=== PATIENT | female | born 1935 | race African-American/Black ===

== ENCOUNTER 2017-04-04 10:10 | Emergency (ER) | payer MEDICARE, BC, OTHER ==
--- NOTE | 2017-04-04 11:26 | RAD ---
Indication fall. Pain. AP view the pelvis was obtained. Additional AP and frog leg views of both hips were obtained. No acute bony abnormality is seen. Vascular calcification is noted. IMPRESSION: No acute bony finding
--- NOTE | 2017-04-04 11:28 | RAD ---
Indication fall. Pain. Single view of the chest was obtained and is compared to an examination August 15, 2014. The heart and pulmonary vessels appear normal. No acute infiltrate is seen. Slightly tortuous thoracic aorta is noted similar to the previous exam. There has not been a significant change in the appearance of the chest compared to the prior study. IMPRESSION: No acute or focal process in the chest. No significant change
--- NOTE | 2017-04-04 11:37 | RAD ---
Indication fall. Pain. The head and cervical spine were evaluated. The head is compared to a study 12/03/2010. Images of the cervical spine were reformatted in the coronal and sagittal planes. CT head: Findings. The calvarium appears unremarkable. Visualized paranasal sinuses appear essentially unremarkable. There is no subdural or epidural hematoma. There is underlying atrophy. There is increased lucency in the deep white matter compatible with microvascular disease. There is no mass or midline shift. No hemorrhage is seen. CT cervical spine: Findings. An acute finding at the lung apices is not seen. There are some emphysematous changes noted. There are nodules in the left lobe of the thyroid which are probably incidental but could be further evaluated with ultrasound if clinically warranted. A definite or significant finding in the soft tissues of the neck is not seen. Review of axial images shows no acute finding. There is degenerative changes. Facet degenerative changes and uncovertebral degenerative changes are seen at several weeks. Review of the reformatted images in the coronal and sagittal planes demonstrates similar findings. IMPRESSION: Chronic changes in the head. No acute finding seen. Spondylitic changes in the cervical spine. No acute finding is seen PQRS Compliance Statement: One or more of the following individualized dose reduction techniques were utilized for this examination: 1. Automated exposure control 2. Adjustment of the mA and/or kV according to patient size 3. Use of iterative reconstruction technique
--- NOTE | 2017-04-04 11:51 | PHYS DOC ---
Past Medical History Past Medical History: Anemia, Anxiety, Dementia, Hypertension Additional Past Medical Histor: NON VERBAL,DYSPHAGIA,CONTRACTURES UE'S AND LE' S PRESSURE ULCERS Past Surgical History: Other Additional Past Surgical Histo: unknown Alcohol Use: None Drug Use: None Adult General Chief Complaint Chief Complaint: MECHANICAL FALL HPI HPI 82-year-old female presenting to the emergency department today after being found on the floor. She was next to her bed. It is unknown when she fell. Nursing staff reports seeing her last night at her baseline. She does have a significant nonverbal baseline with contractures of all extremities. She has mild swelling and bruising of the left cheek. Otherwise no obvious injuries reported by EMS. Onset today. Location head. Duration intermittent. No alleviating or exacerbating factors present. Review of systems is negative for chest pain shortness of breath abdominal pain nausea vomiting. All other review of systems is negative unless otherwise noted in history of present illness. ED course: 82-year-old female presenting to the emergency department today with apparent head injury after being in the group home. Secondary survey shows mild bruising in the left cheek otherwise the patient does not have any other lacerations abrasions ecchymosis or bruising of the head or neck. No step-offs lacerations or abrasions of the back. Heart and lungs are normal. Abdomen soft and nontender in the extremities are atraumatic with a palpable pulse and 2 second cap refill. No other identifiable traumatic injuries on secondary survey. The patient was then discharged home to follow up with PCP. The patient was then discharged home in stable condition to follow up with their primary care physician over the next 2-3 days. They were to return if their symptoms worsened or if they were concerned for any reason. [id number] discharge instructions and return precautions were given. Patient's questions were answered to their satisfaction. Patient is comfortable plan. Review of Systems Review of Systems SEE ABOVE. Allergies Allergies Allergies Coded Allergies Type Severity Reaction Last Updated Verified No Known Drug Allergies 08/15/14 No Physical Exam Physical Exam SEE ABOVE General Appearance alert, cooperative, no distress, responsive Head Normocephalic, without obvious abnormality, atraumatic Eyes conjunctivae/corneas clear. PERRL, EOM's intact. Ears normal TM's and external ear canals AU Nose Nares normal. Septum midline. Mucosa normal. No drainage or sinus tenderness. Throat no blood or lacerations, normal alignment Neck supple, symmetrical, trachea midline, cervical collar in place Back/Spine symmetric, normal curvature. ROM normal, no abrasions, no tenderness to palpation, no step-offs Lungs clear to auscultation bilaterally Chest Wall normal ribcage without tenderness to palpation, crepitus or emphysema Heart [] rate and regular rhythm, S1, S2 normal, no murmur, click, rub or gallop Abdomen soft, non-tender. Bowel sounds normal. No masses, no organomegaly Pelvic stable Rectal Able to squeeze gluteus bianca Extremities extremities normal, atraumatic with normal range of motion Pulses 2+ and symmetric Skin Skin color, texture, turgor normal. No rashes or lesions Neurologic Grossly normal Eye opening: (4) spontaneous Best motor response: (6) obeys verbal command Best verbal response: (5) oriented and converses Total Star (E + M + V) = 15 Current Patient Data Vital Signs Vital Signs Date Time Temp Pulse Resp B/P (MAP) Pulse Ox O2 Delivery O2 Flow Rate FiO2 04/04/17 10:14 98.0 60 16 176/74 (108) 98 Room Air 98.0 EKG EKG [] Radiology/Procedures Radiology/Procedures [] Course & Med Decision Making Course & Med Decision Making Pertinent Labs and Imaging studies reviewed. (See chart for details) [] Dragon Disclaimer Dragon Disclaimer This electronic medical record was generated, in whole or in part, using a voice recognition dictation system. Departure Departure Impression: Primary Impression: Fall Additional Impression: Head injury Disposition: HOME, SELF-CARE Condition: STABLE Referrals: DEVIKA MAGUIRE (PCP) Patient Instructions: Fall Prevention and Home Safety, [id number] Additional Instructions: Thank you for allowing us to participate in your care today. If you have any new aches or pains that may develop over the next 2-3 days that we did not address in the emergency department, please come back to be evaluated. Followup with your primary care physician in 3 days if your symptoms do not improve. Call your Primary Doctor tomorrow and inform them of your visit today. If you do not have a primary care provider you can ask for a list of our primary care providers. Return to the emergency department you have any new or concerning findings. This should be evaluated by the primary care physician and any necessary consulting services for continued management within a few days after discharge. Return to emergency room if you have any new or concerning symptoms including but not limited to fever, chills, nausea, vomiting, intractable pain, any new rashes, chest pain, shortness of air, uncontrolled bleeding, difficulty breathing, and/or vision loss. Problem Qualifiers GENESIS CHAMPION MD Apr 04, 2017 11:51
[2017-04-04 12:54] VITALS: BP 100/53
== END 2017-04-04 12:55 | disposition home or self-care (01) ==
LOC: ER 10:10
DX: S00.83XA Contusion of other part of head, initial encounter (principal); F03.90 Unspecified dementia, unspecified severity, without behavioral disturbance, psychotic disturbance, mood disturbance, and anxiety; I10 Essential (primary) hypertension; F41.9 Anxiety disorder, unspecified; Z86.2 Personal history of diseases of the blood and blood-forming organs and certain disorders involving the immune mechanism; W19.XXXA Unspecified fall, initial encounter; Y93.89 Activity, other specified; Y99.8 Other external cause status; Y92.89 Other specified places as the place of occurrence of the external cause
CPT/HCPCS: 70450; 71010; 72125; 73521; 99284-25

== ENCOUNTER 2017-06-11 13:50 | Inpatient (IN) | payer MEDICARE, BC, OTHER ==
[~2017-06-11] VITALS: Ht 152.4 cm; Wt 37.2 kg
[~2017-06-11 13:50] MED LIST: ACET325T9 PO; ALBU2.5V5 NEB; ASCO500T2 PO; CHOL2000 PO; CHOL4POW2 PO; CYAN10005 PO; IPRA3AMP NEB; LOPE2CAP88 PO; MEMA10TA PO; MULT-671 PO; OLOP2.5D EACHEYE; RIVA3CAP4 PO
--- NOTE | 2017-06-11 14:47 | RAD ---
Chest AP view 06/11/2017 Clinical indication: Cough, pneumonia, unable to communicate. Comparison: Chest 05/24/2017 Findings: Cardiac and mediastinal silhouettes are within normal limits. There are reticular and nodular opacities scattered throughout the right mid and lower lung. No pleural effusion or pneumothorax. Impression: Reticular and nodular opacities throughout the right mid and lower lung. Findings may represent aspiration or pneumonia with atypical etiologies not excluded.
[2017-06-11 15:24] LABS: BASO % 1 % (0-3); EOS % 0 % (0-3); HEMATOCRIT 39.2 % (36.0-47.0); HEMOGLOBIN 12.6 g/dL (12.0-15.5); LYMPH # 1.4 x10^3/uL (1.0-4.8); LYMPH % 17 % (24-48); MEAN CORPUSCULAR HEMOGLOBIN 30 pg (25-35); MEAN CORPUSCULAR HGB CONC 32 g/dL (31-37); MEAN CORPUSCULAR VOLUME 94 fL (79-100); MONO % 6 % (0-9); NEUT % 77 % (31-73); PLATELET COUNT 373 x10^3/uL (140-400); RED BLOOD COUNT 4.17 x10^6/uL (3.50-5.40); RED CELL DISTRIBUTION WIDTH 15.6 % (11.5-14.5); WHITE BLOOD COUNT 8.6 x10^3/uL (4.0-11.0)
--- NOTE | 2017-06-11 15:34 | PHYS DOC ---
Past Medical History Past Medical History: Anemia, Anxiety, Dementia, Hypertension Additional Past Medical Histor: NON VERBAL,DYSPHAGIA,CONTRACTURES UE'S AND LE' S PRESSURE ULCERS Past Surgical History: Other Additional Past Surgical Histo: unknown Alcohol Use: None Drug Use: None Adult General Chief Complaint Chief Complaint: COUGH HPI HPI Patient is a 82 year old female who presents with in day history of fever uncertain of cough; history physical review of systems limited by patient being nonverbal with advanced dementia and bedridden history per granddaughter; is admission with a significant decubitus ulcer, infected, wound VAC and antibiotics for extended period time. Recently been placed on Bactrim. Today outpatient chest x-ray showed pneumonia and was started on by mouth Levaquin 1 dose. Her granddaughter had demanded the patient be sent to the emergency department. Patient is a full code. Review of Systems Review of Systems Constitutional: Denies fever or chills [] Eyes: Denies change in visual acuity, redness, or eye pain [] HENT: Denies nasal congestion or sore throat [] Respiratory: Denies cough or shortness of breath [] Cardiovascular: No additional information not addressed in HPI [] GI: Denies abdominal pain, nausea, vomiting, bloody stools or diarrhea [] : Denies dysuria or hematuria [] Musculoskeletal: Denies back pain or joint pain [] Integument: Denies rash or skin lesions [] Neurologic: Denies headache, focal weakness or sensory changes [] Endocrine: Denies polyuria or polydipsia [] All other systems were reviewed and found to be within normal limits, except as documented in this note. Current Medications Current Medications Current Medications Medications (Trade) Dose Ordered Sig/Felix Start Time Stop Time Status Last Admin Dose Admin Morphine Sulfate 2 mg PRN Q2HR PRN 06/11/17 16:30 06/12/17 16:29 Ondansetron HCl (Zofran) 4 mg PRN Q8HRS PRN 06/11/17 16:30 06/12/17 16:29 Piperacillin Sod/ Tazobactam Sod (Zosyn) 3.375 gm 1X ONCE 06/11/17 15:45 06/11/17 15:46 DC Piperacillin Sod/ Tazobactam Sod 3.375 gm/Dextrose 50 ml @ 100 mls/hr 1X ONCE 06/11/17 15:45 06/11/17 16:14 UNV Sodium Chloride 1,000 ml @ 1,000 mls/hr 1X ONCE 06/11/17 16:30 06/11/17 17:29 Vancomycin HCl 250 ml @ 250 mls/hr 1X ONCE 06/11/17 15:45 06/11/17 16:44 06/11/17 15:48 250 MLS/HR Vancomycin HCl 1.25 gm/Sodium Chloride 500 ml @ 250 mls/hr 1X ONCE 06/11/17 15:45 06/11/17 17:44 UNV Allergies Allergies Allergies Coded Allergies Type Severity Reaction Last Updated Verified No Known Drug Allergies 08/15/14 No Physical Exam Physical Exam Constitutional:, no acute distress, non-toxic appearance. [] HENT: Normocephalic, atraumatic, bilateral external ears normal, oropharynx moist, no oral exudates, nose normal. [] Eyes: PERRLA, EOMI, conjunctiva normal, no discharge. [] Neck: Normal range of motion, no tenderness, supple, no stridor. [] Cardiovascular:Heart rate regular rhythm, no murmur [] Lungs & Thorax: Bilateral breath sounds clear to auscultation [] Abdomen: Bowel sounds normal, soft, no tenderness, no masses, no pulsatile masses. [] Skin: Warm, dry, no erythema, no rash. [] Back: No tenderness, no CVA tenderness. [] Extremities: No tenderness, no cyanosis, no clubbing, ROM intact, no edema. [] Neurologic: Alert , contractures. Lower extremities. [] Psychologic: Affect normal, judgement normal, mood normal. [] Current Patient Data Vital Signs Vital Signs Date Time Temp Pulse Resp B/P (MAP) Pulse Ox O2 Delivery O2 Flow Rate FiO2 06/11/17 15:30 78 18 187/84 (118) 96 Room Air 06/11/17 13:50 98.1 98.1 Lab Values Laboratory Tests Test 06/11/17 15:00 White Blood Count 8.6 x10^3/uL (4.0-11.0) Red Blood Count 4.17 x10^6/uL (3.50-5.40) Hemoglobin 12.6 g/dL (12.0-15.5) Hematocrit 39.2 % (36.0-47.0) Mean Corpuscular Volume 94 fL (79-100) Mean Corpuscular Hemoglobin 30 pg (25-35) Mean Corpuscular Hemoglobin Concent 32 g/dL (31-37) Red Cell Distribution Width 15.6 % (11.5-14.5) H Platelet Count 373 x10^3/uL (140-400) Neutrophils (%) (Auto) 77 % (31-73) H Lymphocytes (%) (Auto) 17 % (24-48) L Monocytes (%) (Auto) 6 % (0-9) Eosinophils (%) (Auto) 0 % (0-3) Basophils (%) (Auto) 1 % (0-3) Neutrophils # (Auto) 6.7 x10^3uL (1.8-7.7) Lymphocytes # (Auto) 1.4 x10^3/uL (1.0-4.8) Monocytes # (Auto) 0.5 x10^3/uL (0.0-1.1) Eosinophils # (Auto) 0.0 x10^3/uL (0.0-0.7) Basophils # (Auto) 0.0 x10^3/uL (0.0-0.2) Sodium Level 157 mmol/L (136-145) H Potassium Level 3.4 mmol/L (3.5-5.1) L Chloride Level 115 mmol/L (98-107) H Carbon Dioxide Level 31 mmol/L (21-32) Anion Gap 11 (6-14) Blood Urea Nitrogen 27 mg/dL (7-20) H Creatinine 1.1 mg/dL (0.6-1.0) H Estimated GFR (Cockcroft-Gault) 57.8 BUN/Creatinine Ratio 25 (6-20) H Glucose Level 104 mg/dL (70-99) H Lactic Acid Level 1.9 mmol/L (0.4-2.0) Calcium Level 10.5 mg/dL (8.5-10.1) H Total Bilirubin 0.3 mg/dL (0.2-1.0) Aspartate Amino Transferase (AST) 37 U/L (15-37) Alanine Aminotransferase (ALT) 47 U/L (14-59) Alkaline Phosphatase 100 U/L (46-116) Troponin I Quantitative < 0.017 ng/mL (0.000-0.055) Total Protein 9.2 g/dL (6.4-8.2) H Albumin 2.6 g/dL (3.4-5.0) L Albumin/Globulin Ratio 0.4 (1.0-1.7) L Laboratory Tests 06/11/17 15:00 Laboratory Tests 06/11/17 15:00 EKG EKG [] Radiology/Procedures Radiology/Procedures Chest x-ray shows right middle lobe and lower lobe infiltrates my review per radiology report.[] Course & Med Decision Making Course & Med Decision Making Pertinent Labs and Imaging studies reviewed. (See chart for details) [White count normal, chest x-ray showed pneumonia, is hypernatremic we'll treat with broad-spectrum antibiotics and IV fluids. Discussed the case with Dr. Foster he agrees to readmit this patient who was recently in the hospital about 2 weeks ago.] Discussed with granddaughter patient is still a full code. Dragon Disclaimer Dragon Disclaimer This electronic medical record was generated, in whole or in part, using a voice recognition dictation system. Departure Departure Impression: Primary Impression: Healthcare-associated pneumonia Additional Impressions: Hypernatremia Dehydration Disposition: ADMITTED INPATIENT Admitting Physician: Biju Foster Condition: STABLE Referrals: DEVIKA MAGUIRE (PCP) Problem Qualifiers RAMÍREZ YIN MD Jun 11, 2017 15:34
[2017-06-11 15:35] LABS: CALCIUM 10.5 mg/dL (8.5-10.1); CREATININE 1.1 mg/dL (0.6-1.0); GFR 57.8; POTASSIUM 3.4 mmol/L (3.5-5.1)
[2017-06-11 15:41] LABS: ALBUMIN 2.6 g/dL (3.4-5.0); ALBUMIN/GLOBULIN RATIO 0.4 (1.0-1.7); TOTAL BILIRUBIN 0.3 mg/dL (0.2-1.0); TOTAL PROTEIN 9.2 g/dL (6.4-8.2)
[2017-06-11] MEDS ORDERED: PIPERACILLIN/TAZOBACTAM 3.375 GM in IV DEXTROSE 5% 50 ML IV ONE (15:45)
[2017-06-11] MEDS ORDERED: VANCOMYCIN 1.25 GM in IV NORMAL SALINE 500ML BAG 500 ML IV ONE (15:45)
[2017-06-11] MEDS ORDERED: PIPERACILLIN/TAZO IV Push 3.375 GM VIAL. IVP ONE (15:45)
[2017-06-11] MEDS ORDERED: VANCOMYCIN 1GM IVPB FOR OMNI 250 ML IV ONE (15:45)
--- NOTE | 2017-06-11 16:19 | EKG ---
[facility] [address] [place] [address] Test Date: 2017-06-11 Test Time: 14:03:44 Pat Name: LAURI COLBERT Department: Room: Gender: F Child Support Case Officer: : 1935 Requested By: RAMÍREZ YIN Order Number: [id number] Reading MD: Liam Anderson MD Measurements Intervals [place] Rate: 71 P: RI: QRS: -15 QRSD: 80 T: 39 QT: 376 QTc: 409 Interpretive Statements SR Electronically Signed On 06-12-2017 8:30:54 LOAD TALLIER by Liam Anderson MD
[2017-06-11] MEDS ORDERED: ONDANSETRON PF 4 MG/2 ML VIAL. IV PRN (16:30)
[2017-06-11] MEDS ORDERED: MORPHINE SULFATE 4 MG/ML DISP.SYRIN. IV PRN (16:30)
[2017-06-11] MEDS ORDERED: IV NORMAL SALINE 1000ML BAG 1,000 ML IV ONE (16:30)
[2017-06-11 18:37] VITALS: BP 187/81
[2017-06-11 18:39] VITALS: BP 187/81
[2017-06-11] MEDS ORDERED: LACT1CAP6 PO (19:27)
[2017-06-11] MEDS ORDERED: INFLUENZA VAX SCREEN BY RX. MC PRN (22:15)
[2017-06-11 23:05] VITALS: BP 192/90
[2017-06-12] VITALS (7 sets, daily range): BP systolic 155–184; BP diastolic 66–87
[2017-06-12 05:17] LABS: BASO % 0 % (0-3); EOS % 1 % (0-3); HEMATOCRIT 37.5 % (36.0-47.0); HEMOGLOBIN 12.3 g/dL (12.0-15.5); LYMPH # 1.6 x10^3/uL (1.0-4.8); LYMPH % 18 % (24-48); MEAN CORPUSCULAR HEMOGLOBIN 30 pg (25-35); MEAN CORPUSCULAR HGB CONC 33 g/dL (31-37); MEAN CORPUSCULAR VOLUME 93 fL (79-100); MONO % 7 % (0-9); NEUT % 75 % (31-73); PLATELET COUNT 387 x10^3/uL (140-400); RED BLOOD COUNT 4.05 x10^6/uL (3.50-5.40); RED CELL DISTRIBUTION WIDTH 15.1 % (11.5-14.5); WHITE BLOOD COUNT 9.2 x10^3/uL (4.0-11.0)
[2017-06-12 05:31] LABS: CALCIUM 10.2 mg/dL (8.5-10.1); GFR 64.6; POTASSIUM 3.3 mmol/L (3.5-5.1)
--- NOTE | 2017-06-12 08:36 | PDOC ---
GENERAL General: see dictated H&P. admitted for pneumonia and has ongoing sacral decubitus care ongoing at care home. Problems: VITAL SIGNS Vital Signs: Vital Signs Date Time Temp Pulse Resp B/P (MAP) Pulse Ox O2 Delivery O2 Flow Rate FiO2 06/12/17 07:36 97.7 69 16 163/66 (98) 95 Room Air 97.7 I & O I & O Intake and Output 06/12/17 07:00 Intake Total 340 ml Balance 340 ml Intake Oral 340 ml # Voids 4 # Bowel Movements 1 ALLERGIES Allergies: Allergies Coded Allergies Type Severity Reaction Last Updated Verified No Known Drug Allergies 08/15/14 No MEDS Medications: Current Medications Medications (Trade) Dose Ordered Sig/Felix Start Time Stop Time Status Last Admin Dose Admin Info (Do NOT chart on this placeholder) 0.5 each PRN DAILY PRN 06/11/17 22:15 Morphine Sulfate 2 mg PRN Q2HR PRN 06/11/17 16:30 06/12/17 16:29 Ondansetron HCl (Zofran) 4 mg PRN Q8HRS PRN 06/11/17 16:30 06/12/17 16:29 Piperacillin Sod/ Tazobactam Sod (Zosyn) 3.375 gm 1X ONCE 06/11/17 15:45 06/11/17 15:46 DC 06/11/17 17:10 3.375 GM Piperacillin Sod/ Tazobactam Sod 3.375 gm/Dextrose 50 ml @ 100 mls/hr 1X ONCE 06/11/17 15:45 06/11/17 16:14 UNV Sodium Chloride 1,000 ml @ 1,000 mls/hr 1X ONCE 06/11/17 16:30 06/11/17 17:29 DC 06/11/17 16:30 1,000 MLS/HR Vancomycin HCl 250 ml @ 250 mls/hr 1X ONCE 06/11/17 15:45 06/11/17 16:44 DC 06/11/17 15:48 250 MLS/HR Vancomycin HCl 1.25 gm/Sodium Chloride 500 ml @ 250 mls/hr 1X ONCE 06/11/17 15:45 06/11/17 17:44 UNV LAB Lab: Laboratory Tests Test 06/11/17 15:00 06/12/17 03:30 White Blood Count 8.6 x10^3/uL (4.0-11.0) 9.2 x10^3/uL (4.0-11.0) Red Blood Count 4.17 x10^6/uL (3.50-5.40) 4.05 x10^6/uL (3.50-5.40) Hemoglobin 12.6 g/dL (12.0-15.5) 12.3 g/dL (12.0-15.5) Hematocrit 39.2 % (36.0-47.0) 37.5 % (36.0-47.0) Mean Corpuscular Volume 94 fL (79-100) 93 fL (79-100) Mean Corpuscular Hemoglobin 30 pg (25-35) 30 pg (25-35) Mean Corpuscular Hemoglobin Concent 32 g/dL (31-37) 33 g/dL (31-37) Red Cell Distribution Width 15.6 % (11.5-14.5) 15.1 % (11.5-14.5) Platelet Count 373 x10^3/uL (140-400) 387 x10^3/uL (140-400) Neutrophils (%) (Auto) 77 % (31-73) 75 % (31-73) Lymphocytes (%) (Auto) 17 % (24-48) 18 % (24-48) Monocytes (%) (Auto) 6 % (0-9) 7 % (0-9) Eosinophils (%) (Auto) 0 % (0-3) 1 % (0-3) Basophils (%) (Auto) 1 % (0-3) 0 % (0-3) Neutrophils # (Auto) 6.7 x10^3uL (1.8-7.7) 6.9 x10^3uL (1.8-7.7) Lymphocytes # (Auto) 1.4 x10^3/uL (1.0-4.8) 1.6 x10^3/uL (1.0-4.8) Monocytes # (Auto) 0.5 x10^3/uL (0.0-1.1) 0.6 x10^3/uL (0.0-1.1) Eosinophils # (Auto) 0.0 x10^3/uL (0.0-0.7) 0.1 x10^3/uL (0.0-0.7) Basophils # (Auto) 0.0 x10^3/uL (0.0-0.2) 0.0 x10^3/uL (0.0-0.2) Sodium Level 157 mmol/L (136-145) 155 mmol/L (136-145) Potassium Level 3.4 mmol/L (3.5-5.1) 3.3 mmol/L (3.5-5.1) Chloride Level 115 mmol/L (98-107) 116 mmol/L (98-107) Carbon Dioxide Level 31 mmol/L (21-32) 32 mmol/L (21-32) Anion Gap 11 (6-14) 7 (6-14) Blood Urea Nitrogen 27 mg/dL (7-20) 25 mg/dL (7-20) Creatinine 1.1 mg/dL (0.6-1.0) 1.0 mg/dL (0.6-1.0) Estimated GFR (Cockcroft-Gault) 57.8 64.6 BUN/Creatinine Ratio 25 (6-20) Glucose Level 104 mg/dL (70-99) 118 mg/dL (70-99) Lactic Acid Level 1.9 mmol/L (0.4-2.0) Calcium Level 10.5 mg/dL (8.5-10.1) 10.2 mg/dL (8.5-10.1) Total Bilirubin 0.3 mg/dL (0.2-1.0) Aspartate Amino Transf (AST/SGOT) 37 U/L (15-37) Alanine Aminotransferase (ALT/SGPT) 47 U/L (14-59) Alkaline Phosphatase 100 U/L (46-116) Troponin I Quantitative < 0.017 ng/mL (0.000-0.055) Total Protein 9.2 g/dL (6.4-8.2) Albumin 2.6 g/dL (3.4-5.0) Albumin/Globulin Ratio 0.4 (1.0-1.7) OMAR WAKEFIELD MD Jun 12, 2017 08:36
[2017-06-12] MEDS: VANCOMYCIN PER PHARMACY MC PRN (09:07)
--- NOTE | 2017-06-12 10:08 | CONS ---
DATE OF CONSULTATION: 06/11/2017 ATTENDING PHYSICIAN: Dr. Foster. REASON FOR CONSULTATION: Pneumonia. HISTORY OF PRESENT ILLNESS: The patient is an 82-year-old female who lives at the group home. She was brought into the hospital with fever and then a cough. The patient is nonverbal and has advanced dementia and has been bedridden per granddaughter and as reviewed from the history from the ER. I am unable to obtain much history from the patient. I have reviewed all the chart information, lab values and x-rays. She also has been treated for significant decubitus ulcers, wound VAC and antibiotics for an extended period of time. On arrival, the patient's chest x-ray was reviewed by me and it shows progression of interstitial possible reticular nodular infiltrates in the right lung. There have been mild interstitial infiltrates on her previous x-rays from March and April. The patient has been initiated on broad-spectrum antibiotic with vancomycin and Zosyn. Apparently, she is on a dysphagia diet at group home. PAST MEDICAL HISTORY: Significant for anemia, anxiety, advanced dementia, hypertension, nonverbal, history of dysphagia, contractures and lower extremity pressure ulcers. PAST SURGICAL HISTORY: Unknown. ALLERGIES: NONE. CURRENT MEDICATIONS: Reviewed as listed in the [facility]AD. SOCIAL HISTORY: Lives at the group home. PHYSICAL EXAMINATION: GENERAL: She is in no obvious respiratory distress, but is nonverbal. VITAL SIGNS: Blood pressure initially was high 192 systolic, now 163, afebrile but had some subjective fever at group home. Pulse ox 95% on room air. NECK: Supple. LUNGS: With a few anterior rhonchi, especially on the right side. CARDIOVASCULAR: Regular rate and rhythm. ABDOMEN: Soft. EXTREMITIES: Contracted. No pitting edema. LABORATORY DATA: Reviewed. White cell count 9.2, hemoglobin 12.3 and platelets are 387. BUN is 25 and creatinine of 1.0, albumin 2.6. IMPRESSION: 1. Progressive reticular nodular/interstitial infiltrates, especially on the right side since past x-rays from March and April and I suspect we may be dealing with chronic aspiration. Clinically, less likely any interstitial lung disease, but we will obtain CT chest for further evaluation. 2. Advanced dementia. 3. Moderate protein calorie malnutrition. 4. Dehydration. 5. Hypernatremia secondary to dehydration. 6. Suspected gram-negative and gram-positive healthcare-associated pneumonia. RECOMMENDATIONS: 1. Continue with present broad-spectrum antibiotics. 2. Obtain noncontrast CT chest. 3. Speech evaluation to assess the safety of oral feeding. 4. We will follow chest x-rays in 3-4 days. 5. Would recommend discussion of advanced directives with the family. Currently, she is reported as full code. 6. Discussed with RN. SANGEETA HAM MD DR: MIGUEL ANGEL/brandi JOB#: [id number] / [id number] JONNIE
[2017-06-12] MEDS ORDERED: PIPERACILLIN/TAZOBACTAM 3.375 GM in IV DEXTROSE 5% 50 ML IV SCH (12:00)
--- NOTE | 2017-06-12 12:41 | RAD ---
CT chest without contrast 06/12/2017 Clinical indication: Pneumonia. Comparison: Chest 06/11/2017 Technique: Multiple noncontrast CT images of the chest were obtained without contrast according to standard protocol. PQRS Compliance Statement: One or more of the following individualized dose reduction techniques were utilized for this examination: 1. Automated exposure control 2. Adjustment of the mA and/or kV according to patient size 3. Use of iterative reconstruction technique Findings: Heart size is normal without significant pericardial effusion. There are three-vessel coronary artery calcifications. There are multiple hypodense left thyroid nodules. 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 No axillary lymphadenopathy. There is a mildly enlarged lower right paratracheal lymph node measuring 10 mm short axis series 3/image 20. No obvious hilar lymphadenopathy, though evaluation is limited absence of intravenous contrast. There are retained secretions in the right mainstem and subsegmental bronchi including mucus impaction of subsegmental bronchi in the right lower lobe. No pleural effusion or pneumothorax. There is moderate centrilobular emphysema. There are tree-in-bud opacities throughout the right upper right lower and left lower lobes dependently. There is mild patchy subpleural consolidation in the deep inner right lower lobe. There are no destructive osseous lesions. Impression: 1. Bilateral tree-in-bud opacities dependently in the lungs with mild right lower lobe patchy consolidation. Findings concerning for aspiration or multifocal pneumonia. 2. Mildly enlarged mediastinal lymph node, may be reactive. 3. Moderate emphysema. 4. Left lobe thyroid hypodense nodules. Nonemergent thyroid ultrasound is recommended, if not already performed.
[2017-06-12] MEDS: IV NORMAL SALINE 1000ML BAG 1,000 ML IV SCH ×3 (12:43→23:27)
[2017-06-12] MEDS: PIPERACILLIN/TAZO IV Push 3.375 GM VIAL. IVP SCH ×3 (12:44→23:28)
[2017-06-12] MEDS: VANCOMYCIN 1 GM in IV DEXTROSE 5% 250 ML IV SCH (15:59)
--- NOTE | 2017-06-12 18:53 | HP ---
ADMIT DATE: 06/12/2017 CHIEF COMPLAINT AND HISTORY OF PRESENT ILLNESS: This 82-year-old black female, patient of [facility], had worsening symptoms with the diagnosis of pneumonia made on a chest x-ray. She was sent to the Emergency Room where she was admitted for the pneumonia. She had been recently admitted and discharged with infected sacral decubitus wound, for which she had been debrided and had been on IV antibiotics during that stay. PAST MEDICAL HISTORY: Remarkable for CVA. She has been nonverbal. She has upper and lower extremity flexion contractures, history of dysphagia, history of pressure ulcers, anxiety, anemia, hypertension, dementia. MEDICATIONS: Brought with the patient, listed on the computer and have been addressed. ALLERGIES: She has no known drug allergies. SOCIAL HISTORY: She is a retirement resident, nonsmoker, nondrinker, does not use drugs. FAMILY HISTORY: Noncontributory. REVIEW OF SYSTEMS: Impossible other than what comes from the granddaughter, which includes worsening cough over the last 3 days. PHYSICAL EXAMINATION: GENERAL: She is a well-developed, well-nourished, thin female, in no acute distress. VITAL SIGNS: Stable. She is afebrile. HEAD, EYES, EARS, NOSE AND THROAT: Unremarkable. NECK: Supple without adenopathy or thyromegaly. CHEST: Clear to auscultation and percussion. HEART: Regular rate and rhythm without S3, S4 or murmur. ABDOMEN: Soft, nontender, without hepatosplenomegaly or mass. EXTREMITIES: Without cyanosis, clubbing. Significant edema. NEUROLOGIC: alert, nonverbal. She does have flexion contractures, otherwise no focal findings. SKIN: She does have decubitus, which was dressed with a wound VAC at the time of my examination. IMPRESSION: Hospital-acquired pneumonia. The patient with multiple other problems listed above. She is also quite hypernatremic with sodium of 157 on admission suggesting dehydration. PLAN: The patient has been admitted. Hydration and IV antibiotics will ensue. Pulmonary will be asked to see her. Wound Care will be asked to follow along with the decubitus and the patient will be monitored, managed and treated appropriately. OMAR WAKEFIELD MD DR: STEPAN/brandi JOB#: [id number] / [id number]
[2017-06-13 03:33] VITALS: BP 181/81
[2017-06-13] MEDS: PIPERACILLIN/TAZO IV Push 3.375 GM VIAL. IVP SCH ×3 (05:52→18:30)
[2017-06-13 06:54] VITALS: BP 180/87
[2017-06-13 06:55] LABS: CALCIUM 9.3 mg/dL (8.5-10.1); CREATININE 0.8 mg/dL (0.6-1.0); GFR 83.5
--- NOTE | 2017-06-13 09:01 | PDOC ---
GENERAL General: vss and afebrile. mental status same. chest better breath sounds today, heart regular, and abdomen benign. ct chest cw pneumonia. antibiotics ongoing. pulmonary help appreciated. continue present. Problems: VITAL SIGNS Vital Signs: Vital Signs Date Time Temp Pulse Resp B/P (MAP) Pulse Ox O2 Delivery O2 Flow Rate FiO2 06/13/17 06:54 97.6 63 16 180/87 (118) 94 Room Air 97.6 I & O I & O Intake and Output 06/13/17 07:00 Intake Total 1050 ml Balance 1050 ml Intake Oral 0 ml IV Total 1050 ml # Voids 5 ALLERGIES Allergies: Allergies Coded Allergies Type Severity Reaction Last Updated Verified No Known Drug Allergies 08/15/14 No MEDS Medications: Current Medications Medications (Trade) Dose Ordered Sig/Felix Start Time Stop Time Status Last Admin Dose Admin Info (Do NOT chart on this placeholder) 0.5 each PRN DAILY PRN 06/11/17 22:15 Morphine Sulfate 2 mg PRN Q2HR PRN 06/11/17 16:30 06/12/17 16:29 DC Ondansetron HCl (Zofran) 4 mg PRN Q8HRS PRN 06/11/17 16:30 06/12/17 16:29 DC Piperacillin Sod/ Tazobactam Sod (Zosyn) 3.375 gm Q6HRS 06/12/17 09:00 06/13/17 05:52 3.375 GM Piperacillin Sod/ Tazobactam Sod 3.375 gm/Dextrose 50 ml @ 100 mls/hr Q6HRS 06/12/17 12:00 UNV Sodium Chloride 1,000 ml @ 100 mls/hr Q10H 06/12/17 08:45 06/12/17 23:27 100 MLS/HR Vancomycin HCl 1 each 1X ONCE 06/13/17 14:30 06/13/17 14:31 Vancomycin HCl (Vanco Per Pharmacy) 1 each PRN DAILY PRN 06/12/17 08:45 06/12/17 09:07 1 EACH Vancomycin HCl 1.25 gm/Sodium Chloride 500 ml @ 250 mls/hr 1X ONCE 06/11/17 15:45 06/11/17 17:44 UNV Vancomycin HCl 1 gm/Dextrose 250 ml @ 250 mls/hr Q24H 06/12/17 15:00 06/12/17 15:59 250 MLS/HR LAB Lab: Laboratory Tests Test 06/13/17 05:25 Sodium Level 151 mmol/L (136-145) Potassium Level 3.0 mmol/L (3.5-5.1) Chloride Level 115 mmol/L (98-107) Carbon Dioxide Level 26 mmol/L (21-32) Anion Gap 10 (6-14) Blood Urea Nitrogen 20 mg/dL (7-20) Creatinine 0.8 mg/dL (0.6-1.0) Estimated GFR (Cockcroft-Gault) 83.5 Glucose Level 93 mg/dL (70-99) Calcium Level 9.3 mg/dL (8.5-10.1) OMAR WAKEFIELD MD Jun 13, 2017 09:01
--- NOTE | 2017-06-13 09:43 | PDOC ---
PULMONARY PROGRESS NOTES Subjective non verbal no soa Vitals Vital Signs Date Time Temp Pulse Resp B/P (MAP) Pulse Ox O2 Delivery O2 Flow Rate FiO2 06/13/17 06:54 97.6 63 16 180/87 (118) 94 Room Air 97.6 General: No acute distress Lungs: Clear Cardiovascular: S1 Abdomen: Soft Extremities: No Edema Skin: Warm Labs Laboratory Tests Test 06/11/17 15:00 06/11/17 23:47 06/12/17 03:30 06/13/17 05:25 White Blood Count 8.6 x10^3/uL (4.0-11.0) 9.2 x10^3/uL (4.0-11.0) Red Blood Count 4.17 x10^6/uL (3.50-5.40) 4.05 x10^6/uL (3.50-5.40) Hemoglobin 12.6 g/dL (12.0-15.5) 12.3 g/dL (12.0-15.5) Hematocrit 39.2 % (36.0-47.0) 37.5 % (36.0-47.0) Mean Corpuscular Volume 94 fL (79-100) 93 fL (79-100) Mean Corpuscular Hemoglobin 30 pg (25-35) 30 pg (25-35) Mean Corpuscular Hemoglobin Concent 32 g/dL (31-37) 33 g/dL (31-37) Red Cell Distribution Width 15.6 % (11.5-14.5) 15.1 % (11.5-14.5) Platelet Count 373 x10^3/uL (140-400) 387 x10^3/uL (140-400) Neutrophils (%) (Auto) 77 % (31-73) 75 % (31-73) Lymphocytes (%) (Auto) 17 % (24-48) 18 % (24-48) Monocytes (%) (Auto) 6 % (0-9) 7 % (0-9) Eosinophils (%) (Auto) 0 % (0-3) 1 % (0-3) Basophils (%) (Auto) 1 % (0-3) 0 % (0-3) Neutrophils # (Auto) 6.7 x10^3uL (1.8-7.7) 6.9 x10^3uL (1.8-7.7) Lymphocytes # (Auto) 1.4 x10^3/uL (1.0-4.8) 1.6 x10^3/uL (1.0-4.8) Monocytes # (Auto) 0.5 x10^3/uL (0.0-1.1) 0.6 x10^3/uL (0.0-1.1) Eosinophils # (Auto) 0.0 x10^3/uL (0.0-0.7) 0.1 x10^3/uL (0.0-0.7) Basophils # (Auto) 0.0 x10^3/uL (0.0-0.2) 0.0 x10^3/uL (0.0-0.2) Sodium Level 157 mmol/L (136-145) 155 mmol/L (136-145) 151 mmol/L (136-145) Potassium Level 3.4 mmol/L (3.5-5.1) 3.3 mmol/L (3.5-5.1) 3.0 mmol/L (3.5-5.1) Chloride Level 115 mmol/L (98-107) 116 mmol/L (98-107) 115 mmol/L (98-107) Carbon Dioxide Level 31 mmol/L (21-32) 32 mmol/L (21-32) 26 mmol/L (21-32) Anion Gap 11 (6-14) 7 (6-14) 10 (6-14) Blood Urea Nitrogen 27 mg/dL (7-20) 25 mg/dL (7-20) 20 mg/dL (7-20) Creatinine 1.1 mg/dL (0.6-1.0) 1.0 mg/dL (0.6-1.0) 0.8 mg/dL (0.6-1.0) Estimated GFR (Cockcroft-Gault) 57.8 64.6 83.5 BUN/Creatinine Ratio 25 (6-20) Glucose Level 104 mg/dL (70-99) 118 mg/dL (70-99) 93 mg/dL (70-99) Lactic Acid Level 1.9 mmol/L (0.4-2.0) Calcium Level 10.5 mg/dL (8.5-10.1) 10.2 mg/dL (8.5-10.1) 9.3 mg/dL (8.5-10.1) Total Bilirubin 0.3 mg/dL (0.2-1.0) Aspartate Amino Transf (AST/SGOT) 37 U/L (15-37) Alanine Aminotransferase (ALT/SGPT) 47 U/L (14-59) Alkaline Phosphatase 100 U/L (46-116) Troponin I Quantitative < 0.017 ng/mL (0.000-0.055) Total Protein 9.2 g/dL (6.4-8.2) Albumin 2.6 g/dL (3.4-5.0) Albumin/Globulin Ratio 0.4 (1.0-1.7) Nasal Screen MRSA (PCR) Negative (Negative) Laboratory Tests Test 06/13/17 05:25 Sodium Level 151 mmol/L (136-145) Potassium Level 3.0 mmol/L (3.5-5.1) Chloride Level 115 mmol/L (98-107) Carbon Dioxide Level 26 mmol/L (21-32) Anion Gap 10 (6-14) Blood Urea Nitrogen 20 mg/dL (7-20) Creatinine 0.8 mg/dL (0.6-1.0) Estimated GFR (Cockcroft-Gault) 83.5 Glucose Level 93 mg/dL (70-99) Calcium Level 9.3 mg/dL (8.5-10.1) Medications Active Scripts Medications Dose Route/Sig Max Daily Dose Days Date Category Probiotic (Lactobacillus Acidophilus) 1 Each Capsule 1 Each PO BID92 06/11/17 Reported Vitamin D (Cholecalciferol (Vitamin D3)) 2,000 Unit Capsule 1 Cap PO DAILY 05/14/17 Reported Vitamin C (Ascorbic Acid) 500 Mg Tablet 500 Mg PO DAILY 05/14/17 Reported Tylenol (Acetaminophen) 325 Mg Tablet 325 Mg PO PRN Q4HRS PRN 05/14/17 Reported Pataday (Olopatadine Hcl) 2.5 Ml Drops 1 Drop EACHEYE DAILY 05/14/17 Reported Namenda (Memantine Hcl) 10 Mg Tablet 1 Tab PO BID 05/14/17 Reported Nipnl-Jtqhooj-Kkvkfxuy Tablet (Multivit-Min/Iron Fum/Folic AC) 1 Each Tablet 1 Each PO DAILY 10/17/17 Reported Imodium A-D (Loperamide HCl) 2 Mg Capsule 2 Mg PO PRN Q4HRS PRN 05/14/17 Reported Rivastigmine (Rivastigmine Tartrate) 3 Mg Capsule 3 Mg PO BID 05/14/17 Reported Duoneb 0.5-3(2.5) Mg/3 Ml (Albuterol/Ipratropium) 3 Ml Ampul.neb 3 Ml NEB PRN Q6HRS PRN 05/14/17 Reported Vitamin B-12 (Cyanocobalamin (Vitamin B-12)) 1,000 Mcg Tablet 500 Mcg PO DAILY 05/14/17 Reported Cholestyramine Packet (Cholestyramine (With Sugar)) 4 Gm Powd.pack 4 Gm PO DAILY 05/14/17 Reported Albuterol Sulfate Neb Soln (Albuterol Sulfate) 2.5 Mg/3 Ml Vial.neb 1 Vial NEB PRN QID PRN 05/14/17 Reported Impression . 1. Progressive reticular nodular/interstitial infiltrates, especially on the right side since past x-rays from March and April and I suspect we may be dealing with chronic aspiration. Clinically, less likely any interstitial lung disease, 2. Advanced dementia. 3. Moderate protein calorie malnutrition. 4. Dehydration. 5. Hypernatremia secondary to dehydration. 6. Suspected gram-negative and gram-positive healthcare-associated pneumonia. Plan . 1. Continue with present broad-spectrum antibiotics. 2. CT chest reviewed. extensive reticulo nodular infiltrates RLL, c/w aspiration 3. Speech evaluation c/w aspiration.NPO.consider PPP 4. We will follow chest x-rays in 3-4 days. 5. Would recommend discussion of advanced directives with the family. Currently, she is reported as full code. 6. Discussed with TAD. SANGEETA HAM MD Jun 13, 2017 09:43
[2017-06-13 10:33] VITALS: BP 178/79
[2017-06-13] MEDS ORDERED: FLU VACC QS2017-18 (36MOS+)/PF 0.5 ML SYRINGE. VAX IM ONE (11:00)
[2017-06-13] MEDS: AMINO AC 3%/ELECTROLYTE/GLYCER 1,000 ML IV SCH (12:25)
[2017-06-13 14:49] VITALS: BP 170/75
[2017-06-13] MEDS: VANCOMYCIN PER PHARMACY MC PRN (15:28)
[2017-06-13] MEDS: VANCOMYCIN 1 GM in IV DEXTROSE 5% 250 ML IV SCH (16:16)
[2017-06-13 19:55] VITALS: BP 167/76
[2017-06-13 23:00] VITALS: BP 169/88
[2017-06-14] MEDS: AMINO AC 3%/ELECTROLYTE/GLYCER 1,000 ML IV SCH ×2 (00:48→12:57)
[2017-06-14] MEDS: PIPERACILLIN/TAZO IV Push 3.375 GM VIAL. IVP SCH ×4 (00:48→17:56)
[2017-06-14 03:07] VITALS: BP 181/94
[2017-06-14 06:55] VITALS: BP 107/58
--- NOTE | 2017-06-14 08:57 | PDOC ---
GENERAL General: vss and afebrile. awakens and nonverbal. chest same, heart regular, and abdomen benign. ongoing wound care and treatment of pneumonia. help pulmonary appreciated. continue same. Problems: VITAL SIGNS Vital Signs: Vital Signs Date Time Temp Pulse Resp B/P (MAP) Pulse Ox O2 Delivery O2 Flow Rate FiO2 06/14/17 06:55 98.5 66 16 107/58 (74) 96 Room Air 98.5 I & O I & O Intake and Output 06/14/17 07:00 Intake Total 0 ml Balance 0 ml Intake Oral 0 ml # Voids 6 ALLERGIES Allergies: Allergies Coded Allergies Type Severity Reaction Last Updated Verified No Known Drug Allergies 08/15/14 No MEDS Medications: Current Medications Medications (Trade) Dose Ordered Sig/Felix Start Time Stop Time Status Last Admin Dose Admin Amino Acids/ Glycerin/ Electrolytes 1,000 ml @ 80 mls/hr [id number] 06/13/17 10:15 06/14/17 00:48 80 MLS/HR Influenza Virus Vaccine Quadrival (Fluarix Quad 5380-2993 Syringe) 0.5 ml ONCE ONCE 06/13/17 11:00 06/13/17 11:01 DC 06/13/17 16:17 0.5 ML Info (Do NOT chart on this placeholder) 0.5 each PRN DAILY PRN 06/11/17 22:15 Morphine Sulfate 2 mg PRN Q2HR PRN 06/11/17 16:30 06/12/17 16:29 DC Ondansetron HCl (Zofran) 4 mg PRN Q8HRS PRN 06/11/17 16:30 06/12/17 16:29 DC Piperacillin Sod/ Tazobactam Sod (Zosyn) 3.375 gm Q6HRS 06/12/17 09:00 06/14/17 05:30 3.375 GM Piperacillin Sod/ Tazobactam Sod 3.375 gm/Dextrose 50 ml @ 100 mls/hr Q6HRS 06/12/17 12:00 UNV Sodium Chloride 1,000 ml @ 100 mls/hr Q10H 06/12/17 08:45 06/13/17 10:13 DC 06/12/17 23:27 100 MLS/HR Vancomycin HCl 1 each 1X ONCE 06/13/17 14:30 06/13/17 14:31 DC Vancomycin HCl (Vanco Per Pharmacy) 1 each PRN DAILY PRN 06/12/17 08:45 06/13/17 15:28 1 EACH Vancomycin HCl 1.25 gm/Sodium Chloride 500 ml @ 250 mls/hr 1X ONCE 06/11/17 15:45 06/11/17 17:44 UNV Vancomycin HCl 1 gm/Dextrose 250 ml @ 250 mls/hr Q24H 06/12/17 15:00 06/13/17 16:16 250 MLS/HR LAB Lab: Laboratory Tests Test 06/13/17 14:45 Vancomycin Level Trough 13.2 mcg/mL (10.0-20.0) Vancomycin Last Dose Date 06/12/17 Vancomycin Last Dose Time 1500 Nutrition Consultation Dietary Evaluation: Recommendations by RD: PPN/TPN Comments: continue ppn for short term nutrition TF for nutriton needs to be met REC mvi, vit c per protocol for wound healing Expected Outcomes/Goals: comfort care vs TF Interpretation of weight loss: >1-2% in 1 week Malnutrition Findings: Body Fat Depletion (Non Severe: Mild Depletion Weight Status: Underweight OMAR WAKEFIELD MD Jun 14, 2017 08:57
[2017-06-14 10:42] VITALS: BP 159/66
[2017-06-14] MEDS ORDERED: POTASSIUM CHLORIDE 40 MEQ in IV DEXTROSE 5% 500 ML IV ONE (12:30)
[2017-06-14 14:24] VITALS: BP 141/78
[2017-06-14] MEDS: VANCOMYCIN PER PHARMACY MC PRN (14:30)
[2017-06-14 19:05] VITALS: BP 185/95
--- NOTE | 2017-06-14 21:18 | PDOC ---
PULMONARY PROGRESS NOTES Subjective non verbal no soa Vitals Vital Signs Date Time Temp Pulse Resp B/P (MAP) Pulse Ox O2 Delivery O2 Flow Rate FiO2 06/14/17 20:00 Room Air 06/14/17 19:05 98.0 84 16 185/95 (125) 90 98.0 General: No acute distress Lungs: Clear Cardiovascular: S1 Abdomen: Soft Extremities: No Edema Skin: Warm Labs Laboratory Tests Test 06/13/17 05:25 06/13/17 14:45 Sodium Level 151 mmol/L (136-145) Potassium Level 3.0 mmol/L (3.5-5.1) Chloride Level 115 mmol/L (98-107) Carbon Dioxide Level 26 mmol/L (21-32) Anion Gap 10 (6-14) Blood Urea Nitrogen 20 mg/dL (7-20) Creatinine 0.8 mg/dL (0.6-1.0) Estimated GFR (Cockcroft-Gault) 83.5 Glucose Level 93 mg/dL (70-99) Calcium Level 9.3 mg/dL (8.5-10.1) Vancomycin Level Trough 13.2 mcg/mL (10.0-20.0) Vancomycin Last Dose Date 06/12/17 Vancomycin Last Dose Time 1500 Medications Active Scripts Medications Dose Route/Sig Max Daily Dose Days Date Category Probiotic (Lactobacillus Acidophilus) 1 Each Capsule 1 Each PO BID92 06/11/17 Reported Vitamin D (Cholecalciferol (Vitamin D3)) 2,000 Unit Capsule 1 Cap PO DAILY 05/14/17 Reported Vitamin C (Ascorbic Acid) 500 Mg Tablet 500 Mg PO DAILY 05/14/17 Reported Tylenol (Acetaminophen) 325 Mg Tablet 325 Mg PO PRN Q4HRS PRN 05/14/17 Reported Pataday (Olopatadine Hcl) 2.5 Ml Drops 1 Drop EACHEYE DAILY 05/14/17 Reported Namenda (Memantine Hcl) 10 Mg Tablet 1 Tab PO BID 05/14/17 Reported Wbhen-Unfibic-Yfzkmpvm Tablet (Multivit-Min/Iron Fum/Folic AC) 1 Each Tablet 1 Each PO DAILY 05/14/17 Reported Imodium A-D (Loperamide HCl) 2 Mg Capsule 2 Mg PO PRN Q4HRS PRN 05/14/17 Reported Rivastigmine (Rivastigmine Tartrate) 3 Mg Capsule 3 Mg PO BID 05/14/17 Reported Duoneb 0.5-3(2.5) Mg/3 Ml (Albuterol/Ipratropium) 3 Ml Ampul.neb 3 Ml NEB PRN Q6HRS PRN 05/14/17 Reported Vitamin B-12 (Cyanocobalamin (Vitamin B-12)) 1,000 Mcg Tablet 500 Mcg PO DAILY 05/14/17 Reported Cholestyramine Packet (Cholestyramine (With Sugar)) 4 Gm Powd.pack 4 Gm PO DAILY 05/14/17 Reported Albuterol Sulfate Neb Soln (Albuterol Sulfate) 2.5 Mg/3 Ml Vial.neb 1 Vial NEB PRN QID PRN 05/14/17 Reported Impression . 1. Progressive reticular nodular/interstitial infiltrates, especially on the right side since past x-rays from March and April and I suspect we may be dealing with chronic aspiration. Clinically, less likely any interstitial lung disease, 2. Advanced dementia. 3. Moderate protein calorie malnutrition. 4. Dehydration. 5. Hypernatremia secondary to dehydration. 6. Suspected gram-negative and gram-positive pneumonia. Plan . 1. Continue with present broad-spectrum antibiotics. can DC Vanc. MRSA screan negative. 2. CT chest reviewed. extensive reticulo nodular infiltrates RLL, c/w aspiration 3. Speech evaluation c/w aspiration.NPO. on PPN 4. We will follow chest x-rays in 3-4 days. 5. Would recommend discussion of advanced directives with the family. Currently, she is reported as full code. 6. Discussed with RN. SANGEETA HAM MD Jun 14, 2017 21:18
[2017-06-14 23:59] VITALS: BP 186/90
[2017-06-15] MEDS: PIPERACILLIN/TAZO IV Push 3.375 GM VIAL. IVP SCH ×4 (00:16→17:33)
[2017-06-15] MEDS: AMINO AC 3%/ELECTROLYTE/GLYCER 1,000 ML IV SCH ×2 (00:17→15:56)
[2017-06-15 03:00] VITALS: BP 127/67
[2017-06-15 06:29] LABS: CALCIUM 9.6 mg/dL (8.5-10.1); CREATININE 0.9 mg/dL (0.6-1.0); GFR 72.9; POTASSIUM 3.7 mmol/L (3.5-5.1)
[2017-06-15 07:00] VITALS: BP 115/49
--- NOTE | 2017-06-15 09:54 | PDOC ---
GENERAL General: vss and afebrile. awakens and nonverbal. speech deemed unsafe on bedside eval to swallow and ct location of pneumonia very suspicious for aspiration. chest with better breath sound, heart regular, abdomen benign, and wound vac in place on sacral decub with ongoing wound care for same. will recheck sodium in am with hypernatremia on admission that was improving with hydration. otherwise same. Problems: VITAL SIGNS Vital Signs: Vital Signs Date Time Temp Pulse Resp B/P (MAP) Pulse Ox O2 Delivery O2 Flow Rate FiO2 06/15/17 08:00 Room Air 06/15/17 07:00 98.9 80 18 115/49 (71) 100 98.9 I & O I & O Intake and Output 06/15/17 07:00 Intake Total 0 ml Balance 0 ml Intake Oral 0 ml # Voids 6 # Bowel Movements 4 ALLERGIES Allergies: Allergies Coded Allergies Type Severity Reaction Last Updated Verified No Known Drug Allergies 08/15/14 No MEDS Medications: Current Medications Medications (Trade) Dose Ordered Sig/Felix Start Time Stop Time Status Last Admin Dose Admin Amino Acids/ Glycerin/ Electrolytes 1,000 ml @ 80 mls/hr [id number] 06/13/17 10:15 06/15/17 00:17 80 MLS/HR Influenza Virus Vaccine Quadrival (Fluarix Quad 0515-2990 Syringe) 0.5 ml ONCE ONCE 06/13/17 11:00 06/13/17 11:01 DC 06/13/17 16:17 0.5 ML Info (Do NOT chart on this placeholder) 0.5 each PRN DAILY PRN 06/11/17 22:15 Cancel Morphine Sulfate 2 mg PRN Q2HR PRN 06/11/17 16:30 06/12/17 16:29 DC Ondansetron HCl (Zofran) 4 mg PRN Q8HRS PRN 06/11/17 16:30 06/12/17 16:29 DC Piperacillin Sod/ Tazobactam Sod (Zosyn) 3.375 gm Q6HRS 06/12/17 09:00 06/15/17 05:56 3.375 GM Piperacillin Sod/ Tazobactam Sod 3.375 gm/Dextrose 50 ml @ 100 mls/hr Q6HRS 06/12/17 12:00 UNV Potassium Chloride 40 meq/ Dextrose 520 ml @ 130 mls/hr 1X ONCE 06/14/17 12:30 06/14/17 16:29 DC 06/14/17 12:14 130 MLS/HR Sodium Chloride 1,000 ml @ 100 mls/hr Q10H 06/12/17 08:45 06/13/17 10:13 DC 06/12/17 23:27 100 MLS/HR Vancomycin HCl 1 each 1X ONCE 06/13/17 14:30 06/13/17 14:31 DC Vancomycin HCl (Vanco Per Pharmacy) 1 each PRN DAILY PRN 06/12/17 08:45 06/14/17 14:54 DC 06/14/17 14:30 1 EACH Vancomycin HCl 1.25 gm/Sodium Chloride 500 ml @ 250 mls/hr 1X ONCE 06/11/17 15:45 06/11/17 17:44 UNV Vancomycin HCl 1 gm/Dextrose 250 ml @ 250 mls/hr Q24H 06/12/17 15:00 06/14/17 14:53 DC 06/13/17 16:16 250 MLS/HR LAB Lab: Laboratory Tests Test 06/15/17 05:30 Sodium Level 140 mmol/L (136-145) Potassium Level 3.7 mmol/L (3.5-5.1) Chloride Level 103 mmol/L (98-107) Carbon Dioxide Level 25 mmol/L (21-32) Anion Gap 12 (6-14) Blood Urea Nitrogen 25 mg/dL (7-20) Creatinine 0.9 mg/dL (0.6-1.0) Estimated GFR (Cockcroft-Gault) 72.9 Glucose Level 115 mg/dL (70-99) Calcium Level 9.6 mg/dL (8.5-10.1) Nutrition Consultation Dietary Evaluation: Recommendations by RD: PPN/TPN Comments: continue ppn for short term nutrition TF for nutriton needs to be met REC mvi, vit c per protocol for wound healing Expected Outcomes/Goals: comfort care vs TF Interpretation of weight loss: >1-2% in 1 week Malnutrition Findings: Body Fat Depletion (Non Severe: Mild Depletion Weight Status: Underweight OMAR WAKEFIELD MD Jun 15, 2017 09:54
--- NOTE | 2017-06-15 10:21 | PDOC ---
PULMONARY PROGRESS NOTES Subjective non verbal no soa Vitals Vital Signs Date Time Temp Pulse Resp B/P (MAP) Pulse Ox O2 Delivery O2 Flow Rate FiO2 06/15/17 08:00 Room Air 06/15/17 07:00 98.9 80 18 115/49 (71) 100 98.9 General: No acute distress Lungs: Clear Cardiovascular: S1 Abdomen: Soft Extremities: No Edema Skin: Warm Labs Laboratory Tests Test 06/13/17 14:45 06/15/17 05:30 Vancomycin Level Trough 13.2 mcg/mL (10.0-20.0) Vancomycin Last Dose Date 06/12/17 Vancomycin Last Dose Time 1500 Sodium Level 140 mmol/L (136-145) Potassium Level 3.7 mmol/L (3.5-5.1) Chloride Level 103 mmol/L (98-107) Carbon Dioxide Level 25 mmol/L (21-32) Anion Gap 12 (6-14) Blood Urea Nitrogen 25 mg/dL (7-20) Creatinine 0.9 mg/dL (0.6-1.0) Estimated GFR (Cockcroft-Gault) 72.9 Glucose Level 115 mg/dL (70-99) Calcium Level 9.6 mg/dL (8.5-10.1) Laboratory Tests Test 06/15/17 05:30 Sodium Level 140 mmol/L (136-145) Potassium Level 3.7 mmol/L (3.5-5.1) Chloride Level 103 mmol/L (98-107) Carbon Dioxide Level 25 mmol/L (21-32) Anion Gap 12 (6-14) Blood Urea Nitrogen 25 mg/dL (7-20) Creatinine 0.9 mg/dL (0.6-1.0) Estimated GFR (Cockcroft-Gault) 72.9 Glucose Level 115 mg/dL (70-99) Calcium Level 9.6 mg/dL (8.5-10.1) Medications Active Scripts Medications Dose Route/Sig Max Daily Dose Days Date Category Probiotic (Lactobacillus Acidophilus) 1 Each Capsule 1 Each PO BID92 06/11/17 Reported Vitamin D (Cholecalciferol (Vitamin D3)) 2,000 Unit Capsule 1 Cap PO DAILY 05/14/17 Reported Vitamin C (Ascorbic Acid) 500 Mg Tablet 500 Mg PO DAILY 05/14/17 Reported Tylenol (Acetaminophen) 325 Mg Tablet 325 Mg PO PRN Q4HRS PRN 05/14/17 Reported Pataday (Olopatadine Hcl) 2.5 Ml Drops 1 Drop EACHEYE DAILY 05/14/17 Reported Namenda (Memantine Hcl) 10 Mg Tablet 1 Tab PO BID 05/14/17 Reported Dglkf-Tznteig-Avnvvsqh Tablet (Multivit-Min/Iron Fum/Folic AC) 1 Each Tablet 1 Each PO DAILY 05/14/17 Reported Imodium A-D (Loperamide HCl) 2 Mg Capsule 2 Mg PO PRN Q4HRS PRN 05/14/17 Reported Rivastigmine (Rivastigmine Tartrate) 3 Mg Capsule 3 Mg PO BID 05/14/17 Reported Duoneb 0.5-3(2.5) Mg/3 Ml (Albuterol/Ipratropium) 3 Ml Ampul.neb 3 Ml NEB PRN Q6HRS PRN 05/14/17 Reported Vitamin B-12 (Cyanocobalamin (Vitamin B-12)) 1,000 Mcg Tablet 500 Mcg PO DAILY 05/14/17 Reported Cholestyramine Packet (Cholestyramine (With Sugar)) 4 Gm Powd.pack 4 Gm PO DAILY 05/14/17 Reported Albuterol Sulfate Neb Soln (Albuterol Sulfate) 2.5 Mg/3 Ml Vial.neb 1 Vial NEB PRN QID PRN 05/14/17 Reported Impression . 1. Progressive reticular nodular/interstitial infiltrates, especially on the right side since past x-rays from March and April and I suspect this is due to chronic aspiration. 2. Advanced dementia. 3. Moderate protein calorie malnutrition. 4. Dehydration. 5. Hypernatremia secondary to dehydration. 6. Suspected gram-negative and gram-positive pneumonia. Plan . 1. Continue with present broad-spectrum antibiotics. off vanc 2. CT chest reviewed. extensive reticulo nodular infiltrates RLL, c/w aspiration 3. Speech evaluation c/w aspiration.NPO. on PPN 4. We will follow chest x-rays in 3-4 days. 5. Would recommend discussion of advanced directives with the family. Currently, she is reported as full code. 6. Discussed with TAD. SANGEETA HAM MD Jun 15, 2017 10:21
[2017-06-15 11:00] VITALS: BP 144/69
[2017-06-15 15:00] VITALS: BP 145/90
[2017-06-15 19:00] VITALS: BP 157/92
[2017-06-15 23:03] VITALS: BP 164/89
[2017-06-16] MEDS: PIPERACILLIN/TAZO IV Push 3.375 GM VIAL. IVP SCH ×4 (01:47→17:39)
[2017-06-16 03:20] VITALS: BP 171/100
[2017-06-16 04:53] LABS: BASO % 1 % (0-3); EOS % 4 % (0-3); HEMOGLOBIN 12.4 g/dL (12.0-15.5); LYMPH # 1.2 x10^3/uL (1.0-4.8); LYMPH % 15 % (24-48); MEAN CORPUSCULAR HEMOGLOBIN 30 pg (25-35); MEAN CORPUSCULAR HGB CONC 33 g/dL (31-37); MEAN CORPUSCULAR VOLUME 91 fL (79-100); MONO % 8 % (0-9); NEUT % 72 % (31-73); PLATELET COUNT 365 x10^3/uL (140-400); RED BLOOD COUNT 4.18 x10^6/uL (3.50-5.40); RED CELL DISTRIBUTION WIDTH 14.7 % (11.5-14.5); WHITE BLOOD COUNT 7.7 x10^3/uL (4.0-11.0)
[2017-06-16 05:11] LABS: ALBUMIN/GLOBULIN RATIO 0.4 (1.0-1.7); CALCIUM 9.1 mg/dL (8.5-10.1); CREATININE 0.8 mg/dL (0.6-1.0); GFR 83.5; POTASSIUM 3.7 mmol/L (3.5-5.1); TOTAL BILIRUBIN 0.3 mg/dL (0.2-1.0); TOTAL PROTEIN 7.6 g/dL (6.4-8.2)
[2017-06-16] MEDS: AMINO AC 3%/ELECTROLYTE/GLYCER 1,000 ML IV SCH ×2 (05:13→17:38)
[2017-06-16 06:55] VITALS: BP 149/97
[2017-06-16 10:42] VITALS: BP 184/93
--- NOTE | 2017-06-16 11:48 | PDOC ---
GENERAL General: vss and afebrile. awake and nonverbal. discussed with pulmonary who are certain aspiration is reason for this admission and will need alternative feeding method if we are to avoid in future. will ask palliative care to discuss need for feeding tube with family and their wishes. continue same. Problems: VITAL SIGNS Vital Signs: Vital Signs Date Time Temp Pulse Resp B/P (MAP) Pulse Ox O2 Delivery O2 Flow Rate FiO2 06/16/17 10:42 98.2 86 17 184/93 (123) 98 Room Air 98.2 I & O I & O Intake and Output 06/16/17 07:00 Intake Total 0 ml Balance 0 ml Intake Oral 0 ml # Voids 4 # Bowel Movements 2 ALLERGIES Allergies: Allergies Coded Allergies Type Severity Reaction Last Updated Verified No Known Drug Allergies 08/15/14 No MEDS Medications: Current Medications Medications (Trade) Dose Ordered Sig/Felix Start Time Stop Time Status Last Admin Dose Admin Amino Acids/ Glycerin/ Electrolytes 1,000 ml @ 80 mls/hr [id number] 06/13/17 10:15 06/16/17 05:13 80 MLS/HR Influenza Virus Vaccine Quadrival (Fluarix Quad [id number] Syringe) 0.5 ml ONCE ONCE 06/13/17 11:00 06/13/17 11:01 DC 06/13/17 16:17 0.5 ML Info (Do NOT chart on this placeholder) 0.5 each PRN DAILY PRN 06/11/17 22:15 Cancel Morphine Sulfate 2 mg PRN Q2HR PRN 06/11/17 16:30 06/12/17 16:29 DC Ondansetron HCl (Zofran) 4 mg PRN Q8HRS PRN 06/11/17 16:30 06/12/17 16:29 DC Piperacillin Sod/ Tazobactam Sod (Zosyn) 3.375 gm Q6HRS 06/12/17 09:00 06/16/17 06:00 3.375 GM Piperacillin Sod/ Tazobactam Sod 3.375 gm/Dextrose 50 ml @ 100 mls/hr Q6HRS 06/12/17 12:00 UNV Potassium Chloride 40 meq/ Dextrose 520 ml @ 130 mls/hr 1X ONCE 06/14/17 12:30 06/14/17 16:29 DC 06/14/17 12:14 130 MLS/HR Sodium Chloride 1,000 ml @ 100 mls/hr Q10H 06/12/17 08:45 06/13/17 10:13 DC 06/12/17 23:27 100 MLS/HR Vancomycin HCl 1 each 1X ONCE 06/13/17 14:30 06/13/17 14:31 DC Vancomycin HCl (Vanco Per Pharmacy) 1 each PRN DAILY PRN 06/12/17 08:45 06/14/17 14:54 DC 06/14/17 14:30 1 EACH Vancomycin HCl 1.25 gm/Sodium Chloride 500 ml @ 250 mls/hr 1X ONCE 06/11/17 15:45 06/11/17 17:44 UNV Vancomycin HCl 1 gm/Dextrose 250 ml @ 250 mls/hr Q24H 06/12/17 15:00 06/14/17 14:53 DC 06/13/17 16:16 250 MLS/HR LAB Lab: Laboratory Tests Test 06/16/17 04:00 White Blood Count 7.7 x10^3/uL (4.0-11.0) Red Blood Count 4.18 x10^6/uL (3.50-5.40) Hemoglobin 12.4 g/dL (12.0-15.5) Hematocrit 38.0 % (36.0-47.0) Mean Corpuscular Volume 91 fL (79-100) Mean Corpuscular Hemoglobin 30 pg (25-35) Mean Corpuscular Hemoglobin Concent 33 g/dL (31-37) Red Cell Distribution Width 14.7 % (11.5-14.5) Platelet Count 365 x10^3/uL (140-400) Neutrophils (%) (Auto) 72 % (31-73) Lymphocytes (%) (Auto) 15 % (24-48) Monocytes (%) (Auto) 8 % (0-9) Eosinophils (%) (Auto) 4 % (0-3) Basophils (%) (Auto) 1 % (0-3) Neutrophils # (Auto) 5.6 x10^3uL (1.8-7.7) Lymphocytes # (Auto) 1.2 x10^3/uL (1.0-4.8) Monocytes # (Auto) 0.7 x10^3/uL (0.0-1.1) Eosinophils # (Auto) 0.3 x10^3/uL (0.0-0.7) Basophils # (Auto) 0.0 x10^3/uL (0.0-0.2) Sodium Level 137 mmol/L (136-145) Potassium Level 3.7 mmol/L (3.5-5.1) Chloride Level 105 mmol/L (98-107) Carbon Dioxide Level 25 mmol/L (21-32) Anion Gap 7 (6-14) Blood Urea Nitrogen 24 mg/dL (7-20) Creatinine 0.8 mg/dL (0.6-1.0) Estimated GFR (Cockcroft-Gault) 83.5 BUN/Creatinine Ratio 30 (6-20) Glucose Level 102 mg/dL (70-99) Calcium Level 9.1 mg/dL (8.5-10.1) Total Bilirubin 0.3 mg/dL (0.2-1.0) Aspartate Amino Transf (AST/SGOT) 32 U/L (15-37) Alanine Aminotransferase (ALT/SGPT) 36 U/L (14-59) Alkaline Phosphatase 79 U/L (46-116) Total Protein 7.6 g/dL (6.4-8.2) Albumin 2.0 g/dL (3.4-5.0) Albumin/Globulin Ratio 0.4 (1.0-1.7) Nutrition Consultation Dietary Evaluation: Recommendations by RD: PPN/TPN Comments: continue ppn for short term nutrition TF for nutriton needs to be met REC mvi, vit c per protocol for wound healing Expected Outcomes/Goals: comfort care vs TF Interpretation of weight loss: >1-2% in 1 week Malnutrition Findings: Body Fat Depletion (Non Severe: Mild Depletion Weight Status: Underweight OMAR WAKEFIELD MD Jun 16, 2017 11:48
--- NOTE | 2017-06-16 12:25 | PDOC ---
PULMONARY PROGRESS NOTES Subjective non verbal no soa Vitals Vital Signs Date Time Temp Pulse Resp B/P (MAP) Pulse Ox O2 Delivery O2 Flow Rate FiO2 06/16/17 10:42 98.2 86 17 184/93 (123) 98 Room Air 98.2 General: No acute distress Lungs: Clear Cardiovascular: S1 Abdomen: Soft Extremities: No Edema Skin: Warm Labs Laboratory Tests Test 06/15/17 05:30 06/16/17 04:00 Sodium Level 140 mmol/L (136-145) 137 mmol/L (136-145) Potassium Level 3.7 mmol/L (3.5-5.1) 3.7 mmol/L (3.5-5.1) Chloride Level 103 mmol/L (98-107) 105 mmol/L (98-107) Carbon Dioxide Level 25 mmol/L (21-32) 25 mmol/L (21-32) Anion Gap 12 (6-14) 7 (6-14) Blood Urea Nitrogen 25 mg/dL (7-20) 24 mg/dL (7-20) Creatinine 0.9 mg/dL (0.6-1.0) 0.8 mg/dL (0.6-1.0) Estimated GFR (Cockcroft-Gault) 72.9 83.5 Glucose Level 115 mg/dL (70-99) 102 mg/dL (70-99) Calcium Level 9.6 mg/dL (8.5-10.1) 9.1 mg/dL (8.5-10.1) White Blood Count 7.7 x10^3/uL (4.0-11.0) Red Blood Count 4.18 x10^6/uL (3.50-5.40) Hemoglobin 12.4 g/dL (12.0-15.5) Hematocrit 38.0 % (36.0-47.0) Mean Corpuscular Volume 91 fL (79-100) Mean Corpuscular Hemoglobin 30 pg (25-35) Mean Corpuscular Hemoglobin Concent 33 g/dL (31-37) Red Cell Distribution Width 14.7 % (11.5-14.5) Platelet Count 365 x10^3/uL (140-400) Neutrophils (%) (Auto) 72 % (31-73) Lymphocytes (%) (Auto) 15 % (24-48) Monocytes (%) (Auto) 8 % (0-9) Eosinophils (%) (Auto) 4 % (0-3) Basophils (%) (Auto) 1 % (0-3) Neutrophils # (Auto) 5.6 x10^3uL (1.8-7.7) Lymphocytes # (Auto) 1.2 x10^3/uL (1.0-4.8) Monocytes # (Auto) 0.7 x10^3/uL (0.0-1.1) Eosinophils # (Auto) 0.3 x10^3/uL (0.0-0.7) Basophils # (Auto) 0.0 x10^3/uL (0.0-0.2) BUN/Creatinine Ratio 30 (6-20) Total Bilirubin 0.3 mg/dL (0.2-1.0) Aspartate Amino Transf (AST/SGOT) 32 U/L (15-37) Alanine Aminotransferase (ALT/SGPT) 36 U/L (14-59) Alkaline Phosphatase 79 U/L (46-116) Total Protein 7.6 g/dL (6.4-8.2) Albumin 2.0 g/dL (3.4-5.0) Albumin/Globulin Ratio 0.4 (1.0-1.7) Laboratory Tests Test 06/16/17 04:00 White Blood Count 7.7 x10^3/uL (4.0-11.0) Red Blood Count 4.18 x10^6/uL (3.50-5.40) Hemoglobin 12.4 g/dL (12.0-15.5) Hematocrit 38.0 % (36.0-47.0) Mean Corpuscular Volume 91 fL (79-100) Mean Corpuscular Hemoglobin 30 pg (25-35) Mean Corpuscular Hemoglobin Concent 33 g/dL (31-37) Red Cell Distribution Width 14.7 % (11.5-14.5) Platelet Count 365 x10^3/uL (140-400) Neutrophils (%) (Auto) 72 % (31-73) Lymphocytes (%) (Auto) 15 % (24-48) Monocytes (%) (Auto) 8 % (0-9) Eosinophils (%) (Auto) 4 % (0-3) Basophils (%) (Auto) 1 % (0-3) Neutrophils # (Auto) 5.6 x10^3uL (1.8-7.7) Lymphocytes # (Auto) 1.2 x10^3/uL (1.0-4.8) Monocytes # (Auto) 0.7 x10^3/uL (0.0-1.1) Eosinophils # (Auto) 0.3 x10^3/uL (0.0-0.7) Basophils # (Auto) 0.0 x10^3/uL (0.0-0.2) Sodium Level 137 mmol/L (136-145) Potassium Level 3.7 mmol/L (3.5-5.1) Chloride Level 105 mmol/L (98-107) Carbon Dioxide Level 25 mmol/L (21-32) Anion Gap 7 (6-14) Blood Urea Nitrogen 24 mg/dL (7-20) Creatinine 0.8 mg/dL (0.6-1.0) Estimated GFR (Cockcroft-Gault) 83.5 BUN/Creatinine Ratio 30 (6-20) Glucose Level 102 mg/dL (70-99) Calcium Level 9.1 mg/dL (8.5-10.1) Total Bilirubin 0.3 mg/dL (0.2-1.0) Aspartate Amino Transf (AST/SGOT) 32 U/L (15-37) Alanine Aminotransferase (ALT/SGPT) 36 U/L (14-59) Alkaline Phosphatase 79 U/L (46-116) Total Protein 7.6 g/dL (6.4-8.2) Albumin 2.0 g/dL (3.4-5.0) Albumin/Globulin Ratio 0.4 (1.0-1.7) Medications Active Scripts Medications Dose Route/Sig Max Daily Dose Days Date Category Probiotic (Lactobacillus Acidophilus) 1 Each Capsule 1 Each PO [id number] 06/11/17 Reported Vitamin D (Cholecalciferol (Vitamin D3)) 2,000 Unit Capsule 1 Cap PO DAILY 05/14/17 Reported Vitamin C (Ascorbic Acid) 500 Mg Tablet 500 Mg PO DAILY 05/14/17 Reported Tylenol (Acetaminophen) 325 Mg Tablet 325 Mg PO PRN Q4HRS PRN 05/14/17 Reported Pataday (Olopatadine Hcl) 2.5 Ml Drops 1 Drop EACHEYE DAILY 05/14/17 Reported Namenda (Memantine Hcl) 10 Mg Tablet 1 Tab PO BID 05/14/17 Reported Bhslu-Ckkurgi-Zayagijf Tablet (Multivit-Min/Iron Fum/Folic AC) 1 Each Tablet 1 Each PO DAILY 05/14/17 Reported Imodium A-D (Loperamide HCl) 2 Mg Capsule 2 Mg PO PRN Q4HRS PRN 05/14/17 Reported Rivastigmine (Rivastigmine Tartrate) 3 Mg Capsule 3 Mg PO BID 05/14/17 Reported Duoneb 0.5-3(2.5) Mg/3 Ml (Albuterol/Ipratropium) 3 Ml Ampul.neb 3 Ml NEB PRN Q6HRS PRN 05/14/17 Reported Vitamin B-12 (Cyanocobalamin (Vitamin B-12)) 1,000 Mcg Tablet 500 Mcg PO DAILY 05/14/17 Reported Cholestyramine Packet (Cholestyramine (With Sugar)) 4 Gm Powd.pack 4 Gm PO DAILY 05/14/17 Reported Albuterol Sulfate Neb Soln (Albuterol Sulfate) 2.5 Mg/3 Ml Vial.neb 1 Vial NEB PRN QID PRN 05/14/17 Reported Impression . 1. Progressive reticular nodular/interstitial infiltrates, especially on the right side since past x-rays from March and April and I suspect this is due to chronic aspiration. 2. Advanced dementia. 3. Moderate protein calorie malnutrition. 4. Dehydration. 5. Hypernatremia secondary to dehydration. 6. Suspected gram-negative and gram-positive pneumonia. Plan . 1. Continue with present broad-spectrum antibiotics. off vanc 2. CT chest reviewed. extensive reticulo nodular infiltrates RLL, c/w aspiration 3. Speech evaluation c/w aspiration.NPO. on PPN 4. We will follow chest x-rays in am 5. Would recommend discussion of advanced directives with the family. Will need to address halfway nutrition needs Currently, she is full code. would rec palliative approach 6. Discussed with SANGEETA Bethea MD Jun 16, 2017 12:25
[2017-06-16 14:22] VITALS: BP 149/65
[2017-06-16 19:22] VITALS: BP 143/80
[2017-06-16 23:30] VITALS: BP 158/72
[2017-06-17] MEDS: PIPERACILLIN/TAZO IV Push 3.375 GM VIAL. IVP SCH ×4 (01:56→16:54)
[2017-06-17] MEDS: AMINO AC 3%/ELECTROLYTE/GLYCER 1,000 ML IV SCH ×2 (01:57→16:54)
[2017-06-17 03:54] VITALS: BP 142/69
[2017-06-17 07:00] VITALS: BP 130/55
--- NOTE | 2017-06-17 08:50 | PDOC ---
GENERAL General: vss and afebrile. awakens and nonverbal. wound vac in place. chest sounds gradually better and essentially clear sounding today. heart regular and abdomen benign. palliative care to address issue of feeding tube for aspiration with family with plans to follow. Problems: VITAL SIGNS Vital Signs: Vital Signs Date Time Temp Pulse Resp B/P (MAP) Pulse Ox O2 Delivery O2 Flow Rate FiO2 06/17/17 07:00 97.7 70 16 130/55 (80) 98 Room Air 97.7 I & O I & O Intake and Output 06/17/17 06:59 Intake Total 0 ml Balance 0 ml Intake Oral 0 ml # Voids 6 # Bowel Movements 2 ALLERGIES Allergies: Allergies Coded Allergies Type Severity Reaction Last Updated Verified No Known Drug Allergies 08/15/14 No MEDS Medications: Current Medications Medications (Trade) Dose Ordered Sig/Felix Start Time Stop Time Status Last Admin Dose Admin Amino Acids/ Glycerin/ Electrolytes 1,000 ml @ 80 mls/hr [id number] 06/13/17 10:15 06/17/17 01:57 80 MLS/HR Influenza Virus Vaccine Quadrival (Fluarix Quad [id number] Syringe) 0.5 ml ONCE ONCE 06/13/17 11:00 06/13/17 11:01 DC 06/13/17 16:17 0.5 ML Info (Do NOT chart on this placeholder) 0.5 each PRN DAILY PRN 06/11/17 22:15 Cancel Morphine Sulfate 2 mg PRN Q2HR PRN 06/11/17 16:30 06/12/17 16:29 DC Ondansetron HCl (Zofran) 4 mg PRN Q8HRS PRN 06/11/17 16:30 06/12/17 16:29 DC Piperacillin Sod/ Tazobactam Sod (Zosyn) 3.375 gm Q6HRS 06/12/17 09:00 06/17/17 05:44 3.375 GM Piperacillin Sod/ Tazobactam Sod 3.375 gm/Dextrose 50 ml @ 100 mls/hr Q6HRS 06/12/17 12:00 UNV Potassium Chloride 40 meq/ Dextrose 520 ml @ 130 mls/hr 1X ONCE 06/14/17 12:30 06/14/17 16:29 DC 06/14/17 12:14 130 MLS/HR Sodium Chloride 1,000 ml @ 100 mls/hr Q10H 06/12/17 08:45 06/13/17 10:13 DC 06/12/17 23:27 100 MLS/HR Vancomycin HCl 1 each 1X ONCE 06/13/17 14:30 06/13/17 14:31 DC Vancomycin HCl (Vanco Per Pharmacy) 1 each PRN DAILY PRN 06/12/17 08:45 06/14/17 14:54 DC 06/14/17 14:30 1 EACH Vancomycin HCl 1.25 gm/Sodium Chloride 500 ml @ 250 mls/hr 1X ONCE 06/11/17 15:45 06/11/17 17:44 UNV Vancomycin HCl 1 gm/Dextrose 250 ml @ 250 mls/hr Q24H 06/12/17 15:00 06/14/17 14:53 DC 06/13/17 16:16 250 MLS/HR Nutrition Consultation Dietary Evaluation: Recommendations by RD: PPN/TPN Comments: continue ppn for short term nutrition TF for nutriton needs to be met REC mvi, vit c per protocol for wound healing Expected Outcomes/Goals: comfort care vs TF Interpretation of weight loss: >1-2% in 1 week Malnutrition Findings: Body Fat Depletion (Non Severe: Mild Depletion Weight Status: Underweight OMAR WAKEFIELD MD Jun 17, 2017 08:50
[2017-06-17 10:29] VITALS: BP 179/99
[2017-06-17 14:38] VITALS: BP 185/84
--- NOTE | 2017-06-17 15:49 | PDOC2 ---
GI CONSULT Reason For Consult: Possible PEG tube placement HPI: HPI: 82 y/o non-verbal female w/ h/o CVA and dementia, admitted 06/11/17 from nursing facility w/ hypernatremia and pneumonia, CT chest c/w aspiration. Followed by pulm, on IV atbx. Abnormal swallow eval w/ LOAN OFFICER ASSISTANT, signs of aspiration , has been NPO on PPN. Per RN, palliative care discussed possible PEG placement w/ family who wish to proceed. The patient is non-verbal, full code. PMH: PMH: per chart - CVA, dementia, dysphagia, HTN, anxiety, upper and lower extremity flexion contractures, left ischial decub debridement FH: Family History: No pertinent hx Social History: Smoke: No ALCOHOL: none Drugs: None ROS: Unobtainable. Vitals: Vitals: Vital Signs Date Time Temp Pulse Resp B/P (MAP) Pulse Ox O2 Delivery O2 Flow Rate FiO2 06/17/17 14:38 97.7 89 17 185/84 (117) 98 Room Air 97.7 Labs: Labs: Please see EMR. Allergies: Coded Allergies: No Known Drug Allergies (Unverified , 08/15/14) Medications: Please see EMR. Imaging: Imaging: CXR 06/11/17 Impression: Reticular and nodular opacities throughout the right mid and lower lung. Findings may represent aspiration or pneumonia with atypical etiologies not excluded. Chest CT 06/12/17 Impression: 1. Bilateral tree-in-bud opacities dependently in the lungs with mild right lower lobe patchy consolidation. Findings concerning for aspiration or multifocal pneumonia. 2. Mildly enlarged mediastinal lymph node, may be reactive. 3. Moderate emphysema. 4. Left lobe thyroid hypodense nodules. Nonemergent thyroid ultrasound is recommended, if not already performed. LOAN OFFICER ASSISTANT Bedside Swallow Eval Bedside swallow eval completed. Pt w/audibly wet breathing and brief wet phonation when HOB elevated for eval. Pt required 7-10 sec and 2-3 swallows per each tsp honey thick liquid. Puree swallows of 1/4-1/2 tsp marked by initial swallow w/in ~3 sec but 2 additional swallows per bolus, requiring up to 45 sec total. Hyolaryngeal excursion reduced, maris.in anterior excursion per palp. Elicited phonation x1 when it appeared pt attempted to respond to question during trials. Phonation was again breathy and wet in quality c/w aspiration. IMPRESSIONS: HIGH risk of aspiration, w/ s/s of SILENT aspiration on pt's own secretions and small amts of po, as evidenced by breathy wet phonation as described above. Impaired hyolaryngeal excursion and reduced airway closure increase risk of aspiration. Additionally, time required per bolus results in inefficient intake which likely contributes to low po intake. Both safety and efficiency of swallow are compromised at this time. No safe consistency identified. Suspect dysphagia is contributing to noted respiratory issues. Prognosis for resuming safe and efficient intake is poor given severity of impairment in pt w/advanced dementia. RECOMMENDATIONS: NPO meds and nutrition; consider goals of care re:alternative non-oral nutrition as it is unlikely pt will be able to resume safe and efficient po intake for nutrition. PE: Alone in room. GEN: NAD HEENT: Atraumatic, PERRL LUNGS: clear anteriorly HEART: RRR ABD: difficult exam - NABS, S/ND/NT EXTREMITY: upper and lower extremity contractures SKIN: No rashes, no jaundice NEURO/PSYCH: eyes open, softly moans A/P: A/P: Aspiration pneumonia H/o CVA and dementia Dysphagia - NPO on PPN -- D/w Dr. Landrum - tentatively plan for PEG placement VICKY Escobar a.m. Jun 17, 2017 15:49
[2017-06-17 16:39] LABS: INR 1.2 (0.8-1.1); PROTHROMBIN TIME PATIENT 14.4 SEC (11.7-14.0)
--- NOTE | 2017-06-17 19:11 | PDOC ---
PULMONARY PROGRESS NOTES Subjective PT IN NO DISTRESS NON VERBAL Vitals Vital Signs Date Time Temp Pulse Resp B/P (MAP) Pulse Ox O2 Delivery O2 Flow Rate FiO2 06/17/17 14:38 97.7 89 17 185/84 (117) 98 Room Air 97.7 General: No acute distress Lungs: Clear Cardiovascular: S1 Abdomen: Soft Extremities: No Edema Skin: Warm Labs Laboratory Tests Test 06/16/17 04:00 06/17/17 16:20 White Blood Count 7.7 x10^3/uL (4.0-11.0) Red Blood Count 4.18 x10^6/uL (3.50-5.40) Hemoglobin 12.4 g/dL (12.0-15.5) Hematocrit 38.0 % (36.0-47.0) Mean Corpuscular Volume 91 fL (79-100) Mean Corpuscular Hemoglobin 30 pg (25-35) Mean Corpuscular Hemoglobin Concent 33 g/dL (31-37) Red Cell Distribution Width 14.7 % (11.5-14.5) Platelet Count 365 x10^3/uL (140-400) Neutrophils (%) (Auto) 72 % (31-73) Lymphocytes (%) (Auto) 15 % (24-48) Monocytes (%) (Auto) 8 % (0-9) Eosinophils (%) (Auto) 4 % (0-3) Basophils (%) (Auto) 1 % (0-3) Neutrophils # (Auto) 5.6 x10^3uL (1.8-7.7) Lymphocytes # (Auto) 1.2 x10^3/uL (1.0-4.8) Monocytes # (Auto) 0.7 x10^3/uL (0.0-1.1) Eosinophils # (Auto) 0.3 x10^3/uL (0.0-0.7) Basophils # (Auto) 0.0 x10^3/uL (0.0-0.2) Sodium Level 137 mmol/L (136-145) Potassium Level 3.7 mmol/L (3.5-5.1) Chloride Level 105 mmol/L (98-107) Carbon Dioxide Level 25 mmol/L (21-32) Anion Gap 7 (6-14) Blood Urea Nitrogen 24 mg/dL (7-20) Creatinine 0.8 mg/dL (0.6-1.0) Estimated GFR (Cockcroft-Gault) 83.5 BUN/Creatinine Ratio 30 (6-20) Glucose Level 102 mg/dL (70-99) Calcium Level 9.1 mg/dL (8.5-10.1) Total Bilirubin 0.3 mg/dL (0.2-1.0) Aspartate Amino Transf (AST/SGOT) 32 U/L (15-37) Alanine Aminotransferase (ALT/SGPT) 36 U/L (14-59) Alkaline Phosphatase 79 U/L (46-116) Total Protein 7.6 g/dL (6.4-8.2) Albumin 2.0 g/dL (3.4-5.0) Albumin/Globulin Ratio 0.4 (1.0-1.7) Prothrombin Time 14.4 SEC (11.7-14.0) Prothromb Time International Ratio 1.2 (0.8-1.1) Laboratory Tests Test 06/17/17 16:20 Prothrombin Time 14.4 SEC (11.7-14.0) Prothromb Time International Ratio 1.2 (0.8-1.1) Medications Active Scripts Medications Dose Route/Sig Max Daily Dose Days Date Category Probiotic (Lactobacillus Acidophilus) 1 Each Capsule 1 Each PO BID92 06/11/17 Reported Vitamin D (Cholecalciferol (Vitamin D3)) 2,000 Unit Capsule 1 Cap PO DAILY 05/14/17 Reported Vitamin C (Ascorbic Acid) 500 Mg Tablet 500 Mg PO DAILY 05/14/17 Reported Tylenol (Acetaminophen) 325 Mg Tablet 325 Mg PO PRN Q4HRS PRN 05/14/17 Reported Pataday (Olopatadine Hcl) 2.5 Ml Drops 1 Drop EACHEYE DAILY 05/14/17 Reported Namenda (Memantine Hcl) 10 Mg Tablet 1 Tab PO BID 05/14/17 Reported Yztnk-Hvpksqt-Hmzukulk Tablet (Multivit-Min/Iron Fum/Folic AC) 1 Each Tablet 1 Each PO DAILY 05/14/17 Reported Imodium A-D (Loperamide HCl) 2 Mg Capsule 2 Mg PO PRN Q4HRS PRN 05/14/17 Reported Rivastigmine (Rivastigmine Tartrate) 3 Mg Capsule 3 Mg PO BID 05/14/17 Reported Duoneb 0.5-3(2.5) Mg/3 Ml (Albuterol/Ipratropium) 3 Ml Ampul.neb 3 Ml NEB PRN Q6HRS PRN 05/14/17 Reported Vitamin B-12 (Cyanocobalamin (Vitamin B-12)) 1,000 Mcg Tablet 500 Mcg PO DAILY 05/14/17 Reported Cholestyramine Packet (Cholestyramine (With Sugar)) 4 Gm Powd.pack 4 Gm PO DAILY 05/14/17 Reported Albuterol Sulfate Neb Soln (Albuterol Sulfate) 2.5 Mg/3 Ml Vial.neb 1 Vial NEB PRN QID PRN 05/14/17 Reported Impression . 1. Progressive reticular nodular/interstitial infiltrates, especially on the right side since past x-rays from March and April and I suspect this is due to chronic aspiration. 2. Advanced dementia. 3. Moderate protein calorie malnutrition. 4. Dysphagia 5. Hypernatremia secondary to dehydration. 6. Suspected gram-negative and gram-positive pneumonia. Plan . case d/w with daughter at bedside they wish to proceed with PEG 1. Continue with present broad-spectrum antibiotics. off vanc 2. CT chest reviewed. extensive reticulo nodular infiltrates RLL, c/w aspiration 3. Speech evaluation c/w aspiration.NPO. on PPN 4. We will follow chest x-rays in JASKARAN Schwab MD Jun 17, 2017 19:11
[2017-06-17 19:29] VITALS: BP 184/87
[2017-06-17 23:25] VITALS: BP 187/80
[2017-06-18] MEDS: PIPERACILLIN/TAZO IV Push 3.375 GM VIAL. IVP SCH ×5 (01:18→23:01)
[2017-06-18 03:51] VITALS: BP 173/84
[2017-06-18] MEDS: AMINO AC 3%/ELECTROLYTE/GLYCER 1,000 ML IV SCH ×2 (05:54→18:25)
[2017-06-18 07:26] VITALS: BP 165/81
--- NOTE | 2017-06-18 08:44 | PDOC ---
GENERAL General: vss and afebrile. mental state same. family wishing for ongoing full code and feeding tube placement and GI planning to do same tomorrow am. exam stable. continue treatment for aspiration pneumonia. Problems: VITAL SIGNS Vital Signs: Vital Signs Date Time Temp Pulse Resp B/P (MAP) Pulse Ox O2 Delivery O2 Flow Rate FiO2 06/18/17 07:26 98.1 84 17 165/81 (109) 97 Room Air 98.1 ALLERGIES Allergies: Allergies Coded Allergies Type Severity Reaction Last Updated Verified No Known Drug Allergies 08/15/14 No MEDS Medications: Current Medications Medications (Trade) Dose Ordered Sig/Felix Start Time Stop Time Status Last Admin Dose Admin Amino Acids/ Glycerin/ Electrolytes 1,000 ml @ 80 mls/hr [id number] 06/13/17 10:15 06/18/17 05:54 80 MLS/HR Influenza Virus Vaccine Quadrival (Fluarix Quad [id number] Syringe) 0.5 ml ONCE ONCE 06/13/17 11:00 06/13/17 11:01 DC 06/13/17 16:17 0.5 ML Info (Do NOT chart on this placeholder) 0.5 each PRN DAILY PRN 06/11/17 22:15 Cancel Morphine Sulfate 2 mg PRN Q2HR PRN 06/11/17 16:30 06/12/17 16:29 DC Ondansetron HCl (Zofran) 4 mg PRN Q8HRS PRN 06/11/17 16:30 06/12/17 16:29 DC Piperacillin Sod/ Tazobactam Sod (Zosyn) 3.375 gm Q6HRS 06/12/17 09:00 06/18/17 05:54 3.375 GM Piperacillin Sod/ Tazobactam Sod 3.375 gm/Dextrose 50 ml @ 100 mls/hr Q6HRS 06/12/17 12:00 UNV Potassium Chloride 40 meq/ Dextrose 520 ml @ 130 mls/hr 1X ONCE 06/14/17 12:30 06/14/17 16:29 DC 06/14/17 12:14 130 MLS/HR Sodium Chloride 1,000 ml @ 100 mls/hr Q10H 06/12/17 08:45 06/13/17 10:13 DC 06/12/17 23:27 100 MLS/HR Vancomycin HCl 1 each 1X ONCE 06/13/17 14:30 06/13/17 14:31 DC Vancomycin HCl (Vanco Per Pharmacy) 1 each PRN DAILY PRN 06/12/17 08:45 06/14/17 14:54 DC 06/14/17 14:30 1 EACH Vancomycin HCl 1.25 gm/Sodium Chloride 500 ml @ 250 mls/hr 1X ONCE 06/11/17 15:45 06/11/17 17:44 UNV Vancomycin HCl 1 gm/Dextrose 250 ml @ 250 mls/hr Q24H 06/12/17 15:00 06/14/17 14:53 DC 06/13/17 16:16 250 MLS/HR LAB Lab: Laboratory Tests Test 06/17/17 16:20 Prothrombin Time 14.4 SEC (11.7-14.0) Prothromb Time International Ratio 1.2 (0.8-1.1) Nutrition Consultation Dietary Evaluation: Recommendations by RD: PPN/TPN Comments: continue ppn for short term nutrition TF for nutriton needs to be met REC mvi, vit c per protocol for wound healing Expected Outcomes/Goals: comfort care vs TF Interpretation of weight loss: >1-2% in 1 week Malnutrition Findings: Body Fat Depletion (Non Severe: Mild Depletion Weight Status: Underweight OMAR WAKEFIELD MD Jun 18, 2017 08:44
[2017-06-18 10:40] VITALS: BP 160/80
--- NOTE | 2017-06-18 11:41 | PDOC ---
Objective: Objective: Reviewed chart. Vital Signs: Vital Signs Date Time Temp Pulse Resp B/P (MAP) Pulse Ox O2 Delivery O2 Flow Rate FiO2 06/18/17 10:40 98.6 83 17 160/80 (106) 98 Room Air 98.6 Labs: Laboratory Tests Test 06/17/17 16:20 Prothrombin Time 14.4 SEC Prothromb Time International Ratio 1.2 PE: GEN: NAD LUNGS: clear HEART: RRR ABD: soft NEURO/PSYCH: awake, non-verbal A/P: Aspiration pneumonia - on atbx H/o CVA, dementia, dysphagia -- Plans fro PEG placement tomorrow VICKY Han Jun 18, 2017 11:41
[2017-06-18 14:50] VITALS: BP 155/70
--- NOTE | 2017-06-18 16:10 | PDOC ---
PULMONARY PROGRESS NOTES Subjective PT IN NO DISTRESS NON VERBAL Vitals Vital Signs Date Time Temp Pulse Resp B/P (MAP) Pulse Ox O2 Delivery O2 Flow Rate FiO2 06/18/17 14:50 98.4 82 16 155/70 (98) 98 Room Air 98.4 General: No acute distress Lungs: Clear Cardiovascular: S1 Abdomen: Soft Extremities: No Edema Skin: Warm Labs Laboratory Tests Test 06/17/17 16:20 Prothrombin Time 14.4 SEC (11.7-14.0) Prothromb Time International Ratio 1.2 (0.8-1.1) Laboratory Tests Test 06/17/17 16:20 Prothrombin Time 14.4 SEC (11.7-14.0) Prothromb Time International Ratio 1.2 (0.8-1.1) Medications Active Scripts Medications Dose Route/Sig Max Daily Dose Days Date Category Probiotic (Lactobacillus Acidophilus) 1 Each Capsule 1 Each PO BID92 06/11/17 Reported Vitamin D (Cholecalciferol (Vitamin D3)) 2,000 Unit Capsule 1 Cap PO DAILY 05/14/17 Reported Vitamin C (Ascorbic Acid) 500 Mg Tablet 500 Mg PO DAILY 05/14/17 Reported Tylenol (Acetaminophen) 325 Mg Tablet 325 Mg PO PRN Q4HRS PRN 05/14/17 Reported Pataday (Olopatadine Hcl) 2.5 Ml Drops 1 Drop EACHEYE DAILY 05/14/17 Reported Namenda (Memantine Hcl) 10 Mg Tablet 1 Tab PO BID 05/14/17 Reported Byrgb-Tgsvxhl-Ltnbwdvb Tablet (Multivit-Min/Iron Fum/Folic AC) 1 Each Tablet 1 Each PO DAILY 05/14/17 Reported Imodium A-D (Loperamide HCl) 2 Mg Capsule 2 Mg PO PRN Q4HRS PRN 05/14/17 Reported Rivastigmine (Rivastigmine Tartrate) 3 Mg Capsule 3 Mg PO BID 05/14/17 Reported Duoneb 0.5-3(2.5) Mg/3 Ml (Albuterol/Ipratropium) 3 Ml Ampul.neb 3 Ml NEB PRN Q6HRS PRN 05/14/17 Reported Vitamin B-12 (Cyanocobalamin (Vitamin B-12)) 1,000 Mcg Tablet 500 Mcg PO DAILY 05/14/17 Reported Cholestyramine Packet (Cholestyramine (With Sugar)) 4 Gm Powd.pack 4 Gm PO DAILY 05/14/17 Reported Albuterol Sulfate Neb Soln (Albuterol Sulfate) 2.5 Mg/3 Ml Vial.neb 1 Vial NEB PRN QID PRN 05/14/17 Reported Impression . 1. Progressive reticular nodular/interstitial infiltrates, especially on the right side since past x-rays from March and April and I suspect this is due to chronic aspiration. 2. Advanced dementia. 3. Moderate protein calorie malnutrition. 4. Dysphagia 5. Hypernatremia secondary to dehydration. 6. Suspected gram-negative and gram-positive pneumonia. Plan . D/W DR TWYLA PAZ IN AM 1. Continue with present broad-spectrum antibiotics. off vanc 2. CT chest reviewed. extensive reticulo nodular infiltrates RLL, c/w aspiration 3. Speech evaluation c/w aspiration.NPO. on PPN JASKARAN GONZALEZ MD Jun 18, 2017 16:10
[2017-06-18 19:50] VITALS: BP 139/73
[2017-06-18 23:47] VITALS: BP 134/62
[2017-06-19 03:00] VITALS: BP 166/81
[2017-06-19] MEDS: AMINO AC 3%/ELECTROLYTE/GLYCER 1,000 ML IV SCH ×2 (05:15→20:09)
[2017-06-19] MEDS: PIPERACILLIN/TAZO IV Push 3.375 GM VIAL. IVP SCH ×4 (05:16→23:52)
[2017-06-19 07:00] VITALS: BP 153/70
[2017-06-19] MEDS ORDERED: IV RINGERS,LACTATED 1000ML 1,000 ML IV SCH (07:00)
[2017-06-19] MEDS ORDERED: PROPOFOL 20 ML IV ONE (08:49)
[2017-06-19] MEDS ORDERED: LIDOCAINE 2% PF Vial for OR 5 ML VIAL. ONE (08:49)
--- NOTE | 2017-06-19 09:02 | PDOC ---
GENERAL General: vss and afebrile. mental and physical exam without change. for PEG placement today with hopefully back to custodial by end of week. Problems: VITAL SIGNS Vital Signs: Vital Signs Date Time Temp Pulse Resp B/P (MAP) Pulse Ox O2 Delivery O2 Flow Rate FiO2 06/19/17 08:42 98.8 90 18 98 98.8 06/19/17 08:39 Room Air 06/19/17 07:00 153/70 (97) I & O I & O Intake and Output 06/19/17 07:00 Intake Total 0 ml Output Total 1200 ml Balance -1200 ml Intake Oral 0 ml Output Urine Total 1200 ml # Voids 6 ALLERGIES Allergies: Allergies Coded Allergies Type Severity Reaction Last Updated Verified No Known Drug Allergies 06/19/17 No MEDS Medications: Current Medications Medications (Trade) Dose Ordered Sig/Felix Start Time Stop Time Status Last Admin Dose Admin Amino Acids/ Glycerin/ Electrolytes 1,000 ml @ 80 mls/hr [id number] 06/13/17 10:15 06/19/17 05:15 80 MLS/HR Influenza Virus Vaccine Quadrival (Fluarix Quad 5092-9008 Syringe) 0.5 ml ONCE ONCE 06/13/17 11:00 06/13/17 11:01 DC 06/13/17 16:17 0.5 ML Info (Do NOT chart on this placeholder) 0.5 each PRN DAILY PRN 06/11/17 22:15 Cancel Morphine Sulfate 2 mg PRN Q2HR PRN 06/11/17 16:30 06/12/17 16:29 DC Ondansetron HCl (Zofran) 4 mg PRN Q8HRS PRN 06/11/17 16:30 06/12/17 16:29 DC Piperacillin Sod/ Tazobactam Sod (Zosyn) 3.375 gm Q6HRS 06/12/17 09:00 06/19/17 05:16 3.375 GM Piperacillin Sod/ Tazobactam Sod 3.375 gm/Dextrose 50 ml @ 100 mls/hr Q6HRS 06/12/17 12:00 UNV Potassium Chloride 40 meq/ Dextrose 520 ml @ 130 mls/hr 1X ONCE 06/14/17 12:30 06/14/17 16:29 DC 06/14/17 12:14 130 MLS/HR Ringer's Solution 1,000 ml @ 50 mls/hr Q20H 06/19/17 07:00 06/19/17 18:59 06/19/17 08:40 50 MLS/HR Sodium Chloride 1,000 ml @ 100 mls/hr Q10H 06/12/17 08:45 06/13/17 10:13 DC 06/12/17 23:27 100 MLS/HR Vancomycin HCl 1 each 1X ONCE 06/13/17 14:30 06/13/17 14:31 DC Vancomycin HCl (Vanco Per Pharmacy) 1 each PRN DAILY PRN 06/12/17 08:45 06/14/17 14:54 DC 06/14/17 14:30 1 EACH Vancomycin HCl 1.25 gm/Sodium Chloride 500 ml @ 250 mls/hr 1X ONCE 06/11/17 15:45 06/11/17 17:44 UNV Vancomycin HCl 1 gm/Dextrose 250 ml @ 250 mls/hr Q24H 06/12/17 15:00 06/14/17 14:53 DC 06/13/17 16:16 250 MLS/HR Nutrition Consultation Dietary Evaluation: Recommendations by RD: PPN/TPN Comments: continue ppn for short term nutrition TF for nutriton needs to be met REC mvi, vit c per protocol for wound healing Expected Outcomes/Goals: comfort care vs TF Interpretation of weight loss: >1-2% in 1 week Malnutrition Findings: Body Fat Depletion (Non Severe: Mild Depletion Weight Status: Underweight OMAR WAKEFIELD MD Jun 19, 2017 09:02
--- NOTE | 2017-06-19 09:17 | PDOC4 ---
Operative Note Operative Note EGD with PEG placement Meds propofol 20 mg Pre-op dx oropharyngeal dysphagia Post- op dx hiatal hernia non-erosive gastritis S/p 20 FR PEG placement Plan start feedings via tube later today and medications immediately PITO STATON MD Jun 19, 2017 09:17
[2017-06-19 11:17] VITALS: BP 133/94
[2017-06-19 15:43] VITALS: BP 124/73
--- NOTE | 2017-06-19 17:33 | PDOC ---
PULMONARY PROGRESS NOTES Subjective PT IN NO DISTRESS NON VERBAL Vitals Vital Signs Date Time Temp Pulse Resp B/P (MAP) Pulse Ox O2 Delivery O2 Flow Rate FiO2 06/19/17 15:43 98.2 81 16 124/73 (90) 95 Room Air 98.2 General: No acute distress Lungs: Clear Cardiovascular: S1 Abdomen: Soft Extremities: No Edema Skin: Warm Medications Active Scripts Medications Dose Route/Sig Max Daily Dose Days Date Category Probiotic (Lactobacillus Acidophilus) 1 Each Capsule 1 Each PO BID92 06/11/17 Reported Vitamin D (Cholecalciferol (Vitamin D3)) 2,000 Unit Capsule 1 Cap PO DAILY 05/14/17 Reported Vitamin C (Ascorbic Acid) 500 Mg Tablet 500 Mg PO DAILY 05/14/17 Reported Tylenol (Acetaminophen) 325 Mg Tablet 325 Mg PO PRN Q4HRS PRN 05/14/17 Reported Pataday (Olopatadine Hcl) 2.5 Ml Drops 1 Drop EACHEYE DAILY 05/14/17 Reported Namenda (Memantine Hcl) 10 Mg Tablet 1 Tab PO BID 05/14/17 Reported Ehbyg-Hpyyqhy-Hecncdld Tablet (Multivit-Min/Iron Fum/Folic AC) 1 Each Tablet 1 Each PO DAILY 05/14/17 Reported Imodium A-D (Loperamide HCl) 2 Mg Capsule 2 Mg PO PRN Q4HRS PRN 05/14/17 Reported Rivastigmine (Rivastigmine Tartrate) 3 Mg Capsule 3 Mg PO BID 05/14/17 Reported Duoneb 0.5-3(2.5) Mg/3 Ml (Albuterol/Ipratropium) 3 Ml Ampul.neb 3 Ml NEB PRN Q6HRS PRN 05/14/17 Reported Vitamin B-12 (Cyanocobalamin (Vitamin B-12)) 1,000 Mcg Tablet 500 Mcg PO DAILY 05/14/17 Reported Cholestyramine Packet (Cholestyramine (With Sugar)) 4 Gm Powd.pack 4 Gm PO DAILY 05/14/17 Reported Albuterol Sulfate Neb Soln (Albuterol Sulfate) 2.5 Mg/3 Ml Vial.neb 1 Vial NEB PRN QID PRN 05/14/17 Reported Impression . 1. Progressive reticular nodular/interstitial infiltrates, especially on the right side since past x-rays from March and April and I suspect this is due to chronic aspiration. 2. Advanced dementia. 3. Moderate protein calorie malnutrition. 4. Dysphagia 5. Hypernatremia secondary to dehydration. 6. Suspected gram-negative and gram-positive pneumonia. Plan . PT SEEN EARLIER TODAY PEG SCHEDULED 1. Continue with present broad-spectrum antibiotics. off vanc 2. CT chest reviewed. extensive reticulo nodular infiltrates RLL, c/w aspiration 3. Speech evaluation c/w aspiration.NPO. on PPN JASKARAN GONZALEZ MD Jun 19, 2017 17:33
[2017-06-19 19:55] VITALS: BP 149/62
[2017-06-19 23:41] VITALS: BP 176/72
[2017-06-20] VITALS (7 sets, daily range): BP systolic 124–165; BP diastolic 59–97
[2017-06-20] MEDS: AMINO AC 3%/ELECTROLYTE/GLYCER 1,000 ML IV SCH ×2 (04:45→11:13)
[2017-06-20] MEDS: PIPERACILLIN/TAZO IV Push 3.375 GM VIAL. IVP SCH (06:38)
--- NOTE | 2017-06-20 11:04 | PDOC ---
GENERAL General: vss and afebrile. awakens but nonverbal. peg tube in place and tube feedings running. will change to augmentin from zosyn today and check cxr for clearing. recheck labs in am with probable dc back to detention in am. exam stable. Problems: VITAL SIGNS Vital Signs: Vital Signs Date Time Temp Pulse Resp B/P (MAP) Pulse Ox O2 Delivery O2 Flow Rate FiO2 06/20/17 08:00 Room Air 06/20/17 07:00 98.5 78 18 124/59 (80) 100 98.5 I & O I & O Intake and Output 06/20/17 07:00 Intake Total 140 ml Balance 140 ml Intake Oral 0 ml Tube Feeding 140 ml # Voids 5 # Bowel Movements 5 ALLERGIES Allergies: Allergies Coded Allergies Type Severity Reaction Last Updated Verified No Known Drug Allergies 06/19/17 No MEDS Medications: Current Medications Medications (Trade) Dose Ordered Sig/Felix Start Time Stop Time Status Last Admin Dose Admin Amino Acids/ Glycerin/ Electrolytes 1,000 ml @ 80 mls/hr [id number] 06/13/17 10:15 06/19/17 20:09 80 MLS/HR Influenza Virus Vaccine Quadrival (Fluarix Quad [id number] Syringe) 0.5 ml ONCE ONCE 06/13/17 11:00 06/13/17 11:01 DC 06/13/17 16:17 0.5 ML Info (Do NOT chart on this placeholder) 0.5 each PRN DAILY PRN 06/11/17 22:15 Cancel Morphine Sulfate 2 mg PRN Q2HR PRN 06/11/17 16:30 06/12/17 16:29 DC Ondansetron HCl (Zofran) 4 mg PRN Q8HRS PRN 06/11/17 16:30 06/12/17 16:29 DC Piperacillin Sod/ Tazobactam Sod (Zosyn) 3.375 gm Q6HRS 06/12/17 09:00 06/20/17 06:38 3.375 GM Piperacillin Sod/ Tazobactam Sod 3.375 gm/Dextrose 50 ml @ 100 mls/hr Q6HRS 06/12/17 12:00 UNV Potassium Chloride 40 meq/ Dextrose 520 ml @ 130 mls/hr 1X ONCE 06/14/17 12:30 06/14/17 16:29 DC 06/14/17 12:14 130 MLS/HR Ringer's Solution 1,000 ml @ 50 mls/hr Q20H 06/19/17 07:00 06/19/17 18:59 DC 06/19/17 08:40 50 MLS/HR Sodium Chloride 1,000 ml @ 100 mls/hr Q10H 06/12/17 08:45 06/13/17 10:13 DC 06/12/17 23:27 100 MLS/HR Vancomycin HCl 1 each 1X ONCE 06/13/17 14:30 06/13/17 14:31 DC Vancomycin HCl (Vanco Per Pharmacy) 1 each PRN DAILY PRN 06/12/17 08:45 06/14/17 14:54 DC 06/14/17 14:30 1 EACH Vancomycin HCl 1.25 gm/Sodium Chloride 500 ml @ 250 mls/hr 1X ONCE 06/11/17 15:45 06/11/17 17:44 UNV Vancomycin HCl 1 gm/Dextrose 250 ml @ 250 mls/hr Q24H 06/12/17 15:00 06/14/17 14:53 DC 06/13/17 16:16 250 MLS/HR Nutrition Consultation Dietary Evaluation: Recommendations by RD: PPN/TPN Comments: RD consult for TF- new PEG per nursing continue ppn until TF initiated REC mvi, vit c per protocol for wound healing Expected Outcomes/Goals: to tolerate TF at goal Interpretation of weight loss: >1-2% in 1 week Malnutrition Findings: Body Fat Depletion (Non Severe: Mild Depletion Weight Status: Underweight OMAR WAKEFIELD MD Jun 20, 2017 11:03
[2017-06-20] MEDS: AMOXICILLIN/K CLAV 500/125MG TABLET. PO SCH ×2 (11:51→21:27)
--- NOTE | 2017-06-20 18:04 | PDOC ---
PULMONARY PROGRESS NOTES Subjective PT IN NO DISTRESS NON VERBAL Vitals Vital Signs Date Time Temp Pulse Resp B/P (MAP) Pulse Ox O2 Delivery O2 Flow Rate FiO2 06/20/17 15:00 98.4 85 18 133/71 (91) 96 Room Air 98.4 General: No acute distress Lungs: Clear Cardiovascular: S1 Abdomen: Soft Extremities: No Edema Skin: Warm Medications Active Scripts Medications Dose Route/Sig Max Daily Dose Days Date Category Probiotic (Lactobacillus Acidophilus) 1 Each Capsule 1 Each PO BID92 06/11/17 Reported Vitamin D (Cholecalciferol (Vitamin D3)) 2,000 Unit Capsule 1 Cap PO DAILY 05/14/17 Reported Vitamin C (Ascorbic Acid) 500 Mg Tablet 500 Mg PO DAILY 05/14/17 Reported Tylenol (Acetaminophen) 325 Mg Tablet 325 Mg PO PRN Q4HRS PRN 05/14/17 Reported Pataday (Olopatadine Hcl) 2.5 Ml Drops 1 Drop EACHEYE DAILY 05/14/17 Reported Namenda (Memantine Hcl) 10 Mg Tablet 1 Tab PO BID 05/14/17 Reported Lofts-Dersruj-Ybajklfx Tablet (Multivit-Min/Iron Fum/Folic AC) 1 Each Tablet 1 Each PO DAILY 05/14/17 Reported Imodium A-D (Loperamide HCl) 2 Mg Capsule 2 Mg PO PRN Q4HRS PRN 05/14/17 Reported Rivastigmine (Rivastigmine Tartrate) 3 Mg Capsule 3 Mg PO BID 05/14/17 Reported Duoneb 0.5-3(2.5) Mg/3 Ml (Albuterol/Ipratropium) 3 Ml Ampul.neb 3 Ml NEB PRN Q6HRS PRN 05/14/17 Reported Vitamin B-12 (Cyanocobalamin (Vitamin B-12)) 1,000 Mcg Tablet 500 Mcg PO DAILY 05/14/17 Reported Cholestyramine Packet (Cholestyramine (With Sugar)) 4 Gm Powd.pack 4 Gm PO DAILY 05/14/17 Reported Albuterol Sulfate Neb Soln (Albuterol Sulfate) 2.5 Mg/3 Ml Vial.neb 1 Vial NEB PRN QID PRN 05/14/17 Reported Impression . 1. Progressive reticular nodular/interstitial infiltrates, especially on the right side since past x-rays from March and April and I suspect this is due to chronic aspiration. 2. Advanced dementia. 3. Moderate protein calorie malnutrition. 4. Dysphagia 5. Hypernatremia secondary to dehydration. 6. Suspected gram-negative and gram-positive pneumonia. Plan . AGREE WITH CURRENTS PLANS WILL REVIEW THE CXR JASKARAN GONZALEZ MD Jun 20, 2017 18:03
[2017-06-20] MEDS: ACETAMINOPHEN 650 MG/20.3 ML SOLUTION. PEG PRN (21:27)
[2017-06-21] VITALS (8 sets, daily range): BP systolic 113–159; BP diastolic 62–78
[2017-06-21] MEDS: AMINO AC 3%/ELECTROLYTE/GLYCER 1,000 ML IV SCH (01:57)
[2017-06-21 05:46] LABS: BASO # 0.1 x10^3/uL (0.0-0.2); BASO % 1 % (0-3); EOS % 4 % (0-3); HEMATOCRIT 36.7 % (36.0-47.0); HEMOGLOBIN 12.2 g/dL (12.0-15.5); LYMPH # 1.6 x10^3/uL (1.0-4.8); LYMPH % 23 % (24-48); MEAN CORPUSCULAR HEMOGLOBIN 31 pg (25-35); MEAN CORPUSCULAR HGB CONC 33 g/dL (31-37); MEAN CORPUSCULAR VOLUME 92 fL (79-100); MONO % 14 % (0-9); NEUT % 59 % (31-73); PLATELET COUNT 378 x10^3/uL (140-400); RED BLOOD COUNT 3.98 x10^6/uL (3.50-5.40); RED CELL DISTRIBUTION WIDTH 15.1 % (11.5-14.5); WHITE BLOOD COUNT 7.1 x10^3/uL (4.0-11.0)
[2017-06-21] MEDS: AMOXICILLIN/K CLAV 500/125MG TABLET. PO SCH ×2 (08:30→20:22)
--- NOTE | 2017-06-21 08:39 | RAD ---
EXAM: Chest one view. HISTORY: Pneumonia. COMPARISON: 06/11/2017. FINDINGS: A frontal view of the chest is obtained. The right basilar infiltrate has improved but not completely resolved. There are lesser left basilar infiltrates. There are atherosclerotic calcifications of the aorta. There is no pneumothorax or pleural effusion. The heart is not enlarged. IMPRESSION: 1. Bibasilar infiltrates have improved but not completely resolved.
--- NOTE | 2017-06-21 09:20 | PDOC ---
GI PROGRESS NOTES Date Date/Time DATE: 06/21/17 TIME: 09:19 Subjective Subjective unresponsive PEG site evaluated- tolerating TF at 40 cc hour Objective Vitals Vital Signs Date Time Temp Pulse Resp B/P (MAP) Pulse Ox O2 Delivery O2 Flow Rate FiO2 06/21/17 08:00 Room Air 06/21/17 07:00 98.0 68 17 137/65 (89) 98 Room Air 98.0 06/21/17 03:00 98.7 98 18 159/78 (105) 99 98.7 06/20/17 23:00 99.8 84 18 153/74 (100) 100 Room Air 99.8 06/20/17 20:00 Room Air 06/20/17 19:00 100.0 109 18 159/97 (117) 100 Room Air 100.0 06/20/17 15:00 98.4 85 18 133/71 (91) 96 Room Air 98.4 06/20/17 11:00 98.3 88 17 143/68 (93) 99 Room Air 98.3 Labs Labs Laboratory Tests Test 06/21/17 05:30 White Blood Count 7.1 x10^3/uL (4.0-11.0) Red Blood Count 3.98 x10^6/uL (3.50-5.40) Hemoglobin 12.2 g/dL (12.0-15.5) Hematocrit 36.7 % (36.0-47.0) Mean Corpuscular Volume 92 fL (79-100) Mean Corpuscular Hemoglobin 31 pg (25-35) Mean Corpuscular Hemoglobin Concent 33 g/dL (31-37) Red Cell Distribution Width 15.1 % (11.5-14.5) Platelet Count 378 x10^3/uL (140-400) Neutrophils (%) (Auto) 59 % (31-73) Lymphocytes (%) (Auto) 23 % (24-48) Monocytes (%) (Auto) 14 % (0-9) Eosinophils (%) (Auto) 4 % (0-3) Basophils (%) (Auto) 1 % (0-3) Neutrophils # (Auto) 4.2 x10^3uL (1.8-7.7) Lymphocytes # (Auto) 1.6 x10^3/uL (1.0-4.8) Monocytes # (Auto) 1.0 x10^3/uL (0.0-1.1) Eosinophils # (Auto) 0.3 x10^3/uL (0.0-0.7) Basophils # (Auto) 0.1 x10^3/uL (0.0-0.2) Physical Exam Physical Exam Abd- soft- PEG site dry, no leak or inflammation Assessment Assessment PEG placed- tolerating TF plan- increase TF to goal rate and taper off PPN GI signing off Problems: ANNAMARIA COMBS MD Jun 21, 2017 09:20
[2017-06-21 09:56] LABS: ALBUMIN/GLOBULIN RATIO 0.4 (1.0-1.7); CALCIUM 9.6 mg/dL (8.5-10.1); CREATININE 0.8 mg/dL (0.6-1.0); GFR 83.5; TOTAL BILIRUBIN 0.3 mg/dL (0.2-1.0); TOTAL PROTEIN 7.7 g/dL (6.4-8.2)
[2017-06-21 09:57] LABS: POTASSIUM 4.6 mmol/L (3.5-5.1)
--- NOTE | 2017-06-21 10:02 | PDOC ---
GENERAL General: vss with tmax 100.0. exam stable. cxr with improvement in infiltrates and will maintain on augmentin for another week. tolerating tube feedings at target rate of 40cc/hr. labs stable. back to senior living today. see discharge summary. Problems: VITAL SIGNS Vital Signs: Vital Signs Date Time Temp Pulse Resp B/P (MAP) Pulse Ox O2 Delivery O2 Flow Rate FiO2 06/21/17 08:00 Room Air 06/21/17 07:00 98.0 68 17 137/65 (89) 98 98.0 I & O I & O Intake and Output 06/21/17 06:59 Intake Total 220 ml Output Total 0 ml Balance 220 ml Intake Oral 0 ml Tube Feeding 220 ml Output Urine Total 0 ml # Voids 1 ALLERGIES Allergies: Allergies Coded Allergies Type Severity Reaction Last Updated Verified No Known Drug Allergies 06/19/17 No MEDS Medications: Current Medications Medications (Trade) Dose Ordered Sig/Felix Start Time Stop Time Status Last Admin Dose Admin Acetaminophen (Tylenol) 650 mg PRN Q6HRS PRN 06/20/17 21:15 06/20/17 21:27 650 MG Amino Acids/ Glycerin/ Electrolytes 1,000 ml @ 80 mls/hr [id number] 06/13/17 10:15 06/21/17 01:57 80 MLS/HR Amoxicillin/ Clavulanate Potassium (Augmentin 500/ 125mg) 1 tab BID 06/20/17 12:00 06/21/17 08:30 1 TAB Influenza Virus Vaccine Quadrival (Fluarix Quad [id number] Syringe) 0.5 ml ONCE ONCE 06/13/17 11:00 06/13/17 11:01 DC 06/13/17 16:17 0.5 ML Info (Do NOT chart on this placeholder) 0.5 each PRN DAILY PRN 06/11/17 22:15 Cancel Morphine Sulfate 2 mg PRN Q2HR PRN 06/11/17 16:30 06/12/17 16:29 DC Ondansetron HCl (Zofran) 4 mg PRN Q8HRS PRN 06/11/17 16:30 06/12/17 16:29 DC Piperacillin Sod/ Tazobactam Sod (Zosyn) 3.375 gm Q6HRS 06/12/17 09:00 06/20/17 11:02 DC 06/20/17 06:38 3.375 GM Piperacillin Sod/ Tazobactam Sod 3.375 gm/Dextrose 50 ml @ 100 mls/hr Q6HRS 06/12/17 12:00 UNV Potassium Chloride 40 meq/ Dextrose 520 ml @ 130 mls/hr 1X ONCE 06/14/17 12:30 06/14/17 16:29 DC 06/14/17 12:14 130 MLS/HR Ringer's Solution 1,000 ml @ 50 mls/hr Q20H 06/19/17 07:00 06/19/17 18:59 DC 06/19/17 08:40 50 MLS/HR Sodium Chloride 1,000 ml @ 100 mls/hr Q10H 06/12/17 08:45 06/13/17 10:13 DC 06/12/17 23:27 100 MLS/HR Vancomycin HCl 1 each 1X ONCE 06/13/17 14:30 06/13/17 14:31 DC Vancomycin HCl (Vanco Per Pharmacy) 1 each PRN DAILY PRN 06/12/17 08:45 06/14/17 14:54 DC 06/14/17 14:30 1 EACH Vancomycin HCl 1.25 gm/Sodium Chloride 500 ml @ 250 mls/hr 1X ONCE 06/11/17 15:45 06/11/17 17:44 UNV Vancomycin HCl 1 gm/Dextrose 250 ml @ 250 mls/hr Q24H 06/12/17 15:00 06/14/17 14:53 DC 06/13/17 16:16 250 MLS/HR LAB Lab: Laboratory Tests Test 06/21/17 05:30 06/21/17 09:05 White Blood Count 7.1 x10^3/uL (4.0-11.0) Red Blood Count 3.98 x10^6/uL (3.50-5.40) Hemoglobin 12.2 g/dL (12.0-15.5) Hematocrit 36.7 % (36.0-47.0) Mean Corpuscular Volume 92 fL (79-100) Mean Corpuscular Hemoglobin 31 pg (25-35) Mean Corpuscular Hemoglobin Concent 33 g/dL (31-37) Red Cell Distribution Width 15.1 % (11.5-14.5) Platelet Count 378 x10^3/uL (140-400) Neutrophils (%) (Auto) 59 % (31-73) Lymphocytes (%) (Auto) 23 % (24-48) Monocytes (%) (Auto) 14 % (0-9) Eosinophils (%) (Auto) 4 % (0-3) Basophils (%) (Auto) 1 % (0-3) Neutrophils # (Auto) 4.2 x10^3uL (1.8-7.7) Lymphocytes # (Auto) 1.6 x10^3/uL (1.0-4.8) Monocytes # (Auto) 1.0 x10^3/uL (0.0-1.1) Eosinophils # (Auto) 0.3 x10^3/uL (0.0-0.7) Basophils # (Auto) 0.1 x10^3/uL (0.0-0.2) Sodium Level 136 mmol/L (136-145) Potassium Level 4.6 mmol/L (3.5-5.1) Chloride Level 105 mmol/L (98-107) Carbon Dioxide Level 26 mmol/L (21-32) Anion Gap 5 (6-14) Blood Urea Nitrogen 24 mg/dL (7-20) Creatinine 0.8 mg/dL (0.6-1.0) Estimated GFR (Cockcroft-Gault) 83.5 BUN/Creatinine Ratio 30 (6-20) Glucose Level 103 mg/dL (70-99) Calcium Level 9.6 mg/dL (8.5-10.1) Total Bilirubin 0.3 mg/dL (0.2-1.0) Aspartate Amino Transf (AST/SGOT) 30 U/L (15-37) Alanine Aminotransferase (ALT/SGPT) 26 U/L (14-59) Alkaline Phosphatase 72 U/L (46-116) Total Protein 7.7 g/dL (6.4-8.2) Albumin 2.0 g/dL (3.4-5.0) Albumin/Globulin Ratio 0.4 (1.0-1.7) Nutrition Consultation Dietary Evaluation: Recommendations by RD: PPN/TPN Comments: RD consult for TF- new PEG per nursing continue ppn until TF initiated REC mvi, vit c per protocol for wound healing Expected Outcomes/Goals: to tolerate TF at goal Interpretation of weight loss: >1-2% in 1 week Malnutrition Findings: Body Fat Depletion (Non Severe: Mild Depletion Weight Status: Underweight OMAR WAKEFIELD MD Jun 21, 2017 10:02
--- NOTE | 2017-06-21 10:33 | DS ---
DATE OF DISCHARGE: 06/21/2017 PRIMARY DIAGNOSES: Aspiration pneumonia, dysphagia, end-stage dementia, PEG tube placement during this stay, sacral decubitus ulcer, [id number] protein-calorie malnutrition. CHIEF COMPLAINT AND HISTORY OF PRESENT ILLNESS: This 82-year-old white female was admitted through the Emergency Room on the day of admission from the longterm with findings of right lower lobe pneumonia as well as hypernatremia consistent with dehydration. SUMMARY OF STAY: The patient was admitted, hydrated, continued on antibiotics throughout the stay with some resolution of infiltrates by the time of discharge. Pulmonary followed along feeling this was probably aspiration and swallow was deemed by Speech completely unsafe. Family discussed with Palliative Care the options and chose the feeding tube route which was placed prior to discharge. She was tolerating the target rate of 40 mL per hour of tube feedings at the time of discharge, and had ongoing wound care with wound VAC on her sacral decubitus, which was debrided at the hospitalization prior to this one. She did have [id number] protein-calorie malnutrition with an albumin in the 2 range and this hopefully will improve with the tube feedings. It was felt that she could be dismissed back on another week of Augmentin for the aspiration pneumonia with a feeling that hopefully with the tube feeding, this would not be an issue in the future and this was accomplished. DISPOSITION: The patient is discharged back to the longterm. Continued wound care with wound VAC, Augmentin for the next week, tube feedings at 40, which was her current and one felt by dietitian target rate. DISCHARGE MEDICATIONS: Listed on the med rec and have been addressed. OMAR WAKEFIELD MD DR: STEPAN/brandi JOB#: [id number] / [id number]
[2017-06-21] MEDS: ACETAMINOPHEN 650 MG/20.3 ML SOLUTION. PEG PRN (20:22)
[2017-06-22] VITALS (7 sets, daily range): BP systolic 99–160; BP diastolic 45–84
[2017-06-22] MEDS: AMOXICILLIN/K CLAV 500/125MG TABLET. PO SCH (07:55)
--- NOTE | 2017-06-22 09:11 | PDOC ---
Provider Note Provider Note remains here as family declined current placement, on peg feed, augmentin, labs and vitals good, cont same pending disposition SHAWNA CALVILLO MD Jun 22, 2017 09:11
[2017-06-22] MEDS ORDERED: ACETAMINOPHEN 325 MG TABLET. PO PRN (09:30)
[2017-06-22] MEDS ORDERED: ACETAMINOPHEN 650 MG/20.3 ML SOLUTION. PEG PRN (09:45)
[2017-06-22] MEDS ORDERED: ALBUTEROL SULFATE 2.5 MG/3 ML NEBU. NEB PRN (09:45)
[2017-06-22] MEDS ORDERED: MEMANTINE 10 MG TABLET. PO SCH (10:00)
[2017-06-22] MEDS ORDERED: RIVASTIGMINE 1.5 MG CAPSULE. PO SCH (10:00)
[2017-06-22] MEDS: RIVASTIGMINE 1.5 MG CAPSULE. PEG SCH (16:29)
--- NOTE | 2017-06-22 18:06 | PDOC ---
PULMONARY PROGRESS NOTES Subjective PT IN NO DISTRESS NON VERBAL Vitals Vital Signs Date Time Temp Pulse Resp B/P (MAP) Pulse Ox O2 Delivery O2 Flow Rate FiO2 06/22/17 17:18 94 129/68 (88) 06/22/17 15:15 98.6 16 97 Room Air 98.6 General: No acute distress Lungs: Clear Cardiovascular: S1 Abdomen: Soft Extremities: No Edema Skin: Warm Labs Laboratory Tests Test 06/21/17 05:30 06/21/17 09:05 White Blood Count 7.1 x10^3/uL (4.0-11.0) Red Blood Count 3.98 x10^6/uL (3.50-5.40) Hemoglobin 12.2 g/dL (12.0-15.5) Hematocrit 36.7 % (36.0-47.0) Mean Corpuscular Volume 92 fL (79-100) Mean Corpuscular Hemoglobin 31 pg (25-35) Mean Corpuscular Hemoglobin Concent 33 g/dL (31-37) Red Cell Distribution Width 15.1 % (11.5-14.5) Platelet Count 378 x10^3/uL (140-400) Neutrophils (%) (Auto) 59 % (31-73) Lymphocytes (%) (Auto) 23 % (24-48) Monocytes (%) (Auto) 14 % (0-9) Eosinophils (%) (Auto) 4 % (0-3) Basophils (%) (Auto) 1 % (0-3) Neutrophils # (Auto) 4.2 x10^3uL (1.8-7.7) Lymphocytes # (Auto) 1.6 x10^3/uL (1.0-4.8) Monocytes # (Auto) 1.0 x10^3/uL (0.0-1.1) Eosinophils # (Auto) 0.3 x10^3/uL (0.0-0.7) Basophils # (Auto) 0.1 x10^3/uL (0.0-0.2) Sodium Level 136 mmol/L (136-145) Potassium Level 4.6 mmol/L (3.5-5.1) Chloride Level 105 mmol/L (98-107) Carbon Dioxide Level 26 mmol/L (21-32) Anion Gap 5 (6-14) Blood Urea Nitrogen 24 mg/dL (7-20) Creatinine 0.8 mg/dL (0.6-1.0) Estimated GFR (Cockcroft-Gault) 83.5 BUN/Creatinine Ratio 30 (6-20) Glucose Level 103 mg/dL (70-99) Calcium Level 9.6 mg/dL (8.5-10.1) Total Bilirubin 0.3 mg/dL (0.2-1.0) Aspartate Amino Transf (AST/SGOT) 30 U/L (15-37) Alanine Aminotransferase (ALT/SGPT) 26 U/L (14-59) Alkaline Phosphatase 72 U/L (46-116) Total Protein 7.7 g/dL (6.4-8.2) Albumin 2.0 g/dL (3.4-5.0) Albumin/Globulin Ratio 0.4 (1.0-1.7) Medications Active Scripts Medications Dose Route/Sig Max Daily Dose Days Date Category Probiotic (Lactobacillus Acidophilus) 1 Each Capsule 1 Each PO [id number] 06/11/17 Reported Vitamin D (Cholecalciferol (Vitamin D3)) 2,000 Unit Capsule 1 Cap PO DAILY 05/14/17 Reported Vitamin C (Ascorbic Acid) 500 Mg Tablet 500 Mg PO DAILY 05/14/17 Reported Tylenol (Acetaminophen) 325 Mg Tablet 325 Mg PO PRN Q4HRS PRN 05/14/17 Reported Pataday (Olopatadine Hcl) 2.5 Ml Drops 1 Drop EACHEYE DAILY 05/14/17 Reported Namenda (Memantine Hcl) 10 Mg Tablet 1 Tab PO BID 05/14/17 Reported Fnvyv-Jmynkpx-Kmcwjmgw Tablet (Multivit-Min/Iron Fum/Folic AC) 1 Each Tablet 1 Each PO DAILY 05/14/17 Reported Imodium A-D (Loperamide HCl) 2 Mg Capsule 2 Mg PO PRN Q4HRS PRN 05/14/17 Reported Rivastigmine (Rivastigmine Tartrate) 3 Mg Capsule 3 Mg PO BID 05/14/17 Reported Duoneb 0.5-3(2.5) Mg/3 Ml (Albuterol/Ipratropium) 3 Ml Ampul.neb 3 Ml NEB PRN Q6HRS PRN 05/14/17 Reported Vitamin B-12 (Cyanocobalamin (Vitamin B-12)) 1,000 Mcg Tablet 500 Mcg PO DAILY 05/14/17 Reported Cholestyramine Packet (Cholestyramine (With Sugar)) 4 Gm Powd.pack 4 Gm PO DAILY 05/14/17 Reported Albuterol Sulfate Neb Soln (Albuterol Sulfate) 2.5 Mg/3 Ml Vial.neb 1 Vial NEB PRN QID PRN 05/14/17 Reported Impression . 1. Progressive reticular nodular/interstitial infiltrates, especially on the right side since past x-rays from March and April and I suspect this is due to chronic aspiration. 2. Advanced dementia. 3. Moderate protein calorie malnutrition. 4. Dysphagia 5. Hypernatremia secondary to dehydration. 6. Suspected gram-negative and gram-positive pneumonia. Plan . AGREE WITH CURRENTS PLANS PLACEMENT IS AN ISSUE WILL S/O CALL IF NEEDED THANKS JASKARAN GONZALEZ MD Jun 22, 2017 18:06
[2017-06-22] MEDS: AMOXICILLIN/K CLAV 500/125MG TABLET. PEG SCH (22:31)
[2017-06-22] MEDS: MEMANTINE 10 MG TABLET. PEG SCH (22:31)
[2017-06-23 03:59] VITALS: BP 134/63
[2017-06-23 07:00] VITALS: BP 110/68
--- NOTE | 2017-06-23 07:36 | PDOC ---
Provider Note Provider Note status same, no temp, vss- rupinder tube feed ok, no new labs- placement pending at family request SHAWNA CALVILLO MD Jun 23, 2017 07:36
[2017-06-23] MEDS: AMOXICILLIN/K CLAV 500/125MG TABLET. PEG SCH ×2 (08:00→20:53)
[2017-06-23] MEDS: RIVASTIGMINE 1.5 MG CAPSULE. PEG SCH ×2 (08:01→15:16)
[2017-06-23] MEDS: MEMANTINE 10 MG TABLET. PEG SCH ×2 (08:01→20:53)
[2017-06-23 11:00] VITALS: BP 112/61
[2017-06-23 15:03] VITALS: BP 163/83
[2017-06-23 19:15] VITALS: BP 113/71
[2017-06-23 23:56] VITALS: BP 145/79
[2017-06-24 03:11] VITALS: BP 137/77
[2017-06-24 07:00] VITALS: BP 119/72
--- NOTE | 2017-06-24 08:50 | PDOC ---
GENERAL General: vss and afebrile. exam stable. social worker delinquency prevention to assist family in dc destination. will increase tube feedings back to 40cc/hr which is target. Problems: VITAL SIGNS Vital Signs: Vital Signs Date Time Temp Pulse Resp B/P (MAP) Pulse Ox O2 Delivery O2 Flow Rate FiO2 06/24/17 07:00 97.9 79 16 119/72 (88) 97 Room Air 97.9 I & O I & O Intake and Output 06/24/17 07:00 Intake Total 270 ml Output Total 2 ml Balance 268 ml Intake Oral 0 ml Tube Feeding 270 ml Output Urine Total 2 ml # Voids 3 # Bowel Movements 1 ALLERGIES Allergies: Allergies Coded Allergies Type Severity Reaction Last Updated Verified No Known Drug Allergies 06/19/17 No MEDS Medications: Current Medications Medications (Trade) Dose Ordered Sig/Felix Start Time Stop Time Status Last Admin Dose Admin Acetaminophen (Tylenol) 325 mg PRN Q4HRS PRN 06/22/17 09:45 Albuterol Sulfate (Ventolin Neb Soln) 2.5 mg PRN Q6HRS PRN 06/22/17 09:45 Amino Acids/ Glycerin/ Electrolytes 1,000 ml @ 80 mls/hr [id number] 06/13/17 10:15 06/21/17 12:22 DC 06/21/17 01:57 80 MLS/HR Amoxicillin/ Clavulanate Potassium (Augmentin 500/ 125mg) 1 tab BID 06/22/17 09:39 06/23/17 20:53 1 TAB Influenza Virus Vaccine Quadrival (Fluarix Quad 8878-1101 Syringe) 0.5 ml ONCE ONCE 06/13/17 11:00 06/13/17 11:01 DC 06/13/17 16:17 0.5 ML Info (Do NOT chart on this placeholder) 0.5 each PRN DAILY PRN 06/11/17 22:15 Cancel Memantine (Namenda) 10 mg BID 06/22/17 10:00 06/23/17 20:53 10 MG Morphine Sulfate 2 mg PRN Q2HR PRN 06/11/17 16:30 06/12/17 16:29 DC Ondansetron HCl (Zofran) 4 mg PRN Q8HRS PRN 06/11/17 16:30 06/12/17 16:29 DC Piperacillin Sod/ Tazobactam Sod (Zosyn) 3.375 gm Q6HRS 06/12/17 09:00 06/20/17 11:02 DC 06/20/17 06:38 3.375 GM Piperacillin Sod/ Tazobactam Sod 3.375 gm/Dextrose 50 ml @ 100 mls/hr Q6HRS 06/12/17 12:00 UNV Potassium Chloride 40 meq/ Dextrose 520 ml @ 130 mls/hr 1X ONCE 06/14/17 12:30 06/14/17 16:29 DC 06/14/17 12:14 130 MLS/HR Ringer's Solution 1,000 ml @ 50 mls/hr Q20H 06/19/17 07:00 06/19/17 18:59 DC 06/19/17 08:40 50 MLS/HR Rivastigmine Tartrate (Exelon) 3 mg BIDWMEALS 06/22/17 10:00 06/23/17 15:16 3 MG Sodium Chloride 1,000 ml @ 100 mls/hr Q10H 06/12/17 08:45 06/13/17 10:13 DC 06/12/17 23:27 100 MLS/HR Vancomycin HCl 1 each 1X ONCE 06/13/17 14:30 06/13/17 14:31 DC Vancomycin HCl (Vanco Per Pharmacy) 1 each PRN DAILY PRN 06/12/17 08:45 06/14/17 14:54 DC 06/14/17 14:30 1 EACH Vancomycin HCl 1.25 gm/Sodium Chloride 500 ml @ 250 mls/hr 1X ONCE 06/11/17 15:45 06/11/17 17:44 UNV Vancomycin HCl 1 gm/Dextrose 250 ml @ 250 mls/hr Q24H 06/12/17 15:00 06/14/17 14:53 DC 06/13/17 16:16 250 MLS/HR Nutrition Consultation Dietary Evaluation: Recommendations by RD: PPN/TPN Comments: Rec d/c ppn - pt tolerating TF at goal REC mvi, vit c per protocol for wound healing continue total nutrition needs via TF Expected Outcomes/Goals: to tolerate TF at goal- met, goal ongoing Interpretation of weight loss: >1-2% in 1 week Malnutrition Findings: Body Fat Depletion (Non Severe: Mild Depletion Weight Status: Underweight OMAR WAKEFIELD MD Jun 24, 2017 08:49
[2017-06-24] MEDS: AMOXICILLIN/K CLAV 500/125MG TABLET. PEG SCH ×2 (10:17→23:01)
[2017-06-24] MEDS: RIVASTIGMINE 1.5 MG CAPSULE. PEG SCH ×2 (10:17→17:00)
[2017-06-24] MEDS: MEMANTINE 10 MG TABLET. PEG SCH ×2 (10:17→23:01)
[2017-06-24 10:26] VITALS: BP 94/43
[2017-06-24 14:00] VITALS: BP 132/72
[2017-06-24 19:50] VITALS: BP 133/73
[2017-06-24 23:43] VITALS: BP 148/68
[2017-06-25 03:36] VITALS: BP 151/69
[2017-06-25 07:00] VITALS: BP 141/66
[2017-06-25] MEDS: AMOXICILLIN/K CLAV 500/125MG TABLET. PEG SCH (08:04)
[2017-06-25] MEDS: MEMANTINE 10 MG TABLET. PEG SCH (08:04)
[2017-06-25] MEDS: RIVASTIGMINE 1.5 MG CAPSULE. PEG SCH ×2 (08:04→17:00)
--- NOTE | 2017-06-25 08:39 | PDOC ---
GENERAL General: vss and afebrile. exam stable. tube feeding at 30cc/hr this am. awaiting dc destination. social work woes appreciated. Problems: VITAL SIGNS Vital Signs: Vital Signs Date Time Temp Pulse Resp B/P (MAP) Pulse Ox O2 Delivery O2 Flow Rate FiO2 06/25/17 07:31 Room Air 06/25/17 07:00 97.5 75 14 141/66 (91) 94 97.5 I & O I & O Intake and Output 06/26/17 06:59 Intake Total 100 ml Balance 100 ml Tube Feeding 100 ml ALLERGIES Allergies: Allergies Coded Allergies Type Severity Reaction Last Updated Verified No Known Drug Allergies 06/19/17 No MEDS Medications: Current Medications Medications (Trade) Dose Ordered Sig/Felix Start Time Stop Time Status Last Admin Dose Admin Acetaminophen (Tylenol) 325 mg PRN Q4HRS PRN 06/22/17 09:45 Albuterol Sulfate (Ventolin Neb Soln) 2.5 mg PRN Q6HRS PRN 06/22/17 09:45 Amino Acids/ Glycerin/ Electrolytes 1,000 ml @ 80 mls/hr [id number] 06/13/17 10:15 06/21/17 12:22 DC 06/21/17 01:57 80 MLS/HR Amoxicillin/ Clavulanate Potassium (Augmentin 500/ 125mg) 1 tab BID 06/22/17 09:39 06/25/17 08:04 1 TAB Influenza Virus Vaccine Quadrival (Fluarix Quad [id number] Syringe) 0.5 ml ONCE ONCE 06/13/17 11:00 06/13/17 11:01 DC 06/13/17 16:17 0.5 ML Info (Do NOT chart on this placeholder) 0.5 each PRN DAILY PRN 06/11/17 22:15 Cancel Lidocaine HCl (Lidocaine Pf 2% Vial) 5 ml STK-MED ONCE 06/19/17 08:49 06/24/17 11:06 DC Memantine (Namenda) 10 mg BID 06/22/17 10:00 06/25/17 08:04 10 MG Morphine Sulfate 2 mg PRN Q2HR PRN 06/11/17 16:30 06/12/17 16:29 DC Ondansetron HCl (Zofran) 4 mg PRN Q8HRS PRN 06/11/17 16:30 06/12/17 16:29 DC Piperacillin Sod/ Tazobactam Sod (Zosyn) 3.375 gm Q6HRS 06/12/17 09:00 06/20/17 11:02 DC 06/20/17 06:38 3.375 GM Piperacillin Sod/ Tazobactam Sod 3.375 gm/Dextrose 50 ml @ 100 mls/hr Q6HRS 06/12/17 12:00 UNV Potassium Chloride 40 meq/ Dextrose 520 ml @ 130 mls/hr 1X ONCE 06/14/17 12:30 06/14/17 16:29 DC 06/14/17 12:14 130 MLS/HR Propofol 20 ml @ As Directed STK-MED ONCE 06/19/17 08:49 06/24/17 11:06 DC Ringer's Solution 1,000 ml @ 50 mls/hr Q20H 06/19/17 07:00 06/19/17 18:59 DC 06/19/17 08:40 50 MLS/HR Rivastigmine Tartrate (Exelon) 3 mg BIDWMEALS 06/22/17 10:00 06/25/17 08:04 3 MG Sodium Chloride 1,000 ml @ 100 mls/hr Q10H 06/12/17 08:45 06/13/17 10:13 DC 06/12/17 23:27 100 MLS/HR Vancomycin HCl 1 each 1X ONCE 06/13/17 14:30 06/13/17 14:31 DC Vancomycin HCl (Vanco Per Pharmacy) 1 each PRN DAILY PRN 06/12/17 08:45 06/14/17 14:54 DC 06/14/17 14:30 1 EACH Vancomycin HCl 1.25 gm/Sodium Chloride 500 ml @ 250 mls/hr 1X ONCE 06/11/17 15:45 06/11/17 17:44 UNV Vancomycin HCl 1 gm/Dextrose 250 ml @ 250 mls/hr Q24H 06/12/17 15:00 06/14/17 14:53 DC 06/13/17 16:16 250 MLS/HR Nutrition Consultation Dietary Evaluation: Recommendations by RD: PPN/TPN Comments: REC mvi, vit c per protocol for wound healing continue total nutrition needs via TF Expected Outcomes/Goals: to tolerate TF at goal- met, goal ongoing Interpretation of weight loss: >1-2% in 1 week Malnutrition Findings: Body Fat Depletion (Non Severe: Mild Depletion Weight Status: Underweight APPL,OMAR Hassan MD Jun 25, 2017 08:39
[2017-06-25 10:24] VITALS: BP 116/46
--- NOTE | 2017-06-25 12:15 | PDOC2 ---
PALLIATIVE CARE Palliative Care Note Palliative Care Patient remains unresponsive to verbal stimuli. Spoke with daughter--Juana [phone]. Reviewed medical condition and goals of care. Acknowledges plan for comfort care. She does not want to return to [facility]. Requested that communication go through her sister Jasmin since she is at work Spoke with Jasmin x 2. Reviewed medical conditions. She has spoke with Fnia LYNN. Jasmin is looking at other nursing facilities. Jasmin states that she would not be able to take care of her mother at home "even with hospice support " Informed that patient will likely be discharged today. She could go back to [place] with [facility] while family is attempting to find another facility to transfer to. Spoke with Brittney-at [facility]. Confirmed that patient would be cared for with PEG tube--feedings and Full Code. States that family have signed consents and [facility] will continue to have further discussion about feeding and resuscitation. Updated Fina LYNN on above. Will continue to follow and assist with plan of care. NETO FITZPATRICK Jun 25, 2017 12:15
[2017-06-25 15:06] VITALS: BP 142/72
== END 2017-06-25 18:43 | disposition hospice, inpatient (51) | DRG 177 ==
LOC: ER 13:50 → 6 SOUTH 15:51
PROVIDERS: ADMIT Family Medicine; ATTEND Family Medicine
PROC: 3E0G76Z Introduction of Nutritional Substance into Upper GI, Via Natural or Artificial Opening (ICD-10-PCS; 2017-06-19)
PROC: 0DH63UZ Insertion of Feeding Device into Stomach, Percutaneous Approach (ICD-10-PCS; principal; 2017-06-19 09:00)
DX: J69.0 Pneumonitis due to inhalation of food and vomit (principal); E43 Unspecified severe protein-calorie malnutrition; L89.159 Pressure ulcer of sacral region, unspecified stage; E87.0 Hyperosmolality and hypernatremia; R13.12 Dysphagia, oropharyngeal phase; E86.0 Dehydration; F03.90 Unspecified dementia, unspecified severity, without behavioral disturbance, psychotic disturbance, mood disturbance, and anxiety; Z68.1 Body mass index [BMI] 19.9 or less, adult; I10 Essential (primary) hypertension; K29.70 Gastritis, unspecified, without bleeding; K44.9 Diaphragmatic hernia without obstruction or gangrene; Y95 Nosocomial condition; Z86.73 Personal history of transient ischemic attack (TIA), and cerebral infarction without residual deficits; F41.9 Anxiety disorder, unspecified; Z86.2 Personal history of diseases of the blood and blood-forming organs and certain disorders involving the immune mechanism; Z51.5 Encounter for palliative care
CPT/HCPCS: 36415; 71010; 71250; 80048; 80053; 80202; 83605; 84484; 85025; 85610; 87040; 87641; 90686; 93005; 96374; J2543; J2704; J3370; J7030; J7120; 92526; 92610; 99285-25; J2001

== ENCOUNTER 2018-04-18 17:52 | Emergency (ER) | payer MEDICARE, BC, OTHER ==
[~2018-04-18] VITALS: Ht 160 cm; Wt 35.1 kg
[~2018-04-18 17:52] MED LIST changes: +ACET325S PO; +BISA10SU2 RC; -IPRA3AMP NEB; +IPRA3AMP29 NEB; +LACT1CAP6 PO; +MAGN2400 PO
[2018-04-18] MEDS ORDERED: IV NORMAL SALINE 500ML BAG 500 ML IV ONE (18:15)
[2018-04-18 19:26] LABS: BASO # 0.1 x10^3/uL (0.0-0.2); BASO % 1 % (0-3); EOS # 0.3 x10^3/uL (0.0-0.7); EOS % 4 % (0-3); HEMATOCRIT 26.3 % (36.0-47.0); HEMOGLOBIN 8.5 g/dL (12.0-15.5); LYMPH # 1.8 x10^3/uL (1.0-4.8); LYMPH % 22 % (24-48); MEAN CORPUSCULAR HEMOGLOBIN 26 pg (25-35); MEAN CORPUSCULAR HGB CONC 32 g/dL (31-37); MEAN CORPUSCULAR VOLUME 82 fL (79-100); MONO # 0.7 x10^3/uL (0.0-1.1); MONO % 9 % (0-9); NEUT # 5.4 x10^3uL (1.8-7.7); NEUT % 65 % (31-73); PLATELET COUNT 419 x10^3/uL (140-400); RED BLOOD COUNT 3.23 x10^6/uL (3.50-5.40); RED CELL DISTRIBUTION WIDTH 22.7 % (11.5-14.5); WHITE BLOOD COUNT 8.3 x10^3/uL (4.0-11.0)
[2018-04-18 19:32] LABS: CALCIUM 8.9 mg/dL (8.5-10.1); CREATININE 0.5 mg/dL (0.6-1.0); GFR 143.3; POTASSIUM 4.1 mmol/L (3.5-5.1)
[2018-04-18 20:29] LABS: ANISOCYTOSIS MOD; PLT ESTIMATE INCREASED (ADEQUATE)
[2018-04-18 20:30] LABS: OVALOCYTES OCC
[2018-04-18 20:31] LABS: SPHEROCYTES OCC
--- NOTE | 2018-04-18 20:48 | PHYS DOC ---
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 Patient is from a retirement. She is referred to the emergency department for evaluation of hypotension. The available history on arrival is from paramedics who state that the retirement perceive the patient had some blood pressures in the 60s and 70s. EMS reports a systolic blood pressure 120 when they arrived. No additional history is immediately available from the patient as she is nonverbal at baseline. Review of Systems Review of Systems No ROS available from the patient as she is nonverbal All other systems were reviewed and found to be within normal limits, except as documented in this note. Current Medications Current Medications Current Medications Medications (Trade) Dose Ordered Sig/Felix Start Time Stop Time Status Last Admin Dose Admin Ceftriaxone Sodium 50 ml @ 100 mls/hr 1X ONCE 04/18/18 18:45 04/18/18 19:14 DC 04/18/18 19:15 100 MLS/HR Sodium Chloride 500 ml @ 500 mls/hr 1X ONCE 04/18/18 18:15 04/18/18 19:14 DC 04/18/18 19:08 500 MLS/HR Allergies Allergies Allergies Coded Allergies Type Severity Reaction Last Updated Verified No Known Drug Allergies 06/19/17 No Physical Exam Physical Exam Constitutional: frail, contracted elderly female in no distress, HENT: thin, cachectic face, dry mucous membranes Eyes: PERRLA, Neck: contracted, no JVD Cardiovascular: Heart rate regular rhythm Lungs & Thorax: Bilateral breath sounds clear to auscultation Abdomen: Bowel sounds normal Skin: Warm, dry, some clean, dry dressings intact over decub Back: No tenderness Extremities: contracted, no edema Neurologic: protecting airway, eyes open spontaneously, no facial asymmetry Current Patient Data Vital Signs Vital Signs Date Time Temp Pulse Resp B/P (MAP) Pulse Ox O2 Delivery O2 Flow Rate FiO2 04/18/18 17:55 97.9 66 12 96/48 (64) 100 Room Air 97.9 Lab Values Laboratory Tests Test 04/18/18 19:15 White Blood Count 8.3 x10^3/uL (4.0-11.0) Red Blood Count 3.23 x10^6/uL (3.50-5.40) L Hemoglobin 8.5 g/dL (12.0-15.5) L Hematocrit 26.3 % (36.0-47.0) L Mean Corpuscular Volume 82 fL (79-100) Mean Corpuscular Hemoglobin 26 pg (25-35) Mean Corpuscular Hemoglobin Concent 32 g/dL (31-37) Red Cell Distribution Width 22.7 % (11.5-14.5) H Platelet Count 419 x10^3/uL (140-400) H Neutrophils (%) (Auto) 65 % (31-73) Lymphocytes (%) (Auto) 22 % (24-48) L Monocytes (%) (Auto) 9 % (0-9) Eosinophils (%) (Auto) 4 % (0-3) H Basophils (%) (Auto) 1 % (0-3) Neutrophils # (Auto) 5.4 x10^3uL (1.8-7.7) Lymphocytes # (Auto) 1.8 x10^3/uL (1.0-4.8) Monocytes # (Auto) 0.7 x10^3/uL (0.0-1.1) Eosinophils # (Auto) 0.3 x10^3/uL (0.0-0.7) Basophils # (Auto) 0.1 x10^3/uL (0.0-0.2) Platelet Estimate Increased (ADEQUATE) Large Platelets Present Anisocytosis Mod Macrocytosis Slight Spherocytes Occ Ovalocytes Occ Sodium Level 138 mmol/L (136-145) Potassium Level 4.1 mmol/L (3.5-5.1) Chloride Level 102 mmol/L (98-107) Carbon Dioxide Level 30 mmol/L (21-32) Anion Gap 6 (6-14) Blood Urea Nitrogen 29 mg/dL (7-20) H Creatinine 0.5 mg/dL (0.6-1.0) L Estimated GFR (Cockcroft-Gault) 143.3 Glucose Level 84 mg/dL (70-99) Lactic Acid Level 0.8 mmol/L (0.4-2.0) Calcium Level 8.9 mg/dL (8.5-10.1) Troponin I Quantitative < 0.017 ng/mL (0.000-0.055) Laboratory Tests 04/18/18 19:15 Laboratory Tests 04/18/18 19:15 EKG EKG [] Radiology/Procedures Radiology/Procedures [] Course & Med Decision Making Course & Med Decision Making Pertinent Labs and Imaging studies reviewed. (See chart for details) Patient was evaluated in the emergency department for hypotension. She was referred from a nursing acute rehabilitation facility. Per EMS, staff there perceive the patient to be hypotensive. On arrival to the ER, her blood pressure was 95 systolic. I did contact the retirement staff to obtain more information. The nurse reported that the patient is currently being treated for a urinary tract infection. The patient does have a known indwelling Byrd catheter chronically. The nurse reports that they found the patient to have systolic blood pressure in the 60s. They did start an IV and tried to get some fluids but this was not successful so EMS was called. The nurse also reports that the patient has been at her baseline health otherwise with no recent fevers. She has been tolerating her feeds via the G-tube. Eventually, the patient's daughters did present to the ER and additional history is gathered from them as well. They state the patient appears to be at baseline status. They report she does have a prior history of multiple urinary tract infections and also is frequently hypotensive during her infections. They state she has only received 1 dose of antibiotics so far and they are concerned that the dose of antibiotics was spilled rather then delivered to the patient. Nonetheless, the patient is apparently at her baseline mental status and physical status which is overall very frail and poor. In the emergency department, the patient was given 250 mL bolus of normal saline. She had persistent blood pressures in the 120s and higher for over 2 hours following that. Screen was done for sepsis. The white blood cell count was not elevated. The lactate was also normal range. Given the reported history of UTI, no UA is collected today as the patient has Joe begun treatment for this. Regarding the concern that no antibiotics had been delivered, the patient was given 1 g of Rocephin intravenously in the emergency department. After a period of observation and ensuring the patient was stable, she is discharged back to the retirement. Her daughters are agreeable to this plan of care. All of their questions were answered prior to the transfer. Dragon Disclaimer Dragon Disclaimer This electronic medical record was generated, in whole or in part, using a voice recognition dictation system. Departure Departure Impression: Primary Impression: Hypotension Disposition: 01 HOME, SELF-CARE Condition: GOOD Patient Instructions: Hypotension, [id number], Urinary Tract Infection CARLOS BROOKS DO Apr 18, 2018 20:48
[2018-04-18 22:00] VITALS: BP 140/61
--- NOTE | 2018-04-19 00:03 | EKG ---
[facility] [address] [place] [address] Test Date: 2018-04-18 Test Time: 19:29:55 Pat Name: LAURI COLBERT Department: Room: Gender: F [employer]: : 1935 Requested By: CARLOS BROOKS Order Number: [id number] Reading MD: Erick White Measurements Intervals [place] Rate: 68 P: 42 TX: 182 QRS: -25 QRSD: 70 T: 31 QT: 368 QTc: 395 Interpretive Statements SINUS RHYTHM LEFTWARD AXIS QRS(T) CONTOUR ABNORMALITY CONSISTENT WITH SEPTAL INFARCT PROBABLY OLD ABNORMAL ECG Electronically Signed On 04-22-2018 10:52:09 CDT by Erick White
== END 2018-04-18 22:16 | disposition home or self-care (01) ==
LOC: ER 17:52
DX: I95.9 Hypotension, unspecified (principal); F03.90 Unspecified dementia, unspecified severity, without behavioral disturbance, psychotic disturbance, mood disturbance, and anxiety; I10 Essential (primary) hypertension; F41.9 Anxiety disorder, unspecified
CPT/HCPCS: 36415; 80048; 83605; 84484; 85025; 93005; 96365; 99285; J0690; J7040

== ENCOUNTER → 2018-06-26 | Day surgery (SDC) | payer MEDICARE, BC, OTHER ==
[~2018-06-26] MED LIST changes: +IV RINGERS,LACTATED 1000ML 1,000 ML IV SCH; +PROPOFOL 20 ML IV ONE
[2018-06-26 14:15] VITALS: BP 149/72
--- NOTE | 2018-06-26 20:17 | CONS ---
DATE OF CONSULTATION: 06/26/2018 REASON FOR CONSULTATION: Dysfunctional G-tube. HISTORY OF PRESENT ILLNESS: This is an 83-year-old female with past medical history significant for oropharyngeal dysphagia, advanced dementia, previous CVAs, who is seen for G-tube replacement. The patient's G-tube has been leaking, cracking and with this office was consulted for replacement. The patient otherwise has minimal additional history. PAST MEDICAL HISTORY: Status post history of CVA. MEDICATIONS: Include magnesium, bisoprolol and acetaminophen. FAMILY AND SOCIAL HISTORY: Lives with family. Does not drink or smoke. REVIEW OF SYSTEMS: Unavailable. PHYSICAL EXAMINATION: GENERAL: Disabled ____ appearing female who has contracture. VITAL SIGNS: Temp is 98.4, pulse 75, respirations 20. HEENT: Normocephalic, atraumatic head. Pupils and extraocular muscles are not tested. Sclerae anicteric. NECK: Supple. LUNGS: Clear. CARDIOVASCULAR: Reveals an S1, S2 without S3, S4 or appreciable murmur. ABDOMEN: Soft, scaphoid abdomen with a G-tube in the left upper quadrant. EXTREMITIES: Reveal contractures. IMPRESSION AND PLAN: Oropharyngeal dysphagia, dysfunctional G-tube. Will recommend EGD with PEG replacement. Risks and benefits have been discussed with the patient's primary care and they are willing to proceed. PITO STATON MD DR: NAS/brandi JOB#: [id number] / [id number]
== END | disposition home or self-care (01) ==
LOC: SURG 13:08
PROVIDERS: ATTEND Internal Medicine Gastroenterology
DX: K94.23 Gastrostomy malfunction (principal); K21.0 Gastro-esophageal reflux disease with esophagitis; F03.90 Unspecified dementia, unspecified severity, without behavioral disturbance, psychotic disturbance, mood disturbance, and anxiety; Z86.73 Personal history of transient ischemic attack (TIA), and cerebral infarction without residual deficits; Z79.899 Other long term (current) drug therapy; Y83.8 Other surgical procedures as the cause of abnormal reaction of the patient, or of later complication, without mention of misadventure at the time of the procedure
CPT/HCPCS: 43246; J2704

== ENCOUNTER 2018-08-23 18:08 | Inpatient (IN) | payer MEDICARE, BC, OTHER ==
[~2018-08-23] VITALS: Ht 165.1 cm; Wt 35.0 kg
[~2018-08-23 18:08] MED LIST changes: -BISA10SU2 RC; +BISA10SU4 RC; +CYAN-25 PO; -CYAN10005 PO; -IV RINGERS,LACTATED 1000ML 1,000 ML IV SCH; -PROPOFOL 20 ML IV ONE
[2018-08-23] MEDS ORDERED: VANCOMYCIN 1.25 GM in IV NORMAL SALINE 500ML BAG 500 ML IV ONE (19:00)
[2018-08-23] MEDS ORDERED: PIPERACILLIN/TAZOBACTAM 4.5 GM in IV NORMAL SALINE 100ML 100 ML IV ONE (19:00)
[2018-08-23] MEDS ORDERED: IV NORMAL SALINE 1000ML BAG 1,000 ML IV ONE (19:00)
[2018-08-23] MEDS ORDERED: VANCOMYCIN 1GM IVPB FOR OMNI 250 ML IV ONE (19:15)
--- NOTE | 2018-08-23 19:25 | PHYS DOC ---
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 Patient is nonverbal at baseline. Denies known trauma. Patient also has indwelling Byrd catheter and PEG tube. History of present illness limited as patient is nonverbal at baseline. Review of Systems Review of Systems Constitutional: Generalized weakness Respiratory: Cough ROS limited due to patient's baseline mentation and being nonverbal. Current Medications Current Medications Current Medications Medications (Trade) Dose Ordered Sig/Felix Start Time Stop Time Status Last Admin Dose Admin Acetaminophen (Tylenol) 650 mg PRN Q6HRS PRN 08/23/18 20:00 08/26/18 16:08 DC 08/26/18 08:47 650 MG Acetaminophen/ Codeine Phosphate (Tylenol/Codeine Soln) 5 ml PRN Q6HRS PRN 08/23/18 20:00 08/26/18 16:09 DC Albuterol/ Ipratropium (Duoneb) 3 ml RTQID 08/23/18 20:00 08/26/18 16:08 DC 08/26/18 11:38 3 ML Bisacodyl (Dulcolax Supp) 10 mg PRN DAILY PRN 08/23/18 20:00 08/26/18 16:09 DC Dextrose/Sodium Chloride 1,000 ml @ 80 mls/hr [id number] 08/23/18 20:00 08/26/18 16:09 DC 08/26/18 02:51 80 MLS/HR Guaifenesin (Robitussin Dm) 10 ml PRN Q6HRS PRN 08/23/18 20:00 08/26/18 16:08 DC Levofloxacin/ Dextrose 150 ml @ 100 mls/hr 1X ONCE 08/23/18 19:00 08/23/18 20:29 DC Magnesium Hydroxide (Milk Of Magnesia) 2,400 mg PRN DAILY PRN 08/23/18 20:15 08/26/18 16:09 DC Morphine Sulfate (Morphine Sulfate) 1 mg PRN Q2HR PRN 08/23/18 20:00 08/26/18 16:09 DC 08/24/18 09:57 1 MG Piperacillin Sod/ Tazobactam Sod (Zosyn Per Pharmacy) 1 each PRN DAILY PRN 08/23/18 20:00 08/26/18 16:08 DC Piperacillin Sod/ Tazobactam Sod 4.5 gm/Sodium Chloride 100 ml @ 200 mls/hr 1X ONCE 08/23/18 19:00 08/23/18 19:29 DC 08/24/18 02:10 200 MLS/HR Sodium Chloride 1,000 ml @ 1,000 mls/hr 1X ONCE 08/23/18 19:00 08/23/18 19:59 DC Vancomycin HCl (Vanco Per Pharmacy) 1 each PRN DAILY PRN 08/23/18 20:00 08/24/18 13:06 DC Vancomycin HCl 1.25 gm/Sodium Chloride 500 ml @ 250 mls/hr 1X ONCE 08/23/18 19:00 08/23/18 20:59 UNV Allergies Allergies Physical Exam Physical Exam Constitutional: Elderly, cachectic, frail HENT: Normocephalic, atraumatic, Eyes: EOMI, conjunctiva normal, no discharge. [] Neck: Normal range of motion, no tenderness, supple Cardiovascular: Heart rate regular rhythm, no murmur [] Lungs & Thorax: Bilateral breath sounds clear to auscultation [] Abdomen: Soft, no tenderness Skin: Warm, dry, multiple dressed skin wounds noted to left shoulder, left hip, buttocks Back: No tenderness, no CVA tenderness. [] Extremities: No tenderness, ROM intact, contracted extremities Neurologic: Alert, nonverbal Current Patient Data Vital Signs Vital Signs Date Time Temp Pulse Resp B/P (MAP) Pulse Ox O2 Delivery O2 Flow Rate FiO2 08/23/18 20:47 88 148/83 (104) Room Air 08/23/18 18:48 26 95 08/23/18 18:08 98.5 98.5 Lab Values Laboratory Tests Test 08/23/18 20:32 08/23/18 20:44 08/23/18 20:45 White Blood Count 13.3 x10^3/uL (4.0-11.0) H Red Blood Count 3.46 x10^6/uL (3.50-5.40) L Hemoglobin 9.2 g/dL (12.0-15.5) L Hematocrit 29.2 % (36.0-47.0) L Mean Corpuscular Volume 84 fL (79-100) Mean Corpuscular Hemoglobin 27 pg (25-35) Mean Corpuscular Hemoglobin Concent 32 g/dL (31-37) Red Cell Distribution Width 17.1 % (11.5-14.5) H Platelet Count 552 x10^3/uL (140-400) H Neutrophils (%) (Auto) 71 % (31-73) Lymphocytes (%) (Auto) 18 % (24-48) L Monocytes (%) (Auto) 9 % (0-9) Eosinophils (%) (Auto) 3 % (0-3) Basophils (%) (Auto) 0 % (0-3) Neutrophils # (Auto) 9.4 x10^3uL (1.8-7.7) H Lymphocytes # (Auto) 2.4 x10^3/uL (1.0-4.8) Monocytes # (Auto) 1.2 x10^3/uL (0.0-1.1) H Eosinophils # (Auto) 0.3 x10^3/uL (0.0-0.7) Basophils # (Auto) 0.0 x10^3/uL (0.0-0.2) Prothrombin Time 16.0 SEC (11.7-14.0) H Prothrombin Time INR 1.3 (0.8-1.1) H PTT 42 SEC (24-38) H Sodium Level 138 mmol/L (136-145) Potassium Level 4.3 mmol/L (3.5-5.1) Chloride Level 104 mmol/L (98-107) Carbon Dioxide Level 27 mmol/L (21-32) Anion Gap 7 (6-14) Blood Urea Nitrogen 24 mg/dL (7-20) H Creatinine 0.6 mg/dL (0.6-1.0) Estimated GFR (Cockcroft-Gault) 116.1 BUN/Creatinine Ratio 40 (6-20) H Glucose Level 90 mg/dL (70-99) Lactic Acid Level 1.0 mmol/L (0.4-2.0) Calcium Level 9.4 mg/dL (8.5-10.1) Total Bilirubin 0.2 mg/dL (0.2-1.0) Aspartate Amino Transferase (AST) 25 U/L (15-37) Alanine Aminotransferase (ALT) 25 U/L (14-59) Alkaline Phosphatase 97 U/L (46-116) Creatine Kinase 89 U/L (26-192) Creatine Kinase MB (Mass) 0.6 ng/mL (0.0-3.6) Creatine Kinase MB Relative Index 0.7 % (0-4) Troponin I Quantitative < 0.017 ng/mL (0.000-0.055) MZ-Drm-R-Type Natriuretic Peptide 599 pg/mL (0-449) H Total Protein 7.3 g/dL (6.4-8.2) Albumin 2.0 g/dL (3.4-5.0) L Albumin/Globulin Ratio 0.4 (1.0-1.7) L Influenza Type A Antigen Negative (NEGATIVE) Influenza Type B Antigen Negative (NEGATIVE) Urine Collection Type U cath Urine Color Yellow Urine Clarity Cloudy Urine pH 5.5 Urine Specific [place] >=1.030 Urine Protein 30 mg/dL (NEG-TRACE) Urine Glucose (UA) Negative mg/dL (NEG) Urine Ketones (Stick) Negative mg/dL (NEG) Urine Blood Large (NEG) Urine Nitrite Negative (NEG) Urine Bilirubin Negative (NEG) Urine Urobilinogen Dipstick 0.2 mg/dL (0.2 mg/dL) Urine Leukocyte Esterase Moderate (NEG) Urine RBC 6-10 /HPF (0-2) Urine WBC 5-10 /HPF (0-4) Urine Transitional Epithelial Cells Occ /LPF Urine Amorphous Sediment Present /HPF Urine Bacteria Many /HPF (0-FEW) Urine Hyaline Casts Few /HPF Urine Mucus Mod /LPF Laboratory Tests 08/23/18 20:32 Laboratory Tests 08/23/18 20:32 EKG EKG @1920 NSR at 81bpm, NO ST elevation, slight slurring of ST segment in I-II, V4- V5 Radiology/Procedures Radiology/Procedures PROCEDURE: PORTABLE CHEST 1V PORTABLE CHEST 1V Clinical indications: dyspnea, report of pneumonia COMPARISON: October 10, 2017. Findings: Dense consolidative infiltrate is seen within the right midlung zone which could represent right upper lobe or superior segment right lower lobe. Ill-defined alveolar and interstitial infiltrate is seen within the left midlung zone and left lung base. Minimal pleural effusion is seen on the left side and right side. No pneumothorax is seen. Heart size and mediastinum are stable. IMPRESSION: Bilateral lung infiltrates. Electronically signed by: Kelvin Reid MD (08/24/2018 8:32 AM) [facility] Course & Med Decision Making Course & Med Decision Making Pertinent Labs and Imaging studies reviewed. (See chart for details) Elderly patient presents with known pneumonia as seen on x-ray from half-way. Labs obtained and posted to chart. Lactic acid WNL. Rapid influenza negative. Chest x-ray confirmed multilobar pneumonia. Empiric antibiotics initiated for HCAP. Patient requiring admission for further evaluation and treatment. Discussed with Dr. Hernandez (hospitalist) who is in agreement with admission. Dragon Disclaimer Dragon Disclaimer This electronic medical record was generated, in whole or in part, using a voice recognition dictation system. Departure Departure Impression: Primary Impression: HCAP (healthcare-associated pneumonia) Disposition: 09 ADMITTED INPATIENT ([facility]) Admitting Physician: Yahaira Hernandez Condition: GUARDED Referrals: LETI SANZ MD (PCP) Scripts Guaifenesin/Dextromethorphan (GUAIFENESIN DM SYRUP) 5 Ml Syrup 10 ML PO PRN Q6HRS PRN for COUGH for 14 Days, #120 MISC Prov: FITZ DAVIES MD 08/26/18 Acetaminophen With Codeine (ACETAMINOPHEN-CODEINE SOLUTION) 5 Ml Solution 5 ML PO PRN Q6HRS PRN for PAIN MILD for 14 Days, #100 MISC Prov: FITZ DAVIES MD 08/26/18 Ipratropium/Albuterol Sulfate (DUONEB 0.5-3(2.5) MG/3 ML) 3 Ml Ampul.neb 3 ML NEB RTQID for COUGH/ WHEEZE for 14 Days, #56 EACH Prov: FITZ DAVIES MD 08/26/18 Linezolid (ZYVOX) 600 Mg Tablet 600 MG FT BID for PNEUMONIA for 10 Days, #20 TAB Prov: FITZ DAVIES MD 08/26/18 BOSSMAN TAMAYO DO Aug 23, 2018 19:25
--- NOTE | 2018-08-23 19:59 | PDOC1 ---
History and Physical Date of Admission Date of Admission DATE: 08/23/18 TIME: 19:45 Identification/Chief Complaint Chief Complaint fevers in senior living Source Source: Caregiver, Chart review History of Present Illness History of Present Illness 83-year-old -[place] female who was in an SNU resident [place] for 6 years but lately this 1 year is nonverbal, nonambulatory with multiple sacral sores or bedsores, indwelling PEG, indwelling Byrd catheter. Fevers in the senior living hence brought here. Full code per daughter at bedside because they want them to actively treat in the senior living and send out to hospitals if needed. But she is reasonable that if it comes to the point admit that pt heart stops beating she will reverse to DO NOT RESUSCITATE. In any case, pt has multiple pressure sores, in all areas that she lays contact with her mattress, ie, elbows, heels, buttock, shoulder etc, she is non verbal, does not recognize family, All meds and pO is via peg. Labs are still pending but on chest x-ray and lab work at the senior living apparently shows pneumonia and UTI. Temperature 101 Past Medical History Cardiovascular: HTN CENTRAL NERVOUS SYSTEM: CVA, Dementia Psych: Anxiety Rheumatologic: No pertinent hx Renal/: No pertinent hx Past Surgical History Past Surgical History: Other Family History Family History: Family History Unknown Social History Smoke: No ALCOHOL: none Drugs: None Current Problem List Problem List Problems Medical Problems: (1) HCAP (healthcare-associated pneumonia) Status: Acute Current Medications Current Medications Current Medications Sodium Chloride 1,000 ml @ 1,000 mls/hr 1X ONCE IV ; Start 08/23/18 at 19:00; Stop 08/23/18 at 19:59 Piperacillin Sod/ Tazobactam Sod 4.5 gm/Sodium Chloride 100 ml @ 200 mls/hr 1X ONCE IV ; Start 08/23/18 at 19:00; Stop 08/23/18 at 19:29; Status DC Levofloxacin/ Dextrose 150 ml @ 100 mls/hr 1X ONCE IV ; Start 08/23/18 at 19: 00; Stop 08/23/18 at 20:29 Vancomycin HCl 1.25 gm/Sodium Chloride 500 ml @ 250 mls/hr 1X ONCE IV ; Start 08/23/18 at 19:00; Stop 08/23/18 at 20:59; Status UNV Vancomycin HCl 250 ml @ 250 mls/hr 1X ONCE IV ; Start 08/23/18 at 19:15; Stop 08/23/18 at 20:14 Active Scripts Active Reported Milk Of Magnesia (Magnesium Hydroxide) 2,400 Mg/10 Ml Oral.susp 2,400 Mg PO DAILY PRN Acetaminophen 325 Mg/10.15 Ml Solution 800 Mg PO TID PRN Bisacodyl 10 Mg Supp.rect 10 Mg RC PRN DAILY PRN Allergies Allergies: Coded Allergies: No Known Drug Allergies (Unverified , 06/26/18) ROS Review of System nonverbal hence limited ROS Physical Exam General: No acute distress, Other (nonverbal) HEENT: Atraumatic, PERRLA Lungs: Normal air movement, Other (decreased breath sounds secondary to poor effort-symmetrical chest expansion, no wheezing appreciated) Heart: S1S2, RRR, no thrills, no rubs, no gallops, no murmurs Cardiovascular: S1, S2 Abdomen: Normal bowel sounds, Soft, No tenderness, No hepatosplenomegaly, No masses, Other (indwelling Byrd catheter) PELVIC: Nml ext genitalia Extremities: No clubbing, No cyanosis, No edema, Other (minimal Sub Q tissue, senile skin turgor,bilateral upper ext contractures secondary to CVA) Skin: Other (lots of pressure sores ranging from stage I to stage II on the shoulder but tocks, heel, elbow, shoulder etc.) Vitals Vitals Vital Signs Date Time Temp Pulse Resp B/P (MAP) Pulse Ox O2 Delivery O2 Flow Rate FiO2 08/23/18 18:08 98.5 81 20 125/59 (81) 99 Room Air 98.5 VTE Prophylaxis Ordered VTE Prophylaxis Devices: Yes VTE Pharmacological Prophylaxi: Yes Assessment/Plan Assessment/Plan HCAP UTI complicated Indwelling Byrd catheter SNU resident �6 years ([place]) History of CVA dementia with contractures Bedbound with multiple pressure sores different areas, shoulders, elbow, heel, buttock FULL CODE - but dtr will/can change to DNR when actual CPR needs to be done PLAN: Basic labs are still pending Admit 2MN to reg floors, okay to be off telemetry Full code for now I started vanc and zosyn Started DVT prophylaxis Turn every 2 Wound care Nutrition for tube feeds D5 half-normal in the meantime since no stenocaptioner on the weekend Tylenol for fevers Draw blood cultures and urine cultures Byrd catheter will be changed at the ER Discussed with the daughter at bedside, seen at ER #17 Further recs pending course NO consults needed for now AMY NELSON MD Aug 23, 2018 19:59
[2018-08-23] MEDS ORDERED: MORPHINE SULFATE 4 MG/ML VIAL. IV PRN (20:00)
[2018-08-23] MEDS ORDERED: PIP/TAZO PER PHARMACY MC PRN (20:00)
[2018-08-23] MEDS: IPRATRPIUM/ALBUTEROL 0.5/2.5MG 3 ML NEBU. NEB SCH (20:00)
[2018-08-23] MEDS ORDERED: BISACODYL 10 MG SUPP.RECT. RC PRN (20:00)
[2018-08-23] MEDS ORDERED: ACETAMINOPHEN/CODEINE 120/12MG 5 ML SOLUTION. PO PRN (20:00)
[2018-08-23] MEDS ORDERED: VANCOMYCIN PER PHARMACY MC PRN (20:00)
[2018-08-23] MEDS ORDERED: guaiFENesin DM 200MG/20MG 10 ML SYRUP PO PRN (20:00)
[2018-08-23] MEDS ORDERED: MAGNESIUM HYDROXIDE 2,400 MG/30 ML ORAL.SUSP. PO PRN (20:15)
[2018-08-23 20:47] LABS: BASO % 0 % (0-3); EOS # 0.3 x10^3/uL (0.0-0.7); EOS % 3 % (0-3); HEMATOCRIT 29.2 % (36.0-47.0); HEMOGLOBIN 9.2 g/dL (12.0-15.5); LYMPH # 2.4 x10^3/uL (1.0-4.8); LYMPH % 18 % (24-48); MEAN CORPUSCULAR HEMOGLOBIN 27 pg (25-35); MEAN CORPUSCULAR HGB CONC 32 g/dL (31-37); MEAN CORPUSCULAR VOLUME 84 fL (79-100); MONO # 1.2 x10^3/uL (0.0-1.1); MONO % 9 % (0-9); NEUT # 9.4 x10^3uL (1.8-7.7); NEUT % 71 % (31-73); PLATELET COUNT 552 x10^3/uL (140-400); RED BLOOD COUNT 3.46 x10^6/uL (3.50-5.40); RED CELL DISTRIBUTION WIDTH 17.1 % (11.5-14.5); WHITE BLOOD COUNT 13.3 x10^3/uL (4.0-11.0)
[2018-08-23 20:56] LABS: CALCIUM 9.4 mg/dL (8.5-10.1); CREATININE 0.6 mg/dL (0.6-1.0); GFR 116.1; POTASSIUM 4.3 mmol/L (3.5-5.1)
[2018-08-23 20:57] LABS: BILIRUBIN,URINE NEGATIVE (NEG); CLARITY,URINE CLOUDY; COLOR,URINE YELLOW; NITRITE,URINE NEGATIVE (NEG); PH,URINE 5.5; PROTEIN,URINE 30 mg/dL (NEG-TRACE); UROBILINOGEN,URINE 0.2 mg/dL (0.2 mg/dL)
[2018-08-23 21:02] LABS: ALBUMIN/GLOBULIN RATIO 0.4 (1.0-1.7); TOTAL BILIRUBIN 0.2 mg/dL (0.2-1.0); TOTAL PROTEIN 7.3 g/dL (6.4-8.2)
[2018-08-23 21:05] LABS: BACTERIA,URINE MANY /HPF (0-FEW)
[2018-08-23 21:06] LABS: AMORPHOUS SEDIMENT,UR PRESENT /HPF; HYALINE CASTS, URINE FEW /HPF
[2018-08-23 21:09] LABS: INFLUENZA A PATIENT NEGATIVE (NEGATIVE); INFLUENZA B PATIENT NEGATIVE (NEGATIVE)
--- NOTE | 2018-08-23 23:20 | NUR ---
ACTUAL DATE/ TIME OF ADMISSION 08-23-2018 AT 2320. MISTAKEN TIME/DATE IN INITIAL NOTE.
--- NOTE | 2018-08-23 23:20 | NUR ---
PATIENT ADMITTED TO ROOM 263 FROM EMERGENCY ROOM. PATIENT'S DAUGHTERS ANT BEDSIDE TO ANSWER ADMISSION QUESTIONS PATIENT NON VERBAL. PATIENT/DAUGHTERS ORIENTED TO CALL LIGHT, BED, ROOM AND PLAN OF CARE. DAUGHTERS VERBALIZED UNDERSTANDING. PATIENT UNABLE TO DEMONSTRATE COMPREHENSION. CALL LIGHT IN REACH.
[2018-08-23 23:45] VITALS: BP 137/63
--- NOTE | 2018-08-24 00:03 | NUR ---
CONSENT FOR PICC LINE OBTAINED FROM PATIENT'S DAUGHTER.
--- NOTE | 2018-08-24 00:10 | NUR ---
CALL TO DIAL PRINTER JEWELL KUO RN REGARDING FOLLOW UP ON [place] TO PLACE PICC.
--- NOTE | 2018-08-24 01:00 | NUR ---
JEWELL STATED [facility] MAY NOT BE ABLE TO GET HERE BEFORE 0800. JEWELL TO PAGE ANESTHESIA FOR SALINE LOCK TO INFUSE ORDERED ANTIBIOTICS/IVF.
--- NOTE | 2018-08-24 01:10 | NUR ---
ANESTHESIA HERE TO PLACE SALINE LOCK.
--- NOTE | 2018-08-24 03:00 | NUR ---
PATIENT WITH GURGLING NOTED. ORAL SUCTION PROVIDED WITH MONYKER. CLEAR SPUTUM OBTAINED. GURGLING SUBSIDED.
[2018-08-24 03:05] VITALS: BP 145/74
--- NOTE | 2018-08-24 03:15 | NUR ---
PATIENT'S DAUGHTERS LEFT FOR EVENING HIPPA CODE GIVEN TO THEM.
[2018-08-24] MEDS: IV DEXTROSE 5 %-0.45 % NACL 1,000 ML IV SCH ×3 (05:49→21:00)
[2018-08-24 07:00] VITALS: BP 126/55
[2018-08-24] MEDS: IPRATRPIUM/ALBUTEROL 0.5/2.5MG 3 ML NEBU. NEB SCH ×4 (07:48→17:37)
--- NOTE | 2018-08-24 08:37 | RAD ---
PORTABLE CHEST 1V Clinical indications: dyspnea, report of pneumonia COMPARISON: October 10, 2017. Findings: Dense consolidative infiltrate is seen within the right midlung zone which could represent right upper lobe or superior segment right lower lobe. Ill-defined alveolar and interstitial infiltrate is seen within the left midlung zone and left lung base. Minimal pleural effusion is seen on the left side and right side. No pneumothorax is seen. Heart size and mediastinum are stable. IMPRESSION: Bilateral lung infiltrates. Electronically signed by: Kelvin Reid MD (08/24/2018 8:32 AM) [facility]
[2018-08-24] MEDS ORDERED: ASCORBIC ACID 500 MG TABLET PO SCH (09:00)
[2018-08-24] MEDS: ENOXAPARIN 30 MG/0.3 ML SYRINGE. SQ SCH (09:54)
--- NOTE | 2018-08-24 10:14 | EKG ---
[facility] [address] [place] [address] Test Date: 2018-08-23 Test Time: 19:20:18 Pat Name: LAURI COLBERT Department: Room: 263 1 Gender: F Casino Worker: : [id number] Requested By: BOSSMAN TAMAYO Order Number: [id number] Reading MD: Erick White Measurements Intervals [place] Rate: 81 P: 38 IA: 144 QRS: 6 QRSD: 74 T: 38 QT: 352 QTc: 409 Interpretive Statements SINUS RHYTHM QRS(T) CONTOUR ABNORMALITY CONSISTENT WITH SEPTAL INFARCT AGE UNDETERMINED ABNORMAL ECG Electronically Signed On 08-28-2018 10:00:04 [employer]NUT IC[employer] MACHINE by Erick White
[2018-08-24 11:45] VITALS: BP 134/57
[2018-08-24] MEDS ORDERED: METO5TAB55 PEG (12:12)
[2018-08-24] MEDS ORDERED: WITC1MED18 TP (12:12)
[2018-08-24] MEDS ORDERED: HYOS0.1264 SL (12:12)
[2018-08-24] MEDS ORDERED: ASCO500C9 PEG (12:12)
[2018-08-24] MEDS ORDERED: ZINC220C5 PEG (12:12)
[2018-08-24] MEDS ORDERED: ACET650S PEG (12:12)
[2018-08-24] MEDS: PIPERACILLIN/TAZOBACTAM 2.25 GM in IV NORMAL SALINE 50ML 50 ML IV SCH ×3 (12:48→23:25)
[2018-08-24] MEDS ORDERED: ACETAMINOPHEN 650 MG/20.3 ML SOLUTION. PEG PRN (13:15)
[2018-08-24] MEDS ORDERED: HYOSCYAMINE 0.125 MG TAB.RAPDIS PO PRN (13:15)
[2018-08-24] MEDS ORDERED: ACETAMINOPHEN PO PRN (13:15)
--- NOTE | 2018-08-24 13:22 | PDOC ---
PROGRESS NOTES Chief Complaint Chief Complaint HCAP, pneumonia, aspiration risk UTI complicated Indwelling Byrd catheter [facility] resident �6 years (Barbie) History of CVA dementia with contractures, 2017, PEG placed, marked Bedbound with multiple pressure sores different areas, shoulders, elbow, heel, buttock FULL CODE History of Present Illness History of Present Illness labs tomorrow discussed with family Full code for now, we talked at length, again, palliative care to discuss again in AM was on vanc and zosyn, has 24 gauge IV, will change to zosyn and zyvox per PEG, aspiration precautions. 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 Tylenol for fevers Draw blood cultures and urine cultures Byrd catheter will be changed at the ER Discussed with the daughter at bedside, seen at ER #[id number] Further recs pending course NO consults needed for now Vitals Vitals Vital Signs Date Time Temp Pulse Resp B/P (MAP) Pulse Ox O2 Delivery O2 Flow Rate FiO2 08/24/18 11:54 Room Air 08/24/18 11:45 98.5 84 20 134/57 (82) 94 98.5 Physical Exam General: No acute distress, Other (nonverbal) Heart: No murmurs, Other (distant) Lungs: Crackles, Other (limited vol) Abdomen: Normal bowel sounds, Soft, No tenderness, No hepatosplenomegaly, No masses, Other (indwelling Byrd catheter) Extremities: No clubbing, No cyanosis, No edema, Other (minimal Sub Q tissue, senile skin turgor,bilateral upper ext contractures secondary to CVA) Skin: No rashes, Other (lots of pressure sores ranging from stage I to stage II on the shoulder but tocks, heel, elbow, shoulder etc.) Labs LABS Laboratory Tests Test 08/23/18 20:32 08/23/18 20:44 08/23/18 20:45 08/24/18 00:01 White Blood Count 13.3 x10^3/uL (4.0-11.0) Red Blood Count 3.46 x10^6/uL (3.50-5.40) Hemoglobin 9.2 g/dL (12.0-15.5) Hematocrit 29.2 % (36.0-47.0) Mean Corpuscular Volume 84 fL (79-100) Mean Corpuscular Hemoglobin 27 pg (25-35) Mean Corpuscular Hemoglobin Concent 32 g/dL (31-37) Red Cell Distribution Width 17.1 % (11.5-14.5) Platelet Count 552 x10^3/uL (140-400) Neutrophils (%) (Auto) 71 % (31-73) Lymphocytes (%) (Auto) 18 % (24-48) Monocytes (%) (Auto) 9 % (0-9) Eosinophils (%) (Auto) 3 % (0-3) Basophils (%) (Auto) 0 % (0-3) Neutrophils # (Auto) 9.4 x10^3uL (1.8-7.7) Lymphocytes # (Auto) 2.4 x10^3/uL (1.0-4.8) Monocytes # (Auto) 1.2 x10^3/uL (0.0-1.1) Eosinophils # (Auto) 0.3 x10^3/uL (0.0-0.7) Basophils # (Auto) 0.0 x10^3/uL (0.0-0.2) Prothrombin Time 16.0 SEC (11.7-14.0) Prothromb Time International Ratio 1.3 (0.8-1.1) Activated Partial Thromboplast Time 42 SEC (24-38) Sodium Level 138 mmol/L (136-145) Potassium Level 4.3 mmol/L (3.5-5.1) Chloride Level 104 mmol/L (98-107) Carbon Dioxide Level 27 mmol/L (21-32) Anion Gap 7 (6-14) Blood Urea Nitrogen 24 mg/dL (7-20) Creatinine 0.6 mg/dL (0.6-1.0) Estimated GFR (Cockcroft-Gault) 116.1 BUN/Creatinine Ratio 40 (6-20) Glucose Level 90 mg/dL (70-99) Lactic Acid Level 1.0 mmol/L (0.4-2.0) Calcium Level 9.4 mg/dL (8.5-10.1) Total Bilirubin 0.2 mg/dL (0.2-1.0) Aspartate Amino Transf (AST/SGOT) 25 U/L (15-37) Alanine Aminotransferase (ALT/SGPT) 25 U/L (14-59) Alkaline Phosphatase 97 U/L (46-116) Creatine Kinase 89 U/L (26-192) Creatine Kinase MB (Mass) 0.6 ng/mL (0.0-3.6) Creatine Kinase MB Relative Index 0.7 % (0-4) Troponin I Quantitative < 0.017 ng/mL (0.000-0.055) < 0.017 ng/mL (0.000-0.055) UQ-Lng-P-Type Natriuretic Peptide 599 pg/mL (0-449) Total Protein 7.3 g/dL (6.4-8.2) Albumin 2.0 g/dL (3.4-5.0) Albumin/Globulin Ratio 0.4 (1.0-1.7) Influenza Type A Antigen Negative (NEGATIVE) Influenza Type B Antigen Negative (NEGATIVE) Urine Collection Type U cath Urine Color Yellow Urine Clarity Cloudy Urine pH 5.5 Urine Specific Castile >=1.030 Urine Protein 30 mg/dL (NEG-TRACE) Urine Glucose (UA) Negative mg/dL (NEG) Urine Ketones (Stick) Negative mg/dL (NEG) Urine Blood Large (NEG) Urine Nitrite Negative (NEG) Urine Bilirubin Negative (NEG) Urine Urobilinogen Dipstick 0.2 mg/dL (0.2 mg/dL) Urine Leukocyte Esterase Moderate (NEG) Urine RBC 6-10 /HPF (0-2) Urine WBC 5-10 /HPF (0-4) Urine Transitional Epithelial Cells Occ /LPF Urine Amorphous Sediment Present /HPF Urine Bacteria Many /HPF (0-FEW) Urine Hyaline Casts Few /HPF Urine Mucus Mod /LPF Test 08/24/18 04:00 Troponin I Quantitative < 0.017 ng/mL (0.000-0.055) Review of Systems Review of Systems unable, not verbal Assessment and Plan Assessmemt and Plan Problems Medical Problems: (1) HCAP (healthcare-associated pneumonia) Status: Acute Comment Review of Relevant I have reviewed the following items nato (where applicable) has been applied. Labs Laboratory Tests Test 08/23/18 20:32 08/23/18 20:44 08/23/18 20:45 08/24/18 00:01 White Blood Count 13.3 x10^3/uL (4.0-11.0) Red Blood Count 3.46 x10^6/uL (3.50-5.40) Hemoglobin 9.2 g/dL (12.0-15.5) Hematocrit 29.2 % (36.0-47.0) Mean Corpuscular Volume 84 fL (79-100) Mean Corpuscular Hemoglobin 27 pg (25-35) Mean Corpuscular Hemoglobin Concent 32 g/dL (31-37) Red Cell Distribution Width 17.1 % (11.5-14.5) Platelet Count 552 x10^3/uL (140-400) Neutrophils (%) (Auto) 71 % (31-73) Lymphocytes (%) (Auto) 18 % (24-48) Monocytes (%) (Auto) 9 % (0-9) Eosinophils (%) (Auto) 3 % (0-3) Basophils (%) (Auto) 0 % (0-3) Neutrophils # (Auto) 9.4 x10^3uL (1.8-7.7) Lymphocytes # (Auto) 2.4 x10^3/uL (1.0-4.8) Monocytes # (Auto) 1.2 x10^3/uL (0.0-1.1) Eosinophils # (Auto) 0.3 x10^3/uL (0.0-0.7) Basophils # (Auto) 0.0 x10^3/uL (0.0-0.2) Prothrombin Time 16.0 SEC (11.7-14.0) Prothromb Time International Ratio 1.3 (0.8-1.1) Activated Partial Thromboplast Time 42 SEC (24-38) Sodium Level 138 mmol/L (136-145) Potassium Level 4.3 mmol/L (3.5-5.1) Chloride Level 104 mmol/L (98-107) Carbon Dioxide Level 27 mmol/L (21-32) Anion Gap 7 (6-14) Blood Urea Nitrogen 24 mg/dL (7-20) Creatinine 0.6 mg/dL (0.6-1.0) Estimated GFR (Cockcroft-Gault) 116.1 BUN/Creatinine Ratio 40 (6-20) Glucose Level 90 mg/dL (70-99) Lactic Acid Level 1.0 mmol/L (0.4-2.0) Calcium Level 9.4 mg/dL (8.5-10.1) Total Bilirubin 0.2 mg/dL (0.2-1.0) Aspartate Amino Transf (AST/SGOT) 25 U/L (15-37) Alanine Aminotransferase (ALT/SGPT) 25 U/L (14-59) Alkaline Phosphatase 97 U/L (46-116) Creatine Kinase 89 U/L (26-192) Creatine Kinase MB (Mass) 0.6 ng/mL (0.0-3.6) Creatine Kinase MB Relative Index 0.7 % (0-4) Troponin I Quantitative < 0.017 ng/mL (0.000-0.055) < 0.017 ng/mL (0.000-0.055) DL-Fac-V-Type Natriuretic Peptide 599 pg/mL (0-449) Total Protein 7.3 g/dL (6.4-8.2) Albumin 2.0 g/dL (3.4-5.0) Albumin/Globulin Ratio 0.4 (1.0-1.7) Influenza Type A Antigen Negative (NEGATIVE) Influenza Type B Antigen Negative (NEGATIVE) Urine Collection Type U cath Urine Color Yellow Urine Clarity Cloudy Urine pH 5.5 Urine Specific Castile >=1.030 Urine Protein 30 mg/dL (NEG-TRACE) Urine Glucose (UA) Negative mg/dL (NEG) Urine Ketones (Stick) Negative mg/dL (NEG) Urine Blood Large (NEG) Urine Nitrite Negative (NEG) Urine Bilirubin Negative (NEG) Urine Urobilinogen Dipstick 0.2 mg/dL (0.2 mg/dL) Urine Leukocyte Esterase Moderate (NEG) Urine RBC 6-10 /HPF (0-2) Urine WBC 5-10 /HPF (0-4) Urine Transitional Epithelial Cells Occ /LPF Urine Amorphous Sediment Present /HPF Urine Bacteria Many /HPF (0-FEW) Urine Hyaline Casts Few /HPF Urine Mucus Mod /LPF Test 08/24/18 04:00 Troponin I Quantitative < 0.017 ng/mL (0.000-0.055) Laboratory Tests Test 08/23/18 20:32 08/23/18 20:44 08/23/18 20:45 08/24/18 00:01 White Blood Count 13.3 x10^3/uL (4.0-11.0) Red Blood Count 3.46 x10^6/uL (3.50-5.40) Hemoglobin 9.2 g/dL (12.0-15.5) Hematocrit 29.2 % (36.0-47.0) Mean Corpuscular Volume 84 fL (79-100) Mean Corpuscular Hemoglobin 27 pg (25-35) Mean Corpuscular Hemoglobin Concent 32 g/dL (31-37) Red Cell Distribution Width 17.1 % (11.5-14.5) Platelet Count 552 x10^3/uL (140-400) Neutrophils (%) (Auto) 71 % (31-73) Lymphocytes (%) (Auto) 18 % (24-48) Monocytes (%) (Auto) 9 % (0-9) Eosinophils (%) (Auto) 3 % (0-3) Basophils (%) (Auto) 0 % (0-3) Neutrophils # (Auto) 9.4 x10^3uL (1.8-7.7) Lymphocytes # (Auto) 2.4 x10^3/uL (1.0-4.8) Monocytes # (Auto) 1.2 x10^3/uL (0.0-1.1) Eosinophils # (Auto) 0.3 x10^3/uL (0.0-0.7) Basophils # (Auto) 0.0 x10^3/uL (0.0-0.2) Prothrombin Time 16.0 SEC (11.7-14.0) Prothromb Time International Ratio 1.3 (0.8-1.1) Activated Partial Thromboplast Time 42 SEC (24-38) Sodium Level 138 mmol/L (136-145) Potassium Level 4.3 mmol/L (3.5-5.1) Chloride Level 104 mmol/L (98-107) Carbon Dioxide Level 27 mmol/L (21-32) Anion Gap 7 (6-14) Blood Urea Nitrogen 24 mg/dL (7-20) Creatinine 0.6 mg/dL (0.6-1.0) Estimated GFR (Cockcroft-Gault) 116.1 BUN/Creatinine Ratio 40 (6-20) Glucose Level 90 mg/dL (70-99) Lactic Acid Level 1.0 mmol/L (0.4-2.0) Calcium Level 9.4 mg/dL (8.5-10.1) Total Bilirubin 0.2 mg/dL (0.2-1.0) Aspartate Amino Transf (AST/SGOT) 25 U/L (15-37) Alanine Aminotransferase (ALT/SGPT) 25 U/L (14-59) Alkaline Phosphatase 97 U/L (46-116) Creatine Kinase 89 U/L (26-192) Creatine Kinase MB (Mass) 0.6 ng/mL (0.0-3.6) Creatine Kinase MB Relative Index 0.7 % (0-4) Troponin I Quantitative < 0.017 ng/mL (0.000-0.055) < 0.017 ng/mL (0.000-0.055) EE-Avw-B-Type Natriuretic Peptide 599 pg/mL (0-449) Total Protein 7.3 g/dL (6.4-8.2) Albumin 2.0 g/dL (3.4-5.0) Albumin/Globulin Ratio 0.4 (1.0-1.7) Influenza Type A Antigen Negative (NEGATIVE) Influenza Type B Antigen Negative (NEGATIVE) Urine Collection Type U cath Urine Color Yellow Urine Clarity Cloudy Urine pH 5.5 Urine Specific Castile >=1.030 Urine Protein 30 mg/dL (NEG-TRACE) Urine Glucose (UA) Negative mg/dL (NEG) Urine Ketones (Stick) Negative mg/dL (NEG) Urine Blood Large (NEG) Urine Nitrite Negative (NEG) Urine Bilirubin Negative (NEG) Urine Urobilinogen Dipstick 0.2 mg/dL (0.2 mg/dL) Urine Leukocyte Esterase Moderate (NEG) Urine RBC 6-10 /HPF (0-2) Urine WBC 5-10 /HPF (0-4) Urine Transitional Epithelial Cells Occ /LPF Urine Amorphous Sediment Present /HPF Urine Bacteria Many /HPF (0-FEW) Urine Hyaline Casts Few /HPF Urine Mucus Mod /LPF Test 08/24/18 04:00 Troponin I Quantitative < 0.017 ng/mL (0.000-0.055) Medications Current Medications Sodium Chloride 1,000 ml @ 1,000 mls/hr 1X ONCE IV ; Start 08/23/18 at 19:00; Stop 08/23/18 at 19:59; Status DC Piperacillin Sod/ Tazobactam Sod 4.5 gm/Sodium Chloride 100 ml @ 200 mls/hr 1X ONCE IV Last administered on 08/24/18at 02:10; Start 08/23/18 at 19:00; Stop 08/23/18 at 19:29; Status DC Levofloxacin/ Dextrose 150 ml @ 100 mls/hr 1X ONCE IV ; Start 08/23/18 at 19: 00; Stop 08/23/18 at 20:29; Status DC Vancomycin HCl 1.25 gm/Sodium Chloride 500 ml @ 250 mls/hr 1X ONCE IV ; Start 08/23/18 at 19:00; Stop 08/23/18 at 20:59; Status UNV Vancomycin HCl 250 ml @ 250 mls/hr 1X ONCE IV ; Start 08/23/18 at 19:15; Stop 08/23/18 at 20:14; Status DC Vancomycin HCl (Vanco Per Pharmacy) 1 each PRN DAILY PRN MC SEE COMMENTS; Start 08/23/18 at 20:00; Stop 08/24/18 at 13:06; Status DC Piperacillin Sod/ Tazobactam Sod (Zosyn Per Pharmacy) 1 each PRN DAILY PRN MC SEE COMMENTS; Start 08/23/18 at 20:00 Albuterol/ Ipratropium (Duoneb) 3 ml RTQID NEB Last administered on 08/24/18at 11:53; Start 08/23/18 at 20:00 Guaifenesin (Robitussin Dm) 10 ml PRN Q6HRS PRN PO COUGH; Start 08/23/18 at 20: 00 Acetaminophen (Tylenol) 650 mg PRN Q6HRS PRN PEG HEADACHE / TEMP; Start at 20:00 Acetaminophen/ Codeine Phosphate (Tylenol/Codeine Soln) 5 ml PRN Q6HRS PRN PO PAIN MILD; Start 08/23/18 at 20:00 Enoxaparin Sodium (Lovenox 30mg Syringe) 30 mg DAILY SQ Last administered on at 09:54; Start 08/24/18 at 09:00 Dextrose/Sodium Chloride 1,000 ml @ 80 mls/hr [id number] IV Last administered on 08/24/18at 05:49; Start 08/23/18 at 20:00 Bisacodyl (Dulcolax Supp) 10 mg PRN DAILY PRN RC CONSTIPATION; Start 08/23/18 at 20:00 Magnesium Hydroxide (Milk Of Magnesia) 2,400 mg PRN DAILY PRN PO CONSTIPATION; Start 08/23/18 at 20:15 Morphine Sulfate (Morphine Sulfate) 1 mg PRN Q2HR PRN IV PAIN Last administered on 08/24/18at 09:57; Start 08/23/18 at 20:00 Ascorbic Acid (Vitamin C) 500 mg DAILY PO Last administered on 08/24/18at 09:55 ; Start 08/24/18 at 09:00; Stop 08/24/18 at 13:07; Status DC Levofloxacin/ Dextrose 150 ml @ 100 mls/hr 1X ONCE IV Last administered on at 02:58; Start 08/24/18 at 03:00; Stop 08/24/18 at 04:29; Status DC Piperacillin Sod/ Tazobactam Sod 2.25 gm/Sodium Chloride 50 ml @ 100 mls/hr Q6HRS IV Last administered on 08/24/18at 12:48; Start 08/24/18 at 12:00 Acetaminophen (Tylenol) 650 mg PRN Q6HRS PRN PEG fever, pain; Start 08/24/18 at 13:15; Status UNV Metoclopramide HCl (Reglan Oral Solution) 5 mg BIDAC PEG ; Start 08/24/18 at 16: 30 Zinc Sulfate (Orazinc) 220 mg DAILY PO ; Start 08/25/18 at 09:00; Status UNV Non-Formulary Medication (Acetaminophen ) 800 mg TID PRN PO PAIN; Start at 13:15; Status UNV Non-Formulary Medication (Ascorbic Acid (Vitamin C)) 500 mg DAILY PEG ; Start at 09:00; Status UNV Non-Formulary Medication (Hyoscyamine Sulfate (Levsin)) 1 tab Q4HRS PRN SL SECRETIONS; Start 08/24/18 at 13:15; Status UNV Linezolid (Zyvox) 600 mg BID FT ; Start 08/24/18 at 21:00; Status UNV Ascorbic Acid (Vitamin C) 500 mg DAILY PEG ; Start 08/24/18 at 13:07 Active Scripts Active Reported Zinc Sulfate 220 Mg Capsule 220 Mg PEG DAILY Acetaminophen Oral Liquid (Acetaminophen) 650 Mg/20.3 Ml Solution 650 Mg PEG PRN Q6HRS PRN Tucks (Witch Mckenna) 1 Each Med..pad 1 Each TP PRN Q4HRS PRN Reglan (Metoclopramide Hcl) 5 Mg Tablet 5 Mg PEG BIDAC Levsin (Hyoscyamine Sulfate) 0.125 Mg Tablet 1 Tab SL Q4HRS PRN Vitamin C (Ascorbic Acid) 500 Mg Capsule 500 Mg PEG DAILY Milk Of Magnesia (Magnesium Hydroxide) 2,400 Mg/10 Ml Oral.susp 2,400 Mg PO DAILY PRN Acetaminophen 325 Mg/10.15 Ml Solution 800 Mg PO TID PRN Bisacodyl 10 Mg Supp.rect 10 Mg RC PRN DAILY PRN Vitals/I & O Vital Sign - Last 24 Hours 08/23/18 08/23/18 08/23/18 08/23/18 18:08 18:18 18:48 20:47 Temp 98.5 98.5 Pulse 81 80 78 88 Resp B/P (MAP) 125/59 (81) 111/55 (73) 132/67 (88) 148/83 (104) Pulse Ox 99 96 95 O2 Delivery Room Air Room Air Room Air Room Air 08/23/18 08/23/18 08/24/18 08/24/18 23:30 23:45 03:05 07:00 Temp 97.7 98.5 98.5 97.7 98.5 98.5 Pulse 86 85 90 Resp 22 26 40 B/P (MAP) 137/63 (87) 145/74 (97) 126/55 (78) Pulse Ox 92 91 92 O2 Delivery Room Air Room Air Room Air Room Air 08/24/18 08/24/18 08/24/18 08/24/18 07:48 09:57 10:27 11:45 Temp 98.5 98.5 Pulse 84 Resp 22 22 20 B/P (MAP) 134/57 (82) Pulse Ox 97 94 O2 Delivery Room Air Room Air Room Air Room Air 08/24/18 11:54 O2 Delivery Room Air Intake and Output 08/23/18 08/23/18 08/24/18 15:01 23:01 07:01 Intake Total 0 ml Output Total 125 ml Balance -125 ml YASH WALTERS MD Aug 24, 2018 13:22
[2018-08-24] MEDS: LINEZOLID 600 MG TABLET FT SCH ×2 (14:25→22:09)
[2018-08-24 15:00] VITALS: BP 129/57
[2018-08-24] MEDS: ACETAMINOPHEN 650 MG/20.3 ML SOLUTION. PEG PRN (18:02)
[2018-08-24] MEDS: METOCLOPRAMIDE ORAL SOLN 10 MG/10 ML SOLUTION. PEG SCH (18:03)
[2018-08-24 19:50] VITALS: BP 99/48
[2018-08-24 23:15] VITALS: BP 118/53
[2018-08-25 03:25] VITALS: BP 121/54
[2018-08-25] MEDS: PIPERACILLIN/TAZOBACTAM 2.25 GM in IV NORMAL SALINE 50ML 50 ML IV SCH ×3 (05:26→18:02)
[2018-08-25 07:29] VITALS: BP 128/55
[2018-08-25] MEDS: IPRATRPIUM/ALBUTEROL 0.5/2.5MG 3 ML NEBU. NEB SCH ×4 (08:03→20:10)
[2018-08-25] MEDS: ENOXAPARIN 30 MG/0.3 ML SYRINGE. SQ SCH (08:53)
[2018-08-25] MEDS: METOCLOPRAMIDE ORAL SOLN 10 MG/10 ML SOLUTION. PEG SCH ×2 (08:53→18:03)
[2018-08-25] MEDS: ACETAMINOPHEN 650 MG/20.3 ML SOLUTION. PEG PRN ×2 (08:53→21:00)
[2018-08-25] MEDS: ZINC SULFATE 220 MG CAPSULE. PO SCH (08:54)
[2018-08-25] MEDS: ASCORBIC ACID 500 MG TABLET PEG SCH (08:54)
[2018-08-25] MEDS: LINEZOLID 600 MG TABLET FT SCH ×2 (08:54→21:00)
[2018-08-25 08:56] LABS: BASO % 0 % (0-3); EOS # 0.1 x10^3/uL (0.0-0.7); EOS % 1 % (0-3); HEMATOCRIT 30.5 % (36.0-47.0); HEMOGLOBIN 9.6 g/dL (12.0-15.5); LYMPH # 1.6 x10^3/uL (1.0-4.8); LYMPH % 12 % (24-48); MEAN CORPUSCULAR HEMOGLOBIN 27 pg (25-35); MEAN CORPUSCULAR HGB CONC 31 g/dL (31-37); MEAN CORPUSCULAR VOLUME 85 fL (79-100); MONO # 0.8 x10^3/uL (0.0-1.1); MONO % 6 % (0-9); NEUT # 10.9 x10^3uL (1.8-7.7); NEUT % 81 % (31-73); PLATELET COUNT 568 x10^3/uL (140-400); RED BLOOD COUNT 3.58 x10^6/uL (3.50-5.40); RED CELL DISTRIBUTION WIDTH 17.5 % (11.5-14.5); WHITE BLOOD COUNT 13.5 x10^3/uL (4.0-11.0)
[2018-08-25] MEDS ORDERED: NON FORMULARY ITEM (Ascorbic Acid (Vitamin C) 500 MG) PEG SCH (09:00)
[2018-08-25 09:15] LABS: ALBUMIN 1.8 g/dL (3.4-5.0); ALBUMIN/GLOBULIN RATIO 0.3 (1.0-1.7); CALCIUM 9.3 mg/dL (8.5-10.1); CREATININE 0.8 mg/dL (0.6-1.0); GFR 83.3; POTASSIUM 3.6 mmol/L (3.5-5.1); TOTAL BILIRUBIN 0.3 mg/dL (0.2-1.0); TOTAL PROTEIN 7.8 g/dL (6.4-8.2)
--- NOTE | 2018-08-25 10:58 | PDOC ---
PROGRESS NOTES Chief Complaint Chief Complaint HCAP, pneumonia, aspiration risk UTI complicated Indwelling Byrd catheter [facility] resident �6 years ([facility]) severe protein-caloric malnutrition History of CVA dementia with contractures, 2017, PEG placed, marked Bedbound with multiple pressure sores different areas, shoulders, elbow, heel, buttock FULL CODE History of Present Illness History of Present Illness labs tomorrow discussed with family Full code for now, we talked at length, again, palliative care to discuss again 08/25 to zosyn and zyvox per PEG, aspiration precautions. Turn every 2 Wound care Nutrition for tube feeds D5 half-normal in the meantime since no supervisor composing room on the weekend Tylenol for fevers Draw blood cultures and urine cultures Byrd catheter changed at the ER Further recs pending course NO consults needed for now Vitals Vitals Vital Signs Date Time Temp Pulse Resp B/P (MAP) Pulse Ox O2 Delivery O2 Flow Rate FiO2 08/25/18 08:05 96 Room Air 08/25/18 07:29 98.8 89 24 128/55 (79) 98.8 Physical Exam Physical Exam HENT: Normocephalic, atraumatic, bilateral external ears normal, oropharynx moist, no oral exudates, nose normal. [] Eyes: PERRLA, EOMI, conjunctiva normal, no discharge. [] Neck: Normal range of motion, no tenderness, supple, no stridor. [] Cardiovascular:Heart rate regular rhythm, no murmur [] Lungs & Thorax: few crackles Abdomen: Bowel sounds normal, soft, no tenderness, no masses, no pulsatile masses. [] Skin: Warm, dry, no erythema, no rash. [] Back: No tenderness, no CVA tenderness. [] General: Cooperative, No acute distress, Other (nonverbal) Heart: No murmurs, Other (distant) Lungs: Crackles, Other (limited vol) Abdomen: Normal bowel sounds, Soft, No tenderness, No hepatosplenomegaly, No masses, Other (indwelling Byrd catheter) Extremities: No clubbing, No cyanosis, No edema, Other (minimal Sub Q tissue, senile skin turgor,bilateral upper ext contractures secondary to CVA) Skin: No rashes, Other (lots of pressure sores ranging from stage I to stage II on the shoulder but tocks, heel, elbow, shoulder etc.) Labs LABS Clinical indications: dyspnea, report of pneumonia COMPARISON: October 10, 2017. Findings: Dense consolidative infiltrate is seen within the right midlung zone which could represent right upper lobe or superior segment right lower lobe. Ill-defined alveolar and interstitial infiltrate is seen within the left midlung zone and left lung base. Minimal pleural effusion is seen on the left side and right side. No pneumothorax is seen. Heart size and mediastinum are stable. IMPRESSION: Bilateral lung infiltrates. Electronically signed by: Kelvin Reid MD (08/24/2018 8:32 AM) [facility] Laboratory Tests Test 08/25/18 08:35 White Blood Count 13.5 x10^3/uL (4.0-11.0) Red Blood Count 3.58 x10^6/uL (3.50-5.40) Hemoglobin 9.6 g/dL (12.0-15.5) Hematocrit 30.5 % (36.0-47.0) Mean Corpuscular Volume 85 fL (79-100) Mean Corpuscular Hemoglobin 27 pg (25-35) Mean Corpuscular Hemoglobin Concent 31 g/dL (31-37) Red Cell Distribution Width 17.5 % (11.5-14.5) Platelet Count 568 x10^3/uL (140-400) Neutrophils (%) (Auto) 81 % (31-73) Lymphocytes (%) (Auto) 12 % (24-48) Monocytes (%) (Auto) 6 % (0-9) Eosinophils (%) (Auto) 1 % (0-3) Basophils (%) (Auto) 0 % (0-3) Neutrophils # (Auto) 10.9 x10^3uL (1.8-7.7) Lymphocytes # (Auto) 1.6 x10^3/uL (1.0-4.8) Monocytes # (Auto) 0.8 x10^3/uL (0.0-1.1) Eosinophils # (Auto) 0.1 x10^3/uL (0.0-0.7) Basophils # (Auto) 0.0 x10^3/uL (0.0-0.2) Sodium Level 139 mmol/L (136-145) Potassium Level 3.6 mmol/L (3.5-5.1) Chloride Level 104 mmol/L (98-107) Carbon Dioxide Level 26 mmol/L (21-32) Anion Gap 9 (6-14) Blood Urea Nitrogen 16 mg/dL (7-20) Creatinine 0.8 mg/dL (0.6-1.0) Estimated GFR (Cockcroft-Gault) 83.3 BUN/Creatinine Ratio 20 (6-20) Glucose Level 153 mg/dL (70-99) Calcium Level 9.3 mg/dL (8.5-10.1) Total Bilirubin 0.3 mg/dL (0.2-1.0) Aspartate Amino Transf (AST/SGOT) 29 U/L (15-37) Alanine Aminotransferase (ALT/SGPT) 33 U/L (14-59) Alkaline Phosphatase 181 U/L (46-116) Total Protein 7.8 g/dL (6.4-8.2) Albumin 1.8 g/dL (3.4-5.0) Albumin/Globulin Ratio 0.3 (1.0-1.7) Prealbumin 16.6 mg/dL (16.0-42.0) Assessment and Plan Assessmemt and Plan Problems Medical Problems: (1) HCAP (healthcare-associated pneumonia) Status: Acute Comment Review of Relevant I have reviewed the following items nato (where applicable) has been applied. Labs Laboratory Tests Test 08/23/18 20:32 08/23/18 20:44 08/23/18 20:45 08/24/18 00:01 White Blood Count 13.3 x10^3/uL (4.0-11.0) Red Blood Count 3.46 x10^6/uL (3.50-5.40) Hemoglobin 9.2 g/dL (12.0-15.5) Hematocrit 29.2 % (36.0-47.0) Mean Corpuscular Volume 84 fL (79-100) Mean Corpuscular Hemoglobin 27 pg (25-35) Mean Corpuscular Hemoglobin Concent 32 g/dL (31-37) Red Cell Distribution Width 17.1 % (11.5-14.5) Platelet Count 552 x10^3/uL (140-400) Neutrophils (%) (Auto) 71 % (31-73) Lymphocytes (%) (Auto) 18 % (24-48) Monocytes (%) (Auto) 9 % (0-9) Eosinophils (%) (Auto) 3 % (0-3) Basophils (%) (Auto) 0 % (0-3) Neutrophils # (Auto) 9.4 x10^3uL (1.8-7.7) Lymphocytes # (Auto) 2.4 x10^3/uL (1.0-4.8) Monocytes # (Auto) 1.2 x10^3/uL (0.0-1.1) Eosinophils # (Auto) 0.3 x10^3/uL (0.0-0.7) Basophils # (Auto) 0.0 x10^3/uL (0.0-0.2) Prothrombin Time 16.0 SEC (11.7-14.0) Prothromb Time International Ratio 1.3 (0.8-1.1) Activated Partial Thromboplast Time 42 SEC (24-38) Sodium Level 138 mmol/L (136-145) Potassium Level 4.3 mmol/L (3.5-5.1) Chloride Level 104 mmol/L (98-107) Carbon Dioxide Level 27 mmol/L (21-32) Anion Gap 7 (6-14) Blood Urea Nitrogen 24 mg/dL (7-20) Creatinine 0.6 mg/dL (0.6-1.0) Estimated GFR (Cockcroft-Gault) 116.1 BUN/Creatinine Ratio 40 (6-20) Glucose Level 90 mg/dL (70-99) Lactic Acid Level 1.0 mmol/L (0.4-2.0) Calcium Level 9.4 mg/dL (8.5-10.1) Total Bilirubin 0.2 mg/dL (0.2-1.0) Aspartate Amino Transf (AST/SGOT) 25 U/L (15-37) Alanine Aminotransferase (ALT/SGPT) 25 U/L (14-59) Alkaline Phosphatase 97 U/L (46-116) Creatine Kinase 89 U/L (26-192) Creatine Kinase MB (Mass) 0.6 ng/mL (0.0-3.6) Creatine Kinase MB Relative Index 0.7 % (0-4) Troponin I Quantitative < 0.017 ng/mL (0.000-0.055) < 0.017 ng/mL (0.000-0.055) [id number]-[id number]-Type Natriuretic Peptide 599 pg/mL (0-449) Total Protein 7.3 g/dL (6.4-8.2) Albumin 2.0 g/dL (3.4-5.0) Albumin/Globulin Ratio 0.4 (1.0-1.7) Influenza Type A Antigen Negative (NEGATIVE) Influenza Type B Antigen Negative (NEGATIVE) Urine Collection Type U cath Urine Color Yellow Urine Clarity Cloudy Urine pH 5.5 Urine Specific [place] >=1.030 Urine Protein 30 mg/dL (NEG-TRACE) Urine Glucose (UA) Negative mg/dL (NEG) Urine Ketones (Stick) Negative mg/dL (NEG) Urine Blood Large (NEG) Urine Nitrite Negative (NEG) Urine Bilirubin Negative (NEG) Urine Urobilinogen Dipstick 0.2 mg/dL (0.2 mg/dL) Urine Leukocyte Esterase Moderate (NEG) Urine RBC 6-10 /HPF (0-2) Urine WBC 5-10 /HPF (0-4) Urine Transitional Epithelial Cells Occ /LPF Urine Amorphous Sediment Present /HPF Urine Bacteria Many /HPF (0-FEW) Urine Hyaline Casts Few /HPF Urine Mucus Mod /LPF Test 08/24/18 04:00 08/25/18 08:35 Troponin I Quantitative < 0.017 ng/mL (0.000-0.055) White Blood Count 13.5 x10^3/uL (4.0-11.0) Red Blood Count 3.58 x10^6/uL (3.50-5.40) Hemoglobin 9.6 g/dL (12.0-15.5) Hematocrit 30.5 % (36.0-47.0) Mean Corpuscular Volume 85 fL (79-100) Mean Corpuscular Hemoglobin 27 pg (25-35) Mean Corpuscular Hemoglobin Concent 31 g/dL (31-37) Red Cell Distribution Width 17.5 % (11.5-14.5) Platelet Count 568 x10^3/uL (140-400) Neutrophils (%) (Auto) 81 % (31-73) Lymphocytes (%) (Auto) 12 % (24-48) Monocytes (%) (Auto) 6 % (0-9) Eosinophils (%) (Auto) 1 % (0-3) Basophils (%) (Auto) 0 % (0-3) Neutrophils # (Auto) 10.9 x10^3uL (1.8-7.7) Lymphocytes # (Auto) 1.6 x10^3/uL (1.0-4.8) Monocytes # (Auto) 0.8 x10^3/uL (0.0-1.1) Eosinophils # (Auto) 0.1 x10^3/uL (0.0-0.7) Basophils # (Auto) 0.0 x10^3/uL (0.0-0.2) Sodium Level 139 mmol/L (136-145) Potassium Level 3.6 mmol/L (3.5-5.1) Chloride Level 104 mmol/L (98-107) Carbon Dioxide Level 26 mmol/L (21-32) Anion Gap 9 (6-14) Blood Urea Nitrogen 16 mg/dL (7-20) Creatinine 0.8 mg/dL (0.6-1.0) Estimated GFR (Cockcroft-Gault) 83.3 BUN/Creatinine Ratio 20 (6-20) Glucose Level 153 mg/dL (70-99) Calcium Level 9.3 mg/dL (8.5-10.1) Total Bilirubin 0.3 mg/dL (0.2-1.0) Aspartate Amino Transf (AST/SGOT) 29 U/L (15-37) Alanine Aminotransferase (ALT/SGPT) 33 U/L (14-59) Alkaline Phosphatase 181 U/L (46-116) Total Protein 7.8 g/dL (6.4-8.2) Albumin 1.8 g/dL (3.4-5.0) Albumin/Globulin Ratio 0.3 (1.0-1.7) Prealbumin 16.6 mg/dL (16.0-42.0) Laboratory Tests Test 08/25/18 08:35 White Blood Count 13.5 x10^3/uL (4.0-11.0) Red Blood Count 3.58 x10^6/uL (3.50-5.40) Hemoglobin 9.6 g/dL (12.0-15.5) Hematocrit 30.5 % (36.0-47.0) Mean Corpuscular Volume 85 fL (79-100) Mean Corpuscular Hemoglobin 27 pg (25-35) Mean Corpuscular Hemoglobin Concent 31 g/dL (31-37) Red Cell Distribution Width 17.5 % (11.5-14.5) Platelet Count 568 x10^3/uL (140-400) Neutrophils (%) (Auto) 81 % (31-73) Lymphocytes (%) (Auto) 12 % (24-48) Monocytes (%) (Auto) 6 % (0-9) Eosinophils (%) (Auto) 1 % (0-3) Basophils (%) (Auto) 0 % (0-3) Neutrophils # (Auto) 10.9 x10^3uL (1.8-7.7) Lymphocytes # (Auto) 1.6 x10^3/uL (1.0-4.8) Monocytes # (Auto) 0.8 x10^3/uL (0.0-1.1) Eosinophils # (Auto) 0.1 x10^3/uL (0.0-0.7) Basophils # (Auto) 0.0 x10^3/uL (0.0-0.2) Sodium Level 139 mmol/L (136-145) Potassium Level 3.6 mmol/L (3.5-5.1) Chloride Level 104 mmol/L (98-107) Carbon Dioxide Level 26 mmol/L (21-32) Anion Gap 9 (6-14) Blood Urea Nitrogen 16 mg/dL (7-20) Creatinine 0.8 mg/dL (0.6-1.0) Estimated GFR (Cockcroft-Gault) 83.3 BUN/Creatinine Ratio 20 (6-20) Glucose Level 153 mg/dL (70-99) Calcium Level 9.3 mg/dL (8.5-10.1) Total Bilirubin 0.3 mg/dL (0.2-1.0) Aspartate Amino Transf (AST/SGOT) 29 U/L (15-37) Alanine Aminotransferase (ALT/SGPT) 33 U/L (14-59) Alkaline Phosphatase 181 U/L (46-116) Total Protein 7.8 g/dL (6.4-8.2) Albumin 1.8 g/dL (3.4-5.0) Albumin/Globulin Ratio 0.3 (1.0-1.7) Prealbumin 16.6 mg/dL (16.0-42.0) Microbiology 08/24/18 Blood Culture - Preliminary, Resulted NO GROWTH AFTER 1 DAY Medications Current Medications Sodium Chloride 1,000 ml @ 1,000 mls/hr 1X ONCE IV ; Start 08/23/18 at 19:00; Stop 08/23/18 at 19:59; Status DC Piperacillin Sod/ Tazobactam Sod 4.5 gm/Sodium Chloride 100 ml @ 200 mls/hr 1X ONCE IV Last administered on 08/24/18at 02:10; Start 08/23/18 at 19:00; Stop 08/23/18 at 19:29; Status DC Levofloxacin/ Dextrose 150 ml @ 100 mls/hr 1X ONCE IV ; Start 08/23/18 at 19: 00; Stop 08/23/18 at 20:29; Status DC Vancomycin HCl 1.25 gm/Sodium Chloride 500 ml @ 250 mls/hr 1X ONCE IV ; Start 08/23/18 at 19:00; Stop 08/23/18 at 20:59; Status UNV Vancomycin HCl 250 ml @ 250 mls/hr 1X ONCE IV ; Start 08/23/18 at 19:15; Stop 08/23/18 at 20:14; Status DC Vancomycin HCl (Vanco Per Pharmacy) 1 each PRN DAILY PRN MC SEE COMMENTS; Start 08/23/18 at 20:00; Stop 08/24/18 at 13:06; Status DC Piperacillin Sod/ Tazobactam Sod (Zosyn Per Pharmacy) 1 each PRN DAILY PRN MC SEE COMMENTS; Start 08/23/18 at 20:00 Albuterol/ Ipratropium (Duoneb) 3 ml RTQID NEB Last administered on 08/25/18at 08:03; Start 08/23/18 at 20:00 Guaifenesin (Robitussin Dm) 10 ml PRN Q6HRS PRN PO COUGH; Start 08/23/18 at 20: 00 Acetaminophen (Tylenol) 650 mg PRN Q6HRS PRN PEG HEADACHE / TEMP Last administered on 08/25/18at 08:53; Start 08/23/18 at 20:00 Acetaminophen/ Codeine Phosphate (Tylenol/Codeine Soln) 5 ml PRN Q6HRS PRN PO PAIN MILD; Start 08/23/18 at 20:00 Enoxaparin Sodium (Lovenox 30mg Syringe) 30 mg DAILY SQ Last administered on at 08:53; Start 08/24/18 at 09:00 Dextrose/Sodium Chloride 1,000 ml @ 80 mls/hr [id number] IV Last administered on 08/24/18at 14:26; Start 08/23/18 at 20:00 Bisacodyl (Dulcolax Supp) 10 mg PRN DAILY PRN RC CONSTIPATION; Start 08/23/18 at 20:00 Magnesium Hydroxide (Milk Of Magnesia) 2,400 mg PRN DAILY PRN PO CONSTIPATION; Start 08/23/18 at 20:15 Morphine Sulfate (Morphine Sulfate) 1 mg PRN Q2HR PRN IV PAIN Last administered on 08/24/18at 09:57; Start 08/23/18 at 20:00 Ascorbic Acid (Vitamin C) 500 mg DAILY PO Last administered on 08/24/18at 09:55 ; Start 08/24/18 at 09:00; Stop 08/24/18 at 13:07; Status DC Levofloxacin/ Dextrose 150 ml @ 100 mls/hr 1X ONCE IV Last administered on at 02:58; Start 08/24/18 at 03:00; Stop 08/24/18 at 04:29; Status DC Piperacillin Sod/ Tazobactam Sod 2.25 gm/Sodium Chloride 50 ml @ 100 mls/hr Q6HRS IV Last administered on 08/25/18at 05:26; Start 08/24/18 at 12:00 Acetaminophen (Tylenol) 650 mg PRN Q6HRS PRN PEG fever, pain; Start 08/24/18 at 13:15; Status UNV Metoclopramide HCl (Reglan Oral Solution) 5 mg BIDAC PEG Last administered on at 08:53; Start 08/24/18 at 16:30 Zinc Sulfate (Orazinc) 220 mg DAILY PO Last administered on 08/25/18 08:54; Start 08/25/18 at 09:00 Non-Formulary Medication (Acetaminophen ) 800 mg TID PRN PO PAIN; Start at 13:15; Status UNV Non-Formulary Medication (Ascorbic Acid (Vitamin C)) 500 mg DAILY PEG ; Start at 09:00; Status UNV Hyoscyamine (Anaspaz) 0.125 mg PRN Q4HRS PRN PO STOMACH CRAMPING; Start at 13:15 Linezolid (Zyvox) 600 mg BID FT Last administered on 08/25/18at 08:54; Start at 13:30 Ascorbic Acid (Vitamin C) 500 mg DAILY PEG Last administered on 08/25/18at 08:54 ; Start 08/24/18 at 13:07 Active Scripts Active Reported Zinc Sulfate 220 Mg Capsule 220 Mg PEG DAILY Acetaminophen Oral Liquid (Acetaminophen) 650 Mg/20.3 Ml Solution 650 Mg PEG PRN Q6HRS PRN Tucks (Witch Mckenna) 1 Each Med..pad 1 Each TP PRN Q4HRS PRN Reglan (Metoclopramide Hcl) 5 Mg Tablet 5 Mg PEG BIDAC Levsin (Hyoscyamine Sulfate) 0.125 Mg Tablet 1 Tab SL Q4HRS PRN Vitamin C (Ascorbic Acid) 500 Mg Capsule 500 Mg PEG DAILY Milk Of Magnesia (Magnesium Hydroxide) 2,400 Mg/10 Ml Oral.susp 2,400 Mg PO DAILY PRN Acetaminophen 325 Mg/10.15 Ml Solution 800 Mg PO TID PRN Bisacodyl 10 Mg Supp.rect 10 Mg RC PRN DAILY PRN Vitals/I & O Vital Sign - Last 24 Hours 08/24/18 08/24/18 08/24/18 08/24/18 11:45 11:54 15:00 17:37 Temp 98.5 99.3 98.5 99.3 Pulse 84 96 Resp 20 36 B/P (MAP) 134/57 (82) 129/57 (81) Pulse Ox 94 87 O2 Delivery Room Air Room Air Room Air Room Air 08/24/18 08/24/18 08/24/18 08/25/18 19:15 19:50 23:15 03:25 Temp 98.0 97.7 98.5 98.0 97.7 98.5 Pulse 97 85 90 Resp 22 22 24 B/P (MAP) 99/48 (65) 118/53 (74) 121/54 (76) Pulse Ox 93 92 93 O2 Delivery Room Air Room Air Room Air Room Air 08/25/18 08/25/18 08/25/18 07:29 08:05 08:05 Temp 98.8 98.8 Pulse 89 Resp 24 B/P (MAP) 128/55 (79) Pulse Ox 96 96 O2 Delivery Room Air Room Air Room Air Intake and Output 08/24/18 08/24/18 08/25/18 15:01 23:01 07:01 Intake Total 0 ml 222 ml 1224 ml Output Total 225 ml 150 ml Balance 0 ml -3 ml 1074 ml FITZ DAVIES MD Aug 25, 2018 10:58
[2018-08-25 11:34] VITALS: BP 123/53
[2018-08-25] MEDS: IV DEXTROSE 5 %-0.45 % NACL 1,000 ML IV SCH (12:42)
--- NOTE | 2018-08-25 13:31 | NUR ---
SS following for discharge planning. SS reviewed pt chart. Pt is from [facility], ; fax [phone]. SS contacted [facility] to verify pt's previous placement. [facility] reported that pt is a LTC resident from there facility and could return when medically stable. Palliative Care consulted on case. SS will await Palliative Care meeting and will proceed accordingly. Pt's RN notified.
[2018-08-25 14:43] VITALS: BP 109/46
--- NOTE | 2018-08-25 15:58 | PDOC2 ---
PALLIATIVE CARE Palliative Care Note Palliative Care Consult requested by Dr. Mullen to address goals of care Medical Assessment per medical record; HCAP. patient at risk for aspiration (PEG tube) UTI --nayak catheter P/C malnutrition; PEG tube feedings. Multiple pressure wounds --Wound Care involved. FULL CODE Patient does respond to verbal stimuli. Wound care team reports grimace and discomfort with dressing changes. Spoke with Toya RANGEL. States she would be at the hospital before 3 pm. 1600 No family here. Available to meet at 1030 am tomorrow. NETO FITZPATRICK Aug 25, 2018 15:58
--- NOTE | 2018-08-25 16:29 | NUR ---
Wound Care Wound care consult for multiple pressure ulcers. 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 Dressed with Aquacel ag and foam to all wounds except r ankle and sacrum. R ankle dressed with Vaseline gauze and foam, sacrum dressed with vitamin A&D ointment recommend to change every time pt is cleansed up from leaking rectal tube and/or BID. Left pt on right side with heel medix boots on. Discussed POC with Laura MISHRA. WC will continue to follow for possible changes.
[2018-08-25 19:50] VITALS: BP 155/80
[2018-08-25 23:15] VITALS: BP 129/61
[2018-08-26] MEDS: PIPERACILLIN/TAZOBACTAM 2.25 GM in IV NORMAL SALINE 50ML 50 ML IV SCH ×3 (01:05→12:13)
[2018-08-26] MEDS: IV DEXTROSE 5 %-0.45 % NACL 1,000 ML IV SCH ×2 (02:51→10:30)
[2018-08-26 03:45] VITALS: BP 140/69
--- NOTE | 2018-08-26 06:25 | NUR ---
Gtube dressing changed with aseptic technique at 1999 and again at 06. Dressings saturated with flush water and tube feeding on both occasions. Chlorhexidine swabs used at surrounding skin. Rectal tube continues to leak minimal amounts and abdulkadir care provided Q2hrs. Oral care swabs used. Aquacell foam changed, see wound intervention assessment.
--- NOTE | 2018-08-26 06:29 | NUR ---
New can of Jevity 1.5 hung at 30 mls/hr and Q4hr H2O flushes of 125cc at 0200. New flush bag and tubing employed.
[2018-08-26 07:00] VITALS: BP 121/59
[2018-08-26] MEDS: IPRATRPIUM/ALBUTEROL 0.5/2.5MG 3 ML NEBU. NEB SCH ×2 (08:37→11:38)
[2018-08-26 08:38] LABS: BASO % 0 % (0-3); EOS # 0.6 x10^3/uL (0.0-0.7); EOS % 5 % (0-3); HEMATOCRIT 29.7 % (36.0-47.0); HEMOGLOBIN 9.2 g/dL (12.0-15.5); LYMPH # 1.2 x10^3/uL (1.0-4.8); LYMPH % 9 % (24-48); MEAN CORPUSCULAR HEMOGLOBIN 27 pg (25-35); MEAN CORPUSCULAR HGB CONC 31 g/dL (31-37); MEAN CORPUSCULAR VOLUME 87 fL (79-100); MONO # 1.2 x10^3/uL (0.0-1.1); MONO % 10 % (0-9); NEUT # 9.5 x10^3uL (1.8-7.7); NEUT % 76 % (31-73); PLATELET COUNT 482 x10^3/uL (140-400); RED BLOOD COUNT 3.42 x10^6/uL (3.50-5.40); RED CELL DISTRIBUTION WIDTH 17.6 % (11.5-14.5); WHITE BLOOD COUNT 12.6 x10^3/uL (4.0-11.0)
[2018-08-26] MEDS: ZINC SULFATE 220 MG CAPSULE. PO SCH (08:47)
[2018-08-26] MEDS: METOCLOPRAMIDE ORAL SOLN 10 MG/10 ML SOLUTION. PEG SCH (08:47)
[2018-08-26] MEDS: ASCORBIC ACID 500 MG TABLET PEG SCH (08:47)
[2018-08-26] MEDS: ACETAMINOPHEN 650 MG/20.3 ML SOLUTION. PEG PRN (08:47)
[2018-08-26] MEDS: LINEZOLID 600 MG TABLET FT SCH (08:47)
[2018-08-26] MEDS: ENOXAPARIN 30 MG/0.3 ML SYRINGE. SQ SCH (08:48)
[2018-08-26 08:51] LABS: CALCIUM 9.4 mg/dL (8.5-10.1); CREATININE 0.6 mg/dL (0.6-1.0); GFR 116.1; POTASSIUM 3.5 mmol/L (3.5-5.1)
--- NOTE | 2018-08-26 10:22 | NUR ---
IP: Pt is mrsa screen + requiring contact precautions.
--- NOTE | 2018-08-26 10:43 | PDOC ---
PROGRESS NOTES Chief Complaint Chief Complaint HCAP, pneumonia, aspiration risk UTI complicated Indwelling Byrd catheter SNU resident �6 years ([place]) BACK TO [facility] TODAY severe protein-caloric malnutrition History of CVA dementia with contractures, 2017, PEG placed, marked Bedbound with multiple pressure sores different areas, shoulders, elbow, heel, buttock FULL CODE History of Present Illness History of Present Illness labs tomorrow discussed with family Full code for now, we talked at length, again, palliative care to discuss again 08/25 to zosyn and zyvox per PEG, aspiration precautions. Turn every 2 Wound care Nutrition for tube feeds D5 half-normal in the meantime since no grounds person on the weekend Tylenol for fevers Draw blood cultures and urine cultures Byrd catheter changed at the ER Further recs pending course NO consults needed for now Vitals Vitals Vital Signs Date Time Temp Pulse Resp B/P (MAP) Pulse Ox O2 Delivery O2 Flow Rate FiO2 08/26/18 08:37 94 Room Air 08/26/18 07:00 98.7 87 24 121/59 (79) 98.7 Physical Exam Physical Exam HENT: Normocephalic, atraumatic, bilateral external ears normal, oropharynx moist, no oral exudates, nose normal. [] Eyes: PERRLA, EOMI, conjunctiva normal, no discharge. [] Neck: Normal range of motion, no tenderness, supple, no stridor. [] Cardiovascular:Heart rate regular rhythm, no murmur [] Lungs & Thorax: few crackles Abdomen: Bowel sounds normal, soft, no tenderness, no masses, no pulsatile masses. [] Skin: Warm, dry, no erythema, no rash. [] Back: No tenderness, no CVA tenderness. [] General: Cooperative, No acute distress, Other (nonverbal) Heart: No murmurs, Other (distant) Lungs: Crackles, Other (limited vol) Abdomen: Normal bowel sounds, Soft, No tenderness, No hepatosplenomegaly, No masses, Other (indwelling Byrd catheter) Extremities: No clubbing, No cyanosis, No edema, Other (minimal Sub Q tissue, senile skin turgor,bilateral upper ext contractures secondary to CVA) Skin: No rashes, Other (lots of pressure sores ranging from stage I to stage II on the shoulder but tocks, heel, elbow, shoulder etc.) Labs LABS Laboratory Tests Test 08/26/18 08:00 White Blood Count 12.6 x10^3/uL (4.0-11.0) Red Blood Count 3.42 x10^6/uL (3.50-5.40) Hemoglobin 9.2 g/dL (12.0-15.5) Hematocrit 29.7 % (36.0-47.0) Mean Corpuscular Volume 87 fL (79-100) Mean Corpuscular Hemoglobin 27 pg (25-35) Mean Corpuscular Hemoglobin Concent 31 g/dL (31-37) Red Cell Distribution Width 17.6 % (11.5-14.5) Platelet Count 482 x10^3/uL (140-400) Neutrophils (%) (Auto) 76 % (31-73) Lymphocytes (%) (Auto) 9 % (24-48) Monocytes (%) (Auto) 10 % (0-9) Eosinophils (%) (Auto) 5 % (0-3) Basophils (%) (Auto) 0 % (0-3) Neutrophils # (Auto) 9.5 x10^3uL (1.8-7.7) Lymphocytes # (Auto) 1.2 x10^3/uL (1.0-4.8) Monocytes # (Auto) 1.2 x10^3/uL (0.0-1.1) Eosinophils # (Auto) 0.6 x10^3/uL (0.0-0.7) Basophils # (Auto) 0.0 x10^3/uL (0.0-0.2) Sodium Level 140 mmol/L (136-145) Potassium Level 3.5 mmol/L (3.5-5.1) Chloride Level 106 mmol/L (98-107) Carbon Dioxide Level 25 mmol/L (21-32) Anion Gap 9 (6-14) Blood Urea Nitrogen 10 mg/dL (7-20) Creatinine 0.6 mg/dL (0.6-1.0) Estimated GFR (Cockcroft-Gault) 116.1 Glucose Level 117 mg/dL (70-99) Calcium Level 9.4 mg/dL (8.5-10.1) Assessment and Plan Assessmemt and Plan Problems Medical Problems: (1) HCAP (healthcare-associated pneumonia) Status: Acute Comment Review of Relevant I have reviewed the following items nato (where applicable) has been applied. Labs Laboratory Tests Test 08/25/18 08:35 08/26/18 08:00 White Blood Count 13.5 x10^3/uL (4.0-11.0) 12.6 x10^3/uL (4.0-11.0) Red Blood Count 3.58 x10^6/uL (3.50-5.40) 3.42 x10^6/uL (3.50-5.40) Hemoglobin 9.6 g/dL (12.0-15.5) 9.2 g/dL (12.0-15.5) Hematocrit 30.5 % (36.0-47.0) 29.7 % (36.0-47.0) Mean Corpuscular Volume 85 fL (79-100) 87 fL (79-100) Mean Corpuscular Hemoglobin 27 pg (25-35) 27 pg (25-35) Mean Corpuscular Hemoglobin Concent 31 g/dL (31-37) 31 g/dL (31-37) Red Cell Distribution Width 17.5 % (11.5-14.5) 17.6 % (11.5-14.5) Platelet Count 568 x10^3/uL (140-400) 482 x10^3/uL (140-400) Neutrophils (%) (Auto) 81 % (31-73) 76 % (31-73) Lymphocytes (%) (Auto) 12 % (24-48) 9 % (24-48) Monocytes (%) (Auto) 6 % (0-9) 10 % (0-9) Eosinophils (%) (Auto) 1 % (0-3) 5 % (0-3) Basophils (%) (Auto) 0 % (0-3) 0 % (0-3) Neutrophils # (Auto) 10.9 x10^3uL (1.8-7.7) 9.5 x10^3uL (1.8-7.7) Lymphocytes # (Auto) 1.6 x10^3/uL (1.0-4.8) 1.2 x10^3/uL (1.0-4.8) Monocytes # (Auto) 0.8 x10^3/uL (0.0-1.1) 1.2 x10^3/uL (0.0-1.1) Eosinophils # (Auto) 0.1 x10^3/uL (0.0-0.7) 0.6 x10^3/uL (0.0-0.7) Basophils # (Auto) 0.0 x10^3/uL (0.0-0.2) 0.0 x10^3/uL (0.0-0.2) Sodium Level 139 mmol/L (136-145) 140 mmol/L (136-145) Potassium Level 3.6 mmol/L (3.5-5.1) 3.5 mmol/L (3.5-5.1) Chloride Level 104 mmol/L (98-107) 106 mmol/L (98-107) Carbon Dioxide Level 26 mmol/L (21-32) 25 mmol/L (21-32) Anion Gap 9 (6-14) 9 (6-14) Blood Urea Nitrogen 16 mg/dL (7-20) 10 mg/dL (7-20) Creatinine 0.8 mg/dL (0.6-1.0) 0.6 mg/dL (0.6-1.0) Estimated GFR (Cockcroft-Gault) 83.3 116.1 BUN/Creatinine Ratio 20 (6-20) Glucose Level 153 mg/dL (70-99) 117 mg/dL (70-99) Calcium Level 9.3 mg/dL (8.5-10.1) 9.4 mg/dL (8.5-10.1) Total Bilirubin 0.3 mg/dL (0.2-1.0) Aspartate Amino Transf (AST/SGOT) 29 U/L (15-37) Alanine Aminotransferase (ALT/SGPT) 33 U/L (14-59) Alkaline Phosphatase 181 U/L (46-116) Total Protein 7.8 g/dL (6.4-8.2) Albumin 1.8 g/dL (3.4-5.0) Albumin/Globulin Ratio 0.3 (1.0-1.7) Prealbumin 16.6 mg/dL (16.0-42.0) Laboratory Tests Test 08/26/18 08:00 White Blood Count 12.6 x10^3/uL (4.0-11.0) Red Blood Count 3.42 x10^6/uL (3.50-5.40) Hemoglobin 9.2 g/dL (12.0-15.5) Hematocrit 29.7 % (36.0-47.0) Mean Corpuscular Volume 87 fL (79-100) Mean Corpuscular Hemoglobin 27 pg (25-35) Mean Corpuscular Hemoglobin Concent 31 g/dL (31-37) Red Cell Distribution Width 17.6 % (11.5-14.5) Platelet Count 482 x10^3/uL (140-400) Neutrophils (%) (Auto) 76 % (31-73) Lymphocytes (%) (Auto) 9 % (24-48) Monocytes (%) (Auto) 10 % (0-9) Eosinophils (%) (Auto) 5 % (0-3) Basophils (%) (Auto) 0 % (0-3) Neutrophils # (Auto) 9.5 x10^3uL (1.8-7.7) Lymphocytes # (Auto) 1.2 x10^3/uL (1.0-4.8) Monocytes # (Auto) 1.2 x10^3/uL (0.0-1.1) Eosinophils # (Auto) 0.6 x10^3/uL (0.0-0.7) Basophils # (Auto) 0.0 x10^3/uL (0.0-0.2) Sodium Level 140 mmol/L (136-145) Potassium Level 3.5 mmol/L (3.5-5.1) Chloride Level 106 mmol/L (98-107) Carbon Dioxide Level 25 mmol/L (21-32) Anion Gap 9 (6-14) Blood Urea Nitrogen 10 mg/dL (7-20) Creatinine 0.6 mg/dL (0.6-1.0) Estimated GFR (Cockcroft-Gault) 116.1 Glucose Level 117 mg/dL (70-99) Calcium Level 9.4 mg/dL (8.5-10.1) Microbiology 08/24/18 Blood Culture - Preliminary, Resulted NO GROWTH AFTER 2 DAYS 08/23/18 Urine Culture - Preliminary, Resulted 08/23/18 Urine Culture Result 1 (ZACHERY) - Preliminary, Resulted Medications Current Medications Sodium Chloride 1,000 ml @ 1,000 mls/hr 1X ONCE IV ; Start 08/23/18 at 19:00; Stop 08/23/18 at 19:59; Status DC Piperacillin Sod/ Tazobactam Sod 4.5 gm/Sodium Chloride 100 ml @ 200 mls/hr 1X ONCE IV Last administered on 08/24/18at 02:10; Start 08/23/18 at 19:00; Stop 08/23/18 at 19:29; Status DC Levofloxacin/ Dextrose 150 ml @ 100 mls/hr 1X ONCE IV ; Start 08/23/18 at 19: 00; Stop 08/23/18 at 20:29; Status DC Vancomycin HCl 1.25 gm/Sodium Chloride 500 ml @ 250 mls/hr 1X ONCE IV ; Start 08/23/18 at 19:00; Stop 08/23/18 at 20:59; Status UNV Vancomycin HCl 250 ml @ 250 mls/hr 1X ONCE IV ; Start 08/23/18 at 19:15; Stop 08/23/18 at 20:14; Status DC Vancomycin HCl (Vanco Per Pharmacy) 1 each PRN DAILY PRN MC SEE COMMENTS; Start 08/23/18 at 20:00; Stop 08/24/18 at 13:06; Status DC Piperacillin Sod/ Tazobactam Sod (Zosyn Per Pharmacy) 1 each PRN DAILY PRN MC SEE COMMENTS; Start 08/23/18 at 20:00 Albuterol/ Ipratropium (Duoneb) 3 ml RTQID NEB Last administered on 08/26/18at 08:37; Start 08/23/18 at 20:00 Guaifenesin (Robitussin Dm) 10 ml PRN Q6HRS PRN PO COUGH; Start 08/23/18 at 20: 00 Acetaminophen (Tylenol) 650 mg PRN Q6HRS PRN PEG HEADACHE / TEMP Last administered on 08/26/18at 08:47; Start 08/23/18 at 20:00 Acetaminophen/ Codeine Phosphate (Tylenol/Codeine Soln) 5 ml PRN Q6HRS PRN PO PAIN MILD; Start 08/23/18 at 20:00 Enoxaparin Sodium (Lovenox 30mg Syringe) 30 mg DAILY SQ Last administered on at 08:48; Start 08/24/18 at 09:00 Dextrose/Sodium Chloride 1,000 ml @ 80 mls/hr [id number] IV Last administered on 08/26/18at 02:51; Start 08/23/18 at 20:00 Bisacodyl (Dulcolax Supp) 10 mg PRN DAILY PRN RC CONSTIPATION; Start 08/23/18 at 20:00 Magnesium Hydroxide (Milk Of Magnesia) 2,400 mg PRN DAILY PRN PO CONSTIPATION; Start 08/23/18 at 20:15 Morphine Sulfate (Morphine Sulfate) 1 mg PRN Q2HR PRN IV PAIN Last administered on 08/24/18at 09:57; Start 08/23/18 at 20:00 Ascorbic Acid (Vitamin C) 500 mg DAILY PO Last administered on 08/24/18at 09:55 ; Start 08/24/18 at 09:00; Stop 08/24/18 at 13:07; Status DC Levofloxacin/ Dextrose 150 ml @ 100 mls/hr 1X ONCE IV Last administered on at 02:58; Start 08/24/18 at 03:00; Stop 08/24/18 at 04:29; Status DC Piperacillin Sod/ Tazobactam Sod 2.25 gm/Sodium Chloride 50 ml @ 100 mls/hr Q6HRS IV Last administered on 08/26/18at 05:39; Start 08/24/18 at 12:00 Acetaminophen (Tylenol) 650 mg PRN Q6HRS PRN PEG fever, pain; Start 08/24/18 at 13:15; Status UNV Metoclopramide HCl (Reglan Oral Solution) 5 mg BIDAC PEG Last administered on at 08:47; Start 08/24/18 at 16:30 Zinc Sulfate (Orazinc) 220 mg DAILY PO Last administered on 08/26/18at 08:47; Start 08/25/18 at 09:00 Non-Formulary Medication (Acetaminophen ) 800 mg TID PRN PO PAIN; Start at 13:15; Status UNV Non-Formulary Medication (Ascorbic Acid (Vitamin C)) 500 mg DAILY PEG ; Start at 09:00; Status UNV Hyoscyamine (Anaspaz) 0.125 mg PRN Q4HRS PRN PO STOMACH CRAMPING; Start at 13:15 Linezolid (Zyvox) 600 mg BID FT Last administered on 08/26/18at 08:47; Start at 13:30 Ascorbic Acid (Vitamin C) 500 mg DAILY PEG Last administered on 08/26/18at 08:47 ; Start 08/24/18 at 13:07 Active Scripts Active Reported Zinc Sulfate 220 Mg Capsule 220 Mg PEG DAILY Acetaminophen Oral Liquid (Acetaminophen) 650 Mg/20.3 Ml Solution 650 Mg PEG PRN Q6HRS PRN Tucks (Witch Mckenna) 1 Each Med..pad 1 Each TP PRN Q4HRS PRN Reglan (Metoclopramide Hcl) 5 Mg Tablet 5 Mg PEG BIDAC Levsin (Hyoscyamine Sulfate) 0.125 Mg Tablet 1 Tab SL Q4HRS PRN Vitamin C (Ascorbic Acid) 500 Mg Capsule 500 Mg PEG DAILY Milk Of Magnesia (Magnesium Hydroxide) 2,400 Mg/10 Ml Oral.susp 2,400 Mg PO DAILY PRN Acetaminophen 325 Mg/10.15 Ml Solution 800 Mg PO TID PRN Bisacodyl 10 Mg Supp.rect 10 Mg RC PRN DAILY PRN Vitals/I & O Vital Sign - Last 24 Hours 08/25/18 08/25/18 08/25/18 08/25/18 11:34 11:36 14:43 16:03 Temp 98.4 98.5 98.4 98.5 Pulse 85 86 Resp 24 24 B/P (MAP) 123/53 (76) 109/46 (67) Pulse Ox 95 92 93 O2 Delivery Room Air Room Air Room Air Room Air 08/25/18 08/25/18 08/25/18 08/25/18 19:50 20:00 20:11 23:15 Temp 98.1 98.2 98.1 98.2 Pulse 91 90 Resp 22 22 B/P (MAP) 155/80 (105) 129/61 (83) Pulse Ox 93 99 94 O2 Delivery Room Air Room Air Room Air Room Air 08/26/18 08/26/18 08/26/18 08/26/18 03:45 07:00 08:00 08:37 Temp 98.1 98.7 98.1 98.7 Pulse 83 87 Resp 22 24 B/P (MAP) 140/69 (92) 121/59 (79) Pulse Ox 94 94 94 O2 Delivery Room Air Room Air Room Air Room Air Intake and Output 08/25/18 08/25/18 08/26/18 15:01 23:01 07:01 Intake Total 300 ml 1000 ml Output Total 700 ml 1250 ml Balance -400 ml -250 ml Nutrition Consultation Dietary Evaluation: Recommendations by RD: Increase Calorie Intake Comments: REC increase Jevity goal rate to 35 ml/hr w/125 ml water flushes q4 hrs REC MVI via PEG if able for wound healing Continue w/Vit C as ordered Expected Outcomes/Goals: TF infusion to meet 90% - 100% estimated needs Malnutrition Findings: Muscle Mass (Severe): Severe Depletion Body Fat Depletion (Non Severe: Mod to Severe Weight Status: Emaciated FITZ DAVIES MD Aug 26, 2018 10:43
[2018-08-26 11:00] VITALS: BP 112/57
--- NOTE | 2018-08-26 13:59 | PDOC3 ---
Discharge Summary Date of Admission: Aug 23, 2018 Date of Discharge: Aug 26, 2018 Follow-Up: 1-2 days Admitting Diagnosis comment: Chief Complaint Chief Complaint HCAP, pneumonia, aspiration risk UTI complicated Indwelling Byrd catheter SNU resident �6 years ([place]) BACK TO [place] TODAY severe protein-caloric malnutrition History of CVA dementia with contractures, 2017, PEG placed, Bedbound with multiple pressure sores different areas, shoulders, elbow, heel, buttock FULL CODE History of Present Illness History of Present Illness Full code for now, we talked at length, again, palliative care to discuss again 08/25 to zosyn and zyvox per PEG, aspiration precautions. Turn every 2 Wound care Nutrition for tube feeds Tylenol for fevers Draw blood cultures and urine cultures Byrd catheter changed at the ER NO consults needed for now Vitals Vitals Vital Signs Date Time Temp Pulse Resp B/P (MAP) Pulse Ox O2 Delivery O2 Flow Rate FiO2 08/26/18 08:37 94 Room Air 08/26/18 07:00 98.7 87 24 121/59 (79) 98.7 Physical Exam Physical Exam HENT: Normocephalic, atraumatic, bilateral external ears normal, oropharynx moist, no oral exudates, nose normal. [] Eyes: PERRLA, EOMI, conjunctiva normal, no discharge. [] Neck: Normal range of motion, no tenderness, supple, no stridor. [] Cardiovascular:Heart rate regular rhythm, no murmur [] Lungs & Thorax: few crackles Abdomen: Bowel sounds normal, soft, no tenderness, no masses, no pulsatile masses. [] Skin: Warm, dry, no erythema, no rash. [] Back: No tenderness, no CVA tenderness. [] General: Cooperative, No acute distress, Other (nonverbal) Heart: No murmurs, Other (distant) Lungs: Crackles, Other (limited vol) Abdomen: Normal bowel sounds, Soft, No tenderness, No hepatosplenomegaly, No masses, Other (indwelling Byrd catheter) Extremities: No clubbing, No cyanosis, No edema, Other (minimal Sub Q tissue, senile skin turgor,bilateral upper ext contractures secondary to CVA) Skin: No rashes, Other (lots of pressure sores ranging from stage I to stage II on the shoulder but tocks, heel, elbow, shoulder etc.) FINAL DIAGNOSIS Problems Medical Problems: (1) HCAP (healthcare-associated pneumonia) Status: Acute Brief Hospital Course Ms. De Leon is a 83 old [sex] who presented with [ ] Discharge Medications Current Medications Sodium Chloride 1,000 ml @ 1,000 mls/hr 1X ONCE IV ; Start 08/23/18 at 19:00; Stop 08/23/18 at 19:59; Status DC Piperacillin Sod/ Tazobactam Sod 4.5 gm/Sodium Chloride 100 ml @ 200 mls/hr 1X ONCE IV Last administered on 08/24/18at 02:10; Start 08/23/18 at 19:00; Stop 08/23/18 at 19:29; Status DC Levofloxacin/ Dextrose 150 ml @ 100 mls/hr 1X ONCE IV ; Start 08/23/18 at 19: 00; Stop 08/23/18 at 20:29; Status DC Vancomycin HCl 1.25 gm/Sodium Chloride 500 ml @ 250 mls/hr 1X ONCE IV ; Start 08/23/18 at 19:00; Stop 08/23/18 at 20:59; Status UNV Vancomycin HCl 250 ml @ 250 mls/hr 1X ONCE IV ; Start 08/23/18 at 19:15; Stop 08/23/18 at 20:14; Status DC Vancomycin HCl (Vanco Per Pharmacy) 1 each PRN DAILY PRN MC SEE COMMENTS; Start 08/23/18 at 20:00; Stop 08/24/18 at 13:06; Status DC Piperacillin Sod/ Tazobactam Sod (Zosyn Per Pharmacy) 1 each PRN DAILY PRN MC SEE COMMENTS; Start 08/23/18 at 20:00 Albuterol/ Ipratropium (Duoneb) 3 ml RTQID NEB Last administered on 08/26/18at 11:38; Start 08/23/18 at 20:00 Guaifenesin (Robitussin Dm) 10 ml PRN Q6HRS PRN PO COUGH; Start 08/23/18 at 20: 00 Acetaminophen (Tylenol) 650 mg PRN Q6HRS PRN PEG HEADACHE / TEMP Last administered on 08/26/18at 08:47; Start 08/23/18 at 20:00 Acetaminophen/ Codeine Phosphate (Tylenol/Codeine Soln) 5 ml PRN Q6HRS PRN PO PAIN MILD; Start 08/23/18 at 20:00 Enoxaparin Sodium (Lovenox 30mg Syringe) 30 mg DAILY SQ Last administered on at 08:48; Start 08/24/18 at 09:00 Dextrose/Sodium Chloride 1,000 ml @ 80 mls/hr [id number] IV Last administered on 08/26/18at 02:51; Start 08/23/18 at 20:00 Bisacodyl (Dulcolax Supp) 10 mg PRN DAILY PRN RC CONSTIPATION; Start 08/23/18 at 20:00 Magnesium Hydroxide (Milk Of Magnesia) 2,400 mg PRN DAILY PRN PO CONSTIPATION; Start 08/23/18 at 20:15 Morphine Sulfate (Morphine Sulfate) 1 mg PRN Q2HR PRN IV PAIN Last administered on 08/24/18at 09:57; Start 08/23/18 at 20:00 Ascorbic Acid (Vitamin C) 500 mg DAILY PO Last administered on 08/24/18at 09:55 ; Start 08/24/18 at 09:00; Stop 08/24/18 at 13:07; Status DC Levofloxacin/ Dextrose 150 ml @ 100 mls/hr 1X ONCE IV Last administered on at 02:58; Start 08/24/18 at 03:00; Stop 08/24/18 at 04:29; Status DC Piperacillin Sod/ Tazobactam Sod 2.25 gm/Sodium Chloride 50 ml @ 100 mls/hr Q6HRS IV Last administered on 08/26/18at 12:13; Start 08/24/18 at 12:00 Acetaminophen (Tylenol) 650 mg PRN Q6HRS PRN PEG fever, pain; Start 08/24/18 at 13:15; Status UNV Metoclopramide HCl (Reglan Oral Solution) 5 mg BIDAC PEG Last administered on at 08:47; Start 08/24/18 at 16:30 Zinc Sulfate (Orazinc) 220 mg DAILY PO Last administered on 08/26/18at 08:47; Start 08/25/18 at 09:00 Non-Formulary Medication (Acetaminophen ) 800 mg TID PRN PO PAIN; Start at 13:15; Status UNV Non-Formulary Medication (Ascorbic Acid (Vitamin C)) 500 mg DAILY PEG ; Start at 09:00; Status UNV Hyoscyamine (Anaspaz) 0.125 mg PRN Q4HRS PRN PO STOMACH CRAMPING; Start at 13:15 Linezolid (Zyvox) 600 mg BID FT Last administered on 08/26/18at 08:47; Start at 13:30 Ascorbic Acid (Vitamin C) 500 mg DAILY PEG Last administered on 08/26/18at 08:47 ; Start 08/24/18 at 13:07 Active Scripts Active Reported Zinc Sulfate 220 Mg Capsule 220 Mg PEG DAILY Acetaminophen Oral Liquid (Acetaminophen) 650 Mg/20.3 Ml Solution 650 Mg PEG PRN Q6HRS PRN Tucks (Witch Mckenna) 1 Each Med..pad 1 Each TP PRN Q4HRS PRN Reglan (Metoclopramide Hcl) 5 Mg Tablet 5 Mg PEG BIDAC Levsin (Hyoscyamine Sulfate) 0.125 Mg Tablet 1 Tab SL Q4HRS PRN Vitamin C (Ascorbic Acid) 500 Mg Capsule 500 Mg PEG DAILY Milk Of Magnesia (Magnesium Hydroxide) 2,400 Mg/10 Ml Oral.susp 2,400 Mg PO DAILY PRN Acetaminophen 325 Mg/10.15 Ml Solution 800 Mg PO TID PRN Bisacodyl 10 Mg Supp.rect 10 Mg RC PRN DAILY PRN Vital Signs Vital Signs Date Time Temp Pulse Resp B/P (MAP) Pulse Ox O2 Delivery O2 Flow Rate FiO2 08/26/18 11:39 Room Air 08/26/18 11:00 98.5 88 24 112/57 (75) 89 98.5 Labs Laboratory Tests Test 08/25/18 08:35 08/26/18 08:00 White Blood Count 13.5 x10^3/uL (4.0-11.0) 12.6 x10^3/uL (4.0-11.0) Red Blood Count 3.58 x10^6/uL (3.50-5.40) 3.42 x10^6/uL (3.50-5.40) Hemoglobin 9.6 g/dL (12.0-15.5) 9.2 g/dL (12.0-15.5) Hematocrit 30.5 % (36.0-47.0) 29.7 % (36.0-47.0) Mean Corpuscular Volume 85 fL (79-100) 87 fL (79-100) Mean Corpuscular Hemoglobin 27 pg (25-35) 27 pg (25-35) Mean Corpuscular Hemoglobin Concent 31 g/dL (31-37) 31 g/dL (31-37) Red Cell Distribution Width 17.5 % (11.5-14.5) 17.6 % (11.5-14.5) Platelet Count 568 x10^3/uL (140-400) 482 x10^3/uL (140-400) Neutrophils (%) (Auto) 81 % (31-73) 76 % (31-73) Lymphocytes (%) (Auto) 12 % (24-48) 9 % (24-48) Monocytes (%) (Auto) 6 % (0-9) 10 % (0-9) Eosinophils (%) (Auto) 1 % (0-3) 5 % (0-3) Basophils (%) (Auto) 0 % (0-3) 0 % (0-3) Neutrophils # (Auto) 10.9 x10^3uL (1.8-7.7) 9.5 x10^3uL (1.8-7.7) Lymphocytes # (Auto) 1.6 x10^3/uL (1.0-4.8) 1.2 x10^3/uL (1.0-4.8) Monocytes # (Auto) 0.8 x10^3/uL (0.0-1.1) 1.2 x10^3/uL (0.0-1.1) Eosinophils # (Auto) 0.1 x10^3/uL (0.0-0.7) 0.6 x10^3/uL (0.0-0.7) Basophils # (Auto) 0.0 x10^3/uL (0.0-0.2) 0.0 x10^3/uL (0.0-0.2) Sodium Level 139 mmol/L (136-145) 140 mmol/L (136-145) Potassium Level 3.6 mmol/L (3.5-5.1) 3.5 mmol/L (3.5-5.1) Chloride Level 104 mmol/L (98-107) 106 mmol/L (98-107) Carbon Dioxide Level 26 mmol/L (21-32) 25 mmol/L (21-32) Anion Gap 9 (6-14) 9 (6-14) Blood Urea Nitrogen 16 mg/dL (7-20) 10 mg/dL (7-20) Creatinine 0.8 mg/dL (0.6-1.0) 0.6 mg/dL (0.6-1.0) Estimated GFR (Cockcroft-Gault) 83.3 116.1 BUN/Creatinine Ratio 20 (6-20) Glucose Level 153 mg/dL (70-99) 117 mg/dL (70-99) Calcium Level 9.3 mg/dL (8.5-10.1) 9.4 mg/dL (8.5-10.1) Total Bilirubin 0.3 mg/dL (0.2-1.0) Aspartate Amino Transf (AST/SGOT) 29 U/L (15-37) Alanine Aminotransferase (ALT/SGPT) 33 U/L (14-59) Alkaline Phosphatase 181 U/L (46-116) Total Protein 7.8 g/dL (6.4-8.2) Albumin 1.8 g/dL (3.4-5.0) Albumin/Globulin Ratio 0.3 (1.0-1.7) Prealbumin 16.6 mg/dL (16.0-42.0) Laboratory Tests Test 08/26/18 08:00 White Blood Count 12.6 x10^3/uL (4.0-11.0) Red Blood Count 3.42 x10^6/uL (3.50-5.40) Hemoglobin 9.2 g/dL (12.0-15.5) Hematocrit 29.7 % (36.0-47.0) Mean Corpuscular Volume 87 fL (79-100) Mean Corpuscular Hemoglobin 27 pg (25-35) Mean Corpuscular Hemoglobin Concent 31 g/dL (31-37) Red Cell Distribution Width 17.6 % (11.5-14.5) Platelet Count 482 x10^3/uL (140-400) Neutrophils (%) (Auto) 76 % (31-73) Lymphocytes (%) (Auto) 9 % (24-48) Monocytes (%) (Auto) 10 % (0-9) Eosinophils (%) (Auto) 5 % (0-3) Basophils (%) (Auto) 0 % (0-3) Neutrophils # (Auto) 9.5 x10^3uL (1.8-7.7) Lymphocytes # (Auto) 1.2 x10^3/uL (1.0-4.8) Monocytes # (Auto) 1.2 x10^3/uL (0.0-1.1) Eosinophils # (Auto) 0.6 x10^3/uL (0.0-0.7) Basophils # (Auto) 0.0 x10^3/uL (0.0-0.2) Sodium Level 140 mmol/L (136-145) Potassium Level 3.5 mmol/L (3.5-5.1) Chloride Level 106 mmol/L (98-107) Carbon Dioxide Level 25 mmol/L (21-32) Anion Gap 9 (6-14) Blood Urea Nitrogen 10 mg/dL (7-20) Creatinine 0.6 mg/dL (0.6-1.0) Estimated GFR (Cockcroft-Gault) 116.1 Glucose Level 117 mg/dL (70-99) Calcium Level 9.4 mg/dL (8.5-10.1) Allergies Allergies Coded Allergies Type Severity Reaction Last Updated Verified I S O L A T I O N *CONTACT* Allergy Unknown 08/26/18 Yes No Known Medication Allergies Allergy Unknown 08/26/18 Yes Disposition/Orders: Other (SNF BED) Patient Instructions D/C PLANNING 40 MIN FITZ DAVIES MD Aug 26, 2018 13:59
--- NOTE | 2018-08-26 14:01 | DISCH ---
DISCHARGE DISCHARGE INFORMATION: FINAL DIAGNOSIS Problems Medical Problems: (1) HCAP (healthcare-associated pneumonia) Status: Acute CONDITION ON DISCHARGE: Stable ASSISTED: SNF STAY <30 DAYS: Yes HOSPICE: HOSPICE EVAL & TREAT: Yes LTAC: ADMIT TO LTAC: No POST DISCHARGE ORDERS: ACTIVITY ORDERS: Activity as tolerated, Other, see below DIET AFTER DISCHARGE: TUBE FEEDS CHECKS AFTER DISCHARGE: CHECKS AFTER DISCHARGE: Check blood press - daily TREATMENT/EQUIPMENT ORDERS: Physical Therapy For: Evalulation/Treatment Occupational Therapy For: Evaluation/Treatment Speech Language Pathology For: Evaluation/Treatment DISCHARGE MEDICATIONS: Home Meds Reported Medications Zinc Sulfate (ZINC SULFATE) 220 Mg Capsule, 220 MG PEG DAILY for supplement, CAP 08/24/18 Acetaminophen (ACETAMINOPHEN ORAL LIQUID ) 650 Mg/20.3 Ml Solution, 650 MG PEG PRN Q6HRS PRN for fever, pain, ML 08/24/18 Aliya Andres (TUCKS) 1 Each Med..pad, 1 EACH TP PRN Q4HRS PRN for hemorrhoidal discomfort, PAD 08/24/18 Metoclopramide Hcl (REGLAN) 5 Mg Tablet, 5 MG PEG BIDAC for GI motility, #60 TAB 0 Refills 08/24/18 Hyoscyamine Sulfate (LEVSIN) 0.125 Mg Tablet, 1 TAB SL Q4HRS PRN for SECRETIONS , #120 TAB 5 Refills 08/24/18 Ascorbic Acid (Vitamin C) 500 Mg Capsule, 500 MG PEG DAILY for supplement, CAP 08/24/18 Magnesium Hydroxide (MILK OF MAGNESIA) 2,400 Mg/10 Ml Oral.susp, 2400 MG PO DAILY PRN for CONSTIPATION, MISC 10/10/17 Acetaminophen (ACETAMINOPHEN) 325 Mg/10.15 Ml Solution, 800 MG PO TID PRN for PAIN, MISC 10/10/17 Bisacodyl (BISACODYL) 10 Mg Supp.rect, 10 MG RC PRN DAILY PRN for CONSTIPATION, SUPP.RECT 0 Refills 10/10/17 FITZ DAVIES MD Aug 26, 2018 14:01
[2018-08-26] MEDS ORDERED: LINE600T FT (14:04)
[2018-08-26] MEDS ORDERED: IPRA3AMP29 NEB (14:04)
[2018-08-26] MEDS ORDERED: ACET5SOL PO (14:04)
[2018-08-26] MEDS ORDERED: GUAI5SYR PO (14:04)
--- NOTE | 2018-08-26 15:00 | PDOC2 ---
PALLIATIVE CARE Palliative Care Note Palliative Care Per staff family declined meeting. PC will sign off. NETO FITZPATRICK Aug 26, 2018 15:00
--- NOTE | 2018-08-26 15:31 | NUR ---
SS following up with discharge planning. Discharge orders received for return to [facility]. SS phoned and faxed discharge orders to [facility], ; fax [phone]. Pt will discharge today and return to [facility] between 1530 and 1600 via stretcher arranged by [facility]. Pt, pt's daughter, and pt's RN notified.
--- NOTE | 2018-08-26 15:52 | NUR ---
Discharge: Report called to [facility] [phone] at [facility]. All belongings with patient. Family notified of discharge by [facility] (social work). Patient assisted off of unit via gurney accompanied by transport.
== END 2018-08-26 16:08 | disposition home or self-care (01) | DRG 871 ==
LOC: ER 18:08 → 2 SOUTH 20:48
PROVIDERS: ADMIT Internal Medicine; ATTEND Internal Medicine
PROC: 05HY33Z Insertion of Infusion Device into Upper Vein, Percutaneous Approach (ICD-10-PCS; principal; 2018-08-24)
DX: A41.9 Sepsis, unspecified organism (principal); J18.9 Pneumonia, unspecified organism; E43 Unspecified severe protein-calorie malnutrition; N39.0 Urinary tract infection, site not specified; Z68.1 Body mass index [BMI] 19.9 or less, adult; L89.329 Pressure ulcer of left buttock, unspecified stage; L89.319 Pressure ulcer of right buttock, unspecified stage; L89.129 Pressure ulcer of left upper back, unspecified stage; L89.119 Pressure ulcer of right upper back, unspecified stage; L89.629 Pressure ulcer of left heel, unspecified stage; L89.619 Pressure ulcer of right heel, unspecified stage; L89.029 Pressure ulcer of left elbow, unspecified stage; L89.019 Pressure ulcer of right elbow, unspecified stage; F03.90 Unspecified dementia, unspecified severity, without behavioral disturbance, psychotic disturbance, mood disturbance, and anxiety; F41.9 Anxiety disorder, unspecified; I10 Essential (primary) hypertension; Y95 Nosocomial condition; Z51.5 Encounter for palliative care; Z66 Do not resuscitate; Z86.73 Personal history of transient ischemic attack (TIA), and cerebral infarction without residual deficits; Z74.01 Bed confinement status
CPT/HCPCS: 36415; 36569; 51702; 71045; 80048; 80053; 81001; 82553; 83605; 83880; 84134; 84484; 85025; 85610; 85730; 87040; 87086; 87186; 87641; 87804; 93005; 94640; 94660; 94760; A4314; J1650; J1956; J2270; J2543; J7620; J8597; 99285-25; G0378

== ENCOUNTER 2018-10-08 11:28 | Inpatient (IN) | payer MEDICARE, BC, OTHER ==
[~2018-10-08] VITALS: Ht 165.1 cm; Wt 41.3 kg
[~2018-10-08 11:28] MED LIST changes: +ACET5SOL PO; +ACET650S PEG; +ASCO500C9 PEG; +BISA10SU2 RC; -BISA10SU4 RC; -CYAN-25 PO; +CYAN10005 PO; +GUAI5SYR PO; +HYOS0.1264 SL; +LINE600T FT; +METO5TAB55 PEG; +WITC1MED18 TP; +ZINC220C5 PEG
[2018-10-08] MEDS ORDERED: VANCOMYCIN PER PHARMACY MC ONE (11:45)
[2018-10-08] MEDS ORDERED: ACETAMINOPHEN 650 MG SUPP.RECT. PR ONE (11:45)
[2018-10-08] MEDS ORDERED: PIPERACILLIN/TAZOBACTAM 4.5 GM in IV NORMAL SALINE 100ML 100 ML IV ONE (12:00)
--- NOTE | 2018-10-08 12:17 | PHYS DOC ---
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 Patient is aphasic. Review of Systems Review of Systems Constitutional: Reports fever Eyes: RODNEY HENT: RODNEY Respiratory:RODNEY Cardiovascular:RODNEY GI: RODNEY : nayak in place Musculoskeletal: RODNEY Integument: RODNEY Neurologic: RODNEY All other systems were reviewed and found to be within normal limits, except as documented in this note. Current Medications Current Medications Current Medications Medications (Trade) Dose Ordered Sig/Felix Start Time Stop Time Status Last Admin Dose Admin Acetaminophen (Tylenol Supp) 650 mg 1X ONCE 10/08/18 11:45 10/08/18 11:53 DC Piperacillin Sod/ Tazobactam Sod 4.5 gm/Sodium Chloride 100 ml @ 200 mls/hr 1X ONCE 10/08/18 12:00 10/08/18 12:29 DC 10/08/18 13:05 200 MLS/HR Sodium Chloride 1,500 ml @ 1,500 mls/hr Q1H 10/08/18 11:43 10/08/18 13:04 1,500 MLS/HR Vancomycin HCl (Vanco Per Pharmacy) 1 each 1X ONCE 10/08/18 11:45 10/08/18 13:23 DC Vancomycin HCl 750 mg/Sodium Chloride 250 ml @ 250 mls/hr 1X ONCE 10/08/18 13:00 10/08/18 13:59 DC 10/08/18 13:53 250 MLS/HR Allergies Allergies Allergies Coded Allergies Type Severity Reaction Last Updated Verified I S O L A T I O N *CONTACT* Allergy Unknown 08/26/18 Yes No Known Medication Allergies Allergy Unknown 08/26/18 Yes Physical Exam Physical Exam Constitutional: thin appearing, non toxic HENT: Normocephalic, atraumatic, bilateral external ears normal, oropharynx moist, no oral exudates, nose normal. [] Eyes: PERRLA, EOMI, conjunctiva normal, no discharge. [] Neck: Limited range of motion-chronic, no tenderness, supple, no stridor. [] Cardiovascular:Heart rate regular rhythm, no murmur [] Lungs & Thorax: Bilateral breath sounds are diminished Abdomen: Abdomen with feeding tube. Bowel sounds normal, soft, no tenderness, no masses, no pulsatile masses. [] Skin: Warm, dry, wounds noted on buttock and right hip Back: No tenderness, no CVA tenderness. [] Extremities: Contracted upper and lower extremities. No tenderness, no cyanosis , no clubbing, no edema. [] Neurologic: Alert and oriented X 1, normal motor function, normal sensory function, no focal deficits noted. Cranial nerves II-XII intact. Psychologic: flat affect Current Patient Data Vital Signs Vital Signs Date Time Temp Pulse Resp B/P (MAP) Pulse Ox O2 Delivery O2 Flow Rate FiO2 10/08/18 13:40 60 18 121/60 (80) 100 Nasal Cannula 2.0 10/08/18 11:30 99.5 99.5 Lab Values Laboratory Tests Test 10/08/18 12:00 10/08/18 12:50 10/08/18 12:55 10/08/18 13:00 Stool Occult Blood Positive (NEG) White Blood Count 7.3 x10^3/uL (4.0-11.0) Red Blood Count 3.73 x10^6/uL (3.50-5.40) Hemoglobin 9.8 g/dL (12.0-15.5) L Hematocrit 31.5 % (36.0-47.0) L Mean Corpuscular Volume 85 fL (79-100) Mean Corpuscular Hemoglobin 26 pg (25-35) Mean Corpuscular Hemoglobin Concent 31 g/dL (31-37) Red Cell Distribution Width 19.5 % (11.5-14.5) H Platelet Count 459 x10^3/uL (140-400) H Neutrophils (%) (Auto) 69 % (31-73) Lymphocytes (%) (Auto) 19 % (24-48) L Monocytes (%) (Auto) 8 % (0-9) Eosinophils (%) (Auto) 4 % (0-3) H Basophils (%) (Auto) 1 % (0-3) Neutrophils # (Auto) 5.0 x10^3uL (1.8-7.7) Lymphocytes # (Auto) 1.4 x10^3/uL (1.0-4.8) Monocytes # (Auto) 0.6 x10^3/uL (0.0-1.1) Eosinophils # (Auto) 0.3 x10^3/uL (0.0-0.7) Basophils # (Auto) 0.0 x10^3/uL (0.0-0.2) Prothrombin Time 15.2 SEC (11.7-14.0) H Prothrombin Time INR 1.2 (0.8-1.1) H PTT 26 SEC (24-38) Sodium Level 140 mmol/L (136-145) Potassium Level 4.3 mmol/L (3.5-5.1) Chloride Level 102 mmol/L (98-107) Carbon Dioxide Level 30 mmol/L (21-32) Anion Gap 8 (6-14) Blood Urea Nitrogen 22 mg/dL (7-20) H Creatinine 0.7 mg/dL (0.6-1.0) Estimated GFR (Cockcroft-Gault) 97.2 BUN/Creatinine Ratio 31 (6-20) H Glucose Level 103 mg/dL (70-99) H Lactic Acid Level 1.9 mmol/L (0.4-2.0) Calcium Level 9.5 mg/dL (8.5-10.1) Total Bilirubin 0.2 mg/dL (0.2-1.0) Aspartate Amino Transferase (AST) 151 U/L (15-37) H Alanine Aminotransferase (ALT) 273 U/L (14-59) H Alkaline Phosphatase 179 U/L (46-116) H Ammonia 16 mcmol/L (11-34) Creatine Kinase 145 U/L (26-192) Creatine Kinase MB (Mass) 1.4 ng/mL (0.0-3.6) Creatine Kinase MB Relative Index 1.0 % (0-4) Total Protein 8.8 g/dL (6.4-8.2) H Albumin 2.2 g/dL (3.4-5.0) L Albumin/Globulin Ratio 0.3 (1.0-1.7) L Procalcitonin 0.22 ng/mL (0.00-0.10) H Influenza Type A Antigen Negative (NEGATIVE) Influenza Type B Antigen Negative (NEGATIVE) Urine Collection Type Unknown Urine Color Yellow Urine Clarity Turbid Urine pH 7.0 Urine Specific [place] 1.020 Urine Protein 100 mg/dL (NEG-TRACE) Urine Glucose (UA) Negative mg/dL (NEG) Urine Ketones (Stick) Negative mg/dL (NEG) Urine Blood Large (NEG) Urine Nitrite Positive (NEG) Urine Bilirubin Negative (NEG) Urine Urobilinogen Dipstick 1.0 mg/dL (0.2 mg/dL) Urine Leukocyte Esterase Large (NEG) Urine RBC 20-40 /HPF (0-2) Urine WBC Tntc /HPF (0-4) Urine Bacteria Many /HPF (0-FEW) Laboratory Tests 10/08/18 12:50 Laboratory Tests 10/08/18 12:50 EKG EKG Interpreted by Dr. Ospina sinus rhythm HR 73 no STEMI[] Radiology/Procedures Radiology/Procedures []PROCEDURE: PORTABLE CHEST 1V Portable chest, 10/08/2018: HISTORY: Fever Comparison is made to a study from 08/23/2018. The heart size is normal. There is calcific plaquing of the aorta. There are moderate reticulonodular opacities in both lungs. More extensive infiltrates were present on 08/23/2018. The findings most likely were reflect recurrent pneumonitis. A component of chronic lung disease cannot be excluded, but is less likely considering the fact that the lungs were relatively clear on 10/10/2017. A small focal patch of atelectasis/infiltrate is present medially in the left base. No definite pleural fluid is seen. IMPRESSION: Moderate bilateral reticulonodular pulmonary opacities suggesting recurrent pneumonia. Electronically signed by: John Gonzalez MD (10/08/2018 1:01 PM) [facility] DICTATED and SIGNED BY: JOHN GONZALEZ MD DATE: 10/08/18 9127 Course & Med Decision Making Course & Med Decision Making Pertinent Labs and Imaging studies reviewed. (See chart for details) This is a 83-year-old female patient from the senior living presenting to be evaluated for fever. Patient is nonverbal, contracted upper and lower extremities. Family not present. On arrival to the ED patient had a loose stool which was sent to lab for further testing including C-Diff. CBC with a normal WBC, CMP with AST of 151, ALT 273, ALP 170, vitals on arrival to the ED temperature 99.5 rectal heart rate 80, respirations 20 room air, blood pressure 115/66, temperature 97.2. Chest x-ray was noted for recurrent pneumonia, urine analysis is noted for nitrites and leukocytes. Patient was given Zosyn and vancomycin on arrival to the ED. Consulted with Dr. Mullen who accepted patient for admission. Dragon Disclaimer Dragon Disclaimer This electronic medical record was generated, in whole or in part, using a voice recognition dictation system. Departure Departure Impression: Primary Impression: Aspiration pneumonia Additional Impressions: Fever Catheter-associated urinary tract infection Disposition: ADMITTED INPATIENT Condition: STABLE Referrals: LETI SANZ MD (PCP) Problem Qualifiers Primary Impression: Aspiration pneumonia Aspiration pneumonia type: unspecified Laterality: bilateral Lung location : lower lobe of lung Qualified Codes: J69.0 - Pneumonitis due to inhalation of food and vomit Additional Impressions: Fever Fever type: unspecified Qualified Codes: R50.9 - Fever, unspecified Catheter-associated urinary tract infection Indwelling urinary catheter type: unspecified Encounter type: sequela Qualified Codes: T83.511S - Infection and inflammatory reaction due to indwelling urethral catheter, sequela; N39.0 - Urinary tract infection, site not specified HUMZA HANCOCK APRN Oct 08, 2018 12:17
[2018-10-08] MEDS: IV NORMAL SALINE 1000ML BAG 1,500 ML IV SCH ×8 (12:43→18:43)
--- NOTE | 2018-10-08 12:48 | EKG ---
[facility] [address] [place] [address] Test Date: 2018-10-08 Test Time: 12:10:34 Pat Name: LAURI COLBERT Department: Room: Gender: F Motorcycle Mechanic: : [id number] Requested By: HUMZA HANCOCK Order Number: [id number] Reading MD: Liam Anderson MD Measurements Intervals [place] Rate: 73 P: 52 GA: 154 QRS: -33 QRSD: 72 T: 48 QT: 372 QTc: 413 Interpretive Statements SINUS RHYTHM ABNORMAL LEFT AXIS DEVIATION Electronically Signed On 10-16-2018 9:43:44 CDT by Liam Anderson MD
[2018-10-08] MEDS ORDERED: VANCOMYCIN 750 MG in IV NORMAL SALINE 250ML 250 ML IV ONE (13:00)
--- NOTE | 2018-10-08 13:04 | RAD ---
Portable chest, 10/08/2018: HISTORY: Fever Comparison is made to a study from 08/23/2018. The heart size is normal. There is calcific plaquing of the aorta. There are moderate reticulonodular opacities in both lungs. More extensive infiltrates were present on 08/23/2018. The findings most likely were reflect recurrent pneumonitis. A component of chronic lung disease cannot be excluded, but is less likely considering the fact that the lungs were relatively clear on 10/10/2017. A small focal patch of atelectasis/infiltrate is present medially in the left base. No definite pleural fluid is seen. IMPRESSION: Moderate bilateral reticulonodular pulmonary opacities suggesting recurrent pneumonia. Electronically signed by: John Gonzalez MD (10/08/2018 1:01 PM) [facility]
[2018-10-08 13:05] LABS: BASO % 1 % (0-3); EOS # 0.3 x10^3/uL (0.0-0.7); EOS % 4 % (0-3); HEMATOCRIT 31.5 % (36.0-47.0); HEMOGLOBIN 9.8 g/dL (12.0-15.5); LYMPH # 1.4 x10^3/uL (1.0-4.8); LYMPH % 19 % (24-48); MEAN CORPUSCULAR HEMOGLOBIN 26 pg (25-35); MEAN CORPUSCULAR HGB CONC 31 g/dL (31-37); MEAN CORPUSCULAR VOLUME 85 fL (79-100); MONO # 0.6 x10^3/uL (0.0-1.1); MONO % 8 % (0-9); NEUT % 69 % (31-73); PLATELET COUNT 459 x10^3/uL (140-400); RED BLOOD COUNT 3.73 x10^6/uL (3.50-5.40); RED CELL DISTRIBUTION WIDTH 19.5 % (11.5-14.5); WHITE BLOOD COUNT 7.3 x10^3/uL (4.0-11.0)
[2018-10-08 13:12] LABS: FECAL OB PT POSITIVE (NEG)
[2018-10-08 13:15] LABS: CALCIUM 9.5 mg/dL (8.5-10.1); CREATININE 0.7 mg/dL (0.6-1.0); GFR 97.2; POTASSIUM 4.3 mmol/L (3.5-5.1); PROTHROMBIN TIME PATIENT 15.2 SEC (11.7-14.0)
[2018-10-08 13:18] LABS: BILIRUBIN,URINE NEGATIVE (NEG); CLARITY,URINE TURBID; COLOR,URINE YELLOW; NITRITE,URINE POSITIVE (NEG); PROTEIN,URINE 100 mg/dL (NEG-TRACE)
[2018-10-08 13:21] LABS: ALBUMIN 2.2 g/dL (3.4-5.0); ALBUMIN/GLOBULIN RATIO 0.3 (1.0-1.7); TOTAL BILIRUBIN 0.2 mg/dL (0.2-1.0); TOTAL PROTEIN 8.8 g/dL (6.4-8.2)
[2018-10-08 13:32] LABS: BACTERIA,URINE MANY /HPF (0-FEW); RBC,URINE 20-40 /HPF (0-2); WBC,URINE TNTC /HPF (0-4)
[2018-10-08 13:45] LABS: INFLUENZA A PATIENT NEGATIVE (NEGATIVE); INFLUENZA B PATIENT NEGATIVE (NEGATIVE)
[2018-10-08] MEDS ORDERED: PIP/TAZO PER PHARMACY MC PRN (15:30)
--- NOTE | 2018-10-08 15:35 | PDOC1 ---
History and Physical Date of Admission Date of Admission DATE: 10/08/18 TIME: 15:31 Source Source: Caregiver, Chart review History of Present Illness History of Present Illness Ms De Leon was brought by EMS from [place] today for fever. 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 pt has diarrhea x3 today, and [facility].8 [facility], and brought here, temp better IV abx started, sepsis protocol for SIRS started, she is unable to talk at baseline, daugther reports she looks about as she always does Past Medical History Cardiovascular: HTN CENTRAL NERVOUS SYSTEM: CVA, Dementia Psych: Anxiety Rheumatologic: No pertinent hx Renal/: No pertinent hx Past Surgical History Past Surgical History: Other Family History Family History: Family History Unknown Social History ALCOHOL: none Drugs: None Current Problem List Problem List Problems Medical Problems: (1) Catheter-associated urinary tract infection Status: Acute (2) Fever Status: Acute Current Medications Current Medications Current Medications Piperacillin Sod/ Tazobactam Sod 4.5 gm/Sodium Chloride 100 ml @ 200 mls/hr 1X ONCE IV Last administered on 10/08/18at 13:05; Start 10/08/18 at 12:00; Stop 10/08/18 at 12:29; Status DC Vancomycin HCl (Vanco Per Pharmacy) 1 each 1X ONCE [facility] ; Start 10/08/18 at 11:45 ; Stop 10/08/18 at 13:23; Status DC Sodium Chloride 1,500 ml @ 1,500 mls/hr Q1H IV Last administered on 10/08/18at 13:04; Start 10/08/18 at 11:43 Acetaminophen (Tylenol Supp) 650 mg 1X ONCE [place] ; Start 10/08/18 at 11:45; Stop 10/08/18 at 11:53; Status DC Vancomycin HCl 750 mg/Sodium Chloride 250 ml @ 250 mls/hr 1X ONCE IV Last administered on 10/08/18at 13:53; Start 10/08/18 at 13:00; Stop 10/08/18 at 13:59 ; Status DC Piperacillin Sod/ Tazobactam Sod (Zosyn Per Pharmacy) 1 each PRN DAILY PRN [facility] SEE COMMENTS; Start 10/08/18 at 15:30 Piperacillin Sod/ Tazobactam Sod 3.375 gm/Sodium Chloride 50 ml @ 100 mls/hr Q6HRS IV ; Start 10/08/18 at 18:00 Active Scripts Active Guaifenesin Dm Syrup (Guaifenesin/Dextromethorphan) 5 Ml Syrup 10 Ml PO PRN Q6HRS PRN 14 Days Acetaminophen-Codeine Solution (Acetaminophen With Codeine) 5 Ml Solution 5 Ml PO PRN Q6HRS PRN 14 Days Duoneb 0.5-3(2.5) Mg/3 Ml (Albuterol/Ipratropium) 3 Ml Ampul.neb 3 Ml NEB RTQID 14 Days Zyvox (Linezolid) 600 Mg Tablet 600 Mg FT BID 10 Days Reported Zinc Sulfate 220 Mg Capsule 220 Mg PEG DAILY Acetaminophen Oral Liquid (Acetaminophen) 650 Mg/20.3 Ml Solution 650 Mg PEG PRN Q6HRS PRN Tucks (Witch Mckenna) 1 Each Med..pad 1 Each TP PRN Q4HRS PRN Reglan (Metoclopramide Hcl) 5 Mg Tablet 5 Mg PEG BIDAC Levsin (Hyoscyamine Sulfate) 0.125 Mg Tablet 1 Tab SL Q4HRS PRN Vitamin C (Ascorbic Acid) 500 Mg Capsule 500 Mg PEG DAILY Milk Of Magnesia (Magnesium Hydroxide) 2,400 Mg/10 Ml Oral.susp 2,400 Mg PO DAILY PRN Acetaminophen 325 Mg/10.15 Ml Solution 800 Mg PO TID PRN Bisacodyl 10 Mg Supp.rect 10 Mg RC PRN DAILY PRN Allergies Allergies: Coded Allergies: I S O L A T I O N *CONTACT* (Verified Allergy, Unknown, 08/26/18) mrsa No Known Medication Allergies (Verified Allergy, Unknown, 08/26/18) ROS Review of System unable, pt aphasic Physical Exam Physical Exam contracted, will fight back, seems agitated to passive movement General: mild distress, Other HEENT: Atraumatic, PERRLA, EOMI Lungs: Clear to auscultation Heart: no murmurs, other Abdomen: Normal bowel sounds, Soft Extremities: No clubbing, No cyanosis Neuro: Other (rigid tone) Psych/Mental Status: Other Vitals Vitals Vital Signs Date Time Temp Pulse Resp B/P (MAP) Pulse Ox O2 Delivery O2 Flow Rate FiO2 10/08/18 13:40 60 18 121/60 (80) 100 Nasal Cannula 2.0 10/08/18 11:30 99.5 99.5 Labs Labs Laboratory Tests Test 10/08/18 12:00 10/08/18 12:50 10/08/18 12:55 10/08/18 13:00 Stool Occult Blood Positive (NEG) White Blood Count 7.3 x10^3/uL (4.0-11.0) Red Blood Count 3.73 x10^6/uL (3.50-5.40) Hemoglobin 9.8 g/dL (12.0-15.5) Hematocrit 31.5 % (36.0-47.0) Mean Corpuscular Volume 85 fL (79-100) Mean Corpuscular Hemoglobin 26 pg (25-35) Mean Corpuscular Hemoglobin Concent 31 g/dL (31-37) Red Cell Distribution Width 19.5 % (11.5-14.5) Platelet Count 459 x10^3/uL (140-400) Neutrophils (%) (Auto) 69 % (31-73) Lymphocytes (%) (Auto) 19 % (24-48) Monocytes (%) (Auto) 8 % (0-9) Eosinophils (%) (Auto) 4 % (0-3) Basophils (%) (Auto) 1 % (0-3) Neutrophils # (Auto) 5.0 x10^3uL (1.8-7.7) Lymphocytes # (Auto) 1.4 x10^3/uL (1.0-4.8) Monocytes # (Auto) 0.6 x10^3/uL (0.0-1.1) Eosinophils # (Auto) 0.3 x10^3/uL (0.0-0.7) Basophils # (Auto) 0.0 x10^3/uL (0.0-0.2) Prothrombin Time 15.2 SEC (11.7-14.0) Prothromb Time International Ratio 1.2 (0.8-1.1) Activated Partial Thromboplast Time 26 SEC (24-38) Sodium Level 140 mmol/L (136-145) Potassium Level 4.3 mmol/L (3.5-5.1) Chloride Level 102 mmol/L (98-107) Carbon Dioxide Level 30 mmol/L (21-32) Anion Gap 8 (6-14) Blood Urea Nitrogen 22 mg/dL (7-20) Creatinine 0.7 mg/dL (0.6-1.0) Estimated GFR (Cockcroft-Gault) 97.2 BUN/Creatinine Ratio 31 (6-20) Glucose Level 103 mg/dL (70-99) Lactic Acid Level 1.9 mmol/L (0.4-2.0) Calcium Level 9.5 mg/dL (8.5-10.1) Total Bilirubin 0.2 mg/dL (0.2-1.0) Aspartate Amino Transf (AST/SGOT) 151 U/L (15-37) Alanine Aminotransferase (ALT/SGPT) 273 U/L (14-59) Alkaline Phosphatase 179 U/L (46-116) Ammonia 16 mcmol/L (11-34) Creatine Kinase 145 U/L (26-192) Creatine Kinase MB (Mass) 1.4 ng/mL (0.0-3.6) Creatine Kinase MB Relative Index 1.0 % (0-4) Total Protein 8.8 g/dL (6.4-8.2) Albumin 2.2 g/dL (3.4-5.0) Albumin/Globulin Ratio 0.3 (1.0-1.7) Procalcitonin 0.22 ng/mL (0.00-0.10) Influenza Type A Antigen Negative (NEGATIVE) Influenza Type B Antigen Negative (NEGATIVE) Urine Collection Type Unknown Urine Color Yellow Urine Clarity Turbid Urine pH 7.0 Urine Specific [place] 1.020 Urine Protein 100 mg/dL (NEG-TRACE) Urine Glucose (UA) Negative mg/dL (NEG) Urine Ketones (Stick) Negative mg/dL (NEG) Urine Blood Large (NEG) Urine Nitrite Positive (NEG) Urine Bilirubin Negative (NEG) Urine Urobilinogen Dipstick 1.0 mg/dL (0.2 mg/dL) Urine Leukocyte Esterase Large (NEG) Urine RBC 20-40 /HPF (0-2) Urine WBC Tntc /HPF (0-4) Urine Bacteria Many /HPF (0-FEW) Laboratory Tests Test 10/08/18 12:00 10/08/18 12:50 10/08/18 12:55 10/08/18 13:00 Stool Occult Blood Positive (NEG) White Blood Count 7.3 x10^3/uL (4.0-11.0) Red Blood Count 3.73 x10^6/uL (3.50-5.40) Hemoglobin 9.8 g/dL (12.0-15.5) Hematocrit 31.5 % (36.0-47.0) Mean Corpuscular Volume 85 fL (79-100) Mean Corpuscular Hemoglobin 26 pg (25-35) Mean Corpuscular Hemoglobin Concent 31 g/dL (31-37) Red Cell Distribution Width 19.5 % (11.5-14.5) Platelet Count 459 x10^3/uL (140-400) Neutrophils (%) (Auto) 69 % (31-73) Lymphocytes (%) (Auto) 19 % (24-48) Monocytes (%) (Auto) 8 % (0-9) Eosinophils (%) (Auto) 4 % (0-3) Basophils (%) (Auto) 1 % (0-3) Neutrophils # (Auto) 5.0 x10^3uL (1.8-7.7) Lymphocytes # (Auto) 1.4 x10^3/uL (1.0-4.8) Monocytes # (Auto) 0.6 x10^3/uL (0.0-1.1) Eosinophils # (Auto) 0.3 x10^3/uL (0.0-0.7) Basophils # (Auto) 0.0 x10^3/uL (0.0-0.2) Prothrombin Time 15.2 SEC (11.7-14.0) Prothromb Time International Ratio 1.2 (0.8-1.1) Activated Partial Thromboplast Time 26 SEC (24-38) Sodium Level 140 mmol/L (136-145) Potassium Level 4.3 mmol/L (3.5-5.1) Chloride Level 102 mmol/L (98-107) Carbon Dioxide Level 30 mmol/L (21-32) Anion Gap 8 (6-14) Blood Urea Nitrogen 22 mg/dL (7-20) Creatinine 0.7 mg/dL (0.6-1.0) Estimated GFR (Cockcroft-Gault) 97.2 BUN/Creatinine Ratio 31 (6-20) Glucose Level 103 mg/dL (70-99) Lactic Acid Level 1.9 mmol/L (0.4-2.0) Calcium Level 9.5 mg/dL (8.5-10.1) Total Bilirubin 0.2 mg/dL (0.2-1.0) Aspartate Amino Transf (AST/SGOT) 151 U/L (15-37) Alanine Aminotransferase (ALT/SGPT) 273 U/L (14-59) Alkaline Phosphatase 179 U/L (46-116) Ammonia 16 mcmol/L (11-34) Creatine Kinase 145 U/L (26-192) Creatine Kinase MB (Mass) 1.4 ng/mL (0.0-3.6) Creatine Kinase MB Relative Index 1.0 % (0-4) Total Protein 8.8 g/dL (6.4-8.2) Albumin 2.2 g/dL (3.4-5.0) Albumin/Globulin Ratio 0.3 (1.0-1.7) Procalcitonin 0.22 ng/mL (0.00-0.10) Influenza Type A Antigen Negative (NEGATIVE) Influenza Type B Antigen Negative (NEGATIVE) Urine Collection Type Unknown Urine Color Yellow Urine Clarity Turbid Urine pH 7.0 Urine Specific [place] 1.020 Urine Protein 100 mg/dL (NEG-TRACE) Urine Glucose (UA) Negative mg/dL (NEG) Urine Ketones (Stick) Negative mg/dL (NEG) Urine Blood Large (NEG) Urine Nitrite Positive (NEG) Urine Bilirubin Negative (NEG) Urine Urobilinogen Dipstick 1.0 mg/dL (0.2 mg/dL) Urine Leukocyte Esterase Large (NEG) Urine RBC 20-40 /HPF (0-2) Urine WBC Tntc /HPF (0-4) Urine Bacteria Many /HPF (0-FEW) VTE Prophylaxis Ordered VTE Prophylaxis Devices: No VTE Pharmacological Prophylaxi: Yes Assessment/Plan Assessment/Plan sepsis UTI diarrhea, isolate, cx and c. diff tox sent recent aspiration PNA, on tube feeds severe malnutrition, serum albumin and BMI is 13.0 weakness and debility aphasic, bedbound FULL code, discussed with daughter, reviewed YASH Rosario MD Oct 08, 2018 15:35
--- NOTE | 2018-10-08 16:31 | PDOC2 ---
GI CONSULT Reason For Consult: Transaminitis, tube fed HPI: HPI: 83 y/o female seen in ER, two daughters present. She is non-verbal w/ h/o CVA w / dysphagia and PEG. Sent from [facility] for fevers and diarrhea. GI asked to see for transaminitis. Daughters report she has taken antibiotics recently for recurrent pneumonia and has had diarrhea related to this. PEG functions but can be leaky. No liver history. No vomiting. No hematochezia or melena. PEG last replaced by Dr. Landrum in (cannot view procedure report). Colonoscopy many years ago w/ polypectomy and perforation, then colon resection w/ ostomy and reversal. S/p cholecystectomy. No pancreas history. Med list includes Reglan. PMH: PMH: CVA w/ dysphagia and contractures, dementia, HTN, anxiety, hiatal hernia, left ischial decub debridement, colon resection following perforation after polypectomy w/ ostomy/reversal, cholecystectomy, ?appendectomy, PEG placement FH: Family History: No pertinent hx Social History: Smoke: No ALCOHOL: none Drugs: None ROS: Unable to obtain. Vitals: Vitals: Vital Signs Date Time Temp Pulse Resp B/P (MAP) Pulse Ox O2 Delivery O2 Flow Rate FiO2 10/08/18 15:37 73 20 155/74 (101) 100 Nasal Cannula 2.0 10/08/18 11:30 99.5 99.5 Labs: Labs: Laboratory Tests Test 10/08/18 12:00 10/08/18 12:50 10/08/18 12:55 10/08/18 13:00 Stool Occult Blood Positive (NEG) White Blood Count 7.3 x10^3/uL (4.0-11.0) Red Blood Count 3.73 x10^6/uL (3.50-5.40) Hemoglobin 9.8 g/dL (12.0-15.5) Hematocrit 31.5 % (36.0-47.0) Mean Corpuscular Volume 85 fL (79-100) Mean Corpuscular Hemoglobin 26 pg (25-35) Mean Corpuscular Hemoglobin Concent 31 g/dL (31-37) Red Cell Distribution Width 19.5 % (11.5-14.5) Platelet Count 459 x10^3/uL (140-400) Neutrophils (%) (Auto) 69 % (31-73) Lymphocytes (%) (Auto) 19 % (24-48) Monocytes (%) (Auto) 8 % (0-9) Eosinophils (%) (Auto) 4 % (0-3) Basophils (%) (Auto) 1 % (0-3) Neutrophils # (Auto) 5.0 x10^3uL (1.8-7.7) Lymphocytes # (Auto) 1.4 x10^3/uL (1.0-4.8) Monocytes # (Auto) 0.6 x10^3/uL (0.0-1.1) Eosinophils # (Auto) 0.3 x10^3/uL (0.0-0.7) Basophils # (Auto) 0.0 x10^3/uL (0.0-0.2) Prothrombin Time 15.2 SEC (11.7-14.0) Prothromb Time International Ratio 1.2 (0.8-1.1) Activated Partial Thromboplast Time 26 SEC (24-38) Sodium Level 140 mmol/L (136-145) Potassium Level 4.3 mmol/L (3.5-5.1) Chloride Level 102 mmol/L (98-107) Carbon Dioxide Level 30 mmol/L (21-32) Anion Gap 8 (6-14) Blood Urea Nitrogen 22 mg/dL (7-20) Creatinine 0.7 mg/dL (0.6-1.0) Estimated GFR (Cockcroft-Gault) 97.2 BUN/Creatinine Ratio 31 (6-20) Glucose Level 103 mg/dL (70-99) Lactic Acid Level 1.9 mmol/L (0.4-2.0) Calcium Level 9.5 mg/dL (8.5-10.1) Total Bilirubin 0.2 mg/dL (0.2-1.0) Aspartate Amino Transf (AST/SGOT) 151 U/L (15-37) Alanine Aminotransferase (ALT/SGPT) 273 U/L (14-59) Alkaline Phosphatase 179 U/L (46-116) Ammonia 16 mcmol/L (11-34) Creatine Kinase 145 U/L (26-192) Creatine Kinase MB (Mass) 1.4 ng/mL (0.0-3.6) Creatine Kinase MB Relative Index 1.0 % (0-4) Total Protein 8.8 g/dL (6.4-8.2) Albumin 2.2 g/dL (3.4-5.0) Albumin/Globulin Ratio 0.3 (1.0-1.7) Procalcitonin 0.22 ng/mL (0.00-0.10) Influenza Type A Antigen Negative (NEGATIVE) Influenza Type B Antigen Negative (NEGATIVE) Urine Collection Type Unknown Urine Color Yellow Urine Clarity Turbid Urine pH 7.0 Urine Specific [place] 1.020 Urine Protein 100 mg/dL (NEG-TRACE) Urine Glucose (UA) Negative mg/dL (NEG) Urine Ketones (Stick) Negative mg/dL (NEG) Urine Blood Large (NEG) Urine Nitrite Positive (NEG) Urine Bilirubin Negative (NEG) Urine Urobilinogen Dipstick 1.0 mg/dL (0.2 mg/dL) Urine Leukocyte Esterase Large (NEG) Urine RBC 20-40 /HPF (0-2) Urine WBC Tntc /HPF (0-4) Urine Bacteria Many /HPF (0-FEW) Allergies: Coded Allergies: I S O L A T I O N *CONTACT* (Verified Allergy, Unknown, 08/26/18) mrsa No Known Medication Allergies (Verified Allergy, Unknown, 08/26/18) Medications: Current Medications Medications (Trade) Dose Ordered Sig/Felix Route PRN Reason Start Time Stop Time Status Last Admin Dose Admin Piperacillin Sod/ Tazobactam Sod 4.5 gm/Sodium Chloride 100 ml @ 200 mls/hr 1X ONCE IV 10/08/18 12:00 10/08/18 12:29 DC 10/08/18 13:05 Sodium Chloride 1,500 ml @ 1,500 mls/hr Q1H IV 10/08/18 11:43 10/08/18 13:04 Vancomycin HCl 750 mg/Sodium Chloride 250 ml @ 250 mls/hr 1X ONCE IV 10/08/18 13:00 10/08/18 13:59 DC 10/08/18 13:53 Imaging: Imaging: CXR IMPRESSION: Moderate bilateral reticulonodular pulmonary opacities suggesting recurrent pneumonia. PE: GEN: NAD, snoring HEENT: Atraumatic, PERRL LUNGS: difficult exam, NC HEART: RRR ABD: soft, non-tender, PEG in place w/ wet gauze - bumper slightly loose and adjusted EXTREMITY: contractures, difficult exam SKIN: No rashes, no jaundice NEURO/PSYCH: non-verbal A/P: A/P: Fever, pneumonia, UTI Diarrhea - since atbx use Abnormal LFTs - new, though Alk Phos also elevated last admission H/o CVA and dysphagia w/ PEG in place H/o colon polyp, h/o colon resection for perf, ostomy/reversal S/p cholecystectomy Chronic anemia, fecal occult positive - Hgb at baseline for ~1 year, no obvious bleeding -- Check abd US and stool studies. Monitor labs. Okay to use PEG. ?on VICKY Cordero Oct 08, 2018 16:31
[2018-10-08] MEDS ORDERED: MAGN2400 PEG (17:52)
[2018-10-08] MEDS ORDERED: METO5TAB PEG (17:52)
[2018-10-08] MEDS ORDERED: C.DIFF MED SCREEN BY RX. MC ONE (18:30)
[2018-10-08 19:00] VITALS: BP 174/92
[2018-10-08] MEDS: PIPERACILLIN/TAZOBACTAM 3.375 GM in IV NORMAL SALINE 50ML 50 ML IV SCH ×2 (19:11→20:04)
[2018-10-08 23:01] VITALS: BP 144/78
[2018-10-09] MEDS: PIPERACILLIN/TAZOBACTAM 3.375 GM in IV NORMAL SALINE 50ML 50 ML IV SCH ×5 (02:28→23:05)
[2018-10-09 03:00] VITALS: BP 148/75
--- NOTE | 2018-10-09 06:38 | RAD ---
Indication:TRANSAMINITIS TECHNIQUE: Grayscale, color Doppler and spectral waveform is of the abdomen obtained. COMPARISON:None FINDINGS:Visualized pancreas is within normal limits. Main pancreatic duct is nondilated. IVC is patent. Intrahepatic and extrahepatic biliary duct dilation seen. CBD is dilated measuring 1 cm. Right kidney measures 7.3 cm in length and is atrophic without hydronephrosis. 1.2 cm simple cyst is seen in the right kidney. Diffusely increased echogenicity of the liver seen. Status post cholecystectomy. IMPRESSION: 1. Hepatic steatosis. 2. Diffusely dilated intrahepatic and extrahepatic biliary ducts which may be secondary to cholecystectomy. Although CBD stricture, obstructing stone or mass not ruled out. If there is concern for obstructive jaundice, nonemergent MRCP of the abdomen is recommended. Electronically signed by: Live Steward DO (10/09/2018 6:36 AM) [facility]
[2018-10-09 07:00] VITALS: BP 117/61
[2018-10-09] MEDS: MULTIVITAMINS,THERAPEUTIC 5 ML ORAL LIQUID. PEG SCH (09:30)
--- NOTE | 2018-10-09 09:33 | NUR ---
IP: Pt ot be in contact precautions for diarrhea and also hx of + mrsa screen on 08/24/18.
[2018-10-09 11:06] VITALS: BP 148/67
--- NOTE | 2018-10-09 11:38 | PDOC ---
Objective: Objective: C Diff and stool cx pending. Per RN - stooled overnight, PEG functioning. Vital Signs: Vital Signs Date Time Temp Pulse Resp B/P (MAP) Pulse Ox O2 Delivery O2 Flow Rate FiO2 10/09/18 11:06 99.4 78 20 148/67 (94) 100 Simple Mask 6.0 99.4 Labs: Laboratory Tests Test 10/08/18 12:00 10/08/18 12:50 10/08/18 12:55 10/08/18 13:00 Stool Occult Blood Positive White Blood Count 7.3 x10^3/uL Red Blood Count 3.73 x10^6/uL Hemoglobin 9.8 g/dL Hematocrit 31.5 % Mean Corpuscular Volume 85 fL Mean Corpuscular Hemoglobin 26 pg Mean Corpuscular Hemoglobin Concent 31 g/dL Red Cell Distribution Width 19.5 % Platelet Count 459 x10^3/uL Neutrophils (%) (Auto) 69 % Lymphocytes (%) (Auto) 19 % Monocytes (%) (Auto) 8 % Eosinophils (%) (Auto) 4 % Basophils (%) (Auto) 1 % Neutrophils # (Auto) 5.0 x10^3uL Lymphocytes # (Auto) 1.4 x10^3/uL Monocytes # (Auto) 0.6 x10^3/uL Eosinophils # (Auto) 0.3 x10^3/uL Basophils # (Auto) 0.0 x10^3/uL Prothrombin Time 15.2 SEC Prothromb Time International Ratio 1.2 Activated Partial Thromboplast Time 26 SEC Sodium Level 140 mmol/L Potassium Level 4.3 mmol/L Chloride Level 102 mmol/L Carbon Dioxide Level 30 mmol/L Anion Gap 8 Blood Urea Nitrogen 22 mg/dL Creatinine 0.7 mg/dL Estimated GFR (Cockcroft-Gault) 97.2 BUN/Creatinine Ratio 31 Glucose Level 103 mg/dL Lactic Acid Level 1.9 mmol/L Calcium Level 9.5 mg/dL Total Bilirubin 0.2 mg/dL Aspartate Amino Transf (AST/SGOT) 151 U/L Alanine Aminotransferase (ALT/SGPT) 273 U/L Alkaline Phosphatase 179 U/L Ammonia 16 mcmol/L Creatine Kinase 145 U/L Creatine Kinase MB (Mass) 1.4 ng/mL Creatine Kinase MB Relative Index 1.0 % Total Protein 8.8 g/dL Albumin 2.2 g/dL Albumin/Globulin Ratio 0.3 Procalcitonin 0.22 ng/mL Hepatitis A IgM Antibody Nonreactive Hepatitis B Surface Antigen Nonreactive Hepatitis B Core IgM Antibody Nonreactive Hepatitis C IgG Antibody Nonreactive Influenza Type A Antigen Negative Influenza Type B Antigen Negative Urine Collection Type Unknown Urine Color Yellow Urine Clarity Turbid Urine pH 7.0 Urine Specific [place] 1.020 Urine Protein 100 mg/dL Urine Glucose (UA) Negative mg/dL Urine Ketones (Stick) Negative mg/dL Urine Blood Large Urine Nitrite Positive Urine Bilirubin Negative Urine Urobilinogen Dipstick 1.0 mg/dL Urine Leukocyte Esterase Large Urine RBC 20-40 /HPF Urine WBC Tntc /HPF Urine Bacteria Many /HPF Test 10/08/18 16:00 Lactic Acid Level 1.7 mmol/L Imaging: RUQ US FINDINGS:Visualized pancreas is within normal limits. Main pancreatic duct is nondilated. IVC is patent. Intrahepatic and extrahepatic biliary duct dilation seen. CBD is dilated measuring 1 cm. Right kidney measures 7.3 cm in length and is atrophic without hydronephrosis. 1.2 cm simple cyst is seen in the right kidney. Diffusely increased echogenicity of the liver seen. Status post cholecystectomy. IMPRESSION: 1. Hepatic steatosis. 2. Diffusely dilated intrahepatic and extrahepatic biliary ducts which may be secondary to cholecystectomy. Although CBD stricture, obstructing stone or mass not ruled out. If there is concern for obstructive jaundice, nonemergent MRCP of the abdomen is recommended. PE: GEN: NAD LUNGS: HEART: ABD: NEURO/PSYCH: non-verbal A/P: Fever, pneumonia, UTI, ?diarrhea H/o CVA and dysphagia w/ PEG Chronic anemia, fecal occult positive - no obvious bleeding Elevated LFTs, hepatic steatosis, s/p vinod w/ intra/extrahepatic biliary dilatation -- Will review US w/ Dr. Lucita Clemente bili normal yesterday, some elevation in Alk Phos - would assume conservative approach considering age/status. LFTs not checked today - ordered. VICKY WOODALL Oct 09, 2018 11:38
--- NOTE | 2018-10-09 12:06 | NUR ---
SW following for discharge planning. Discussed with RN. Pt is from [facility] (SW confirmed). SW will continue to follow.
--- NOTE | 2018-10-09 12:54 | PDOC ---
Infectious Disease Note Vital Sign Vital Signs Vital Signs Date Time Temp Pulse Resp B/P (MAP) Pulse Ox O2 Delivery O2 Flow Rate FiO2 10/09/18 11:06 99.4 78 20 148/67 (94) 100 Simple Mask 6.0 99.4 Labs Lab Laboratory Tests Test 10/08/18 12:55 10/08/18 13:00 10/08/18 16:00 Influenza Type A Antigen Negative (NEGATIVE) Influenza Type B Antigen Negative (NEGATIVE) Urine Collection Type Unknown Urine Color Yellow Urine Clarity Turbid Urine pH 7.0 Urine Specific [place] 1.020 Urine Protein 100 mg/dL (NEG-TRACE) Urine Glucose (UA) Negative mg/dL (NEG) Urine Ketones (Stick) Negative mg/dL (NEG) Urine Blood Large (NEG) Urine Nitrite Positive (NEG) Urine Bilirubin Negative (NEG) Urine Urobilinogen Dipstick 1.0 mg/dL (0.2 mg/dL) Urine Leukocyte Esterase Large (NEG) Urine RBC 20-40 /HPF (0-2) Urine WBC Tntc /HPF (0-4) Urine Bacteria Many /HPF (0-FEW) Lactic Acid Level 1.7 mmol/L (0.4-2.0) Objective Assessment pt seen, consult dictated Plan Plan of Care --- JESUSITA SAL MD Oct 09, 2018 12:54
[2018-10-09 13:36] LABS: ALBUMIN 1.6 g/dL (3.4-5.0); DIRECT BILIRUBIN 0.1 mg/dL (0.0-0.2); TOTAL BILIRUBIN 0.4 mg/dL (0.2-1.0); TOTAL PROTEIN 7.4 g/dL (6.4-8.2)
--- NOTE | 2018-10-09 14:21 | PDOC ---
PROGRESS NOTES Chief Complaint Chief Complaint sepsis UTI diarrhea, isolate, cx and c. diff tox sent recent aspiration PNA, on tube feeds severe malnutrition, serum albumin and BMI is 13.0 weakness and debility aphasic, bedbound FULL code, History of Present Illness History of Present Illness cont current GI and ID following try to advance feeds Vitals Vitals Vital Signs Date Time Temp Pulse Resp B/P (MAP) Pulse Ox O2 Delivery O2 Flow Rate FiO2 10/09/18 11:06 99.4 78 20 148/67 (94) 100 Simple Mask 6.0 99.4 Physical Exam General: Alert, mild distress, Other Heart: Regular rate Lungs: Crackles, Other Abdomen: Normal bowel sounds, Soft Extremities: No clubbing, No cyanosis Labs LABS Laboratory Tests Test 10/08/18 16:00 10/09/18 12:45 Lactic Acid Level 1.7 mmol/L (0.4-2.0) Total Bilirubin 0.4 mg/dL (0.2-1.0) Direct Bilirubin 0.1 mg/dL (0.0-0.2) Aspartate Amino Transf (AST/SGOT) 60 U/L (15-37) Alanine Aminotransferase (ALT/SGPT) 135 U/L (14-59) Alkaline Phosphatase 128 U/L (46-116) Total Protein 7.4 g/dL (6.4-8.2) Albumin 1.6 g/dL (3.4-5.0) Assessment and Plan Assessmemt and Plan Problems Medical Problems: (1) Catheter-associated urinary tract infection Status: Acute (2) Fever Status: Acute Comment Review of Relevant I have reviewed the following items nato (where applicable) has been applied. Labs Laboratory Tests Test 10/08/18 12:00 10/08/18 12:50 10/08/18 12:55 10/08/18 13:00 Stool Occult Blood Positive (NEG) White Blood Count 7.3 x10^3/uL (4.0-11.0) Red Blood Count 3.73 x10^6/uL (3.50-5.40) Hemoglobin 9.8 g/dL (12.0-15.5) Hematocrit 31.5 % (36.0-47.0) Mean Corpuscular Volume 85 fL (79-100) Mean Corpuscular Hemoglobin 26 pg (25-35) Mean Corpuscular Hemoglobin Concent 31 g/dL (31-37) Red Cell Distribution Width 19.5 % (11.5-14.5) Platelet Count 459 x10^3/uL (140-400) Neutrophils (%) (Auto) 69 % (31-73) Lymphocytes (%) (Auto) 19 % (24-48) Monocytes (%) (Auto) 8 % (0-9) Eosinophils (%) (Auto) 4 % (0-3) Basophils (%) (Auto) 1 % (0-3) Neutrophils # (Auto) 5.0 x10^3uL (1.8-7.7) Lymphocytes # (Auto) 1.4 x10^3/uL (1.0-4.8) Monocytes # (Auto) 0.6 x10^3/uL (0.0-1.1) Eosinophils # (Auto) 0.3 x10^3/uL (0.0-0.7) Basophils # (Auto) 0.0 x10^3/uL (0.0-0.2) Prothrombin Time 15.2 SEC (11.7-14.0) Prothromb Time International Ratio 1.2 (0.8-1.1) Activated Partial Thromboplast Time 26 SEC (24-38) Sodium Level 140 mmol/L (136-145) Potassium Level 4.3 mmol/L (3.5-5.1) Chloride Level 102 mmol/L (98-107) Carbon Dioxide Level 30 mmol/L (21-32) Anion Gap 8 (6-14) Blood Urea Nitrogen 22 mg/dL (7-20) Creatinine 0.7 mg/dL (0.6-1.0) Estimated GFR (Cockcroft-Gault) 97.2 BUN/Creatinine Ratio 31 (6-20) Glucose Level 103 mg/dL (70-99) Lactic Acid Level 1.9 mmol/L (0.4-2.0) Calcium Level 9.5 mg/dL (8.5-10.1) Total Bilirubin 0.2 mg/dL (0.2-1.0) Aspartate Amino Transf (AST/SGOT) 151 U/L (15-37) Alanine Aminotransferase (ALT/SGPT) 273 U/L (14-59) Alkaline Phosphatase 179 U/L (46-116) Ammonia 16 mcmol/L (11-34) Creatine Kinase 145 U/L (26-192) Creatine Kinase MB (Mass) 1.4 ng/mL (0.0-3.6) Creatine Kinase MB Relative Index 1.0 % (0-4) Total Protein 8.8 g/dL (6.4-8.2) Albumin 2.2 g/dL (3.4-5.0) Albumin/Globulin Ratio 0.3 (1.0-1.7) Procalcitonin 0.22 ng/mL (0.00-0.10) Hepatitis A IgM Antibody Nonreactive (Nonreactive) Hepatitis B Surface Antigen Nonreactive (Nonreactive) Hepatitis B Core IgM Antibody Nonreactive (Nonreactive) Hepatitis C IgG Antibody Nonreactive (Nonreactive) Influenza Type A Antigen Negative (NEGATIVE) Influenza Type B Antigen Negative (NEGATIVE) Urine Collection Type Unknown Urine Color Yellow Urine Clarity Turbid Urine pH 7.0 Urine Specific [place] 1.020 Urine Protein 100 mg/dL (NEG-TRACE) Urine Glucose (UA) Negative mg/dL (NEG) Urine Ketones (Stick) Negative mg/dL (NEG) Urine Blood Large (NEG) Urine Nitrite Positive (NEG) Urine Bilirubin Negative (NEG) Urine Urobilinogen Dipstick 1.0 mg/dL (0.2 mg/dL) Urine Leukocyte Esterase Large (NEG) Urine RBC 20-40 /HPF (0-2) Urine WBC Tntc /HPF (0-4) Urine Bacteria Many /HPF (0-FEW) Test 10/08/18 16:00 10/09/18 12:45 Lactic Acid Level 1.7 mmol/L (0.4-2.0) Total Bilirubin 0.4 mg/dL (0.2-1.0) Direct Bilirubin 0.1 mg/dL (0.0-0.2) Aspartate Amino Transf (AST/SGOT) 60 U/L (15-37) Alanine Aminotransferase (ALT/SGPT) 135 U/L (14-59) Alkaline Phosphatase 128 U/L (46-116) Total Protein 7.4 g/dL (6.4-8.2) Albumin 1.6 g/dL (3.4-5.0) Laboratory Tests Test 10/08/18 16:00 10/09/18 12:45 Lactic Acid Level 1.7 mmol/L (0.4-2.0) Total Bilirubin 0.4 mg/dL (0.2-1.0) Direct Bilirubin 0.1 mg/dL (0.0-0.2) Aspartate Amino Transf (AST/SGOT) 60 U/L (15-37) Alanine Aminotransferase (ALT/SGPT) 135 U/L (14-59) Alkaline Phosphatase 128 U/L (46-116) Total Protein 7.4 g/dL (6.4-8.2) Albumin 1.6 g/dL (3.4-5.0) Microbiology 10/08/18 Blood Culture - Preliminary, Resulted NO GROWTH AFTER 1 DAY Medications Current Medications Piperacillin Sod/ Tazobactam Sod 4.5 gm/Sodium Chloride 100 ml @ 200 mls/hr 1X ONCE IV Last administered on 10/08/18at 13:05; Start 10/08/18 at 12:00; Stop 10/08/18 at 12:29; Status DC Vancomycin HCl (Vanco Per Pharmacy) 1 each 1X ONCE MC ; Start 10/08/18 at 11:45 ; Stop 10/08/18 at 13:23; Status DC Sodium Chloride 1,500 ml @ 1,500 mls/hr Q1H IV Last administered on 10/08/18at 13:04; Start 10/08/18 at 11:43; Stop 10/08/18 at 19:35; Status DC Acetaminophen (Tylenol Supp) 650 mg 1X ONCE MO ; Start 10/08/18 at 11:45; Stop 10/08/18 at 11:53; Status DC Vancomycin HCl 750 mg/Sodium Chloride 250 ml @ 250 mls/hr 1X ONCE IV Last administered on 10/08/18at 13:53; Start 10/08/18 at 13:00; Stop 10/08/18 at 13:59 ; Status DC Piperacillin Sod/ Tazobactam Sod (Zosyn Per Pharmacy) 1 each PRN DAILY PRN MC SEE COMMENTS; Start 10/08/18 at 15:30 Piperacillin Sod/ Tazobactam Sod 3.375 gm/Sodium Chloride 50 ml @ 100 mls/hr Q6HRS IV Last administered on 10/09/18at 12:54; Start 10/08/18 at 18:00 Pharmacy Consult (C.diff Med Screen By Rx) 1 each 1X ONCE MC ; Start 10/08/18 at 18:30; Stop 10/08/18 at 18:31; Status UNV Multivitamins (Thera-Plus Oral Liquid) 5 ml DAILY PEG Last administered on 10/09at 09:30; Start 10/09/18 at 09:00 Active Scripts Active Reported Milk Of Magnesia (Magnesium Hydroxide) 2,400 Mg/10 Ml Oral.susp 2,400 Mg PEG DAILY Metoclopramide Hcl 5 Mg Tablet 2.5 Mg PEG BIDAC Zinc Sulfate 220 Mg Capsule 220 Mg PEG DAILY Acetaminophen Oral Liquid (Acetaminophen) 650 Mg/20.3 Ml Solution 650 Mg PEG PRN Q6HRS PRN Tucks (Witch Mckenna) 1 Each Med..pad 1 Each TP PRN Q4HRS PRN Levsin (Hyoscyamine Sulfate) 0.125 Mg Tablet 1 Tab SL Q4HRS PRN Vitamin C (Ascorbic Acid) 500 Mg Capsule 500 Mg PEG DAILY Acetaminophen 325 Mg/10.15 Ml Solution 800 Mg PO TID PRN Bisacodyl 10 Mg Supp.rect 10 Mg RC PRN DAILY PRN Vitals/I & O Vital Sign - Last 24 Hours 10/08/18 10/08/18 10/08/18 10/08/18 15:13 15:37 16:13 18:06 Pulse 76 73 76 Resp 18 20 20 B/P (MAP) 155/74 (101) 155/74 (101) 149/76 (100) Pulse Ox 100 100 99 O2 Delivery Nasal Cannula Nasal Cannula Nasal Cannula O2 Flow Rate 2.0 2.0 2.0 2.0 10/08/18 10/08/18 10/08/18 10/09/18 19:00 20:30 23:01 03:00 Temp 98.4 99.4 98.5 98.4 99.4 98.5 Pulse 91 92 89 Resp 19 24 14 B/P (MAP) 174/92 (119) 144/78 (100) 148/75 (99) Pulse Ox 99 97 98 O2 Delivery Nasal Cannula Simple Mask Simple Mask O2 Flow Rate 2.0 2.0 2.0 6.0 10/09/18 10/09/18 10/09/18 07:00 08:00 11:06 Temp 99.6 99.4 99.6 99.4 Pulse 81 78 Resp 18 20 B/P (MAP) 117/61 (79) 148/67 (94) Pulse Ox 100 100 O2 Delivery Simple Mask Mask Simple Mask O2 Flow Rate 6.0 6.0 6.0 Intake and Output 10/08/18 10/08/18 10/09/18 15:00 23:00 07:00 Intake Total 100 ml 1250 ml 0 ml Output Total 1150 ml 550 ml Balance 100 ml 100 ml -550 ml Nutrition Consultation Dietary Evaluation: Comments: continue TF as ordered added liquid mvi and lynnette bid to diet order Expected Outcomes/Goals: to meet > 75% est nutr needs via TF Malnutrition Findings: Muscle Mass (Severe): Severe Depletion Body Fat Depletion (Non Severe: Mod to Severe Weight Status: Underweight YASH WALTERS MD Oct 09, 2018 14:20
[2018-10-09] MEDS ORDERED: ACETAMINOPHEN PO PRN (14:30)
[2018-10-09] MEDS ORDERED: WITCH HAZEL TP PRN (14:30)
[2018-10-09] MEDS: MAGNESIUM HYDROXIDE 2,400 MG/30 ML ORAL.SUSP. PEG SCH (14:30)
[2018-10-09] MEDS ORDERED: HYOSCYAMINE 0.125 MG TAB.RAPDIS PO PRN (14:30)
[2018-10-09] MEDS ORDERED: BISACODYL 10 MG SUPP.RECT. PR PRN (14:45)
[2018-10-09 15:00] VITALS: BP 158/89
--- NOTE | 2018-10-09 15:15 | NUR ---
MOM held d/t loose stools
[2018-10-09] MEDS: METOCLOPRAMIDE 5 MG TABLET. PEG SCH (15:36)
[2018-10-09] MEDS: ASCORBIC ACID 500 MG TABLET PEG SCH (15:36)
--- NOTE | 2018-10-09 16:15 | NUR ---
Wound Care Wound care consult for multiple wounds. 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 Stage III PU to bilateral ischium/hips dressed with Aquacel Ag and foams, all other pressure ulcers covered with Xeroform and foam, recommend to change every 2-3 days. No other wounds noted on full skin inspection. pt unresponsive to teaching due to mental status. Pt on P500 bed, TQ2H recommended. WC will continue to follow for possible changes.
[2018-10-09 19:00] VITALS: BP 152/60
--- NOTE | 2018-10-09 22:52 | NUR ---
SEPSIS SCREEN NOTE: Spoke with Arabella, CASE MANAGEMENT SOCIAL WORKER about patient's positive sepsis screen. Informed her of situation. Received instruction to call her back after I have spoken with Dr. Loraine Hernandez. Awaiting return call from him. Will continue to monitor.
[2018-10-09] MEDS: ACETAMINOPHEN 650 MG/20.3 ML SOLUTION. PEG PRN (22:58)
[2018-10-09 23:00] VITALS: BP 157/67
[2018-10-09] MEDS: IV NORMAL SALINE 1000ML BAG 1,000 ML IV SCH (23:21)
--- NOTE | 2018-10-10 00:22 | CONS ---
DATE OF CONSULTATION: REQUESTING PHYSICIAN: Dr. Mullen. REASON FOR CONSULTATION: UTI and multiple wounds. HISTORY OF PRESENT ILLNESS: This is an 83-year-old -Italian female with total care at a prison who was brought in for fever. The patient was found to have catheter associated urinary tract infection. The patient has multiple wounds, pressure wounds that may have been all the way to the bone, it is hard to say. The patient is nonverbal. The patient has been put on vancomycin and Zosyn and consult has been requested. Again, the patient is not able to provide any information. Information was obtained through chart review and discussing with the patient's nurse. No nausea, vomiting or diarrhea noted. PAST MEDICAL HISTORY: Positive for hypertension, dementia, anemia, anxiety, dysphagia and multiple pressure ulcers. SOCIAL HISTORY: Unable to obtain. The patient is a total care at prison. ALLERGIES: No known drug allergies. CURRENT MEDICATIONS: Reviewed. The patient is on vancomycin and Zosyn. REVIEW OF SYSTEMS: Unable to obtain other than what I mentioned in the HPI through the patient's RN. PHYSICAL EXAMINATION: GENERAL: Awake female, nonverbal, not in distress. VITAL SIGNS: Stable with a T-max of 99.6. HEENT: NAD. NECK: Supple. LUNGS: Clear. HEART: S1, S2 regular. ABDOMEN: Benign. EXTREMITIES: Contractures. The patient has multiple wounds on the pressure points. They are significantly deep. The patient has a Byrd catheter and according to the nurse and my discussion with RN, not sure when it has been replaced. NEUROLOGIC: The patient is unresponsive. LABORATORY DATA: White count is 7.3, hemoglobin 9.8 and platelets are 459,000. BUN and creatinine is normal. Urinalysis showed 20-40 rbc's and too numerous to count wbc's. Influenza screen is negative. Urine culture is pending. Chest x-ray showed reticular nodular opacity. IMPRESSION: 1. Urinary tract infection, catheter associated urinary tract infection. 2. Fever. 3. Pulmonary infiltrate/aspiration. 4. Dementia. 5. Multiple pressure wounds. RECOMMENDATIONS: 1. The patient needs to be comfort care, although family is not ready for that. 2. Check the cultures. 3. Continue antibiotics, soon to be able to scale down. 4. Nurse to find out about when the Byrd catheter was changed. Thank you very much, Dr. Mlulen for giving me the opportunity to participate in this patient's care. JESUSITA SAL MD DR: ISAAC/brandi JOB#: [id number] / [id number]
[2018-10-10 03:00] VITALS: BP 143/50
[2018-10-10] MEDS: PIPERACILLIN/TAZOBACTAM 3.375 GM in IV NORMAL SALINE 50ML 50 ML IV SCH ×4 (05:29→23:14)
[2018-10-10 07:00] VITALS: BP 137/88
--- NOTE | 2018-10-10 08:38 | PDOC ---
Infectious Disease Note Vital Sign Vital Signs Vital Signs Date Time Temp Pulse Resp B/P (MAP) Pulse Ox O2 Delivery O2 Flow Rate FiO2 10/10/18 07:00 97.7 73 22 137/88 (104) Simple Mask 6.0 97.7 10/10/18 03:00 97 Labs Lab Laboratory Tests Test 10/09/18 12:45 10/10/18 00:05 Total Bilirubin 0.4 mg/dL (0.2-1.0) Direct Bilirubin 0.1 mg/dL (0.0-0.2) Aspartate Amino Transf (AST/SGOT) 60 U/L (15-37) Alanine Aminotransferase (ALT/SGPT) 135 U/L (14-59) Alkaline Phosphatase 128 U/L (46-116) Total Protein 7.4 g/dL (6.4-8.2) Albumin 1.6 g/dL (3.4-5.0) Lactic Acid Level 1.5 mmol/L (0.4-2.0) Micro Microbiology 10/08/18 Blood Culture - Preliminary, Resulted NO GROWTH AFTER 1 DAY JESUSITA SAL MD Oct 10, 2018 08:38
[2018-10-10] MEDS: MULTIVITAMINS,THERAPEUTIC 5 ML ORAL LIQUID. PEG SCH (09:12)
[2018-10-10] MEDS: ASCORBIC ACID 500 MG TABLET PEG SCH (09:12)
[2018-10-10] MEDS: MAGNESIUM HYDROXIDE 2,400 MG/30 ML ORAL.SUSP. PEG SCH (09:12)
[2018-10-10] MEDS: METOCLOPRAMIDE 5 MG TABLET. PEG SCH ×2 (09:12→17:51)
[2018-10-10 09:31] LABS: ALBUMIN 1.9 g/dL (3.4-5.0); ALBUMIN/GLOBULIN RATIO 0.3 (1.0-1.7); BASO % 0 % (0-3); CALCIUM 9.2 mg/dL (8.5-10.1); CREATININE 0.7 mg/dL (0.6-1.0); EOS # 0.6 x10^3/uL (0.0-0.7); EOS % 5 % (0-3); GFR 97.2; HEMATOCRIT 32.8 % (36.0-47.0); LYMPH # 1.3 x10^3/uL (1.0-4.8); LYMPH % 10 % (24-48); MEAN CORPUSCULAR HEMOGLOBIN 26 pg (25-35); MEAN CORPUSCULAR HGB CONC 30 g/dL (31-37); MEAN CORPUSCULAR VOLUME 85 fL (79-100); MONO # 0.8 x10^3/uL (0.0-1.1); MONO % 7 % (0-9); NEUT % 79 % (31-73); PLATELET COUNT 468 x10^3/uL (140-400); POTASSIUM 4.1 mmol/L (3.5-5.1); RED BLOOD COUNT 3.85 x10^6/uL (3.50-5.40); RED CELL DISTRIBUTION WIDTH 19.5 % (11.5-14.5); TOTAL BILIRUBIN 0.3 mg/dL (0.2-1.0); TOTAL PROTEIN 8.2 g/dL (6.4-8.2); WHITE BLOOD COUNT 12.7 x10^3/uL (4.0-11.0)
--- NOTE | 2018-10-10 10:00 | PDOC ---
Infectious Disease Note Subjective Subjective pt is unresponsive ROS ROS no /v/d/sob cont fever Vital Sign Vital Signs Vital Signs Date Time Temp Pulse Resp B/P (MAP) Pulse Ox O2 Delivery O2 Flow Rate FiO2 10/10/18 07:00 97.7 73 22 137/88 (104) Simple Mask 6.0 97.7 10/10/18 03:00 97 Physical Exam PHYSICAL EXAM GENERAL: Awake female, nonverbal, not in distress. VITAL SIGNS: Stable HEENT: NAD. NECK: Supple. LUNGS: Clear. HEART: S1, S2 regular. ABDOMEN: Benign. EXTREMITIES: Contractures. The patient has multiple wounds on the pressure points. They are significantly deep. The patient has a Byrd catheter and according to the nurse and my discussion with RN, not sure when it has been replaced. NEUROLOGIC: The patient is unresponsive. Labs Lab Laboratory Tests Test 10/09/18 12:45 10/10/18 00:05 10/10/18 09:00 Total Bilirubin 0.4 mg/dL (0.2-1.0) 0.3 mg/dL (0.2-1.0) Direct Bilirubin 0.1 mg/dL (0.0-0.2) Aspartate Amino Transf (AST/SGOT) 60 U/L (15-37) 43 U/L (15-37) Alanine Aminotransferase (ALT/SGPT) 135 U/L (14-59) 114 U/L (14-59) Alkaline Phosphatase 128 U/L (46-116) 128 U/L (46-116) Total Protein 7.4 g/dL (6.4-8.2) 8.2 g/dL (6.4-8.2) Albumin 1.6 g/dL (3.4-5.0) 1.9 g/dL (3.4-5.0) Lactic Acid Level 1.5 mmol/L (0.4-2.0) White Blood Count 12.7 x10^3/uL (4.0-11.0) Red Blood Count 3.85 x10^6/uL (3.50-5.40) Hemoglobin 10.0 g/dL (12.0-15.5) Hematocrit 32.8 % (36.0-47.0) Mean Corpuscular Volume 85 fL (79-100) Mean Corpuscular Hemoglobin 26 pg (25-35) Mean Corpuscular Hemoglobin Concent 30 g/dL (31-37) Red Cell Distribution Width 19.5 % (11.5-14.5) Platelet Count 468 x10^3/uL (140-400) Neutrophils (%) (Auto) 79 % (31-73) Lymphocytes (%) (Auto) 10 % (24-48) Monocytes (%) (Auto) 7 % (0-9) Eosinophils (%) (Auto) 5 % (0-3) Basophils (%) (Auto) 0 % (0-3) Neutrophils # (Auto) 10.0 x10^3uL (1.8-7.7) Lymphocytes # (Auto) 1.3 x10^3/uL (1.0-4.8) Monocytes # (Auto) 0.8 x10^3/uL (0.0-1.1) Eosinophils # (Auto) 0.6 x10^3/uL (0.0-0.7) Basophils # (Auto) 0.0 x10^3/uL (0.0-0.2) Sodium Level 143 mmol/L (136-145) Potassium Level 4.1 mmol/L (3.5-5.1) Chloride Level 106 mmol/L (98-107) Carbon Dioxide Level 28 mmol/L (21-32) Anion Gap 9 (6-14) Blood Urea Nitrogen 19 mg/dL (7-20) Creatinine 0.7 mg/dL (0.6-1.0) Estimated GFR (Cockcroft-Gault) 97.2 BUN/Creatinine Ratio 27 (6-20) Glucose Level 114 mg/dL (70-99) Calcium Level 9.2 mg/dL (8.5-10.1) Albumin/Globulin Ratio 0.3 (1.0-1.7) Micro Microbiology 10/08/18 Blood Culture - Preliminary, Resulted NO GROWTH AFTER 1 DAY Objective Assessment 1. Urinary tract infection, catheter associated . 2. Fever. 3. Pulmonary infiltrate/aspiration. 4. Dementia. 5. Multiple pressure wounds. Plan Plan of Care cont antibiotics off load prognosis poor JESUSITA SAL MD Oct 10, 2018 10:00
[2018-10-10 11:00] VITALS: BP 98/45
--- NOTE | 2018-10-10 12:46 | PDOC ---
PROGRESS NOTES Chief Complaint Chief Complaint sepsis UTI diarrhea, isolate, cx and c. diff tox sent recent aspiration PNA, on tube feeds severe malnutrition, serum albumin and BMI is 13.0 weakness and debility aphasic, bedbound FULL code, History of Present Illness History of Present Illness cont current GI and ID following tube feeds now at 40 Vitals Vitals Vital Signs Date Time Temp Pulse Resp B/P (MAP) Pulse Ox O2 Delivery O2 Flow Rate FiO2 10/10/18 11:00 97.5 77 22 98/45 (62) 100 Simple Mask 6.0 97.5 Physical Exam Physical Exam GENERAL: Awake female, nonverbal, not in distress. VITAL SIGNS: Stable HEENT: NAD. NECK: Supple. LUNGS: Clear. HEART: S1, S2 regular. ABDOMEN: Benign. EXTREMITIES: Contractures. The patient has multiple wounds on the pressure points. They are significantly deep. The patient has a Byrd catheter and according to the nurse and my discussion with RN, not sure when it has been replaced. NEUROLOGIC: The patient is unresponsive. General: Alert, mild distress, Other Heart: Regular rate Lungs: Crackles, Other Abdomen: Normal bowel sounds, Soft Extremities: No clubbing, No cyanosis Labs LABS Laboratory Tests Test 10/10/18 00:05 10/10/18 09:00 Lactic Acid Level 1.5 mmol/L (0.4-2.0) White Blood Count 12.7 x10^3/uL (4.0-11.0) Red Blood Count 3.85 x10^6/uL (3.50-5.40) Hemoglobin 10.0 g/dL (12.0-15.5) Hematocrit 32.8 % (36.0-47.0) Mean Corpuscular Volume 85 fL (79-100) Mean Corpuscular Hemoglobin 26 pg (25-35) Mean Corpuscular Hemoglobin Concent 30 g/dL (31-37) Red Cell Distribution Width 19.5 % (11.5-14.5) Platelet Count 468 x10^3/uL (140-400) Neutrophils (%) (Auto) 79 % (31-73) Lymphocytes (%) (Auto) 10 % (24-48) Monocytes (%) (Auto) 7 % (0-9) Eosinophils (%) (Auto) 5 % (0-3) Basophils (%) (Auto) 0 % (0-3) Neutrophils # (Auto) 10.0 x10^3uL (1.8-7.7) Lymphocytes # (Auto) 1.3 x10^3/uL (1.0-4.8) Monocytes # (Auto) 0.8 x10^3/uL (0.0-1.1) Eosinophils # (Auto) 0.6 x10^3/uL (0.0-0.7) Basophils # (Auto) 0.0 x10^3/uL (0.0-0.2) Sodium Level 143 mmol/L (136-145) Potassium Level 4.1 mmol/L (3.5-5.1) Chloride Level 106 mmol/L (98-107) Carbon Dioxide Level 28 mmol/L (21-32) Anion Gap 9 (6-14) Blood Urea Nitrogen 19 mg/dL (7-20) Creatinine 0.7 mg/dL (0.6-1.0) Estimated GFR (Cockcroft-Gault) 97.2 BUN/Creatinine Ratio 27 (6-20) Glucose Level 114 mg/dL (70-99) Calcium Level 9.2 mg/dL (8.5-10.1) Total Bilirubin 0.3 mg/dL (0.2-1.0) Aspartate Amino Transf (AST/SGOT) 43 U/L (15-37) Alanine Aminotransferase (ALT/SGPT) 114 U/L (14-59) Alkaline Phosphatase 128 U/L (46-116) Total Protein 8.2 g/dL (6.4-8.2) Albumin 1.9 g/dL (3.4-5.0) Albumin/Globulin Ratio 0.3 (1.0-1.7) Assessment and Plan Assessmemt and Plan Problems Medical Problems: (1) Catheter-associated urinary tract infection Status: Acute (2) Fever Status: Acute Comment Review of Relevant I have reviewed the following items nato (where applicable) has been applied. Labs Laboratory Tests Test 10/08/18 12:50 10/08/18 12:55 10/08/18 13:00 10/08/18 16:00 White Blood Count 7.3 x10^3/uL (4.0-11.0) Red Blood Count 3.73 x10^6/uL (3.50-5.40) Hemoglobin 9.8 g/dL (12.0-15.5) Hematocrit 31.5 % (36.0-47.0) Mean Corpuscular Volume 85 fL (79-100) Mean Corpuscular Hemoglobin 26 pg (25-35) Mean Corpuscular Hemoglobin Concent 31 g/dL (31-37) Red Cell Distribution Width 19.5 % (11.5-14.5) Platelet Count 459 x10^3/uL (140-400) Neutrophils (%) (Auto) 69 % (31-73) Lymphocytes (%) (Auto) 19 % (24-48) Monocytes (%) (Auto) 8 % (0-9) Eosinophils (%) (Auto) 4 % (0-3) Basophils (%) (Auto) 1 % (0-3) Neutrophils # (Auto) 5.0 x10^3uL (1.8-7.7) Lymphocytes # (Auto) 1.4 x10^3/uL (1.0-4.8) Monocytes # (Auto) 0.6 x10^3/uL (0.0-1.1) Eosinophils # (Auto) 0.3 x10^3/uL (0.0-0.7) Basophils # (Auto) 0.0 x10^3/uL (0.0-0.2) Prothrombin Time 15.2 SEC (11.7-14.0) Prothromb Time International Ratio 1.2 (0.8-1.1) Activated Partial Thromboplast Time 26 SEC (24-38) Sodium Level 140 mmol/L (136-145) Potassium Level 4.3 mmol/L (3.5-5.1) Chloride Level 102 mmol/L (98-107) Carbon Dioxide Level 30 mmol/L (21-32) Anion Gap 8 (6-14) Blood Urea Nitrogen 22 mg/dL (7-20) Creatinine 0.7 mg/dL (0.6-1.0) Estimated GFR (Cockcroft-Gault) 97.2 BUN/Creatinine Ratio 31 (6-20) Glucose Level 103 mg/dL (70-99) Lactic Acid Level 1.9 mmol/L (0.4-2.0) 1.7 mmol/L (0.4-2.0) Calcium Level 9.5 mg/dL (8.5-10.1) Total Bilirubin 0.2 mg/dL (0.2-1.0) Aspartate Amino Transf (AST/SGOT) 151 U/L (15-37) Alanine Aminotransferase (ALT/SGPT) 273 U/L (14-59) Alkaline Phosphatase 179 U/L (46-116) Ammonia 16 mcmol/L (11-34) Creatine Kinase 145 U/L (26-192) Creatine Kinase MB (Mass) 1.4 ng/mL (0.0-3.6) Creatine Kinase MB Relative Index 1.0 % (0-4) Total Protein 8.8 g/dL (6.4-8.2) Albumin 2.2 g/dL (3.4-5.0) Albumin/Globulin Ratio 0.3 (1.0-1.7) Procalcitonin 0.22 ng/mL (0.00-0.10) Hepatitis A IgM Antibody Nonreactive (Nonreactive) Hepatitis B Surface Antigen Nonreactive (Nonreactive) Hepatitis B Core IgM Antibody Nonreactive (Nonreactive) Hepatitis C IgG Antibody Nonreactive (Nonreactive) Influenza Type A Antigen Negative (NEGATIVE) Influenza Type B Antigen Negative (NEGATIVE) Urine Collection Type Unknown Urine Color Yellow Urine Clarity Turbid Urine pH 7.0 Urine Specific [place] 1.020 Urine Protein 100 mg/dL (NEG-TRACE) Urine Glucose (UA) Negative mg/dL (NEG) Urine Ketones (Stick) Negative mg/dL (NEG) Urine Blood Large (NEG) Urine Nitrite Positive (NEG) Urine Bilirubin Negative (NEG) Urine Urobilinogen Dipstick 1.0 mg/dL (0.2 mg/dL) Urine Leukocyte Esterase Large (NEG) Urine RBC 20-40 /HPF (0-2) Urine WBC Tntc /HPF (0-4) Urine Bacteria Many /HPF (0-FEW) Test 10/08/18 21:28 10/09/18 12:45 10/10/18 00:05 10/10/18 09:00 Nasal Screen MRSA (PCR) Negative (Negative) Total Bilirubin 0.4 mg/dL (0.2-1.0) 0.3 mg/dL (0.2-1.0) Direct Bilirubin 0.1 mg/dL (0.0-0.2) Aspartate Amino Transf (AST/SGOT) 60 U/L (15-37) 43 U/L (15-37) Alanine Aminotransferase (ALT/SGPT) 135 U/L (14-59) 114 U/L (14-59) Alkaline Phosphatase 128 U/L (46-116) 128 U/L (46-116) Total Protein 7.4 g/dL (6.4-8.2) 8.2 g/dL (6.4-8.2) Albumin 1.6 g/dL (3.4-5.0) 1.9 g/dL (3.4-5.0) Lactic Acid Level 1.5 mmol/L (0.4-2.0) White Blood Count 12.7 x10^3/uL (4.0-11.0) Red Blood Count 3.85 x10^6/uL (3.50-5.40) Hemoglobin 10.0 g/dL (12.0-15.5) Hematocrit 32.8 % (36.0-47.0) Mean Corpuscular Volume 85 fL (79-100) Mean Corpuscular Hemoglobin 26 pg (25-35) Mean Corpuscular Hemoglobin Concent 30 g/dL (31-37) Red Cell Distribution Width 19.5 % (11.5-14.5) Platelet Count 468 x10^3/uL (140-400) Neutrophils (%) (Auto) 79 % (31-73) Lymphocytes (%) (Auto) 10 % (24-48) Monocytes (%) (Auto) 7 % (0-9) Eosinophils (%) (Auto) 5 % (0-3) Basophils (%) (Auto) 0 % (0-3) Neutrophils # (Auto) 10.0 x10^3uL (1.8-7.7) Lymphocytes # (Auto) 1.3 x10^3/uL (1.0-4.8) Monocytes # (Auto) 0.8 x10^3/uL (0.0-1.1) Eosinophils # (Auto) 0.6 x10^3/uL (0.0-0.7) Basophils # (Auto) 0.0 x10^3/uL (0.0-0.2) Sodium Level 143 mmol/L (136-145) Potassium Level 4.1 mmol/L (3.5-5.1) Chloride Level 106 mmol/L (98-107) Carbon Dioxide Level 28 mmol/L (21-32) Anion Gap 9 (6-14) Blood Urea Nitrogen 19 mg/dL (7-20) Creatinine 0.7 mg/dL (0.6-1.0) Estimated GFR (Cockcroft-Gault) 97.2 BUN/Creatinine Ratio 27 (6-20) Glucose Level 114 mg/dL (70-99) Calcium Level 9.2 mg/dL (8.5-10.1) Albumin/Globulin Ratio 0.3 (1.0-1.7) Laboratory Tests Test 10/10/18 00:05 10/10/18 09:00 Lactic Acid Level 1.5 mmol/L (0.4-2.0) White Blood Count 12.7 x10^3/uL (4.0-11.0) Red Blood Count 3.85 x10^6/uL (3.50-5.40) Hemoglobin 10.0 g/dL (12.0-15.5) Hematocrit 32.8 % (36.0-47.0) Mean Corpuscular Volume 85 fL (79-100) Mean Corpuscular Hemoglobin 26 pg (25-35) Mean Corpuscular Hemoglobin Concent 30 g/dL (31-37) Red Cell Distribution Width 19.5 % (11.5-14.5) Platelet Count 468 x10^3/uL (140-400) Neutrophils (%) (Auto) 79 % (31-73) Lymphocytes (%) (Auto) 10 % (24-48) Monocytes (%) (Auto) 7 % (0-9) Eosinophils (%) (Auto) 5 % (0-3) Basophils (%) (Auto) 0 % (0-3) Neutrophils # (Auto) 10.0 x10^3uL (1.8-7.7) Lymphocytes # (Auto) 1.3 x10^3/uL (1.0-4.8) Monocytes # (Auto) 0.8 x10^3/uL (0.0-1.1) Eosinophils # (Auto) 0.6 x10^3/uL (0.0-0.7) Basophils # (Auto) 0.0 x10^3/uL (0.0-0.2) Sodium Level 143 mmol/L (136-145) Potassium Level 4.1 mmol/L (3.5-5.1) Chloride Level 106 mmol/L (98-107) Carbon Dioxide Level 28 mmol/L (21-32) Anion Gap 9 (6-14) Blood Urea Nitrogen 19 mg/dL (7-20) Creatinine 0.7 mg/dL (0.6-1.0) Estimated GFR (Cockcroft-Gault) 97.2 BUN/Creatinine Ratio 27 (6-20) Glucose Level 114 mg/dL (70-99) Calcium Level 9.2 mg/dL (8.5-10.1) Total Bilirubin 0.3 mg/dL (0.2-1.0) Aspartate Amino Transf (AST/SGOT) 43 U/L (15-37) Alanine Aminotransferase (ALT/SGPT) 114 U/L (14-59) Alkaline Phosphatase 128 U/L (46-116) Total Protein 8.2 g/dL (6.4-8.2) Albumin 1.9 g/dL (3.4-5.0) Albumin/Globulin Ratio 0.3 (1.0-1.7) Microbiology 10/08/18 Blood Culture - Preliminary, Resulted NO GROWTH AFTER 1 DAY 10/08/18 Stool Culture - Final, Resulted 10/08/18 Stool Culture Result 1 (ZACHERY) - Final, Resulted 10/08/18 Campylobacter Antigen Assay - Preliminary, Resulted 10/08/18 Campylobactor Result 1 - Preliminary, Resulted 10/08/18 Shiga Toxin Test, Resulted Pending Medications Current Medications Piperacillin Sod/ Tazobactam Sod 4.5 gm/Sodium Chloride 100 ml @ 200 mls/hr 1X ONCE IV Last administered on 10/08/18at 13:05; Start 10/08/18 at 12:00; Stop 10/08/18 at 12:29; Status DC Vancomycin HCl (Vanco Per Pharmacy) 1 each 1X ONCE MC ; Start 10/08/18 at 11:45 ; Stop 10/08/18 at 13:23; Status DC Sodium Chloride 1,500 ml @ 1,500 mls/hr Q1H IV Last administered on 10/08/18at 13:04; Start 10/08/18 at 11:43; Stop 10/08/18 at 19:35; Status DC Acetaminophen (Tylenol Supp) 650 mg 1X ONCE LA ; Start 10/08/18 at 11:45; Stop 10/08/18 at 11:53; Status DC Vancomycin HCl 750 mg/Sodium Chloride 250 ml @ 250 mls/hr 1X ONCE IV Last administered on 10/08/18at 13:53; Start 10/08/18 at 13:00; Stop 10/08/18 at 13:59 ; Status DC Piperacillin Sod/ Tazobactam Sod (Zosyn Per Pharmacy) 1 each PRN DAILY PRN MC SEE COMMENTS; Start 10/08/18 at 15:30 Piperacillin Sod/ Tazobactam Sod 3.375 gm/Sodium Chloride 50 ml @ 100 mls/hr Q6HRS IV Last administered on 10/10/18at 12:19; Start 10/08/18 at 18:00 Pharmacy Consult (C.diff Med Screen By Rx) 1 each 1X ONCE MC ; Start 10/08/18 at 18:30; Stop 10/08/18 at 18:31; Status UNV Multivitamins (Thera-Plus Oral Liquid) 5 ml DAILY PEG Last administered on 10/10at 09:12; Start 10/09/18 at 09:00 Acetaminophen (Tylenol) 650 mg PRN Q6HRS PRN PEG fever, pain Last administered on 10/09/18at 22:58; Start 10/09/18 at 14:30 Metoclopramide HCl (Reglan) 2.5 mg BIDAC PEG Last administered on 10/10/18at 09: 12; Start 10/09/18 at 16:30 Non-Formulary Medication (Acetaminophen ) 800 mg TID PRN PO PAIN; Start at 14:30; Status UNV Ascorbic Acid (Vitamin C) 500 mg DAILY PEG Last administered on 10/10/18at 09:12 ; Start 10/09/18 at 15:00 Bisacodyl (Dulcolax Supp) 10 mg PRN DAILY PRN LA CONSTIPATION; Start 10/09/18 at 14:45 Hyoscyamine (Anaspaz) 0.125 mg PRN Q4HRS PRN PO SECRETIONS Last administered on 10/09/18at 22:58; Start 10/09/18 at 14:30 Magnesium Hydroxide (Milk Of Magnesia) 2,400 mg DAILY PEG Last administered on 10/10/18 09:12; Start 10/09/18 at 14:30 Non-Formulary Medication (Witch Mckenna (Tucks)) 1 each PRN Q4HRS PRN TP hemorrhoidal discomfort; Start 10/09/18 at 14:30; Stop 10/09/18 at 14:41; Status DC Sodium Chloride 1,000 ml @ 50 mls/hr Q20H IV Last administered on 10/09/18at 23 :21; Start 10/09/18 at 23:30 Active Scripts Active Reported Milk Of Magnesia (Magnesium Hydroxide) 2,400 Mg/10 Ml Oral.susp 2,400 Mg PEG DAILY Metoclopramide Hcl 5 Mg Tablet 2.5 Mg PEG BIDAC Zinc Sulfate 220 Mg Capsule 220 Mg PEG DAILY Acetaminophen Oral Liquid (Acetaminophen) 650 Mg/20.3 Ml Solution 650 Mg PEG PRN Q6HRS PRN Tucks (Witch Mckenna) 1 Each Med..pad 1 Each TP PRN Q4HRS PRN Levsin (Hyoscyamine Sulfate) 0.125 Mg Tablet 1 Tab SL Q4HRS PRN Vitamin C (Ascorbic Acid) 500 Mg Capsule 500 Mg PEG DAILY Acetaminophen 325 Mg/10.15 Ml Solution 800 Mg PO TID PRN Bisacodyl 10 Mg Supp.rect 10 Mg RC PRN DAILY PRN Vitals/I & O Vital Sign - Last 24 Hours 10/09/18 10/09/18 10/09/18 10/09/18 15:00 19:00 19:45 23:00 Temp 98.4 99.2 101.7 98.4 99.2 101.7 Pulse 78 87 96 Resp 18 20 22 B/P (MAP) 158/89 (112) 152/60 (90) 157/67 (97) Pulse Ox 100 100 97 O2 Delivery Simple Mask Nasal Cannula Mask Nasal Cannula O2 Flow Rate 6.0 6.0 6.0 6.0 10/10/18 10/10/18 10/10/18 10/10/18 03:00 07:00 08:00 11:00 Temp 97.5 97.7 97.5 97.5 97.7 97.5 Pulse 76 73 77 Resp 26 22 22 B/P (MAP) 143/50 (81) 137/88 (104) 98/45 (62) Pulse Ox 97 100 O2 Delivery Nasal Cannula Simple Mask Mask Simple Mask O2 Flow Rate 6.0 6.0 6.0 6.0 Intake and Output 3/14/19 3/14/19 3/15/19 15:00 23:00 07:00 Intake Total 630 ml 150 ml 0 ml Output Total 350 ml 400 ml 700 ml Balance 280 ml -250 ml -700 ml Nutrition Consultation Dietary Evaluation: Comments: continue TF as ordered added liquid mvi and lynnette bid to diet order Expected Outcomes/Goals: to meet > 75% est nutr needs via TF Malnutrition Findings: Muscle Mass (Severe): Severe Depletion Body Fat Depletion (Non Severe: Mod to Severe Weight Status: Underweight YASH WALTERS MD Oct 10, 2018 12:46
--- NOTE | 2018-10-10 13:12 | PDOC ---
Objective: Objective: Per RN - a couple stools today, no issues w/ PEG. Vital Signs: Vital Signs Date Time Temp Pulse Resp B/P (MAP) Pulse Ox O2 Delivery O2 Flow Rate FiO2 10/10/18 11:00 97.5 77 22 98/45 (62) 100 Simple Mask 6.0 97.5 Labs: Laboratory Tests Test 10/10/18 00:05 10/10/18 09:00 Lactic Acid Level 1.5 mmol/L White Blood Count 12.7 x10^3/uL Red Blood Count 3.85 x10^6/uL Hemoglobin 10.0 g/dL Hematocrit 32.8 % Mean Corpuscular Volume 85 fL Mean Corpuscular Hemoglobin 26 pg Mean Corpuscular Hemoglobin Concent 30 g/dL Red Cell Distribution Width 19.5 % Platelet Count 468 x10^3/uL Neutrophils (%) (Auto) 79 % Lymphocytes (%) (Auto) 10 % Monocytes (%) (Auto) 7 % Eosinophils (%) (Auto) 5 % Basophils (%) (Auto) 0 % Neutrophils # (Auto) 10.0 x10^3uL Lymphocytes # (Auto) 1.3 x10^3/uL Monocytes # (Auto) 0.8 x10^3/uL Eosinophils # (Auto) 0.6 x10^3/uL Basophils # (Auto) 0.0 x10^3/uL Sodium Level 143 mmol/L Potassium Level 4.1 mmol/L Chloride Level 106 mmol/L Carbon Dioxide Level 28 mmol/L Anion Gap 9 Blood Urea Nitrogen 19 mg/dL Creatinine 0.7 mg/dL Estimated GFR (Cockcroft-Gault) 97.2 BUN/Creatinine Ratio 27 Glucose Level 114 mg/dL Calcium Level 9.2 mg/dL Total Bilirubin 0.3 mg/dL Aspartate Amino Transf (AST/SGOT) 43 U/L Alanine Aminotransferase (ALT/SGPT) 114 U/L Alkaline Phosphatase 128 U/L Total Protein 8.2 g/dL Albumin 1.9 g/dL Albumin/Globulin Ratio 0.3 STOOL CULTURE Final Final report STOOL CULT RES 1 Final Comment No Salmonella or Shigella recovered. CAMPY Preliminary Preliminary report CAMPY RES 1 Preliminary Comment No Campylobacter species isolated. Performed at: [facility] [address], [place], [place] [id number] Meat Butcher: CRISTINE Buckley MD, Phone: [phone] SHIGA TOXIN PENDING BLOOD CULTURE Preliminary NO GROWTH AFTER 2 DAYS PE: GEN: contracted LUNGS: breathing mask ABD: soft, PEG in place NEURO/PSYCH: non-verbal A/P: Fever, pneumonia, UTI Diarrhea - C Diff neg, prelim stool culture neg H/o CVA and dysphagia w/ PEG - functioning Chronic anemia, fecal occult positive - stable Elevated LFTs, hepatic steatosis - better -- Stable from GI standpoint. VICKY WOODALL Oct 10, 2018 13:12
--- NOTE | 2018-10-10 14:15 | NUR ---
ELAH following. Discussed with RN, LEAH called [place] to get [facility] phone numbers. Alisonra Tan ([phone]) and Toya Flowers ([phone]). LEAH left voicemail for Toya requesting a call back. LEAH spoke with Jasmin, who reported they would prefer their mother not return to [facility], and that they have been trying to find another usp care placement for their mother. LEAH advised of [facility] in [place] and [facility]. Jasmin okay with referral sent to [facility] and would like to visit the facility. LEAH phoned Fabiola at [facility] to discuss referral and have her call Jasmin. RN notified. LEAH will continue to follow.
[2018-10-10 15:00] VITALS: BP 154/67
[2018-10-10] MEDS: ACETAMINOPHEN 650 MG/20.3 ML SOLUTION. PEG PRN (15:28)
--- NOTE | 2018-10-10 15:29 | NUR ---
LEAH following. [facility] does not currently have an isolation room available. LEAH contacted dtr, Alison again to advise, they would like the referral sent to [facility]. LEAH phoned and faxed referral. RN notified.
--- NOTE | 2018-10-10 16:37 | NUR ---
SW following. Discussed with RN, pt's family does not want pt to return to [place]. LEAH did not hear from [facility]. LEAH gave list of facilities to pt's dtr Alison who is going to look over them and let nursing staff know over the weekend if she would like referral sent to any of them. SW left referral packet on chart so this can be faxed if possible. RN notified. LEAH will continue to follow.
--- NOTE | 2018-10-10 16:41 | NUR ---
Pharmacy Medication Review S: Consulted for medication review re: C.diff Risk Assessment score of 4 O: LAURI COLBERT is a 83 year old with: Previous C.diff infection: No Previous hospitalization: Within 60 days Recent antibiotics: Within 60 days Use of gastric acid suppressor: No Transfer from [place]/LTAC: Yes Current antibiotic regimen: ZOSYN Current acid suppression regimen: none A: Patient has been identified as having risk factors for C.diff infection as noted above. P: Antibiotic Regimen recommendation made: not appropriate to change at this time Probiotic ordered: no - patient with feeding tube PPI changed to [id number]: N/A Christina Burnham RP, 10/10/18 [id number]
[2018-10-10 19:00] VITALS: BP 126/84
[2018-10-10 23:00] VITALS: BP 138/53
[2018-10-10] MEDS: IV NORMAL SALINE 1000ML BAG 1,000 ML IV SCH (23:14)
[2018-10-11 03:00] VITALS: BP 128/63
[2018-10-11] MEDS: ACETAMINOPHEN 650 MG/20.3 ML SOLUTION. PEG PRN (03:35)
[2018-10-11 06:01] LABS: BASO % 0 % (0-3); EOS # 0.2 x10^3/uL (0.0-0.7); EOS % 2 % (0-3); HEMATOCRIT 32.5 % (36.0-47.0); HEMOGLOBIN 10.1 g/dL (12.0-15.5); LYMPH # 0.6 x10^3/uL (1.0-4.8); LYMPH % 6 % (24-48); MEAN CORPUSCULAR HEMOGLOBIN 27 pg (25-35); MEAN CORPUSCULAR HGB CONC 31 g/dL (31-37); MEAN CORPUSCULAR VOLUME 85 fL (79-100); MONO # 0.3 x10^3/uL (0.0-1.1); MONO % 3 % (0-9); NEUT # 7.6 x10^3uL (1.8-7.7); NEUT % 88 % (31-73); PLATELET COUNT 465 x10^3/uL (140-400); RED BLOOD COUNT 3.82 x10^6/uL (3.50-5.40); RED CELL DISTRIBUTION WIDTH 19.6 % (11.5-14.5); WHITE BLOOD COUNT 8.7 x10^3/uL (4.0-11.0)
[2018-10-11 06:15] LABS: ALBUMIN 1.8 g/dL (3.4-5.0); ALBUMIN/GLOBULIN RATIO 0.3 (1.0-1.7); CALCIUM 8.9 mg/dL (8.5-10.1); CREATININE 0.7 mg/dL (0.6-1.0); GFR 97.2; POTASSIUM 3.9 mmol/L (3.5-5.1); TOTAL BILIRUBIN 0.2 mg/dL (0.2-1.0)
[2018-10-11] MEDS: PIPERACILLIN/TAZOBACTAM 3.375 GM in IV NORMAL SALINE 50ML 50 ML IV SCH ×4 (06:39→23:29)
[2018-10-11 07:00] VITALS: BP 109/45
[2018-10-11 08:06] LABS: % BANDS 1 % (0-9); % EOS 6 % (0-5); % LYMPHS 3 % (24-48); % MONOS 1 % (0-10); % SEGS 89 % (35-66); ANISOCYTOSIS PRESENT; PLT ESTIMATE INCREASED (ADEQUATE)
[2018-10-11] MEDS: MAGNESIUM HYDROXIDE 2,400 MG/30 ML ORAL.SUSP. PEG SCH (09:00)
[2018-10-11] MEDS: MULTIVITAMINS,THERAPEUTIC 5 ML ORAL LIQUID. PEG SCH (09:06)
[2018-10-11] MEDS: ASCORBIC ACID 500 MG TABLET PEG SCH (09:06)
[2018-10-11] MEDS: METOCLOPRAMIDE 5 MG TABLET. PEG SCH ×2 (09:06→16:30)
[2018-10-11 10:39] VITALS: BP 121/62
[2018-10-11] MEDS ORDERED: ENOXAPARIN 30 MG/0.3 ML SYRINGE. SQ SCH (11:00)
--- NOTE | 2018-10-11 11:30 | PDOC ---
PROGRESS NOTES Chief Complaint Chief Complaint sepsis UTI diarrhea, isolate, cx and c. diff tox sent recent aspiration PNA, on tube feeds severe malnutrition, serum albumin and BMI is 13.0 weakness and debility aphasic, bedbound History of Present Illness History of Present Illness cont current GI and ID following tube feeds now at 40 on IV abx there may be some problem with placement, family had not been happy with [place], social work following Vitals Vitals Vital Signs Date Time Temp Pulse Resp B/P (MAP) Pulse Ox O2 Delivery O2 Flow Rate FiO2 10/11/18 10:39 99.9 76 19 121/62 (81) 100 Simple Mask 6.0 99.9 Physical Exam Physical Exam GENERAL: Awake female, nonverbal, not in distress. VITAL SIGNS: Stable HEENT: NAD. NECK: Supple. LUNGS: Clear. HEART: S1, S2 regular. ABDOMEN: Benign. EXTREMITIES: Contractures. The patient has multiple wounds on the pressure points. They are significantly deep. The patient has a Byrd catheter and according to the nurse and my discussion with RN, not sure when it has been replaced. NEUROLOGIC: The patient is unresponsive. General: Alert, mild distress, Other Heart: Regular rate Lungs: Crackles, Other Abdomen: Normal bowel sounds, Soft Extremities: No clubbing, No cyanosis Labs LABS Laboratory Tests Test 10/11/18 05:28 White Blood Count 8.7 x10^3/uL (4.0-11.0) Red Blood Count 3.82 x10^6/uL (3.50-5.40) Hemoglobin 10.1 g/dL (12.0-15.5) Hematocrit 32.5 % (36.0-47.0) Mean Corpuscular Volume 85 fL (79-100) Mean Corpuscular Hemoglobin 27 pg (25-35) Mean Corpuscular Hemoglobin Concent 31 g/dL (31-37) Red Cell Distribution Width 19.6 % (11.5-14.5) Platelet Count 465 x10^3/uL (140-400) Neutrophils (%) (Auto) 88 % (31-73) Lymphocytes (%) (Auto) 6 % (24-48) Monocytes (%) (Auto) 3 % (0-9) Eosinophils (%) (Auto) 2 % (0-3) Basophils (%) (Auto) 0 % (0-3) Neutrophils # (Auto) 7.6 x10^3uL (1.8-7.7) Lymphocytes # (Auto) 0.6 x10^3/uL (1.0-4.8) Monocytes # (Auto) 0.3 x10^3/uL (0.0-1.1) Eosinophils # (Auto) 0.2 x10^3/uL (0.0-0.7) Basophils # (Auto) 0.0 x10^3/uL (0.0-0.2) Segmented Neutrophils % 89 % (35-66) Band Neutrophils % 1 % (0-9) Lymphocytes % 3 % (24-48) Monocytes % 1 % (0-10) Eosinophils % 6 % (0-5) Platelet Estimate Increased (ADEQUATE) Anisocytosis Present Sodium Level 140 mmol/L (136-145) Potassium Level 3.9 mmol/L (3.5-5.1) Chloride Level 105 mmol/L (98-107) Carbon Dioxide Level 26 mmol/L (21-32) Anion Gap 9 (6-14) Blood Urea Nitrogen 17 mg/dL (7-20) Creatinine 0.7 mg/dL (0.6-1.0) Estimated GFR (Cockcroft-Gault) 97.2 BUN/Creatinine Ratio 24 (6-20) Glucose Level 135 mg/dL (70-99) Calcium Level 8.9 mg/dL (8.5-10.1) Total Bilirubin 0.2 mg/dL (0.2-1.0) Aspartate Amino Transf (AST/SGOT) 32 U/L (15-37) Alanine Aminotransferase (ALT/SGPT) 87 U/L (14-59) Alkaline Phosphatase 111 U/L (46-116) Total Protein 8.0 g/dL (6.4-8.2) Albumin 1.8 g/dL (3.4-5.0) Albumin/Globulin Ratio 0.3 (1.0-1.7) Assessment and Plan Assessmemt and Plan Problems Medical Problems: (1) Catheter-associated urinary tract infection Status: Acute (2) Fever Status: Acute Comment Review of Relevant I have reviewed the following items nato (where applicable) has been applied. Labs Laboratory Tests Test 10/09/18 12:45 10/10/18 00:05 10/10/18 09:00 10/11/18 05:28 Total Bilirubin 0.4 mg/dL (0.2-1.0) 0.3 mg/dL (0.2-1.0) 0.2 mg/dL (0.2-1.0) Direct Bilirubin 0.1 mg/dL (0.0-0.2) Aspartate Amino Transf (AST/SGOT) 60 U/L (15-37) 43 U/L (15-37) 32 U/L (15-37) Alanine Aminotransferase (ALT/SGPT) 135 U/L (14-59) 114 U/L (14-59) 87 U/L (14-59) Alkaline Phosphatase 128 U/L (46-116) 128 U/L (46-116) 111 U/L (46-116) Total Protein 7.4 g/dL (6.4-8.2) 8.2 g/dL (6.4-8.2) 8.0 g/dL (6.4-8.2) Albumin 1.6 g/dL (3.4-5.0) 1.9 g/dL (3.4-5.0) 1.8 g/dL (3.4-5.0) Lactic Acid Level 1.5 mmol/L (0.4-2.0) White Blood Count 12.7 x10^3/uL (4.0-11.0) 8.7 x10^3/uL (4.0-11.0) Red Blood Count 3.85 x10^6/uL (3.50-5.40) 3.82 x10^6/uL (3.50-5.40) Hemoglobin 10.0 g/dL (12.0-15.5) 10.1 g/dL (12.0-15.5) Hematocrit 32.8 % (36.0-47.0) 32.5 % (36.0-47.0) Mean Corpuscular Volume 85 fL (79-100) 85 fL (79-100) Mean Corpuscular Hemoglobin 26 pg (25-35) 27 pg (25-35) Mean Corpuscular Hemoglobin Concent 30 g/dL (31-37) 31 g/dL (31-37) Red Cell Distribution Width 19.5 % (11.5-14.5) 19.6 % (11.5-14.5) Platelet Count 468 x10^3/uL (140-400) 465 x10^3/uL (140-400) Neutrophils (%) (Auto) 79 % (31-73) 88 % (31-73) Lymphocytes (%) (Auto) 10 % (24-48) 6 % (24-48) Monocytes (%) (Auto) 7 % (0-9) 3 % (0-9) Eosinophils (%) (Auto) 5 % (0-3) 2 % (0-3) Basophils (%) (Auto) 0 % (0-3) 0 % (0-3) Neutrophils # (Auto) 10.0 x10^3uL (1.8-7.7) 7.6 x10^3uL (1.8-7.7) Lymphocytes # (Auto) 1.3 x10^3/uL (1.0-4.8) 0.6 x10^3/uL (1.0-4.8) Monocytes # (Auto) 0.8 x10^3/uL (0.0-1.1) 0.3 x10^3/uL (0.0-1.1) Eosinophils # (Auto) 0.6 x10^3/uL (0.0-0.7) 0.2 x10^3/uL (0.0-0.7) Basophils # (Auto) 0.0 x10^3/uL (0.0-0.2) 0.0 x10^3/uL (0.0-0.2) Sodium Level 143 mmol/L (136-145) 140 mmol/L (136-145) Potassium Level 4.1 mmol/L (3.5-5.1) 3.9 mmol/L (3.5-5.1) Chloride Level 106 mmol/L (98-107) 105 mmol/L (98-107) Carbon Dioxide Level 28 mmol/L (21-32) 26 mmol/L (21-32) Anion Gap 9 (6-14) 9 (6-14) Blood Urea Nitrogen 19 mg/dL (7-20) 17 mg/dL (7-20) Creatinine 0.7 mg/dL (0.6-1.0) 0.7 mg/dL (0.6-1.0) Estimated GFR (Cockcroft-Gault) 97.2 97.2 BUN/Creatinine Ratio 27 (6-20) 24 (6-20) Glucose Level 114 mg/dL (70-99) 135 mg/dL (70-99) Calcium Level 9.2 mg/dL (8.5-10.1) 8.9 mg/dL (8.5-10.1) Albumin/Globulin Ratio 0.3 (1.0-1.7) 0.3 (1.0-1.7) Segmented Neutrophils % 89 % (35-66) Band Neutrophils % 1 % (0-9) Lymphocytes % 3 % (24-48) Monocytes % 1 % (0-10) Eosinophils % 6 % (0-5) Platelet Estimate Increased (ADEQUATE) Anisocytosis Present Laboratory Tests Test 10/11/18 05:28 White Blood Count 8.7 x10^3/uL (4.0-11.0) Red Blood Count 3.82 x10^6/uL (3.50-5.40) Hemoglobin 10.1 g/dL (12.0-15.5) Hematocrit 32.5 % (36.0-47.0) Mean Corpuscular Volume 85 fL (79-100) Mean Corpuscular Hemoglobin 27 pg (25-35) Mean Corpuscular Hemoglobin Concent 31 g/dL (31-37) Red Cell Distribution Width 19.6 % (11.5-14.5) Platelet Count 465 x10^3/uL (140-400) Neutrophils (%) (Auto) 88 % (31-73) Lymphocytes (%) (Auto) 6 % (24-48) Monocytes (%) (Auto) 3 % (0-9) Eosinophils (%) (Auto) 2 % (0-3) Basophils (%) (Auto) 0 % (0-3) Neutrophils # (Auto) 7.6 x10^3uL (1.8-7.7) Lymphocytes # (Auto) 0.6 x10^3/uL (1.0-4.8) Monocytes # (Auto) 0.3 x10^3/uL (0.0-1.1) Eosinophils # (Auto) 0.2 x10^3/uL (0.0-0.7) Basophils # (Auto) 0.0 x10^3/uL (0.0-0.2) Segmented Neutrophils % 89 % (35-66) Band Neutrophils % 1 % (0-9) Lymphocytes % 3 % (24-48) Monocytes % 1 % (0-10) Eosinophils % 6 % (0-5) Platelet Estimate Increased (ADEQUATE) Anisocytosis Present Sodium Level 140 mmol/L (136-145) Potassium Level 3.9 mmol/L (3.5-5.1) Chloride Level 105 mmol/L (98-107) Carbon Dioxide Level 26 mmol/L (21-32) Anion Gap 9 (6-14) Blood Urea Nitrogen 17 mg/dL (7-20) Creatinine 0.7 mg/dL (0.6-1.0) Estimated GFR (Cockcroft-Gault) 97.2 BUN/Creatinine Ratio 24 (6-20) Glucose Level 135 mg/dL (70-99) Calcium Level 8.9 mg/dL (8.5-10.1) Total Bilirubin 0.2 mg/dL (0.2-1.0) Aspartate Amino Transf (AST/SGOT) 32 U/L (15-37) Alanine Aminotransferase (ALT/SGPT) 87 U/L (14-59) Alkaline Phosphatase 111 U/L (46-116) Total Protein 8.0 g/dL (6.4-8.2) Albumin 1.8 g/dL (3.4-5.0) Albumin/Globulin Ratio 0.3 (1.0-1.7) Microbiology 10/08/18 Blood Culture - Preliminary, Resulted NO GROWTH AFTER 2 DAYS 10/08/18 Stool Culture - Final, Resulted 10/08/18 Stool Culture Result 1 (ZACHERY) - Final, Resulted 10/08/18 Campylobacter Antigen Assay - Preliminary, Resulted 10/08/18 Campylobactor Result 1 - Preliminary, Resulted 10/08/18 Shiga Toxin Test - Final, Resulted 10/08/18 Urine Culture - Final, Complete 10/08/18 Urine Culture Result 1 (ZACHERY) - Final, Complete Medications Current Medications Piperacillin Sod/ Tazobactam Sod 4.5 gm/Sodium Chloride 100 ml @ 200 mls/hr 1X ONCE IV Last administered on 10/08/18at 13:05; Start 10/08/18 at 12:00; Stop 10/08/18 at 12:29; Status DC Vancomycin HCl (Vanco Per Pharmacy) 1 each 1X ONCE [facility] ; Start 10/08/18 at 11:45 ; Stop 10/08/18 at 13:23; Status DC Sodium Chloride 1,500 ml @ 1,500 mls/hr Q1H IV Last administered on 10/08/18at 13:04; Start 10/08/18 at 11:43; Stop 10/08/18 at 19:35; Status DC Acetaminophen (Tylenol Supp) 650 mg 1X ONCE [facility] ; Start 10/08/18 at 11:45; Stop 10/08/18 at 11:53; Status DC Vancomycin HCl 750 mg/Sodium Chloride 250 ml @ 250 mls/hr 1X ONCE IV Last administered on 10/08/18at 13:53; Start 10/08/18 at 13:00; Stop 10/08/18 at 13:59 ; Status DC Piperacillin Sod/ Tazobactam Sod (Zosyn Per Pharmacy) 1 each PRN DAILY PRN [facility] SEE COMMENTS; Start 10/08/18 at 15:30 Piperacillin Sod/ Tazobactam Sod 3.375 gm/Sodium Chloride 50 ml @ 100 mls/hr Q6HRS IV Last administered on 10/11/18at 06:39; Start 10/08/18 at 18:00 Pharmacy Consult (C.diff Med Screen By Rx) 1 each 1X ONCE [facility] ; Start 10/08/18 at 18:30; Stop 10/08/18 at 18:31; Status UNV Multivitamins (Thera-Plus Oral Liquid) 5 ml DAILY PEG Last administered on 10/11at 09:06; Start 10/09/18 at 09:00 Acetaminophen (Tylenol) 650 mg PRN Q6HRS PRN PEG fever, pain Last administered on 10/11/18at 03:35; Start 10/09/18 at 14:30 Metoclopramide HCl (Reglan) 2.5 mg BIDAC PEG Last administered on 10/11/18at 09: 06; Start 10/09/18 at 16:30 Non-Formulary Medication (Acetaminophen ) 800 mg TID PRN PO PAIN; Start at 14:30; Status UNV Ascorbic Acid (Vitamin C) 500 mg DAILY PEG Last administered on 10/11/18at 09:06 ; Start 10/09/18 at 15:00 Bisacodyl (Dulcolax Supp) 10 mg PRN DAILY PRN [place] CONSTIPATION; Start 10/09/18 at 14:45 Hyoscyamine (Anaspaz) 0.125 mg PRN Q4HRS PRN PO SECRETIONS Last administered on 10/09/18at 22:58; Start 10/09/18 at 14:30 Magnesium Hydroxide (Milk Of Magnesia) 2,400 mg DAILY PEG Last administered on 10/10/18at 09:12; Start 10/09/18 at 14:30 Non-Formulary Medication (Witch Mckenna (Tucks)) 1 each PRN Q4HRS PRN TP hemorrhoidal discomfort; Start 10/09/18 at 14:30; Stop 10/09/18 at 14:41; Status DC Sodium Chloride 1,000 ml @ 50 mls/hr Q20H IV Last administered on 10/10/18at 23 :14; Start 10/09/18 at 23:30 Enoxaparin Sodium (Lovenox Per Pharmacy Prophylaxis Dosing) 1 each PRN DAILY PRN [facility] SEE COMMENTS; Start 10/11/18 at 10:30 Enoxaparin Sodium (Lovenox 30mg Syringe) 30 mg Q24H SQ ; Start 10/11/18 at 11:00 Active Scripts Active Reported Milk Of Magnesia (Magnesium Hydroxide) 2,400 Mg/10 Ml Oral.susp 2,400 Mg PEG DAILY Metoclopramide Hcl 5 Mg Tablet 2.5 Mg PEG BIDAC Zinc Sulfate 220 Mg Capsule 220 Mg PEG DAILY Acetaminophen Oral Liquid (Acetaminophen) 650 Mg/20.3 Ml Solution 650 Mg PEG PRN Q6HRS PRN Tucks (Witch Mckenna) 1 Each Med..pad 1 Each TP PRN Q4HRS PRN Levsin (Hyoscyamine Sulfate) 0.125 Mg Tablet 1 Tab SL Q4HRS PRN Vitamin C (Ascorbic Acid) 500 Mg Capsule 500 Mg PEG DAILY Acetaminophen 325 Mg/10.15 Ml Solution 800 Mg PO TID PRN Bisacodyl 10 Mg Supp.rect 10 Mg RC PRN DAILY PRN Vitals/I & O Vital Sign - Last 24 Hours 10/10/18 10/10/18 10/10/18 10/10/18 15:00 19:00 20:00 23:00 Temp 98.2 97.9 98.9 98.2 97.9 98.9 Pulse 84 80 68 Resp 24 24 18 B/P (MAP) 154/67 (96) 126/84 (98) 138/53 (81) Pulse Ox 100 99 91 O2 Delivery Simple Mask Nasal Cannula Mask Nasal Cannula O2 Flow Rate 6.0 6.0 6.0 6.0 10/11/18 10/11/18 10/11/18 10/11/18 03:00 07:00 08:00 10:39 Temp 102.2 100.5 99.9 102.2 100.5 99.9 Pulse 77 72 76 Resp 18 19 B/P (MAP) 128/63 (84) 109/45 (66) 121/62 (81) Pulse Ox 100 100 100 O2 Delivery Simple Mask Simple Mask Mask Simple Mask O2 Flow Rate 6.0 6.0 6.0 6.0 Intake and Output 10/10/18 10/10/18 10/11/18 14:59 22:59 06:59 Intake Total 170 ml 155 ml 0 ml Output Total 700 ml Balance 170 ml 155 ml -700 ml Nutrition Consultation Dietary Evaluation: Comments: continue TF as ordered added liquid mvi and lynnette bid to diet order Expected Outcomes/Goals: to meet > 75% est nutr needs via TF Malnutrition Findings: Muscle Mass (Severe): Severe Depletion Body Fat Depletion (Non Severe: Mod to Severe Weight Status: Underweight YASH WALTERS MD Oct 11, 2018 11:30
[2018-10-11 14:52] VITALS: BP 124/65
--- NOTE | 2018-10-11 16:37 | PDOC ---
Infectious Disease Note Subjective Subjective Fever Tma 102.2 + diarrhea Tube feedings ROS ROS unobtainable Vital Sign Vital Signs Vital Signs Date Time Temp Pulse Resp B/P (MAP) Pulse Ox O2 Delivery O2 Flow Rate FiO2 10/11/18 14:52 98.9 70 19 124/65 (84) 99 Simple Mask 6.0 98.9 Physical Exam PHYSICAL EXAM GENERAL: Contracted in position, weak appearing and softly moaning LUNGS: Clear. HEART: S1, S2 ABDOMEN: Peg tube : Byrd EXTREMITIES: Contractures. Multiple deep wounds on the pressure points. NEUROLOGIC: Unresponsive to verbal stimuli, noncommunicative Labs Lab Laboratory Tests Test 10/11/18 05:28 White Blood Count 8.7 x10^3/uL (4.0-11.0) Red Blood Count 3.82 x10^6/uL (3.50-5.40) Hemoglobin 10.1 g/dL (12.0-15.5) Hematocrit 32.5 % (36.0-47.0) Mean Corpuscular Volume 85 fL (79-100) Mean Corpuscular Hemoglobin 27 pg (25-35) Mean Corpuscular Hemoglobin Concent 31 g/dL (31-37) Red Cell Distribution Width 19.6 % (11.5-14.5) Platelet Count 465 x10^3/uL (140-400) Neutrophils (%) (Auto) 88 % (31-73) Lymphocytes (%) (Auto) 6 % (24-48) Monocytes (%) (Auto) 3 % (0-9) Eosinophils (%) (Auto) 2 % (0-3) Basophils (%) (Auto) 0 % (0-3) Neutrophils # (Auto) 7.6 x10^3uL (1.8-7.7) Lymphocytes # (Auto) 0.6 x10^3/uL (1.0-4.8) Monocytes # (Auto) 0.3 x10^3/uL (0.0-1.1) Eosinophils # (Auto) 0.2 x10^3/uL (0.0-0.7) Basophils # (Auto) 0.0 x10^3/uL (0.0-0.2) Segmented Neutrophils % 89 % (35-66) Band Neutrophils % 1 % (0-9) Lymphocytes % 3 % (24-48) Monocytes % 1 % (0-10) Eosinophils % 6 % (0-5) Platelet Estimate Increased (ADEQUATE) Anisocytosis Present Sodium Level 140 mmol/L (136-145) Potassium Level 3.9 mmol/L (3.5-5.1) Chloride Level 105 mmol/L (98-107) Carbon Dioxide Level 26 mmol/L (21-32) Anion Gap 9 (6-14) Blood Urea Nitrogen 17 mg/dL (7-20) Creatinine 0.7 mg/dL (0.6-1.0) Estimated GFR (Cockcroft-Gault) 97.2 BUN/Creatinine Ratio 24 (6-20) Glucose Level 135 mg/dL (70-99) Calcium Level 8.9 mg/dL (8.5-10.1) Total Bilirubin 0.2 mg/dL (0.2-1.0) Aspartate Amino Transf (AST/SGOT) 32 U/L (15-37) Alanine Aminotransferase (ALT/SGPT) 87 U/L (14-59) Alkaline Phosphatase 111 U/L (46-116) Total Protein 8.0 g/dL (6.4-8.2) Albumin 1.8 g/dL (3.4-5.0) Albumin/Globulin Ratio 0.3 (1.0-1.7) Micro URINE CULTURE RES 1 Final Comment Greater than 2 organisms recovered, none predominant. Please submit another sample if clinically indicated. Greater than 100,000 colony forming units per mL BLOOD CULTURE Preliminary NO GROWTH AFTER 3 DAYS Objective Assessment Urinary tract infection, catheter associated . Fever. Leukocytosis, improved Pulmonary infiltrate/aspiration. Dementia. Multiple pressure wounds. Diarrhea. C diff PCR neg on 313 Plan Plan of Care Zosyn Monitor fever curve f/u BC wound care and offloading prognosis poor D/w daughter D/w nursing Patient seen and examined. Chart reviewed in detail. Case discussed with [employer]. Agree with above plan. VENANCIO ARREAGA APRN Oct 11, 2018 16:36 KATT MAGANA MD Oct 11, 2018 20:08
[2018-10-11 19:00] VITALS: BP 119/58
[2018-10-11] MEDS: IV NORMAL SALINE 1000ML BAG 1,000 ML IV SCH (21:31)
[2018-10-11] MEDS: HEPARIN for SUB-Q USE 5,000 UNIT/ML VIAL. SQ SCH (21:36)
[2018-10-11 23:00] VITALS: BP_SYST 128; BP_SYST 129; BP_DIAS 56; BP_DIAS 65
[2018-10-12] MEDS: ACETAMINOPHEN 650 MG/20.3 ML SOLUTION. PEG PRN (01:33)
[2018-10-12 03:06] VITALS: BP 133/57
[2018-10-12] MEDS: PIPERACILLIN/TAZOBACTAM 3.375 GM in IV NORMAL SALINE 50ML 50 ML IV SCH ×4 (05:47→22:46)
[2018-10-12] MEDS: HEPARIN for SUB-Q USE 5,000 UNIT/ML VIAL. SQ SCH ×3 (05:51→22:55)
[2018-10-12 07:00] VITALS: BP 120/57
--- NOTE | 2018-10-12 08:21 | PDOC ---
Infectious Disease Note Subjective Subjective Noncommunicative No fevers last 24 hours + diarrhea Tube feedings ROS ROS unobtainable Vital Sign Vital Signs Vital Signs Date Time Temp Pulse Resp B/P (MAP) Pulse Ox O2 Delivery O2 Flow Rate FiO2 10/12/18 07:00 97.8 75 16 120/57 (78) 100 Simple Mask 6.0 97.8 Physical Exam PHYSICAL EXAM GENERAL: Contracted in position, weak appearing and softly moaning LUNGS: Clear. HEART: S1, S2 ABDOMEN: Soft, Peg tube : Byrd EXTREMITIES: Contractures. Multiple deep wounds on the pressure points. NEUROLOGIC: Awake, unresponsive to verbal stimuli, noncommunicative LEJ clean Labs Micro URINE CULTURE RES 1 Final Comment Greater than 2 organisms recovered, none predominant. Please submit another sample if clinically indicated. Greater than 100,000 colony forming units per mL BLOOD CULTURE Preliminary NO GROWTH AFTER 3 DAYS Objective Assessment Urinary tract infection, catheter associated . Fever,,,better Leukocytosis, improved Pulmonary infiltrate/aspiration. Dementia. Multiple pressure wounds. Diarrhea. C diff PCR neg on 313 Plan Plan of Care Zosyn Monitor fever curve BC NGTD wound care and offloading prognosis poor Patient seen and examined. Chart reviewed in detail. Case discussed with APNS. Agree with above plan. VENANCIO ARREAGA APRN Oct 12, 2018 08:21 KATT MAGANA MD Oct 12, 2018 21:16
[2018-10-12] MEDS: MAGNESIUM HYDROXIDE 2,400 MG/30 ML ORAL.SUSP. PEG SCH (08:39)
[2018-10-12] MEDS: METOCLOPRAMIDE 5 MG TABLET. PEG SCH ×2 (08:40→15:31)
[2018-10-12] MEDS: ASCORBIC ACID 500 MG TABLET PEG SCH (08:40)
[2018-10-12] MEDS: MULTIVITAMINS,THERAPEUTIC 5 ML ORAL LIQUID. PEG SCH (08:40)
[2018-10-12 10:43] VITALS: BP 145/58
--- NOTE | 2018-10-12 12:51 | PDOC ---
PROGRESS NOTES Chief Complaint Chief Complaint sepsis UTI diarrhea, isolate, cx and c. diff tox sent recent aspiration PNA, on tube feeds severe malnutrition, serum albumin and BMI is 13.0 weakness and debility aphasic, bedbound History of Present Illness History of Present Illness cont current GI and ID following not much change, goals are low. tube feeds at 40 on IV abx there may be some problem with placement, family had not been happy with Home Comfort Zones, social work following Vitals Vitals Vital Signs Date Time Temp Pulse Resp B/P (MAP) Pulse Ox O2 Delivery O2 Flow Rate FiO2 10/12/18 10:43 97.9 75 22 145/58 (87) 99 Simple Mask 6.0 97.9 Physical Exam Physical Exam GENERAL: Contracted limbs LUNGS: Clear. HEART: S1, S2 ABDOMEN: Soft, Peg tube : Byrd EXTREMITIES: Contractures. Multiple deep wounds on the pressure points. NEUROLOGIC: Awake, unresponsive to verbal stimuli, noncommunicative LEJ clean General: mild distress, Other (not responsive, does not follow commands) Heart: Regular rate Lungs: Crackles, Other Abdomen: Normal bowel sounds, Soft Extremities: No clubbing, No cyanosis Assessment and Plan Assessmemt and Plan Problems Medical Problems: (1) Catheter-associated urinary tract infection Status: Acute (2) Fever Status: Acute Comment Review of Relevant I have reviewed the following items nato (where applicable) has been applied. Labs Laboratory Tests Test 10/11/18 05:28 White Blood Count 8.7 x10^3/uL (4.0-11.0) Red Blood Count 3.82 x10^6/uL (3.50-5.40) Hemoglobin 10.1 g/dL (12.0-15.5) Hematocrit 32.5 % (36.0-47.0) Mean Corpuscular Volume 85 fL (79-100) Mean Corpuscular Hemoglobin 27 pg (25-35) Mean Corpuscular Hemoglobin Concent 31 g/dL (31-37) Red Cell Distribution Width 19.6 % (11.5-14.5) Platelet Count 465 x10^3/uL (140-400) Neutrophils (%) (Auto) 88 % (31-73) Lymphocytes (%) (Auto) 6 % (24-48) Monocytes (%) (Auto) 3 % (0-9) Eosinophils (%) (Auto) 2 % (0-3) Basophils (%) (Auto) 0 % (0-3) Neutrophils # (Auto) 7.6 x10^3uL (1.8-7.7) Lymphocytes # (Auto) 0.6 x10^3/uL (1.0-4.8) Monocytes # (Auto) 0.3 x10^3/uL (0.0-1.1) Eosinophils # (Auto) 0.2 x10^3/uL (0.0-0.7) Basophils # (Auto) 0.0 x10^3/uL (0.0-0.2) Segmented Neutrophils % 89 % (35-66) Band Neutrophils % 1 % (0-9) Lymphocytes % 3 % (24-48) Monocytes % 1 % (0-10) Eosinophils % 6 % (0-5) Platelet Estimate Increased (ADEQUATE) Anisocytosis Present Sodium Level 140 mmol/L (136-145) Potassium Level 3.9 mmol/L (3.5-5.1) Chloride Level 105 mmol/L (98-107) Carbon Dioxide Level 26 mmol/L (21-32) Anion Gap 9 (6-14) Blood Urea Nitrogen 17 mg/dL (7-20) Creatinine 0.7 mg/dL (0.6-1.0) Estimated GFR (Cockcroft-Gault) 97.2 BUN/Creatinine Ratio 24 (6-20) Glucose Level 135 mg/dL (70-99) Calcium Level 8.9 mg/dL (8.5-10.1) Total Bilirubin 0.2 mg/dL (0.2-1.0) Aspartate Amino Transf (AST/SGOT) 32 U/L (15-37) Alanine Aminotransferase (ALT/SGPT) 87 U/L (14-59) Alkaline Phosphatase 111 U/L (46-116) Total Protein 8.0 g/dL (6.4-8.2) Albumin 1.8 g/dL (3.4-5.0) Albumin/Globulin Ratio 0.3 (1.0-1.7) Microbiology 10/08/18 Blood Culture - Preliminary, Resulted NO GROWTH AFTER 3 DAYS 10/08/18 Stool Culture - Final, Complete 10/08/18 Stool Culture Result 1 (ZACHERY) - Final, Complete 10/08/18 Campylobacter Antigen Assay - Final, Complete 10/08/18 Campylobactor Result 1 - Final, Complete 10/08/18 Shiga Toxin Test - Final, Complete 10/08/18 Urine Culture - Final, Complete 10/08/18 Urine Culture Result 1 (ZACHERY) - Final, Complete Medications Current Medications Piperacillin Sod/ Tazobactam Sod 4.5 gm/Sodium Chloride 100 ml @ 200 mls/hr 1X ONCE IV Last administered on 10/08/18at 13:05; Start 10/08/18 at 12:00; Stop 10/08/18 at 12:29; Status DC Vancomycin HCl (Vanco Per Pharmacy) 1 each 1X ONCE MC ; Start 10/08/18 at 11:45 ; Stop 10/08/18 at 13:23; Status DC Sodium Chloride 1,500 ml @ 1,500 mls/hr Q1H IV Last administered on 10/08/18at 13:04; Start 10/08/18 at 11:43; Stop 10/08/18 at 19:35; Status DC Acetaminophen (Tylenol Supp) 650 mg 1X ONCE SD ; Start 10/08/18 at 11:45; Stop 10/08/18 at 11:53; Status DC Vancomycin HCl 750 mg/Sodium Chloride 250 ml @ 250 mls/hr 1X ONCE IV Last administered on 10/08/18at 13:53; Start 10/08/18 at 13:00; Stop 10/08/18 at 13:59 ; Status DC Piperacillin Sod/ Tazobactam Sod (Zosyn Per Pharmacy) 1 each PRN DAILY PRN MC SEE COMMENTS; Start 10/08/18 at 15:30 Piperacillin Sod/ Tazobactam Sod 3.375 gm/Sodium Chloride 50 ml @ 100 mls/hr Q6HRS IV Last administered on 10/12/18at 12:31; Start 10/08/18 at 18:00 Pharmacy Consult (C.diff Med Screen By Rx) 1 each 1X ONCE MC ; Start 10/08/18 at 18:30; Stop 10/08/18 at 18:31; Status UNV Multivitamins (Thera-Plus Oral Liquid) 5 ml DAILY PEG Last administered on 10/12at 08:40; Start 10/09/18 at 09:00 Acetaminophen (Tylenol) 650 mg PRN Q6HRS PRN PEG fever, pain Last administered on 10/12/18at 01:33; Start 10/09/18 at 14:30 Metoclopramide HCl (Reglan) 2.5 mg BIDAC PEG Last administered on 10/12/18at 08: 40; Start 10/09/18 at 16:30 Non-Formulary Medication (Acetaminophen ) 800 mg TID PRN PO PAIN; Start at 14:30; Status UNV Ascorbic Acid (Vitamin C) 500 mg DAILY PEG Last administered on 10/12/18at 08:40 ; Start 10/09/18 at 15:00 Bisacodyl (Dulcolax Supp) 10 mg PRN DAILY PRN [place] CONSTIPATION; Start 10/09/18 at 14:45 Hyoscyamine (Anaspaz) 0.125 mg PRN Q4HRS PRN PO SECRETIONS Last administered on 10/09/18at 22:58; Start 10/09/18 at 14:30 Magnesium Hydroxide (Milk Of Magnesia) 2,400 mg DAILY PEG Last administered on 10/12/18at 08:39; Start 10/09/18 at 14:30 Non-Formulary Medication (Witch Mckenna (Tucks)) 1 each PRN Q4HRS PRN TP hemorrhoidal discomfort; Start 10/09/18 at 14:30; Stop 10/09/18 at 14:41; Status DC Sodium Chloride 1,000 ml @ 50 mls/hr Q20H IV Last administered on 10/11/18at 21 :31; Start 10/09/18 at 23:30 Enoxaparin Sodium (Lovenox Per Pharmacy Prophylaxis Dosing) 1 each PRN DAILY PRN MC SEE COMMENTS; Start 10/11/18 at 10:30; Stop 10/11/18 at 15:00; Status DC Enoxaparin Sodium (Lovenox 30mg Syringe) 30 mg Q24H SQ ; Start 10/11/18 at 11:00 ; Stop 10/11/18 at 15:00; Status DC Heparin Sodium (Porcine) (Heparin Sodium) 5,000 unit Q8HRS SQ Last administered on 10/12/18at 05:51; Start 10/11/18 at 22:00 Active Scripts Active Reported Milk Of Magnesia (Magnesium Hydroxide) 2,400 Mg/10 Ml Oral.susp 2,400 Mg PEG DAILY Metoclopramide Hcl 5 Mg Tablet 2.5 Mg PEG BIDAC Zinc Sulfate 220 Mg Capsule 220 Mg PEG DAILY Acetaminophen Oral Liquid (Acetaminophen) 650 Mg/20.3 Ml Solution 650 Mg PEG PRN Q6HRS PRN Tucks (Witch Mckenna) 1 Each Med..pad 1 Each TP PRN Q4HRS PRN Levsin (Hyoscyamine Sulfate) 0.125 Mg Tablet 1 Tab SL Q4HRS PRN Vitamin C (Ascorbic Acid) 500 Mg Capsule 500 Mg PEG DAILY Acetaminophen 325 Mg/10.15 Ml Solution 800 Mg PO TID PRN Bisacodyl 10 Mg Supp.rect 10 Mg RC PRN DAILY PRN Vitals/I & O Vital Sign - Last 24 Hours 10/11/18 10/11/18 10/11/18 10/11/18 14:52 19:00 20:15 23:00 Temp 98.9 97.4 98.6 98.9 97.4 98.6 Pulse 70 55 90 Resp 19 20 20 B/P (MAP) 124/65 (84) 119/58 (78) 128/56 (80) Pulse Ox 99 2 98 O2 Delivery Simple Mask Nasal Cannula Mask Nasal Cannula O2 Flow Rate 6.0 6.0 2.0 10/12/18 10/12/18 10/12/18 10/12/18 03:06 07:00 08:00 10:43 Temp 99.1 97.8 97.9 99.1 97.8 97.9 Pulse 72 75 75 Resp 20 16 22 B/P (MAP) 133/57 (82) 120/57 (78) 145/58 (87) Pulse Ox 96 100 99 O2 Delivery Nasal Cannula Simple Mask Mask Simple Mask O2 Flow Rate 2.0 6.0 6.0 6.0 Intake and Output 10/11/18 10/11/18 10/12/18 15:00 23:00 07:00 Intake Total 150 ml 120 ml 540 ml Output Total 300 ml 500 ml 850 ml Balance -150 ml -380 ml -310 ml Nutrition Consultation Dietary Evaluation: Comments: continue TF as ordered added liquid mvi and lynnette bid to diet order Expected Outcomes/Goals: to meet > 75% est nutr needs via TF Malnutrition Findings: Muscle Mass (Severe): Severe Depletion Body Fat Depletion (Non Severe: Mod to Severe Weight Status: Underweight YASH WALTERS MD Oct 12, 2018 12:51
[2018-10-12 14:39] VITALS: BP 149/69
--- NOTE | 2018-10-12 16:04 | NUR ---
The heparin was actually given at 14:45; however, the computer timed-out before I could find a second nurse to co-sign.
[2018-10-12] MEDS: IV NORMAL SALINE 1000ML BAG 1,000 ML IV SCH (17:51)
[2018-10-12 19:00] VITALS: BP 180/88
--- NOTE | 2018-10-12 19:56 | NUR ---
The desktop computer [id number] froze and locked up -- I lost all wound care charting and had to start over and re-chart wound care on a different computer.
[2018-10-12 23:00] VITALS: BP 161/68
[2018-10-13 03:00] VITALS: BP 146/70
[2018-10-13] MEDS: PIPERACILLIN/TAZOBACTAM 3.375 GM in IV NORMAL SALINE 50ML 50 ML IV SCH (05:43)
[2018-10-13] MEDS: HEPARIN for SUB-Q USE 5,000 UNIT/ML VIAL. SQ SCH ×2 (05:45→12:03)
[2018-10-13 07:00] VITALS: BP 139/74
[2018-10-13] MEDS: IV NORMAL SALINE 1000ML BAG 1,000 ML IV SCH (07:25)
[2018-10-13] MEDS: MULTIVITAMINS,THERAPEUTIC 5 ML ORAL LIQUID. PEG SCH (07:26)
[2018-10-13] MEDS: ASCORBIC ACID 500 MG TABLET PEG SCH (07:26)
[2018-10-13] MEDS: METOCLOPRAMIDE 5 MG TABLET. PEG SCH (07:26)
[2018-10-13] MEDS: MAGNESIUM HYDROXIDE 2,400 MG/30 ML ORAL.SUSP. PEG SCH ×2 (07:26→07:27)
--- NOTE | 2018-10-13 08:41 | PDOC ---
PROGRESS NOTES Chief Complaint Chief Complaint sepsis UTI diarrhea, isolate, cx and c. diff tox sent recent aspiration PNA, on tube feeds severe malnutrition, serum albumin and BMI is 13.0 weakness and debility aphasic, bedbound History of Present Illness History of Present Illness cont current GI and ID following not much change, goals are low. tube feeds at 40 on IV abx, changed to PEG today. Family seeking different sports medicine specialist placement. Urine culture polymicrobial. Vitals Vitals Vital Signs Date Time Temp Pulse Resp B/P (MAP) Pulse Ox O2 Delivery O2 Flow Rate FiO2 10/13/18 08:00 Nasal Cannula 3.0 10/13/18 07:00 99.4 71 22 139/74 (95) 98 99.4 Physical Exam Physical Exam GENERAL: Contracted limbs LUNGS: Clear. HEART: S1, S2 ABDOMEN: Soft, Peg tube : Byrd EXTREMITIES: Contractures. Multiple deep wounds on the pressure points. NEUROLOGIC: Awake, unresponsive to verbal stimuli, noncommunicative LEJ clean General: mild distress, Other (not responsive, does not follow commands) Heart: Regular rate Lungs: Crackles, Other Abdomen: Normal bowel sounds, Soft Extremities: No clubbing, No cyanosis Assessment and Plan Assessmemt and Plan Problems Medical Problems: (1) Catheter-associated urinary tract infection Status: Acute (2) Fever Status: Acute Comment Review of Relevant I have reviewed the following items nato (where applicable) has been applied. Labs Microbiology 10/08/18 Blood Culture - Preliminary, Resulted NO GROWTH AFTER 4 DAYS 10/08/18 Stool Culture - Final, Complete 10/08/18 Stool Culture Result 1 (ZACHERY) - Final, Complete 10/08/18 Campylobacter Antigen Assay - Final, Complete 10/08/18 Campylobactor Result 1 - Final, Complete 10/08/18 Shiga Toxin Test - Final, Complete 10/08/18 Urine Culture - Final, Complete 10/08/18 Urine Culture Result 1 (ZACHERY) - Final, Complete Medications Current Medications Piperacillin Sod/ Tazobactam Sod 4.5 gm/Sodium Chloride 100 ml @ 200 mls/hr 1X ONCE IV Last administered on 10/08/18at 13:05; Start 10/08/18 at 12:00; Stop 10/08/18 at 12:29; Status DC Vancomycin HCl (Vanco Per Pharmacy) 1 each 1X ONCE MC ; Start 10/08/18 at 11:45 ; Stop 10/08/18 at 13:23; Status DC Sodium Chloride 1,500 ml @ 1,500 mls/hr Q1H IV Last administered on 10/08/18at 13:04; Start 10/08/18 at 11:43; Stop 10/08/18 at 19:35; Status DC Acetaminophen (Tylenol Supp) 650 mg 1X ONCE MN ; Start 10/08/18 at 11:45; Stop 10/08/18 at 11:53; Status DC Vancomycin HCl 750 mg/Sodium Chloride 250 ml @ 250 mls/hr 1X ONCE IV Last administered on 10/08/18at 13:53; Start 10/08/18 at 13:00; Stop 10/08/18 at 13:59 ; Status DC Piperacillin Sod/ Tazobactam Sod (Zosyn Per Pharmacy) 1 each PRN DAILY PRN MC SEE COMMENTS; Start 10/08/18 at 15:30 Piperacillin Sod/ Tazobactam Sod 3.375 gm/Sodium Chloride 50 ml @ 100 mls/hr Q6HRS IV Last administered on 10/13/18at 05:43; Start 10/08/18 at 18:00 Pharmacy Consult (C.diff Med Screen By Rx) 1 each 1X ONCE MC ; Start 10/08/18 at 18:30; Stop 10/08/18 at 18:31; Status UNV Multivitamins (Thera-Plus Oral Liquid) 5 ml DAILY PEG Last administered on 10/13at 07:26; Start 10/09/18 at 09:00 Acetaminophen (Tylenol) 650 mg PRN Q6HRS PRN PEG fever, pain Last administered on 10/12/18at 01:33; Start 10/09/18 at 14:30 Metoclopramide HCl (Reglan) 2.5 mg BIDAC PEG Last administered on 10/13/18at 07: 26; Start 10/09/18 at 16:30 Non-Formulary Medication (Acetaminophen ) 800 mg TID PRN PO PAIN; Start at 14:30; Status UNV Ascorbic Acid (Vitamin C) 500 mg DAILY PEG Last administered on 10/13/18at 07:26 ; Start 10/09/18 at 15:00 Bisacodyl (Dulcolax Supp) 10 mg PRN DAILY PRN [place] CONSTIPATION; Start 10/09/18 at 14:45 Hyoscyamine (Anaspaz) 0.125 mg PRN Q4HRS PRN PO SECRETIONS Last administered on 10/09/18at 22:58; Start 10/09/18 at 14:30 Magnesium Hydroxide (Milk Of Magnesia) 2,400 mg DAILY PEG Last administered on 10/12/18at 08:39; Start 10/09/18 at 14:30 Non-Formulary Medication (Witch Mckenna ([place]ñocks)) 1 each PRN Q4HRS PRN TP hemorrhoidal discomfort; Start 10/09/18 at 14:30; Stop 10/09/18 at 14:41; Status DC Sodium Chloride 1,000 ml @ 50 mls/hr Q20H IV Last administered on 10/13/18at 07 :25; Start 10/09/18 at 23:30 Enoxaparin Sodium (Lovenox Per Pharmacy Prophylaxis Dosing) 1 each PRN DAILY PRN MC SEE COMMENTS; Start 10/11/18 at 10:30; Stop 10/11/18 at 15:00; Status DC Enoxaparin Sodium (Lovenox 30mg Syringe) 30 mg Q24H SQ ; Start 10/11/18 at 11:00 ; Stop 10/11/18 at 15:00; Status DC Heparin Sodium (Porcine) (Heparin Sodium) 5,000 unit Q8HRS SQ Last administered on 10/13/18at 05:45; Start 10/11/18 at 22:00 Active Scripts Active Reported Milk Of Magnesia (Magnesium Hydroxide) 2,400 Mg/10 Ml Oral.susp 2,400 Mg PEG DAILY Metoclopramide Hcl 5 Mg Tablet 2.5 Mg PEG BIDAC Zinc Sulfate 220 Mg Capsule 220 Mg PEG DAILY Acetaminophen Oral Liquid (Acetaminophen) 650 Mg/20.3 Ml Solution 650 Mg PEG PRN Q6HRS PRN Tucks (Witch Mckenna) 1 Each Med..pad 1 Each TP PRN Q4HRS PRN Levsin (Hyoscyamine Sulfate) 0.125 Mg Tablet 1 Tab SL Q4HRS PRN Vitamin C (Ascorbic Acid) 500 Mg Capsule 500 Mg PEG DAILY Acetaminophen 325 Mg/10.15 Ml Solution 800 Mg PO TID PRN Bisacodyl 10 Mg Supp.rect 10 Mg RC PRN DAILY PRN Vitals/I & O Vital Sign - Last 24 Hours 10/12/18 10/12/18 10/12/18 10/12/18 10:43 14:39 19:00 20:00 Temp 97.9 97.8 99.6 97.9 97.8 99.6 Pulse 75 81 88 Resp 22 20 16 B/P (MAP) 145/58 (87) 149/69 (95) 180/88 (118) Pulse Ox 99 100 98 O2 Delivery Simple Mask Simple Mask Nasal Cannula Nasal Cannula O2 Flow Rate 6.0 6.0 3.0 3.0 10/12/18 10/13/18 10/13/18 10/13/18 23:00 03:00 07:00 08:00 Temp 99.0 99.3 99.4 99.0 99.3 99.4 Pulse 83 74 71 Resp 25 26 22 B/P (MAP) 161/68 (99) 146/70 (95) 139/74 (95) Pulse Ox 98 98 98 O2 Delivery Nasal Cannula Nasal Cannula Nasal Cannula Nasal Cannula O2 Flow Rate 3.0 3.0 3.0 3.0 Intake and Output 10/12/18 10/12/18 10/13/18 15:00 23:00 07:00 Intake Total 840 ml 1140 ml 3772 ml Output Total 0 ml 600 ml 800 ml Balance 840 ml 540 ml 2972 ml Nutrition Consultation Dietary Evaluation: Comments: continue TF as ordered added liquid mvi and lynnette bid to diet order Expected Outcomes/Goals: to meet > 75% est nutr needs via TF Malnutrition Findings: Muscle Mass (Severe): Severe Depletion Body Fat Depletion (Non Severe: Mod to Severe Weight Status: Underweight BOZENA VILLALBA MD Oct 13, 2018 08:41
--- NOTE | 2018-10-13 09:16 | NUR ---
SW following pt. Spoke with Snow at [facility] and they are reviewing clinicals. Spoke with pt's daughter, Alison Tan ([phone] who requested clinicals to be faxed to [facility] but facility did not have a bed at this time. Discussed with daughter that pt might be ready to dc today and if [facility] decline, pt might have to return back to [place]. SW discussed family can work on moving her to a different facility if SW is unable to find another facility today. At this time daughter does not have another placement option in mind but reported she will review the list provided by [facility]ppola and notify [facility]. Discussed with RN and Physician. Will continue to follow.
--- NOTE | 2018-10-13 10:18 | PDOC ---
Objective: Objective: Per RN - PEG functioning, diarrhea yesterday so held MoM today. Vital Signs: Vital Signs Date Time Temp Pulse Resp B/P (MAP) Pulse Ox O2 Delivery O2 Flow Rate FiO2 10/13/18 08:00 Nasal Cannula 3.0 10/13/18 07:00 99.4 71 22 139/74 (95) 98 99.4 Labs: STOOL CULTURE Final Final report STOOL CULT RES 1 Final Comment No Salmonella or Shigella recovered. CAMPY Final Final report CAMPY RES 1 Final Comment No Campylobacter species isolated. SHIGA TOXIN Final Negative URINE CULTURE Final Final report URINE CULTURE RES 1 Final Comment Greater than 2 organisms recovered, none predominant. BLOOD CULTURE Preliminary NO GROWTH AFTER 4 DAYS PE: GEN: NAD LUNGS: NC NEURO/PSYCH: sleeping A/P: UTI, pulm infection H/o CVA/dysphagia - PEG functioning ?intermittent diarrhea - C Diff and stool tests neg Chronic anemia, fecal occult positive - stable, no bleeding Elevated LFTs, hepatic steatosis - improved -- Stable GI-marcial, await JONO. VICKY WOODALL Oct 13, 2018 10:18
--- NOTE | 2018-10-13 10:32 | PDOC ---
Infectious Disease Note Subjective Subjective Noncommunicative No fevers last 24 hours + diarrhea Tube feedings ROS ROS no v/d/fever Vital Sign Vital Signs Vital Signs Date Time Temp Pulse Resp B/P (MAP) Pulse Ox O2 Delivery O2 Flow Rate FiO2 10/13/18 08:00 Nasal Cannula 3.0 10/13/18 07:00 99.4 71 22 139/74 (95) 98 99.4 Physical Exam PHYSICAL EXAM GENERAL: Contracted limbs LUNGS: Clear. HEART: S1, S2 ABDOMEN: Soft, Peg tube : Byrd EXTREMITIES: Contractures. Multiple deep wounds on the pressure points. NEUROLOGIC: Awake, unresponsive to verbal stimuli, noncommunicative LEJ clean Labs Micro Microbiology 10/08/18 Blood Culture - Preliminary, Resulted NO GROWTH AFTER 1 DAY Objective Assessment 1. Urinary tract infection, catheter associated . 2. Fever. 3. Pulmonary infiltrate/aspiration. 4. Dementia. 5. Multiple pressure wounds. Plan Plan of Care Zosyn,,, change to po augmentin/through tube Monitor fever curve BC NGTD wound care and offloading prognosis poor d/c JESUSITA Andrade MD Oct 13, 2018 10:32
[2018-10-13 10:45] VITALS: BP 122/69
[2018-10-13] MEDS ORDERED: AMOXICILLIN/CLAV 400MG/57MG 5 ML ORAL.SUSP. PEG SCH (12:00)
[2018-10-13] MEDS ORDERED: AMOX400S PEG (12:19)
[2018-10-13] MEDS ORDERED: Multivitamins,Therapeutic Liq PEG (12:19)
--- NOTE | 2018-10-13 12:20 | SNU/HH DC ---
DISCHARGE ORDERS DISCHARGE INFORMATION: DISCHARGE DATE: Oct 13, 2018 FINAL DIAGNOSIS Problems Medical Problems: (1) Catheter-associated urinary tract infection Status: Acute (2) Fever Status: Acute CONDITION ON DISCHARGE: Stable CODE STATUS: Code Status: Full LONG-TERM: SNF STAY <30 DAYS: No POST DISCHARGE ORDERS: ACTIVITY ORDERS: Activity as tolerated, Other, see below WEIGHT BEARING STATUS: As tolerated DIET AFTER DISCHARGE: TUBE FEEDS CHECKS AFTER DISCHARGE: CHECKS AFTER DISCHARGE: Check blood press - daily FOLLOW-UP: LAB ORDERS FOR FOLLOW-UP: BMP weekly TREATMENT/EQUIPMENT ORDERS: INFUSION EQUIPMENT NEEDED: Feeding Tube Speech Language Pathology For: Evaluation/Treatment DISCHARGE MEDICATIONS: Home Meds Active Scripts [Multivitamins,Therapeutic Liq] 5 ML LIQUID No Conflict Check, 5 ML PEG DAILY for 30 Days, #30 Prov:BOZENA VILLALBA MD 10/13/18 Amoxicillin/Potassium Clav (AMOX TR-K CLV 400-57/5 SUSP) 400 Mg/5 Ml Susp.recon , 5 ML PEG Q12HR for UTI for 7 Days, #14 MISC Prov:BOZENA VILLALBA MD 10/13/18 Reported Medications Magnesium Hydroxide (MILK OF MAGNESIA) 2,400 Mg/10 Ml Oral.susp, 2400 MG PEG DAILY for constipation, MISC 10/08/18 Metoclopramide Hcl (METOCLOPRAMIDE HCL) 5 Mg Tablet, 2.5 MG PEG BIDAC for GI motility, #60 TAB 0 Refills 10/08/18 Zinc Sulfate (ZINC SULFATE) 220 Mg Capsule, 220 MG PEG DAILY for supplement, CAP 08/24/18 Acetaminophen (ACETAMINOPHEN ORAL LIQUID ) 650 Mg/20.3 Ml Solution, 650 MG PEG PRN Q6HRS PRN for fever, pain, ML 08/24/18 Aliya Andres (TUCKS) 1 Each Med..pad, 1 EACH TP PRN Q4HRS PRN for hemorrhoidal discomfort, PAD 08/24/18 Hyoscyamine Sulfate (LEVSIN) 0.125 Mg Tablet, 1 TAB SL Q4HRS PRN for SECRETIONS , #120 TAB 5 Refills 08/24/18 Ascorbic Acid (Vitamin C) 500 Mg Capsule, 500 MG PEG DAILY for supplement, CAP 08/24/18 Acetaminophen (ACETAMINOPHEN) 325 Mg/10.15 Ml Solution, 800 MG PO TID PRN for PAIN, MISC 10/10/17 Bisacodyl (BISACODYL) 10 Mg Supp.rect, 10 MG RC PRN DAILY PRN for CONSTIPATION, SUPP.RECT 0 Refills 10/10/17 BOZENA VILLALBA MD Oct 13, 2018 12:20
--- NOTE | 2018-10-13 13:01 | NUR ---
[facility] following pt. [facility] declined to take pt. Discussed with pt's daughter, Alison via phone who reported other facilities are too far. [facility] discussed pt can dc back to [facility] today and they can work on moving her to a different facility. [facility] encouraged daughter to discuss her concerns with [facility] and also call various facilities to request for assistance in moving pt. Daughter agreeable with pt returning to [facility] today. [facility] phoned and faxed orders to [facility]. Pt will be transported via facility arranged stretcher transport between [phone]. Packet on chart. Discussed with RN and Physician.
--- NOTE | 2018-10-13 13:34 | NUR ---
Discharge Note: [facility] Discharge instructions and discharge home medications reviewed with Other facility and a copy given. All questions have been answered and understanding verbalized. The following instructions and handouts were given: d/c instructions Discontinued lines and drains: Peripheral IV intact. [facility] Person[facility] via Stretcher
--- NOTE | 2018-10-13 21:43 | PDOC3 ---
Discharge Summary Visit Information Date of Admission: Oct 08, 2018 Date of Discharge: Oct 13, 2018 Admitting Diagnosis: Fever Final Diagnosis Problems Medical Problems: (1) Catheter-associated urinary tract infection Status: Acute (2) Fever Status: Acute Brief Hospital Course Allergies Allergies Coded Allergies Type Severity Reaction Last Updated Verified I S O L A T I O N *CONTACT* Allergy Unknown 08/26/18 Yes No Known Medication Allergies Allergy Unknown 08/26/18 Yes Vital Signs Vital Signs Date Time Temp Pulse Resp B/P (MAP) Pulse Ox O2 Delivery O2 Flow Rate FiO2 10/13/18 10:45 98.8 91 22 122/69 (86) Nasal Cannula 2.0 98.8 10/13/18 07:00 98 Brief Hospital Course Ms. De Leon is an 83 year old female w/ PMHx CVA w/ dysphagia and contractures, dementia, HTN, anxiety, hiatal hernia, left ischial decub debridement, colon resection following perforation after polypectomy w/ ostomy/reversal, cholecystectomy, ?appendectomy, PEG placement who p/w fever at her SNF. She was found to have catheter associated urinary tract infection. The patient has multiple wounds, pressure wounds that may have been all the way to the bone , it is hard to say. The patient is nonverbal. The patient had been put on vancomycin and Zosyn and consultation with ID was performed for better antibiotic regimen, ultimately discharged on augmentin liquid based on polymicrobial UTI results, negative blood and stool cultures. Seen by GI for transaminitis that was ultimately due to sepsis that patient had on admission. 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 Ultimately their frustration stems from Ms De Leon's severity of disease and concern they are recommended to seek palliative care. They are more open to this after this recent hospital stay. sepsis UTI diarrhea, isolate, cx and c. diff tox sent recent aspiration PNA, on tube feeds severe malnutrition, serum albumin and BMI is 13.0 weakness and debility aphasic, bedbound Greater than 30 minutes spent on discharge Discharge Information Condition at Discharge: Stable Follow Up: Weeks (2) Disposition/Orders: D/C to Another Facility ([facility]) Scheduled Amoxicillin/Potassium Clav (Amox Tr-K Clv 400-57/5 Susp) 400 Mg/5 Ml Susp.recon , 5 ML PEG Q12HR for UTI for 7 Days, #14 Prescribed by: BOZENA VILLALBA MD on 10/13/189 Ascorbic Acid (Vitamin C) 500 Mg Capsule, 500 MG PEG DAILY for supplement, ( Reported) Entered as Reported by: Toshia Khan on 08/24/181211 Last Action: Converted on 10/09/181423 by YASH WALTERS Magnesium Hydroxide (Milk Of Magnesia) 2,400 Mg/10 Ml Oral.susp, 2,400 MG PEG DAILY for constipation, (Reported) Entered as Reported by: RILEY NIETO RN on 10/08/181751 Last Taken: Unknown Dose on 10/08/18 09 Last Action: Converted on 1423 by YASH WALTERS Metoclopramide Hcl (Metoclopramide Hcl) 5 Mg Tablet, 2.5 MG PEG BIDAC for GI motility, #60 Ref 0 (Reported) Entered as Reported by: RILEY NIETO RN on 10/08/181751 Last Taken: Unknown Dose on 10/08/18 0900 Last Action: Continued on 1423 by YASH WALTERS Zinc Sulfate (Zinc Sulfate) 220 Mg Capsule, 220 MG PEG DAILY for supplement, ( Reported) Entered as Reported by: Toshia Khan on 08/24/181211 [Multivitamins,Therapeutic Liq] 5 ML LIQUID, 5 ML PEG DAILY for 30 Days, #30 Prescribed by: BOZENA VILLALBA MD on 10/13/181218 Scheduled PRN Acetaminophen (Acetaminophen) 325 Mg/10.15 Ml Solution, 800 MG PO TID PRN for PAIN, (Reported) Entered as Reported by: GERARDO ANDERSON, STUDENT on 10/10/17 1317 Last Action: Converted on 10/09/181423 by YASH WALTERS Acetaminophen (Acetaminophen Oral Liquid ) 650 Mg/20.3 Ml Solution, 650 MG PEG PRN Q6HRS PRN for fever, pain, (Reported) Entered as Reported by: Toshia Khan on 08/24/181211 Last Action: Continued on 10/09/181423 by YASH WALTERS Bisacodyl (Bisacodyl) 10 Mg Supp.rect, 10 MG RC PRN DAILY PRN for CONSTIPATION, Ref 0 (Reported) Entered as Reported by: GERARDO ANDERSON, STUDENT on 10/10/17 1302 Last Action: Converted on 10/09/181423 by YASH WALTERS Hyoscyamine Sulfate (Levsin) 0.125 Mg Tablet, 1 TAB SL Q4HRS PRN for SECRETIONS , #120 Ref 5 (Reported) Entered as Reported by: Toshia Khan on 08/24/181211 Last Action: Converted on 10/09/181423 by YASH Andres ([facility]) 1 Each Med..pad, 1 EACH TP PRN Q4HRS PRN for hemorrhoidal discomfort, (Reported) Entered as Reported by: Toshia Khan on 08/24/181211 Last Action: Converted on 10/09/181423 by BOZENA MCKEON MD Oct 13, 2018 21:43
== END 2018-10-13 14:11 | DRG 698 ==
LOC: ER 11:28 → 5 SOUTH 14:25
PROVIDERS: ADMIT Internal Medicine; ATTEND Internal Medicine
DX: T83.518A Infection and inflammatory reaction due to other urinary catheter, initial encounter (principal); L89.43 Pressure ulcer of contiguous site of back, buttock and hip, stage 3; L89.513 Pressure ulcer of right ankle, stage 3; A41.9 Sepsis, unspecified organism; E43 Unspecified severe protein-calorie malnutrition; J69.0 Pneumonitis due to inhalation of food and vomit; K83.1 Obstruction of bile duct; N39.0 Urinary tract infection, site not specified; Z68.1 Body mass index [BMI] 19.9 or less, adult; R47.01 Aphasia; R19.7 Diarrhea, unspecified; R53.81 Other malaise; Z74.01 Bed confinement status; I10 Essential (primary) hypertension; D64.9 Anemia, unspecified; F03.90 Unspecified dementia, unspecified severity, without behavioral disturbance, psychotic disturbance, mood disturbance, and anxiety; F41.9 Anxiety disorder, unspecified; K44.9 Diaphragmatic hernia without obstruction or gangrene; K76.0 Fatty (change of) liver, not elsewhere classified; L89.329 Pressure ulcer of left buttock, unspecified stage; Y84.6 Urinary catheterization as the cause of abnormal reaction of the patient, or of later complication, without mention of misadventure at the time of the procedure; Z86.73 Personal history of transient ischemic attack (TIA), and cerebral infarction without residual deficits; Z90.49 Acquired absence of other specified parts of digestive tract
CPT/HCPCS: 36415; 71045; 76705; 80053; 80076; 81001; 82140; 82274; 82553; 83605; 84145; 85007; 85025; 85610; 85730; 86705; 86709; 86803; 87040; 87045; 87086; 87340; 87493; 87641; 87804; 93005; 96365; 96366; 96367; J1644; J2543; J3370; J7030; J7050; J8597; 99285-25

== ENCOUNTER 2018-12-26 14:29 | Emergency (ER) | payer MEDICARE, BC, OTHER ==
[~2018-12-26] VITALS: Ht 152.4 cm; Wt 41.3 kg
[~2018-12-26 14:29] MED LIST changes: +AMOX400S PEG; +MAGN2400 PEG; +METO5TAB PEG; +Multivitamins,Therapeutic Liq PEG
--- NOTE | 2018-12-26 15:35 | PHYS DOC ---
Past Medical History Past Medical History: Anemia, Anxiety, Dementia, Hypertension Additional Past Medical Histor: dysphasia, nonverbal, contractures, pressure ulcers Past Surgical History: No Surgical History Additional Past Surgical Histo: unknown Alcohol Use: None Drug Use: None Adult General Chief Complaint Chief Complaint: PEG tube problem HPI HPI Patient is a 83 year old female brought in by EMS because of PEG tube problem. Patient is a nonverbal patient and had him placed PICU for more than 2 years. Patient requesting patient coming to emergency room because there is leaking around the PEG tube area for several months. Review of Systems Review of Systems Unable to obtain because of nonverbal with severe dementia Allergies Allergies Allergies Coded Allergies Type Severity Reaction Last Updated Verified I S O L A T I O N *CONTACT* Allergy Unknown 08/26/18 Yes No Known Medication Allergies Allergy Unknown 08/26/18 Yes Physical Exam Physical Exam Constitutional: Nonverbal patient laying on her left side with flexion of her upper and lower extremities HENT: Normocephalic, atraumatic. Eyes: PERRLA. Cardiovascular:Heart rate regular rhythm, no murmur [] Lungs & Thorax: Bilateral breath sounds clear to auscultation [] Abdomen: Bowel sounds normal, soft, no tenderness, PEG tube in place with mild erythema , well functioning PEG tube without leaking fluid Skin: Warm, dry, no erythema, no rash. [] Extremities: Keeps in flexion position Neurologic: Awake, nonverbal, moves extremities Psychologic: Unable to evaluate Current Patient Data Vital Signs Vital Signs Date Time Temp Pulse Resp B/P (MAP) Pulse Ox O2 Delivery O2 Flow Rate FiO2 12/26/18 16:30 52 148/91 (110) 100 Room Air 12/26/18 14:35 97.5 18 97.5 EKG EKG [] Radiology/Procedures Radiology/Procedures [] Course & Med Decision Making Course & Med Decision Making Evaluation of patient in ER showed 83-year-old female patient with advanced dementia and nonverbal and activity place brought in by EMS for changing PICU. The closest of patient doesn't patient patient had a malfunctioning PEG tube without itching. I've discussed the plan of care with patient' daughter regarding her concern for leaking from PEG tube for months and needs to follow- up with GI as outpatient scheduling. Dragon Disclaimer Dragon Disclaimer This electronic medical record was generated, in whole or in part, using a voice recognition dictation system. Departure Departure Impression: Primary Impression: Leaking PEG tube Disposition: HOME, SELF-CARE ([facility]30 today) Condition: STABLE Referrals: LETI SANZ MD (PCP) PITO STATON MD Patient Instructions: PEG, Home Care, [id number] Additional Instructions: Follow-up with GI specialist for possible changing PEG tube Follow-up with your primary care physician in 3-5 days Return to ER if not getting better NUSRAT LOVING MD December 26, 2018 15:35
[2018-12-26 16:30] VITALS: BP 148/91
== END 2018-12-26 17:00 | disposition home or self-care (01) ==
LOC: ER 14:29
DX: K94.23 Gastrostomy malfunction (principal); F41.9 Anxiety disorder, unspecified; I10 Essential (primary) hypertension; F03.90 Unspecified dementia, unspecified severity, without behavioral disturbance, psychotic disturbance, mood disturbance, and anxiety; Z91.041 Radiographic dye allergy status
CPT/HCPCS: 99284

== ENCOUNTER 2019-01-10 17:55 | Emergency (ER) | payer MEDICARE, BC, OTHER ==
[~2019-01-10] VITALS: Ht 157.5 cm; Wt 41.3 kg
--- NOTE | 2019-01-10 19:26 | PHYS DOC ---
Past Medical History Past Medical History: Anemia, Anxiety, Dementia, Hypertension, Pneumonia Additional Past Medical Histor: dysphasia, nonverbal, contractures, pressure ulcers, SEPSESIS, HTN PNA (OVI MODI APRN) Past Surgical History: No Surgical History Additional Past Surgical Histo: KING PEG (OVI MODI APRN) Alcohol Use: None Drug Use: None (OVI MODI APRN) Adult General Chief Complaint Chief Complaint: GI PROBLEM HPI HPI Patient is a 83 year old AA female who presents to the emergency department from her [facility], accompanied by her daughters, with reports of bright red blood in her mouth. Daughters deny any nasal bleeding, nausea, vomiting, or known injury. Family reports that patient takes no blood thinners. They state that they were visiting their mother when a CLAY HOISTER pointed out that there was some blood in her mouth. Limited history of present illness due to patient's chronic aphasia and nonverbal status. (OVI MODI APRN) Review of Systems Review of Systems Constitutional: Denies fever or chills [] Eyes: Denies redness, HENT: Denies nasal congestion or nose bleed, see HPI Respiratory: Denies cough or shortness of breath [] Cardiovascular: No additional information not addressed in HPI [] GI: Denies nausea,or vomiting Integument: Denies rash or skin lesions [] Neurologic: Denies headache, focal weakness or sensory changes [] All other systems were reviewed and found to be within normal limits, except as documented in this note. (OVI MODI APRN) Allergies Allergies Allergies Coded Allergies Type Severity Reaction Last Updated Verified I S O L A T I O N *CONTACT* Allergy Unknown 08/26/18 Yes No Known Medication Allergies Allergy Unknown 08/26/18 Yes (BOSSMAN TAMAYO DO) Physical Exam Physical Exam Constitutional: Well developed, well nourished, no acute distress, non-toxic appearance. [] HENT: Normocephalic, atraumatic, bilateral external ears normal, oropharynx moist; small abrasion noted to left upper palate; nasal membranes noted to be dry without presence of blood; abrasion noted to left upper lip with dried blood no active bleeding. Eyes: conjunctiva normal, no discharge. [] Cardiovascular:Heart rate regular rhythm Lungs & Thorax: Bilateral breath sounds clear to auscultation in upper lobes, coarse bilateral lower lobes Abd: soft, bowel sounds active x4, G-tube in place [] Skin: Warm, dry, no erythema, no rash. [] Extremities: No cyanosis, no edema. [] Neurologic: Alert and oriented to normal Psychologic: Affect normal, judgement normal, mood normal. [] (OVI MODI APRN) Current Patient Data Vital Signs Vital Signs Date Time Temp Pulse Resp B/P (MAP) Pulse Ox O2 Delivery O2 Flow Rate FiO2 01/10/19 20:25 82 16 127/60 (82) 100 Nasal Cannula 3.0 01/10/19 18:02 97.9 97.9 (BOSSMAN TAMAYO DO) EKG EKG [] (OVI MODI APRN) Radiology/Procedures Radiology/Procedures [] (OVI MODI APRN) Course & Med Decision Making Course & Med Decision Making Pertinent Labs and Imaging studies reviewed. (See chart for details) [] (OVI MODI APRN) Dragon Disclaimer Dragon Disclaimer This electronic medical record was generated, in whole or in part, using a voice recognition dictation system. (OVI MODI APRN) Departure Departure Impression: Primary Impression: Abrasion of palate Additional Impression: Abrasion of lip, initial encounter Disposition: 01 HOME, SELF-CARE Condition: STABLE Referrals: LETI SANZ MD (PCP) Patient Instructions: Abrasion, [id number] Additional Instructions: Keep using humidified oxygen via nasal cannula. Recommend use of mouth moisturizer and application of lip moisturizer. Follow up with primary care doctor next week, return to the ER if symptoms worsen. Attending Signature Attending Signature I have reviewed the PA/CELLULAR BIOLOGIST's note and plan of care. I was available for consultation as needed during the patient's visit in the emergency department. I agree with the clinical impression, plan, and disposition. (BOSSMAN TAMAYO DO) Problem Qualifiers Primary Impression: Abrasion of palate Encounter type: initial encounter Qualified Codes: S00.512A - Abrasion of oral cavity, initial encounter OVI MODI APRN Jan 10, 2019 19:26 BOSSMAN TAMAYO DO Jan 11, 2019 05:37
[2019-01-10 20:25] VITALS: BP 127/60
== END 2019-01-10 21:11 | disposition home or self-care (01) ==
LOC: ER 17:55
DX: S00.512A Abrasion of oral cavity, initial encounter (principal); S00.511A Abrasion of lip, initial encounter; I10 Essential (primary) hypertension; F03.90 Unspecified dementia, unspecified severity, without behavioral disturbance, psychotic disturbance, mood disturbance, and anxiety; Z91.041 Radiographic dye allergy status; X58.XXXA Exposure to other specified factors, initial encounter; Y93.89 Activity, other specified; Y92.89 Other specified places as the place of occurrence of the external cause; Y99.8 Other external cause status
CPT/HCPCS: 99284

== ENCOUNTER 2019-01-29 13:57 | Emergency (ER) | payer MEDICARE, BC, OTHER ==
[~2019-01-29] VITALS: Ht 134.6 cm; Wt 34.0 kg
[2019-01-29 14:06] VITALS: BP 112/61
--- NOTE | 2019-01-29 14:08 | PHYS DOC ---
Past Medical History Past Medical History: Anemia, Anxiety, Dementia, Hypertension, Pneumonia Additional Past Medical Histor: dysphasia, nonverbal, contractures, pressure ulcers, SEPSESIS, HTN PNA Past Surgical History: No Surgical History Additional Past Surgical Histo: KING PEG Alcohol Use: None Drug Use: None Adult General Chief Complaint Chief Complaint: GI PROBLEM HPI HPI Patient is a 83 year old female presents after her G-tube was cut. She presents from a long-term care facility. The patient has a history of dementia with behavioral disturbances. The patient is not oriented in the room. Review of Systems Review of Systems Unable to obtain due to Patient history of dementia. Current Medications Current Medications Current Medications Medications (Trade) Dose Ordered Sig/Felix Start Time Stop Time Status Last Admin Dose Admin Info (CONTRAST GIVEN -- Rx MONITORING) 1 each PRN DAILY PRN 01/29/19 14:30 01/31/19 14:29 Iohexol (Omnipaque 300 Mg/ml) 50 ml 1X ONCE 01/29/19 14:30 01/29/19 14:31 DC 01/29/19 14:38 40 ML Allergies Allergies Allergies Coded Allergies Type Severity Reaction Last Updated Verified I S O L A T I O N *CONTACT* Allergy Unknown 08/26/18 Yes No Known Medication Allergies Allergy Unknown 08/26/18 Yes Physical Exam Physical Exam Constitutional: Laying down with contractures. HENT: Normocephalic, atraumatic, bilateral external ears normal, oropharynx moist, no oral exudates, nose normal. [] Eyes: PERRLA, EOMI, conjunctiva normal, no discharge. [] [] Cardiovascular:Heart rate regular rhythm, no murmur [] Lungs & Thorax: Bilateral breath sounds some scattered rhonchi, on 5 L of o2 c hronically at baseline. Abdomen: Bowel sounds normal, soft, no tenderness, no masses, no pulsatile masses. Has G-tube that is cut and clamped. Skin: Warm, dry, no erythema, no rash. [] Back: No tenderness, no CVA tenderness. [] Neurologic: Alert and oriented X 0 Psychologic: Affect lethargic, judgement reduced Current Patient Data Vital Signs Vital Signs Date Time Temp Pulse Resp B/P (MAP) Pulse Ox O2 Delivery O2 Flow Rate FiO2 01/29/19 14:06 97.9 75 16 112/61 (78) 92 Nasal Cannula 4.0 97.9 EKG EKG [] Radiology/Procedures Radiology/Procedures Removed peg tube. Inserted new 20 kenyan peg tube, unable to aspirate definitive contents, inflated 20 cc balloon, and flushed with no resistance. [] KUB preliminary interpretation by Dr. Ospina Peg tube is in correct place. PATIENT: LAURI COLBERT ACCOUNT: [id number] : 1935 LOCATION: ER AGE: 83 SEX: F EXAM STATUS: REG ER ORD. PHYSICIAN: BOSSMAN DELUCA APRN REASON: peg tube check please inject dye. PROCEDURE: KUB Exam performed: X-ray abdomen KUB. Clinical Indication: PEG tube check Date of Service: 01/29/2019 Comparison: None available FINDINGS: Supine radiograph of the abdomen and pelvis reveals scattered stool throughout the colon suggesting constipation. There is a PEG tube in place. Radiographic contrast is present in the stomach. No extraluminal extravasation is seen.. Definite pathologic calcification or organomegaly is not identified. There are chronic changes in the left hip joint with spondylotic changes involving the lumbar spine. Impression: 1. Scattered stool throughout the colon suggesting constipation. 2. PEG tube is overlies the left midabdomen with radiographic contrast in the stomach Electronically signed by: Mariia Rendon MD (01/29/2019 2:51 PM) [facility] Course & Med Decision Making Course & Med Decision Making Pertinent Labs and Imaging studies reviewed. (See chart for details) The patient presents for G-tube replacement. G-tube removed and replaced. Ordered KUB with injected of dye to determine correct placement. Peg tube in correct place. Will d/c back to facility. Dragon Disclaimer Dragon Disclaimer This electronic medical record was generated, in whole or in part, using a voice recognition dictation system. Departure Departure Impression: Primary Impression: PEG tube malfunction Disposition: 01 HOME, SELF-CARE Condition: STABLE Referrals: LETI SANZ MD (PCP) Patient Instructions: PEG, Home Care, [id number] Additional Instructions: Thank you for visiting [facility]. We appreciate you trusting us with your care. If any additional problems come up don't hesitate to return to visit us. Please follow up with your primary care provider so they can plan additional care if needed and know about the problem that you had. If symptoms worsen come back to the Emergency Department. Any concerning symptoms that start such as chest pain, shortness of air, weakness or numbness on one side of the body, running high fevers or any other concerning symptoms return to the ER. BOSSMAN DELUCA APRN Jan 29, 2019 14:08
[2019-01-29] MEDS ORDERED: CONTRAST GIVEN. MC PRN (14:30)
[2019-01-29] MEDS ORDERED: IOHEXOL 300 MG/ML 50 ML VIAL. PO ONE (14:30)
--- NOTE | 2019-01-29 14:54 | RAD ---
Exam performed: X-ray abdomen KUB. Clinical Indication: PEG tube check Date of Service: 01/29/2019 Comparison: None available FINDINGS: Supine radiograph of the abdomen and pelvis reveals scattered stool throughout the colon suggesting constipation. There is a PEG tube in place. Radiographic contrast is present in the stomach. No extraluminal extravasation is seen.. Definite pathologic calcification or organomegaly is not identified. There are chronic changes in the left hip joint with spondylotic changes involving the lumbar spine. Impression: 1. Scattered stool throughout the colon suggesting constipation. 2. PEG tube is overlies the left midabdomen with radiographic contrast in the stomach Electronically signed by: Mariia Rendon MD (01/29/2019 2:51 PM) [facility]
== END 2019-01-29 16:41 | disposition home or self-care (01) ==
LOC: ER 13:57
DX: K94.23 Gastrostomy malfunction (principal); F41.9 Anxiety disorder, unspecified; I10 Essential (primary) hypertension; Z91.041 Radiographic dye allergy status
CPT/HCPCS: 43762; 74018; 99284; Q9967

== ENCOUNTER 2019-07-13 07:11 | Emergency (ER) | payer MEDICARE, BC, OTHER ==
[~2019-07-13] VITALS: Ht 157.5 cm; Wt 34.0 kg
[~2019-07-13 07:11] MED LIST changes: -BISA10SU2 RC; +BISA10SU4 RC; +CYAN-25 PO; -CYAN10005 PO; -LINE600T FT; +LINE600T12 FT; +LOPE-101 PO; -LOPE2CAP88 PO; -ZINC220C5 PEG; +ZINC220C7 PEG
--- NOTE | 2019-07-13 09:08 | PHYS DOC ---
Past Medical History Past Medical History: Anemia, Anxiety, Dementia, Hypertension, Pneumonia, UTI Additional Past Medical Histor: dysphasia, nonverbal, contractures, pressure ulcers, SEPSIS, HTN PNA Past Surgical History: No Surgical History Additional Past Surgical Histo: KING PEG Alcohol Use: None Drug Use: None Adult General Chief Complaint Chief Complaint: GTUBE REPLACEMENT/MALFUNCTION HPI HPI Patient is a 84 year old nonverbal female patient with advanced dementia who presents with a dislodged PEG tube. alf staff reported that PEG tube came out around 5 AM and they inserted a King catheter and sent patient to ER for replacement of PEG tube. Patient is not able to give history. Review of Systems Review of Systems Unable to obtain, patient is nonverbal Allergies Allergies Allergies Coded Allergies Type Severity Reaction Last Updated Verified I S O L A T I O N *CONTACT* Allergy Unknown 08/26/18 Yes No Known Medication Allergies Allergy Unknown 08/26/18 Yes Physical Exam Physical Exam Constitutional: Nonverbal patient, very thin, no acute distress, flexion position of bilateral hands and legs HENT: Normocephalic, atraumatic. Eyes: PERRLA Neck: Normal range of motion, no tenderness, supple, no stridor. [] Cardiovascular:Heart rate regular rhythm, no murmur [] Lungs & Thorax: Bilateral breath sounds clear to auscultation [] Abdomen: Bowel sounds normal, soft, PEG tube in place with a King catheter,no tenderness, no masses, no pulsatile masses. [] Skin: Warm, dry, no erythema, no rash. [] Extremities: Flexion position of all extremities Neurologic: Awake, nonverbal Psychologic: Unable to evaluate Current Patient Data Vital Signs Vital Signs Date Time Temp Pulse Resp B/P (MAP) Pulse Ox O2 Delivery O2 Flow Rate FiO2 07/13/19 09:30 64 19 88/52 (64) 100 Room Air 07/13/19 07:25 96.9 96.9 EKG EKG [] Radiology/Procedures Radiology/Procedures PEG tube replacement King catheter inserted for PICU was removed and 18 Prydeinig PEG tube was inserted without problem. Insertion of tube was confirmed with giving fluid via the tube. Course & Med Decision Making Course & Med Decision Making Evaluation of patient in ER showed 84-year-old female patient brought in from group home for PEG tube replacement that was replaced without any problem. Dragon Disclaimer Dragon Disclaimer This electronic medical record was generated, in whole or in part, using a voice recognition dictation system. Departure Departure Impression: Primary Impression: Malfunction of percutaneous endoscopic gastrostomy (PEG) tube Disposition: HOME, SELF-CARE (group home at 0907) Condition: IMPROVED Referrals: LETI SANZ MD (PCP) Patient Instructions: PEG, Home Care, [id number] Additional Instructions: Continue current medication Follow-up with your primary care physician in 3-5 days Return to ER if not getting better NUSRAT LOVING MD Jul 13, 2019 09:08
[2019-07-13 09:30] VITALS: BP 88/52
== END 2019-07-13 10:00 | disposition home or self-care (01) ==
LOC: ER 07:11
DX: K94.23 Gastrostomy malfunction (principal); I10 Essential (primary) hypertension; F03.90 Unspecified dementia, unspecified severity, without behavioral disturbance, psychotic disturbance, mood disturbance, and anxiety; Z91.041 Radiographic dye allergy status; Y83.8 Other surgical procedures as the cause of abnormal reaction of the patient, or of later complication, without mention of misadventure at the time of the procedure; Y92.89 Other specified places as the place of occurrence of the external cause
CPT/HCPCS: 43762; 51702; 99284-25

== ENCOUNTER 2019-09-29 18:15 | Inpatient (IN) | payer MEDICARE, OTHER ==
[~2019-09-29] VITALS: Ht 152.4 cm; Wt 45.7 kg
[~2019-09-29 18:15] MED LIST changes: +CLOT12CR2 TP; +ISOSOURCE PEG; -MAGN2400 PEG; -MAGN2400 PO; +MAGN24003 PEG; +MAGN24003 PO; +[UNRECOGNIZED DRUG - OTHER]
[2019-09-29] MEDS: IV NORMAL SALINE 1000ML BAG 1,000 ML IV SCH ×2 (18:27→19:03)
[2019-09-29] MEDS ORDERED: PIPERACILLIN/TAZOBACTAM 4.5 GM in IV NORMAL SALINE 100ML 100 ML IV ONE (18:30)
--- NOTE | 2019-09-29 18:39 | PHYS DOC ---
Past Medical History Past Medical History: Anemia, Anxiety, Dementia, Hypertension, Pneumonia, UTI Additional Past Medical Histor: dysphasia, nonverbal, contractures, pressure ulcers, SEPSIS, Past Surgical History: No Surgical History Additional Past Surgical Histo: KING PEG Smoking Status: Never Smoker Alcohol Use: None Drug Use: None Adult General Chief Complaint Chief Complaint: FEVER HPI HPI 84-year-old female presents emergency Department with fever. Patient is a resident of nursing facility. She has underlying history of hypertension, frances ia, contractures, dysphasia. Patient is nonverbal on examination unable to provide further history information obtained from EMS and medical records. Patient currently has fever 103, she is tachypneic, tachycardic. Review of Systems Review of Systems Constitutional: fever Respiratory: Cough/SOB Cardiovascular: No additional information not addressed in HPI [] Unable to obtain all other ROS secondary to patient nonverbal and unable to provide information - based on medical condition Current Medications Current Medications Current Medications Medications (Trade) Dose Ordered Sig/Felix Start Time Stop Time Status Last Admin Dose Admin Acetaminophen (Tylenol Supp) 650 mg 1X ONCE 09/29/19 18:45 09/29/19 18:52 DC 09/29/19 18:45 650 MG Acetaminophen (Tylenol) 650 mg PRN Q4HRS PRN 09/29/19 20:45 09/30/19 20:44 Albuterol/ Ipratropium (Duoneb) 3 ml 1X ONCE 09/29/19 19:15 09/29/19 19:16 DC 09/29/19 19:15 3 ML Ondansetron HCl (Zofran) 4 mg PRN Q8HRS PRN 09/29/19 20:45 09/30/19 20:44 Piperacillin Sod/ Tazobactam Sod 3.375 gm/Sodium Chloride 50 ml @ 100 mls/hr 1X ONCE 09/29/19 18:45 09/29/19 19:14 DC 09/29/19 19:09 100 MLS/HR Piperacillin Sod/ Tazobactam Sod 4.5 gm/Sodium Chloride 100 ml @ 200 mls/hr 1X ONCE 09/29/19 18:30 09/29/19 18:59 UNV Sodium Chloride 1,000 ml @ 1,710 mls/hr Q36M 09/29/19 18:27 09/29/19 19:27 DC 09/29/19 19:03 1,710 MLS/HR Vancomycin HCl (Vanco Per Pharmacy) 1 each PRN DAILY PRN 09/29/19 18:30 Vancomycin HCl 1 gm/Sodium Chloride 250 ml @ 250 mls/hr 1X ONCE 09/29/19 18:45 09/29/19 19:44 DC 09/29/19 19:10 250 MLS/HR Allergies Allergies Allergies Coded Allergies Type Severity Reaction Last Updated Verified No Known Medication Allergies Allergy Unknown 08/26/18 Yes Physical Exam Physical Exam Constitutional: ill appearing, contractures] HENT: Normocephalic, atraumatic, bilateral external ears normal, oropharynx moist, no oral exudates, nose normal. [] Eyes: PERRLA, EOMI, conjunctiva normal, no discharge. [] Cardiovascular: Tachycardia Lungs & Thorax: Coarse BS bilaterally Abdomen: Bowel sounds normal, soft, no tenderness, no masses, no pulsatile masses. [] Skin: Warm, dry, no erythema, no rash. [] Extremities: No tenderness, no edema. [] Neurologic: awake, non-verbal Current Patient Data Vital Signs Vital Signs Date Time Temp Pulse Resp B/P (MAP) Pulse Ox O2 Delivery O2 Flow Rate FiO2 09/29/19 19:18 Nasal Cannula 4.0 09/29/19 18:15 102.1 78 28 140/109 (119) 100 102.1 Lab Values Laboratory Tests Test 09/29/19 19:20 09/29/19 19:33 09/29/19 20:22 White Blood Count 22.7 x10^3/uL (4.0-11.0) H Red Blood Count 3.85 x10^6/uL (3.50-5.40) Hemoglobin 10.7 g/dL (12.0-15.5) L Hematocrit 33.2 % (36.0-47.0) L Mean Corpuscular Volume 86 fL (79-100) Mean Corpuscular Hemoglobin 28 pg (25-35) Mean Corpuscular Hemoglobin Concent 32 g/dL (31-37) Red Cell Distribution Width 16.5 % (11.5-14.5) H Platelet Count 297 x10^3/uL (140-400) Neutrophils (%) (Auto) 89 % (31-73) H Lymphocytes (%) (Auto) 6 % (24-48) L Monocytes (%) (Auto) 4 % (0-9) Eosinophils (%) (Auto) 0 % (0-3) Basophils (%) (Auto) 0 % (0-3) Neutrophils # (Auto) 20.2 x10^3/uL (1.8-7.7) H Lymphocytes # (Auto) 1.4 x10^3/uL (1.0-4.8) Monocytes # (Auto) 1.0 x10^3/uL (0.0-1.1) Eosinophils # (Auto) 0.1 x10^3/uL (0.0-0.7) Basophils # (Auto) 0.1 x10^3/uL (0.0-0.2) Segmented Neutrophils % 78 % (35-66) H Band Neutrophils % 11 % (0-9) H Lymphocytes % 7 % (24-48) L Monocytes % 4 % (0-10) Toxic Granulation Slight Toxic Vacuolation Slight Platelet Estimate Adequate (ADEQUATE) O2 Saturation 98 % (92-99) Arterial Blood pH 7.50 (7.35-7.45) H Arterial Blood pH (Temp corrected) 7.47 Arterial Blood pCO2 at Patient Temp 34 mmHg (35-46) L Arterial Blood pCO2 (Temp correct) 37 mmHg Arterial Blood pO2 at Patient Temp 100 mmHg (65-108) Arterial Blood pO2 (Temp corrected) 112 mmHg Arterial Blood HCO3 26 mmol/L (21-28) Arterial Blood Base Excess 3 mmol/L (-3-3) FiO2 36 Sodium Level 136 mmol/L (136-145) Potassium Level 4.4 mmol/L (3.5-5.1) Chloride Level 103 mmol/L (98-107) Carbon Dioxide Level 27 mmol/L (21-32) Anion Gap 6 (6-14) Blood Urea Nitrogen 32 mg/dL (7-20) H Creatinine 0.7 mg/dL (0.6-1.0) Estimated GFR (Cockcroft-Gault) 96.9 BUN/Creatinine Ratio 46 (6-20) H Glucose Level 111 mg/dL (70-99) H Lactic Acid Level 1.2 mmol/L (0.4-2.0) Calcium Level 8.8 mg/dL (8.5-10.1) Total Bilirubin 0.4 mg/dL (0.2-1.0) Aspartate Amino Transferase (AST) 24 U/L (15-37) Alanine Aminotransferase (ALT) 24 U/L (14-59) Alkaline Phosphatase 99 U/L (46-116) AU-Qtp-G-Type Natriuretic Peptide 361 pg/mL (0-449) Total Protein 8.0 g/dL (6.4-8.2) Albumin 2.3 g/dL (3.4-5.0) L Albumin/Globulin Ratio 0.4 (1.0-1.7) L Urine Collection Type U cath Urine Color Yellow Urine Clarity Clear Urine pH 8.0 Urine Specific [place] 1.020 Urine Protein Negative mg/dL (NEG-TRACE) Urine Glucose (UA) Negative mg/dL (NEG) Urine Ketones (Stick) Negative mg/dL (NEG) Urine Blood Negative (NEG) Urine Nitrite Negative (NEG) Urine Bilirubin Negative (NEG) Urine Urobilinogen Dipstick 0.2 mg/dL (0.2 mg/dL) Urine Leukocyte Esterase Negative (NEG) Urine RBC 3-5 /HPF (0-2) Urine WBC Rare /HPF (0-4) Urine Squamous Epithelial Cells Occ /LPF Urine Bacteria Few /HPF (0-FEW) Influenza Type A Antigen Negative (NEGATIVE) Influenza Type B Antigen Negative (NEGATIVE) Laboratory Tests 09/29/19 19:20 Laboratory Tests 09/29/19 19:20 EKG EKG [] Radiology/Procedures Radiology/Procedures [facility] [address] [place] [address] IMAGING REPORT Signed PATIENT: LAURI COLBERT ACCOUNT: [id number] : 1935 LOCATION: ER AGE: 84 SEX: F EXAM STATUS: REG ER ORD. PHYSICIAN: RONDA MCKEON MD REASON: Short of breath, cough PROCEDURE: CHEST AP ONLY Exam: Chest one view INDICATION: Short of breath TECHNIQUE: Frontal view of the chest Comparisons: 07/25/2019 FINDINGS: The cardiomediastinal silhouette is within normal limits. Pulmonary vessels are prominent. Hazy opacity at the left lung base with a small left pleural effusion. IMPRESSION: Small left pleural effusion with adjacent airspace disease likely atelectasis. Superimposed infectious process is difficult to exclude. Electronically signed by: Lucille Bray MD (09/29/2019 7:10 PM) [id number] DICTATED and SIGNED BY: LUCILLE BRAY MD DATE: 09/29/191909 [] [facility] [address] [place] [address] IMAGING REPORT Signed PATIENT: LAURI COLBERT ACCOUNT: [id number] : 1935 LOCATION: ER AGE: 84 SEX: F EXAM STATUS: REG ER ORD. PHYSICIAN: RONDA MCKEON MD REASON: Fever/WBC 22k/cellulitic changes around PEG, ?abscess or other acute proces PROCEDURE: CT ABDOMEN PELVIS WO CONTRAST Exam: CT of abdomen and pelvis without contrast INDICATION: Fever TECHNIQUE: Sequential axial images through the abdomen and pelvis obtained without IV contrast. Sagittal and coronal reformatted images were reconstructed from the axial data and reviewed. Comparisons: None FINDINGS: Heart size is normal. No pericardial effusion. Consolidative changes in the left lower lobe. Additionally there is patchy tree-in-bud nodularity within the right lower lobe. Liver, spleen, pancreas and adrenals are unremarkable. Gallbladder is surgically absent. No perinephric inflammation or hydronephrosis. No renal or ureteral calculi are identified. Bladder is decompressed not well evaluated. King balloon noted within the bladder. Scattered diverticula noted throughout the colon without evidence of acute diverticulitis. There is trace free fluid noted at the pelvis. There is a percutaneous gastrostomy tube with tip in the stomach. No fluid collection along the track of the tube. Postsurgical changes at the right lower quadrant colon. Abdominal aorta has a normal course and caliber. No enlarged abdominal lymph nodes are identified. No suspicious osseous lesions or acute fractures. IMPRESSION: 1. No wall thickening or fluid collection along the track of the PEG tube. 2. Diverticulosis without evidence of acute diverticulitis. 3. Consolidative changes in the left lower lobe and tree-in-bud nodularity in the right lower lobe favored to be infectious or inflammatory in etiology. 4. No sequela of infection identified within the abdomen or pelvis. Exposure: One or more of the following in the visualized dose reduction techniques were utilized for this examination: 1. Automated exposure control 2. Adjustment of the MA and/or KV according to patient size 3. Use of iterative of reconstructive technique Electronically signed by: Lucille Bray MD (09/29/2019 9:17 PM) [id number] DICTATED and SIGNED BY: LUCILLE BRAY MD DATE: 09/29/192116 Course & Med Decision Making Course & Med Decision Making Pertinent Labs and Imaging studies reviewed. (See chart for details) []84-year-old female presents emergency Department with fever. Patient is a resident of nursing facility. She has underlying history of hypertension, dementia, contractures, dysphasia. Patient is nonverbal on examination unable to provide further history information obtained from EMS and medical records. Patient currently has fever 103, she is tachypneic, tachycardic. Sepsis protocol initiated upon arrival given appearance of patient ABG 7.49/34/99/25 Xray with evidence of left pleural effusion/consolidation cannot be ruled out Labs/Imaging reviewed Cultures obtained, IVF initiated CT scan reviewed - confirmation of LLL PNA Influenza reviewed Discussed findings with patient/family on exam Dragon Disclaimer Dragon Disclaimer This electronic medical record was generated, in whole or in part, using a voice recognition dictation system. Departure Departure Impression: Primary Impression: SIRS (systemic inflammatory response syndrome) Additional Impressions: Hypertension Dementia HCAP (healthcare-associated pneumonia) Disposition: ADMITTED INPATIENT Admitting Physician: BIRD Condition: IMPROVED Referrals: LETI SANZ MD (PCP) Critical Care Time Critical care time was 35 minutes exclusive of procedures. Problem Qualifiers Additional Impressions: Hypertension Hypertension type: essential hypertension Qualified Codes: I10 - Essential (primary) hypertension Dementia Dementia type: unspecified type Dementia behavioral disturbance: without behavioral disturbance Qualified Codes: F03.90 - Unspecified dementia without behavioral disturbance RONDA MCKEON MD Sep 29, 2019 18:39
[2019-09-29] MEDS ORDERED: PIPERACILLIN/TAZOBACTAM 3.375 GM in IV NORMAL SALINE 50ML 50 ML IV ONE (18:45)
[2019-09-29] MEDS ORDERED: VANCOMYCIN 1 GM in IV NORMAL SALINE 250ML 250 ML IV ONE (18:45)
[2019-09-29] MEDS ORDERED: ACETAMINOPHEN 650 MG SUPP.RECT. PR ONE (18:45)
--- NOTE | 2019-09-29 19:13 | RAD ---
Exam: Chest one view INDICATION: Short of breath TECHNIQUE: Frontal view of the chest Comparisons: 07/25/2019 FINDINGS: The cardiomediastinal silhouette is within normal limits. Pulmonary vessels are prominent. Hazy opacity at the left lung base with a small left pleural effusion. IMPRESSION: Small left pleural effusion with adjacent airspace disease likely atelectasis. Superimposed infectious process is difficult to exclude. Electronically signed by: Lucille Santana MD (09/29/2019 7:10 PM) [id number]
[2019-09-29] MEDS ORDERED: IPRATRPIUM/ALBUTEROL 0.5/2.5MG 3 ML NEBU. NEB ONE (19:15)
[2019-09-29 19:23] LABS: BASE EXCESS ABG 3 mmol/L (-3-3); HCO3 ABG 26 mmol/L (21-28); PCO2 ABG 34 mmHg (35-46); PO2 ABG 100 mmHg (65-108); SAT O2 ABG 98 % (92-99)
[2019-09-29 19:24] LABS: CORRECTED PCO2 ABG 37 mmHg; CORRECTED PH ABG 7.47; CORRECTED PO2 ABG 112 mmHg
[2019-09-29 19:26] LABS: FIO2 ABG 36
[2019-09-29 19:36] LABS: BASO # 0.1 x10^3/uL (0.0-0.2); BASO % 0 % (0-3); EOS # 0.1 x10^3/uL (0.0-0.7); EOS % 0 % (0-3); HEMATOCRIT 33.2 % (36.0-47.0); HEMOGLOBIN 10.7 g/dL (12.0-15.5); LYMPH # 1.4 x10^3/uL (1.0-4.8); LYMPH % 6 % (24-48); MEAN CORPUSCULAR HEMOGLOBIN 28 pg (25-35); MEAN CORPUSCULAR HGB CONC 32 g/dL (31-37); MEAN CORPUSCULAR VOLUME 86 fL (79-100); MONO % 4 % (0-9); NEUT # 20.2 x10^3/uL (1.8-7.7); NEUT % 89 % (31-73); PLATELET COUNT 297 x10^3/uL (140-400); RED BLOOD COUNT 3.85 x10^6/uL (3.50-5.40); RED CELL DISTRIBUTION WIDTH 16.5 % (11.5-14.5); WHITE BLOOD COUNT 22.7 x10^3/uL (4.0-11.0)
[2019-09-29 19:43] LABS: CALCIUM 8.8 mg/dL (8.5-10.1); CREATININE 0.7 mg/dL (0.6-1.0); GFR 96.9; POTASSIUM 4.4 mmol/L (3.5-5.1)
[2019-09-29 19:46] LABS: BILIRUBIN,URINE NEGATIVE (NEG); CLARITY,URINE CLEAR; COLOR,URINE YELLOW; NITRITE,URINE NEGATIVE (NEG); PROTEIN,URINE NEGATIVE (NEG-TRACE); UROBILINOGEN,URINE 0.2 mg/dL (0.2 mg/dL)
[2019-09-29 19:50] LABS: ALBUMIN 2.3 g/dL (3.4-5.0); ALBUMIN/GLOBULIN RATIO 0.4 (1.0-1.7); TOTAL BILIRUBIN 0.4 mg/dL (0.2-1.0)
[2019-09-29 19:57] LABS: SQUAMOUS EPITHELIAL CELL,UR OCC /LPF; WBC,URINE RARE /HPF (0-4)
[2019-09-29 19:58] LABS: BACTERIA,URINE FEW /HPF (0-FEW)
[2019-09-29] MEDS ORDERED: ACETAMINOPHEN 325 MG TABLET. PO PRN (20:45)
[2019-09-29] MEDS ORDERED: ONDANSETRON PF 4 MG/2 ML VIAL. IV PRN (20:45)
[2019-09-29 20:46] LABS: % BANDS 11 % (0-9); % LYMPHS 7 % (24-48); % MONOS 4 % (0-10); % SEGS 78 % (35-66); PLT ESTIMATE ADEQUATE (ADEQUATE)
[2019-09-29 20:47] LABS: TOXIC GRANULATION SLIGHT; TOXIC VACUOLATION SLIGHT
[2019-09-29 20:53] LABS: INFLUENZA A PATIENT NEGATIVE (NEGATIVE); INFLUENZA B PATIENT NEGATIVE (NEGATIVE)
--- NOTE | 2019-09-29 21:20 | RAD ---
Exam: CT of abdomen and pelvis without contrast INDICATION: Fever TECHNIQUE: Sequential axial images through the abdomen and pelvis obtained without IV contrast. Sagittal and coronal reformatted images were reconstructed from the axial data and reviewed. Comparisons: None FINDINGS: Heart size is normal. No pericardial effusion. Consolidative changes in the left lower lobe. Additionally there is patchy tree-in-bud nodularity within the right lower lobe. Liver, spleen, pancreas and adrenals are unremarkable. Gallbladder is surgically absent. No perinephric inflammation or hydronephrosis. No renal or ureteral calculi are identified. Bladder is decompressed not well evaluated. Byrd balloon noted within the bladder. Scattered diverticula noted throughout the colon without evidence of acute diverticulitis. There is trace free fluid noted at the pelvis. There is a percutaneous gastrostomy tube with tip in the stomach. No fluid collection along the track of the tube. Postsurgical changes at the right lower quadrant colon. Abdominal aorta has a normal course and caliber. No enlarged abdominal lymph nodes are identified. No suspicious osseous lesions or acute fractures. IMPRESSION: 1. No wall thickening or fluid collection along the track of the PEG tube. 2. Diverticulosis without evidence of acute diverticulitis. 3. Consolidative changes in the left lower lobe and tree-in-bud nodularity in the right lower lobe favored to be infectious or inflammatory in etiology. 4. No sequela of infection identified within the abdomen or pelvis. Exposure: One or more of the following in the visualized dose reduction techniques were utilized for this examination: 1. Automated exposure control 2. Adjustment of the MA and/or KV according to patient size 3. Use of iterative of reconstructive technique Electronically signed by: Lucille Santana MD (09/29/2019 9:17 PM) [id number]
[2019-09-29 23:43] VITALS: BP 174/72
--- NOTE | 2019-09-29 23:55 | NUR ---
Pt arrived to unit per cart accompanied by daughters who are her dpoa's, pt assisted to bed with assist of 4 vs obtained poc explained to daughters tele monitor applied call light placed in reach pt reposition will continue to monitor pt, call light in rech.
[2019-09-30] MEDS: VANCOMYCIN PER PHARMACY MC PRN (01:07)
--- NOTE | 2019-09-30 01:07 | NUR ---
Pharmacy Vancomycin Dosing Note S:Consulted to monitor and dose vancomycin started 09/29/19. O:LAURI COLBERT is a 84 year old F with HCAP . Height: 5 feet, 0 inches Weight: 43.0 kg Hopkins Body Weight: 45.50 Adjusted Body Weight: 44.50 Dosing Weight: Actual Other Antibiotics: LABS: Last BUN: 32 Last Creatinine: 0.7 Creatinine Clearance: 30 mL/min Last WBC: 22.7 Last Procalcitonin: Tmax (past 24 hours): Microbiology: I/O: Drug Levels: Last level: on at Last dose given 09/29/19 at 1900 Vancomycin Dosing: Loading Dose: 1000 mg x1 Dosing Weight: Actual Target Trough: 15-20 A: Based on: WT AND CRCL P: 1. Begin Vancomycin 750 mg IV q24h 2. Follow up Trough level on 10/01/19 at 1830 3. Pharmacy will continue to monitor, follow and adjust therapy as needed. AURA VILLALOBOS RPH, 09/30/19 0107 Signed: 09/30/19 at 0108 by AURA VILLALOBOS RPH PHA
[2019-09-30 02:55] VITALS: BP 122/58
[2019-09-30] MEDS ORDERED: ACETAMINOPHEN 650 MG SUPP.RECT. PR PRN ×2 (03:00→13:45)
[2019-09-30] MEDS ORDERED: NYST15PO9 TP (04:36)
--- NOTE | 2019-09-30 04:37 | NUR ---
Pt peg tube leaking thick green secretions, peg tube loose and not stable at time of admit.
[2019-09-30 05:57] LABS: BASO # 0.1 x10^3/uL (0.0-0.2); BASO % 0 % (0-3); EOS # 0.1 x10^3/uL (0.0-0.7); EOS % 0 % (0-3); HEMATOCRIT 31.2 % (36.0-47.0); HEMOGLOBIN 10.1 g/dL (12.0-15.5); LYMPH # 1.3 x10^3/uL (1.0-4.8); LYMPH % 6 % (24-48); MEAN CORPUSCULAR HEMOGLOBIN 28 pg (25-35); MEAN CORPUSCULAR HGB CONC 33 g/dL (31-37); MEAN CORPUSCULAR VOLUME 87 fL (79-100); MONO # 1.3 x10^3/uL (0.0-1.1); MONO % 5 % (0-9); NEUT # 20.7 x10^3/uL (1.8-7.7); NEUT % 88 % (31-73); PLATELET COUNT 267 x10^3/uL (140-400); RED BLOOD COUNT 3.59 x10^6/uL (3.50-5.40); RED CELL DISTRIBUTION WIDTH 16.4 % (11.5-14.5); WHITE BLOOD COUNT 23.4 x10^3/uL (4.0-11.0)
--- NOTE | 2019-09-30 06:09 | EKG ---
[facility] [address] [place] [address] Test Date: 2019-09-29 Test Time: 20:13:39 Pat Name: LAURI COLBERT Department: Room: Gender: F [employer] Changer: : 1935 Requested By: RONDA MCKEON Order Number: [id number] Reading MD: Measurements Intervals [place] Rate: 117 P: 51 AK: 96 QRS: -16 QRSD: 84 T: 52 QT: 348 QTc: 490 Interpretive Statements SINUS TACHYCARDIA COMPLEX(ES) WITH ABERRANT INTRAVENTRICULAR CONDUCTION VENTRICULAR PREMATURE COMPLEX(ES) INTERPOLATED VENTRICULAR PREMATURE COMPLEX(ES) ATRIAL PREMATURE COMPLEX(ES) INTERPOLATED ATRIAL PREMATURE COMPLEX(ES) LEFTWARD AXIS QRS(T) CONTOUR ABNORMALITY CONSIDER ANTEROLATERAL MYOCARDIAL DAMAGE T ABNORMALITY IN INFERIOR LEADS ABNORMAL ECG No previous ECG available for comparison
[2019-09-30 06:23] LABS: ALBUMIN 2.1 g/dL (3.4-5.0); ALBUMIN/GLOBULIN RATIO 0.4 (1.0-1.7); CALCIUM 8.7 mg/dL (8.5-10.1); CREATININE 0.8 mg/dL (0.6-1.0); GFR 83.1; POTASSIUM 4.3 mmol/L (3.5-5.1); TOTAL BILIRUBIN 0.5 mg/dL (0.2-1.0); TOTAL PROTEIN 7.4 g/dL (6.4-8.2)
[2019-09-30 07:00] VITALS: BP 124/71
[2019-09-30] MEDS ORDERED: PIP/TAZO PER PHARMACY MC PRN (07:45)
[2019-09-30] MEDS ORDERED: PIPERACILLIN/TAZOBACTAM 3.375 GM in IV NORMAL SALINE 50ML 50 ML IV ONE (08:00)
--- NOTE | 2019-09-30 09:09 | PDOC2 ---
GI CONSULT Reason For Consult: PEG leaking HPI: HPI: 84 y/o female who Dr. Landrum has seen in the past. Non-verbal w/ h/o CVA, pneumonia, dysphagia, contractures, and PEG/leakage. Leakage improved in the past with tightening of bumper. Past advice to not put gauze under bumper. PEG replaced by Dr. Landrum in 05/2018. Hiatal hernia and non-erosive gastritis noted in the past. PEG replaced by ER physician on 08/28/19 (24Fr). Colonoscopy many years ago w/ polypectomy and perforation, then colon resection w/ ostomy and reversal. S/p cholecystectomy. Seen in the past re: elevated LFTs and diarrhea in setting of UTI/pneumonia/sepsis. Stool tests unrevealing and imaging noted hepatic steatosis. Viral Hepatitis panel negative. Chronic anemia. On Reglan in the past. This time to ER w/ fever, nursing noted leakage around PEG overnight and we are asked to see for same. PMH: PMH: CVA w/ dysphagia and contractures, dementia, HTN, anxiety, hiatal hernia, left ischial decub debridement, colon resection following perforation after polypectomy w/ ostomy/reversal, cholecystectomy, ?appendectomy, PEG placement, UTI, pneumonia FH: Family History: No pertinent hx Social History: ALCOHOL: none Drugs: None ROS: Unable to obtain. Vitals: Vitals: Vital Signs Date Time Temp Pulse Resp B/P (MAP) Pulse Ox O2 Delivery O2 Flow Rate FiO2 09/30/19 07:00 99.3 76 20 124/71 (88) 98 Nasal Cannula 4.0 99.3 Labs: Labs: Laboratory Tests Test 09/29/19 19:20 09/29/19 19:33 09/29/19 20:22 09/30/19 05:11 White Blood Count 22.7 x10^3/uL (4.0-11.0) 23.4 x10^3/uL (4.0-11.0) Red Blood Count 3.85 x10^6/uL (3.50-5.40) 3.59 x10^6/uL (3.50-5.40) Hemoglobin 10.7 g/dL (12.0-15.5) 10.1 g/dL (12.0-15.5) Hematocrit 33.2 % (36.0-47.0) 31.2 % (36.0-47.0) Mean Corpuscular Volume 86 fL (79-100) 87 fL (79-100) Mean Corpuscular Hemoglobin 28 pg (25-35) 28 pg (25-35) Mean Corpuscular Hemoglobin Concent 32 g/dL (31-37) 33 g/dL (31-37) Red Cell Distribution Width 16.5 % (11.5-14.5) 16.4 % (11.5-14.5) Platelet Count 297 x10^3/uL (140-400) 267 x10^3/uL (140-400) Neutrophils (%) (Auto) 89 % (31-73) 88 % (31-73) Lymphocytes (%) (Auto) 6 % (24-48) 6 % (24-48) Monocytes (%) (Auto) 4 % (0-9) 5 % (0-9) Eosinophils (%) (Auto) 0 % (0-3) 0 % (0-3) Basophils (%) (Auto) 0 % (0-3) 0 % (0-3) Neutrophils # (Auto) 20.2 x10^3/uL (1.8-7.7) 20.7 x10^3/uL (1.8-7.7) Lymphocytes # (Auto) 1.4 x10^3/uL (1.0-4.8) 1.3 x10^3/uL (1.0-4.8) Monocytes # (Auto) 1.0 x10^3/uL (0.0-1.1) 1.3 x10^3/uL (0.0-1.1) Eosinophils # (Auto) 0.1 x10^3/uL (0.0-0.7) 0.1 x10^3/uL (0.0-0.7) Basophils # (Auto) 0.1 x10^3/uL (0.0-0.2) 0.1 x10^3/uL (0.0-0.2) Segmented Neutrophils % 78 % (35-66) Band Neutrophils % 11 % (0-9) Lymphocytes % 7 % (24-48) Monocytes % 4 % (0-10) Toxic Granulation Slight Toxic Vacuolation Slight Platelet Estimate Adequate (ADEQUATE) O2 Saturation 98 % (92-99) Arterial Blood pH 7.50 (7.35-7.45) Arterial Blood pH (Temp corrected) 7.47 Arterial Blood pCO2 at Patient Temp 34 mmHg (35-46) Arterial Blood pCO2 (Temp correct) 37 mmHg Arterial Blood pO2 at Patient Temp 100 mmHg (65-108) Arterial Blood pO2 (Temp corrected) 112 mmHg Arterial Blood HCO3 26 mmol/L (21-28) Arterial Blood Base Excess 3 mmol/L (-3-3) FiO2 36 Sodium Level 136 mmol/L (136-145) 140 mmol/L (136-145) Potassium Level 4.4 mmol/L (3.5-5.1) 4.3 mmol/L (3.5-5.1) Chloride Level 103 mmol/L (98-107) 107 mmol/L (98-107) Carbon Dioxide Level 27 mmol/L (21-32) 25 mmol/L (21-32) Anion Gap 6 (6-14) 8 (6-14) Blood Urea Nitrogen 32 mg/dL (7-20) 24 mg/dL (7-20) Creatinine 0.7 mg/dL (0.6-1.0) 0.8 mg/dL (0.6-1.0) Estimated GFR (Cockcroft-Gault) 96.9 83.1 BUN/Creatinine Ratio 46 (6-20) 30 (6-20) Glucose Level 111 mg/dL (70-99) 94 mg/dL (70-99) Lactic Acid Level 1.2 mmol/L (0.4-2.0) Calcium Level 8.8 mg/dL (8.5-10.1) 8.7 mg/dL (8.5-10.1) Total Bilirubin 0.4 mg/dL (0.2-1.0) 0.5 mg/dL (0.2-1.0) Aspartate Amino Transf (AST/SGOT) 24 U/L (15-37) 27 U/L (15-37) Alanine Aminotransferase (ALT/SGPT) 24 U/L (14-59) 20 U/L (14-59) Alkaline Phosphatase 99 U/L (46-116) 95 U/L (46-116) ZV-Whd-F-Type Natriuretic Peptide 361 pg/mL (0-449) Total Protein 8.0 g/dL (6.4-8.2) 7.4 g/dL (6.4-8.2) Albumin 2.3 g/dL (3.4-5.0) 2.1 g/dL (3.4-5.0) Albumin/Globulin Ratio 0.4 (1.0-1.7) 0.4 (1.0-1.7) Urine Collection Type U cath Urine Color Yellow Urine Clarity Clear Urine pH 8.0 Urine Specific [place] 1.020 Urine Protein Negative mg/dL (NEG-TRACE) Urine Glucose (UA) Negative mg/dL (NEG) Urine Ketones (Stick) Negative mg/dL (NEG) Urine Blood Negative (NEG) Urine Nitrite Negative (NEG) Urine Bilirubin Negative (NEG) Urine Urobilinogen Dipstick 0.2 mg/dL (0.2 mg/dL) Urine Leukocyte Esterase Negative (NEG) Urine RBC 3-5 /HPF (0-2) Urine WBC Rare /HPF (0-4) Urine Squamous Epithelial Cells Occ /LPF Urine Bacteria Few /HPF (0-FEW) Influenza Type A Antigen Negative (NEGATIVE) Influenza Type B Antigen Negative (NEGATIVE) Allergies: Coded Allergies: No Known Medication Allergies (Verified Allergy, Unknown, 08/26/18) Medications: Current Medications Medications (Trade) Dose Ordered Sig/Felix Route PRN Reason Start Time Stop Time Status Last Admin Dose Admin Sodium Chloride 1,000 ml @ 1,710 mls/hr Q36M IV 09/29/19 18:27 09/29/19 19:27 DC 09/29/19 19:03 Vancomycin HCl (Vanco Per Pharmacy) 1 each PRN DAILY PRN MC SEE COMMENTS 09/29/19 18:30 09/30/19 01:07 Piperacillin Sod/ Tazobactam Sod 3.375 gm/Sodium Chloride 50 ml @ 100 mls/hr 1X ONCE IV 09/29/19 18:45 09/29/19 19:14 DC 09/29/19 19:09 Vancomycin HCl 1 gm/Sodium Chloride 250 ml @ 250 mls/hr 1X ONCE IV 09/29/19 18:45 09/29/19 19:44 DC 09/29/19 19:10 Acetaminophen (Tylenol Supp) 650 mg 1X ONCE FL 09/29/19 18:45 09/29/19 18:52 DC 09/29/19 18:45 Albuterol/ Ipratropium (Duoneb) 3 ml 1X ONCE NEB 09/29/19 19:15 09/29/19 19:16 DC 09/29/19 19:15 Acetaminophen (Tylenol Supp) 650 mg PRN Q6HRS PRN FL MILD PAIN / TEMP 09/30/19 03:00 09/30/19 03:11 Piperacillin Sod/ Tazobactam Sod 3.375 gm/Sodium Chloride 50 ml @ 100 mls/hr 1X ONCE IV 09/30/19 08:00 09/30/19 08:29 DC 09/30/19 08:29 Imaging: Imaging: CXR IMPRESSION: Small left pleural effusion with adjacent airspace disease likely atelectasis. Superimposed infectious process is difficult to exclude. CT A/P IMPRESSION: 1. No wall thickening or fluid collection along the track of the PEG tube. 2. Diverticulosis without evidence of acute diverticulitis. 3. Consolidative changes in the left lower lobe and tree-in-bud nodularity in the right lower lobe favored to be infectious or inflammatory in etiology. 4. No sequela of infection identified within the abdomen or pelvis. PE: GEN: thin, chronically ill - staff present cleaning her up after stool HEENT: Atraumatic, PERRL LUNGS: diminished anteriorly HEART: RRR ABD: soft, PEG (balloon replacement type) in place LUQ - removed gauze and tape positioned around tube, bumper very loose - tightened EXTREMITY: No edema SKIN: No rashes, no jaundice NEURO/PSYCH: awake A/P: A/P: PEG in place, leaking w/ loose bumper Fever, leaukocytosis, chronic anemia, left pleural effusion -- Bumper tightened. Okay to retry feeds. May put gauze OVER bumper - NOT UNDER. VICKY WOODALL Sep 30, 2019 09:09
[2019-09-30 11:00] VITALS: BP 133/72
[2019-09-30] MEDS ORDERED: PIPERACILLIN/TAZOBACTAM 3.375 GM in IV NORMAL SALINE 50ML 50 ML IV SCH (12:00)
--- NOTE | 2019-09-30 12:03 | PDOC1 ---
History and Physical Date of Admission Date of Admission DATE: 09/30/19 TIME: 12:02 Identification/Chief Complaint Chief Complaint SEEN IN ER , 84-year-old female presents emergency Department with fever. Patient is a resident of nursing facility. has underlying history of hypertension, dementia, contractures, dysphasia. Patient is nonverbal on examination unable to provide further history information obtained from EMS and medical records. currently has fever 103, she is tachypneic, tachycardic. Past Medical History Past Medical History Past Medical History Past Medical History: Anemia, Anxiety, Dementia, Hypertension, Pneumonia, UTI Additional Past Medical Histor: dysphasia, nonverbal, contractures, pressure ulcers, SEPSIS, Past Surgical History: No Surgical History Additional Past Surgical Histo: KING PEG Smoking Status: Never Smoker Alcohol Use: None Drug Use: None FHX HTN Cardiovascular: HTN CENTRAL NERVOUS SYSTEM: CVA, Dementia Psych: Anxiety Rheumatologic: No pertinent hx Renal/: No pertinent hx Past Surgical History Past Surgical History: Other Family History Family History: High Cholestrol, Hypertension, Family History Unknown Social History Smoke: No ALCOHOL: none Drugs: None Current Problem List Problem List Problems Medical Problems: (1) Dementia Status: Acute (2) HCAP (healthcare-associated pneumonia) Status: Acute (3) Hypertension Status: Acute (4) SIRS (systemic inflammatory response syndrome) Status: Acute Current Medications Current Medications Current Medications Sodium Chloride 1,000 ml @ 1,710 mls/hr Q36M IV Last administered on 09/29/19at 19:03; Start 09/29/19 at 18:27; Stop 09/29/19 at 19:27; Status DC Piperacillin Sod/ Tazobactam Sod 4.5 gm/Sodium Chloride 100 ml @ 200 mls/hr 1X ONCE IV ; Start 09/29/19 at 18:30; Stop 09/29/19 at 18:59; Status UNV Vancomycin HCl (Vanco Per Pharmacy) 1 each PRN DAILY PRN MC SEE COMMENTS Last administered on 09/30/19at 01:07; Start 09/29/19 at 18:30 Piperacillin Sod/ Tazobactam Sod 3.375 gm/Sodium Chloride 50 ml @ 100 mls/hr 1X ONCE IV Last administered on 09/29/19at 19:09; Start 09/29/19 at 18:45; Stop 09/29/19 at 19:14; Status DC Vancomycin HCl 1 gm/Sodium Chloride 250 ml @ 250 mls/hr 1X ONCE IV Last administered on 09/29/19at 19:10; Start 09/29/19 at 18:45; Stop 09/29/19 at 19:44; Status DC Acetaminophen (Tylenol Supp) 650 mg 1X ONCE [place] Last administered on 09/29/19at 18:45; Start 09/29/19 at 18:45; Stop 09/29/19 at 18:52; Status DC Albuterol/ Ipratropium (Duoneb) 3 ml 1X ONCE NEB Last administered on 09/29/19at 19:15; Start 09/29/19 at 19:15; Stop 09/29/19 at 19:16; Status DC Ondansetron HCl (Zofran) 4 mg PRN Q8HRS PRN IV NAUSEA/VOMITING 1ST CHOICE; Start 09/29/19 at 20:45; Stop 09/30/19 at 20:44 Acetaminophen (Tylenol) 650 mg PRN Q4HRS PRN PO FEVER; Start 09/29/19 at 20:45; Stop 09/30/19 at 20:44 Vancomycin HCl 750 mg/Sodium Chloride 250 ml @ 250 mls/hr Q24H IV ; Start 09/30/19 at 19:00 Vancomycin HCl (Vancomycin Trough Level) 1 each 1X ONCE MC ; Start 10/01/19 at 18:30; Stop 10/01/19 at 18:31 Acetaminophen (Tylenol Supp) 650 mg PRN Q6HRS PRN IL MILD PAIN / TEMP Last administered on 09/30/19at 03:11; Start 09/30/19 at 03:00 Piperacillin Sod/ Tazobactam Sod (Zosyn Per Pharmacy) 1 each PRN DAILY PRN MC SEE COMMENTS; Start 09/30/19 at 07:45 Piperacillin Sod/ Tazobactam Sod 3.375 gm/Sodium Chloride 50 ml @ 100 mls/hr Q6HRS IV ; Start 09/30/19 at 12:00 Piperacillin Sod/ Tazobactam Sod 3.375 gm/Sodium Chloride 50 ml @ 100 mls/hr 1X ONCE IV Last administered on 09/30/19at 08:29; Start 09/30/19 at 08:00; Stop 09/30/19 at 08:29; Status DC Active Scripts Active [Multivitamins,Therapeutic Liq] 5 ML Liquid 5 Ml PEG DAILY 30 Days Reported Nystatin 15 Gm Powder 1 Kady TP BID 7 Days apply to affected area(s) [isosource1.5T.F.] 40 Ml PEG Isosource 1.5 40 ml per hour continuous per peg, H2O 130 ml every 4 hours. Lotrimin Af (Clotrimazole) 12 Gm Cream..g. 1 Kady TP Q4HRS PRN for redness around PEG site [bactrobanoint2%] 11 % BID apply to PEG site two times a day for skin irritation/rash Milk Of Magnesia (Magnesium Hydroxide) 2,400 Mg/10 Ml Oral.susp 2,400 Mg PEG DAILY Metoclopramide Hcl 5 Mg Tablet 2.5 Mg PEG DAILY06 Zinc Sulfate 220 Mg Capsule 220 Mg PEG DAILY Acetaminophen Oral Liquid (Acetaminophen) 650 Mg/20.3 Ml Solution 650 Mg PEG PRN Q6HRS PRN Levsin (Hyoscyamine Sulfate) 0.125 Mg Tablet 1 Tab SL Q4HRS PRN Vitamin C (Ascorbic Acid) 500 Mg Capsule 500 Mg PEG DAILY Acetaminophen 325 Mg/10.15 Ml Solution 650 Mg PO Q4HRS PRN Allergies Allergies: Coded Allergies: No Known Medication Allergies (Verified Allergy, Unknown, 08/26/18) ROS Review of System Review of Systems Review of Systems Constitutional: fever Respiratory: Cough/SOB Cardiovascular: No additional information not addressed in HPI [] Unable to obtain all other ROS secondary to patient nonverbal and unable to provide information - based on medical condition General: YES: Chills, Fatigue PSYCHOLOGICAL ROS: YES: Concentration difficultie, Memory difficulties ALLERGY AND IMMUNOLOGY: No: Hives, Insect Bite Sensitivity, Itchy/Watery Eyes, Nasal Congestion, Post Nasal Drip, Seasonal Allergies, Other Respiratory: YES: Cough, Shortness of breath, Sputum Changes Physical Exam Physical Exam Physical Exam Physical Exam Constitutional: ill appearing, contractures] HENT: Normocephalic, atraumatic, bilateral external ears normal, oropharynx moist, no oral exudates, nose normal. [] Eyes: PERRLA, EOMI, conjunctiva normal, no discharge. [] Cardiovascular: Tachycardia Lungs & Thorax: Coarse BS bilaterally Abdomen: Bowel sounds normal, soft, no tenderness, no masses, no pulsatile masses. [] Skin: Warm, dry, no erythema, no rash. [] Extremities: No tenderness, no edema. [] Neurologic: awake, non-verbal General: Cooperative, mild distress Breasts: Not examined Abdomen: Soft Extremities: No cyanosis Vitals Vitals Vital Signs Date Time Temp Pulse Resp B/P (MAP) Pulse Ox O2 Delivery O2 Flow Rate FiO2 09/30/19 11:00 97.4 80 18 133/72 (92) 100 Nasal Cannula 4.0 97.4 Labs Labs Laboratory Tests Test 09/29/19 19:20 09/29/19 19:33 09/29/19 20:22 09/30/19 05:11 White Blood Count 22.7 x10^3/uL (4.0-11.0) 23.4 x10^3/uL (4.0-11.0) Red Blood Count 3.85 x10^6/uL (3.50-5.40) 3.59 x10^6/uL (3.50-5.40) Hemoglobin 10.7 g/dL (12.0-15.5) 10.1 g/dL (12.0-15.5) Hematocrit 33.2 % (36.0-47.0) 31.2 % (36.0-47.0) Mean Corpuscular Volume 86 fL (79-100) 87 fL (79-100) Mean Corpuscular Hemoglobin 28 pg (25-35) 28 pg (25-35) Mean Corpuscular Hemoglobin Concent 32 g/dL (31-37) 33 g/dL (31-37) Red Cell Distribution Width 16.5 % (11.5-14.5) 16.4 % (11.5-14.5) Platelet Count 297 x10^3/uL (140-400) 267 x10^3/uL (140-400) Neutrophils (%) (Auto) 89 % (31-73) 88 % (31-73) Lymphocytes (%) (Auto) 6 % (24-48) 6 % (24-48) Monocytes (%) (Auto) 4 % (0-9) 5 % (0-9) Eosinophils (%) (Auto) 0 % (0-3) 0 % (0-3) Basophils (%) (Auto) 0 % (0-3) 0 % (0-3) Neutrophils # (Auto) 20.2 x10^3/uL (1.8-7.7) 20.7 x10^3/uL (1.8-7.7) Lymphocytes # (Auto) 1.4 x10^3/uL (1.0-4.8) 1.3 x10^3/uL (1.0-4.8) Monocytes # (Auto) 1.0 x10^3/uL (0.0-1.1) 1.3 x10^3/uL (0.0-1.1) Eosinophils # (Auto) 0.1 x10^3/uL (0.0-0.7) 0.1 x10^3/uL (0.0-0.7) Basophils # (Auto) 0.1 x10^3/uL (0.0-0.2) 0.1 x10^3/uL (0.0-0.2) Segmented Neutrophils % 78 % (35-66) Band Neutrophils % 11 % (0-9) Lymphocytes % 7 % (24-48) Monocytes % 4 % (0-10) Toxic Granulation Slight Toxic Vacuolation Slight Platelet Estimate Adequate (ADEQUATE) O2 Saturation 98 % (92-99) Arterial Blood pH 7.50 (7.35-7.45) Arterial Blood pH (Temp corrected) 7.47 Arterial Blood pCO2 at Patient Temp 34 mmHg (35-46) Arterial Blood pCO2 (Temp correct) 37 mmHg Arterial Blood pO2 at Patient Temp 100 mmHg (65-108) Arterial Blood pO2 (Temp corrected) 112 mmHg Arterial Blood HCO3 26 mmol/L (21-28) Arterial Blood Base Excess 3 mmol/L (-3-3) FiO2 36 Sodium Level 136 mmol/L (136-145) 140 mmol/L (136-145) Potassium Level 4.4 mmol/L (3.5-5.1) 4.3 mmol/L (3.5-5.1) Chloride Level 103 mmol/L (98-107) 107 mmol/L (98-107) Carbon Dioxide Level 27 mmol/L (21-32) 25 mmol/L (21-32) Anion Gap 6 (6-14) 8 (6-14) Blood Urea Nitrogen 32 mg/dL (7-20) 24 mg/dL (7-20) Creatinine 0.7 mg/dL (0.6-1.0) 0.8 mg/dL (0.6-1.0) Estimated GFR (Cockcroft-Gault) 96.9 83.1 BUN/Creatinine Ratio 46 (6-20) 30 (6-20) Glucose Level 111 mg/dL (70-99) 94 mg/dL (70-99) Lactic Acid Level 1.2 mmol/L (0.4-2.0) Calcium Level 8.8 mg/dL (8.5-10.1) 8.7 mg/dL (8.5-10.1) Total Bilirubin 0.4 mg/dL (0.2-1.0) 0.5 mg/dL (0.2-1.0) Aspartate Amino Transf (AST/SGOT) 24 U/L (15-37) 27 U/L (15-37) Alanine Aminotransferase (ALT/SGPT) 24 U/L (14-59) 20 U/L (14-59) Alkaline Phosphatase 99 U/L (46-116) 95 U/L (46-116) FQ-Ggx-D-Type Natriuretic Peptide 361 pg/mL (0-449) Total Protein 8.0 g/dL (6.4-8.2) 7.4 g/dL (6.4-8.2) Albumin 2.3 g/dL (3.4-5.0) 2.1 g/dL (3.4-5.0) Albumin/Globulin Ratio 0.4 (1.0-1.7) 0.4 (1.0-1.7) Urine Collection Type U cath Urine Color Yellow Urine Clarity Clear Urine pH 8.0 Urine Specific [place] 1.020 Urine Protein Negative mg/dL (NEG-TRACE) Urine Glucose (UA) Negative mg/dL (NEG) Urine Ketones (Stick) Negative mg/dL (NEG) Urine Blood Negative (NEG) Urine Nitrite Negative (NEG) Urine Bilirubin Negative (NEG) Urine Urobilinogen Dipstick 0.2 mg/dL (0.2 mg/dL) Urine Leukocyte Esterase Negative (NEG) Urine RBC 3-5 /HPF (0-2) Urine WBC Rare /HPF (0-4) Urine Squamous Epithelial Cells Occ /LPF Urine Bacteria Few /HPF (0-FEW) Influenza Type A Antigen Negative (NEGATIVE) Influenza Type B Antigen Negative (NEGATIVE) Laboratory Tests Test 3/3/20 19:20 09/29/19 19:33 09/29/19 20:22 09/30/19 05:11 White Blood Count 22.7 x10^3/uL (4.0-11.0) 23.4 x10^3/uL (4.0-11.0) Red Blood Count 3.85 x10^6/uL (3.50-5.40) 3.59 x10^6/uL (3.50-5.40) Hemoglobin 10.7 g/dL (12.0-15.5) 10.1 g/dL (12.0-15.5) Hematocrit 33.2 % (36.0-47.0) 31.2 % (36.0-47.0) Mean Corpuscular Volume 86 fL (79-100) 87 fL (79-100) Mean Corpuscular Hemoglobin 28 pg (25-35) 28 pg (25-35) Mean Corpuscular Hemoglobin Concent 32 g/dL (31-37) 33 g/dL (31-37) Red Cell Distribution Width 16.5 % (11.5-14.5) 16.4 % (11.5-14.5) Platelet Count 297 x10^3/uL (140-400) 267 x10^3/uL (140-400) Neutrophils (%) (Auto) 89 % (31-73) 88 % (31-73) Lymphocytes (%) (Auto) 6 % (24-48) 6 % (24-48) Monocytes (%) (Auto) 4 % (0-9) 5 % (0-9) Eosinophils (%) (Auto) 0 % (0-3) 0 % (0-3) Basophils (%) (Auto) 0 % (0-3) 0 % (0-3) Neutrophils # (Auto) 20.2 x10^3/uL (1.8-7.7) 20.7 x10^3/uL (1.8-7.7) Lymphocytes # (Auto) 1.4 x10^3/uL (1.0-4.8) 1.3 x10^3/uL (1.0-4.8) Monocytes # (Auto) 1.0 x10^3/uL (0.0-1.1) 1.3 x10^3/uL (0.0-1.1) Eosinophils # (Auto) 0.1 x10^3/uL (0.0-0.7) 0.1 x10^3/uL (0.0-0.7) Basophils # (Auto) 0.1 x10^3/uL (0.0-0.2) 0.1 x10^3/uL (0.0-0.2) Segmented Neutrophils % 78 % (35-66) Band Neutrophils % 11 % (0-9) Lymphocytes % 7 % (24-48) Monocytes % 4 % (0-10) Toxic Granulation Slight Toxic Vacuolation Slight Platelet Estimate Adequate (ADEQUATE) O2 Saturation 98 % (92-99) Arterial Blood pH 7.50 (7.35-7.45) Arterial Blood pH (Temp corrected) 7.47 Arterial Blood pCO2 at Patient Temp 34 mmHg (35-46) Arterial Blood pCO2 (Temp correct) 37 mmHg Arterial Blood pO2 at Patient Temp 100 mmHg (65-108) Arterial Blood pO2 (Temp corrected) 112 mmHg Arterial Blood HCO3 26 mmol/L (21-28) Arterial Blood Base Excess 3 mmol/L (-3-3) FiO2 36 Sodium Level 136 mmol/L (136-145) 140 mmol/L (136-145) Potassium Level 4.4 mmol/L (3.5-5.1) 4.3 mmol/L (3.5-5.1) Chloride Level 103 mmol/L (98-107) 107 mmol/L (98-107) Carbon Dioxide Level 27 mmol/L (21-32) 25 mmol/L (21-32) Anion Gap 6 (6-14) 8 (6-14) Blood Urea Nitrogen 32 mg/dL (7-20) 24 mg/dL (7-20) Creatinine 0.7 mg/dL (0.6-1.0) 0.8 mg/dL (0.6-1.0) Estimated GFR (Cockcroft-Gault) 96.9 83.1 BUN/Creatinine Ratio 46 (6-20) 30 (6-20) Glucose Level 111 mg/dL (70-99) 94 mg/dL (70-99) Lactic Acid Level 1.2 mmol/L (0.4-2.0) Calcium Level 8.8 mg/dL (8.5-10.1) 8.7 mg/dL (8.5-10.1) Total Bilirubin 0.4 mg/dL (0.2-1.0) 0.5 mg/dL (0.2-1.0) Aspartate Amino Transf (AST/SGOT) 24 U/L (15-37) 27 U/L (15-37) Alanine Aminotransferase (ALT/SGPT) 24 U/L (14-59) 20 U/L (14-59) Alkaline Phosphatase 99 U/L (46-116) 95 U/L (46-116) LU-Dgp-F-Type Natriuretic Peptide 361 pg/mL (0-449) Total Protein 8.0 g/dL (6.4-8.2) 7.4 g/dL (6.4-8.2) Albumin 2.3 g/dL (3.4-5.0) 2.1 g/dL (3.4-5.0) Albumin/Globulin Ratio 0.4 (1.0-1.7) 0.4 (1.0-1.7) Urine Collection Type U cath Urine Color Yellow Urine Clarity Clear Urine pH 8.0 Urine Specific [place] 1.020 Urine Protein Negative mg/dL (NEG-TRACE) Urine Glucose (UA) Negative mg/dL (NEG) Urine Ketones (Stick) Negative mg/dL (NEG) Urine Blood Negative (NEG) Urine Nitrite Negative (NEG) Urine Bilirubin Negative (NEG) Urine Urobilinogen Dipstick 0.2 mg/dL (0.2 mg/dL) Urine Leukocyte Esterase Negative (NEG) Urine RBC 3-5 /HPF (0-2) Urine WBC Rare /HPF (0-4) Urine Squamous Epithelial Cells Occ /LPF Urine Bacteria Few /HPF (0-FEW) Influenza Type A Antigen Negative (NEGATIVE) Influenza Type B Antigen Negative (NEGATIVE) Images Images Exam: Chest one view INDICATION: Short of breath TECHNIQUE: Frontal view of the chest Comparisons: 07/25/2019 FINDINGS: The cardiomediastinal silhouette is within normal limits. Pulmonary vessels are prominent. Hazy opacity at the left lung base with a small left pleural effusion. IMPRESSION: Small left pleural effusion with adjacent airspace disease likely atelectasis. Superimposed infectious process is difficult to exclude. Electronically signed by: Gretchen Bray MD (09/29/2019 7:10 PM) [id number] DICTATED and SIGNED BY: GRETCHEN BRAY MD Exam: CT of abdomen and pelvis without contrast INDICATION: Fever TECHNIQUE: Sequential axial images through the abdomen and pelvis obtained without IV contrast. Sagittal and coronal reformatted images were reconstructed from the axial data and reviewed. Comparisons: None FINDINGS: Heart size is normal. No pericardial effusion. Consolidative changes in the left lower lobe. Additionally there is patchy tree-in-bud nodularity within the right lower lobe. Liver, spleen, pancreas and adrenals are unremarkable. Gallbladder is surgically absent. No perinephric inflammation or hydronephrosis. No renal or ureteral calculi are identified. Bladder is decompressed not well evaluated. King balloon noted within the bladder. Scattered diverticula noted throughout the colon without evidence of acute diverticulitis. There is trace free fluid noted at the pelvis. There is a percutaneous gastrostomy tube with tip in the stomach. No fluid collection along the track of the tube. Postsurgical changes at the right lower quadrant colon. Abdominal aorta has a normal course and caliber. No enlarged abdominal lymph nodes are identified. No suspicious osseous lesions or acute fractures. IMPRESSION: 1. No wall thickening or fluid collection along the track of the PEG tube. 2. Diverticulosis without evidence of acute diverticulitis. 3. Consolidative changes in the left lower lobe and tree-in-bud nodularity in the right lower lobe favored to be infectious or inflammatory in etiology. 4. No sequela of infection identified within the abdomen or pelvis. Exposure: One or more of the following in the visualized dose reduction techniques were utilized for this examination: 1. Automated exposure control 2. Adjustment of the MA and/or KV according to patient size 3. Use of iterative of reconstructive technique Electronically signed by: Gretchen Bray MD (09/29/2019 9:17 PM) [id number] DICTATED and SIGNED BY: GRETCHEN BRAY MD DATE: 09/29/192116 VTE Prophylaxis Ordered VTE Prophylaxis Devices: Yes VTE Pharmacological Prophylaxi: Yes Assessment/Plan Assessment/Plan IMPRESSION: 1. No wall thickening or fluid collection along the track of the PEG tube. 2. Diverticulosis without evidence of acute diverticulitis. 3. Consolidative changes in the left lower lobe and tree-in-bud nodularity in the right lower lobe favored to be infectious or inflammatory in etiology.Hazy opacity at the left lung base with a small left pleural effusion. ACUTE PNEUMONIA 4. SEPSIS 5. FEVER 6. leaking PEG tube 7. ACUTE HYPOXIC RESP FAILURE 8, Dementia ADMIT CVC BED BLOOD CULTURES PULM CONSULT GI CONSULT EMPERIC IV ANTIBIOTICS, zosyn, vanc dvt prophylaxis o2 support AM LABS 76 min pt exam, chart review, > 50% of time spent with exam, chart review, pt care coordination FITZ DAVIES MD Sep 30, 2019 12:03
--- NOTE | 2019-09-30 13:26 | NUR ---
Tube feeding ok to start per Geneva Sullivan APRN. Patient is normally on isosource 1.5 at facility, spoke with brim welt sewing machine operator Tiana and our substitution is Osmolite 1.2. Started feeding at settings used at assisted. Will continue to monitor.
[2019-09-30] MEDS ORDERED: VANCOMYCIN PER PHARMACY MC PRN (13:45)
[2019-09-30] MEDS ORDERED: ONDANSETRON PF 4 MG/2 ML VIAL. IV PRN (13:45)
[2019-09-30] MEDS ORDERED: 0.9 % SODIUM CHLORIDE 10 ML DISP.SYRIN. IV PRN (13:45)
[2019-09-30] MEDS ORDERED: guaiFENesin ORAL 200 MG/10 ML LIQUID. PO PRN (13:45)
[2019-09-30] MEDS ORDERED: LORazepam 0.5 MG TABLET PO PRN (13:45)
[2019-09-30] MEDS ORDERED: DOCUSATE SODIUM 100 MG CAPSULE. PO PRN (13:45)
--- NOTE | 2019-09-30 14:29 | NUR ---
SS following for discharge planning. SS reviewed pt chart. Pt is from [facility], ; fax [phone]. SS contacted [facility] and verified that pt is a LTC resident from there facility and is able to return when medically stable for discharge. SS will continue to follow for discharge planning.
[2019-09-30 15:00] VITALS: BP 130/60
--- NOTE | 2019-09-30 15:57 | NUR ---
Wound Care: Patient seen per wound care consult. See wound assessment. patient is well known to us from previous admissions. 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 Wounds have signigicantly improved since last admission. Wounds cleansed and assessed. Recommendations for collagen and foam dressings to all 3 pressure ulcers. Dressings applied. Skin prep and Foams placed to bilateral heels just for protection. No other wounds noted upon complete head to toe assessment. Patient is on a P-500 bed at this time. Patient repositioned to left side using wedge at this time. Educated family at bedside regarding turning, pressure relief, and dressings. Family agrees that wounds have improved. Bed lowered and call light with patient and family member. Dressing change instructions left in room as well as extra collagen for next dressing changes on Saturday. Will follow patient regarding wound care.
[2019-09-30] MEDS: MEROPENEM 500 MG in IV NORMAL SALINE 50ML 50 ML IV SCH ×2 (16:11→22:08)
[2019-09-30] MEDS: IV NORMAL SALINE 1000ML BAG 1,000 ML IV SCH (16:11)
[2019-09-30] MEDS: IPRATRPIUM/ALBUTEROL 0.5/2.5MG 3 ML NEBU. NEB SCH ×2 (17:04→20:32)
[2019-09-30] MEDS: VANCOMYCIN 750 MG in IV NORMAL SALINE 250ML 250 ML IV SCH (18:51)
[2019-09-30 19:00] VITALS: BP 131/58
[2019-09-30] MEDS: ENOXAPARIN 30 MG/0.3 ML SYRINGE. SQ SCH (20:51)
[2019-09-30 23:50] VITALS: BP 146/65
[2019-10-01] VITALS (7 sets, daily range): BP systolic 131–174; BP diastolic 60–77
[2019-10-01] MEDS: IPRATRPIUM/ALBUTEROL 0.5/2.5MG 3 ML NEBU. NEB SCH ×6 (00:15→21:01)
[2019-10-01] MEDS: MEROPENEM 500 MG in IV NORMAL SALINE 50ML 50 ML IV SCH ×3 (05:49→21:20)
--- NOTE | 2019-10-01 07:23 | PDOC ---
PROGRESS NOTES Chief Complaint Chief Complaint A/P: Acute hypoxemic respiratory failure - with interstitial markings increased on CXR. Will wean O2 as tolerated. Nebulizers. BNP not elevated, no indication she immediately needs diuresis. Will check procalcitonin to r/o bacterial infection. Possibly viral pneumonia, negative for flu Pneumonia - with bilateral appearance on CT, high risk for gram negative pneumonia, will treat as HCAP given she is a SNF resident and was recently hospitalized Left pleural effusion - possibly parapneumonic, Pulmonology consulted Sepsis - secondary to pneumonia, most likely, febrile with elevated WBCs and CT abdomen showing consolidative changes in the left lower lobe and tree-in-bud nodularity in the right lower lobe.Hazy opacity at the left lung base with a small left pleural effusion. Recent aspiration PNA, on tube feeds - not clear that she actually has a pneumonia currently. Will check procalcitonin to r/o bacterial infection, m ycoplasma serology. 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 She is non-verbal, cannot give history or follows commands in any meaningful way, canno t communicate, she is contracted, cachectic. According to nursing notes, patient has continuous tube feeds. Labs with some increased WBC, febrile. Negative flu swab. CXR with diffuse bilateral interstitial lung markings and CT abdomen showing consolidative changes in the left lower lobe and tree-in-bud nodularity in the right lower lobe favored to be infectious or inflammatory in etiology.Hazy opacity at the left lung base with a small left pleural effusion. WBC and fever still up overnight. Nonverbal, does not respond. Vitals Vitals Vital Signs Date Time Temp Pulse Resp B/P (MAP) Pulse Ox O2 Delivery O2 Flow Rate FiO2 20 03:35 Nasal Cannula 3.0 3/5/20 02:18 98.5 77 20 131/60 (83) 96 98.5 Physical Exam General: Cooperative, mild distress Lungs: Crackles Abdomen: Soft Extremities: No cyanosis Assessment and Plan Assessmemt and Plan Problems Medical Problems: (1) Dementia Status: Acute (2) HCAP (healthcare-associated pneumonia) Status: Acute (3) Hypertension Status: Acute (4) SIRS (systemic inflammatory response syndrome) Status: Acute Comment Review of Relevant I have reviewed the following items nato (where applicable) has been applied. Labs Laboratory Tests Test 09/29/19 19:20 09/29/19 19:33 09/29/19 20:22 09/30/19 05:11 White Blood Count 22.7 x10^3/uL (4.0-11.0) 23.4 x10^3/uL (4.0-11.0) Red Blood Count 3.85 x10^6/uL (3.50-5.40) 3.59 x10^6/uL (3.50-5.40) Hemoglobin 10.7 g/dL (12.0-15.5) 10.1 g/dL (12.0-15.5) Hematocrit 33.2 % (36.0-47.0) 31.2 % (36.0-47.0) Mean Corpuscular Volume 86 fL (79-100) 87 fL (79-100) Mean Corpuscular Hemoglobin 28 pg (25-35) 28 pg (25-35) Mean Corpuscular Hemoglobin Concent 32 g/dL (31-37) 33 g/dL (31-37) Red Cell Distribution Width 16.5 % (11.5-14.5) 16.4 % (11.5-14.5) Platelet Count 297 x10^3/uL (140-400) 267 x10^3/uL (140-400) Neutrophils (%) (Auto) 89 % (31-73) 88 % (31-73) Lymphocytes (%) (Auto) 6 % (24-48) 6 % (24-48) Monocytes (%) (Auto) 4 % (0-9) 5 % (0-9) Eosinophils (%) (Auto) 0 % (0-3) 0 % (0-3) Basophils (%) (Auto) 0 % (0-3) 0 % (0-3) Neutrophils # (Auto) 20.2 x10^3/uL (1.8-7.7) 20.7 x10^3/uL (1.8-7.7) Lymphocytes # (Auto) 1.4 x10^3/uL (1.0-4.8) 1.3 x10^3/uL (1.0-4.8) Monocytes # (Auto) 1.0 x10^3/uL (0.0-1.1) 1.3 x10^3/uL (0.0-1.1) Eosinophils # (Auto) 0.1 x10^3/uL (0.0-0.7) 0.1 x10^3/uL (0.0-0.7) Basophils # (Auto) 0.1 x10^3/uL (0.0-0.2) 0.1 x10^3/uL (0.0-0.2) Segmented Neutrophils % 78 % (35-66) Band Neutrophils % 11 % (0-9) Lymphocytes % 7 % (24-48) Monocytes % 4 % (0-10) Toxic Granulation Slight Toxic Vacuolation Slight Platelet Estimate Adequate (ADEQUATE) O2 Saturation 98 % (92-99) Arterial Blood pH 7.50 (7.35-7.45) Arterial Blood pH (Temp corrected) 7.47 Arterial Blood pCO2 at Patient Temp 34 mmHg (35-46) Arterial Blood pCO2 (Temp correct) 37 mmHg Arterial Blood pO2 at Patient Temp 100 mmHg (65-108) Arterial Blood pO2 (Temp corrected) 112 mmHg Arterial Blood HCO3 26 mmol/L (21-28) Arterial Blood Base Excess 3 mmol/L (-3-3) FiO2 36 Sodium Level 136 mmol/L (136-145) 140 mmol/L (136-145) Potassium Level 4.4 mmol/L (3.5-5.1) 4.3 mmol/L (3.5-5.1) Chloride Level 103 mmol/L (98-107) 107 mmol/L (98-107) Carbon Dioxide Level 27 mmol/L (21-32) 25 mmol/L (21-32) Anion Gap 6 (6-14) 8 (6-14) Blood Urea Nitrogen 32 mg/dL (7-20) 24 mg/dL (7-20) Creatinine 0.7 mg/dL (0.6-1.0) 0.8 mg/dL (0.6-1.0) Estimated GFR (Cockcroft-Gault) 96.9 83.1 BUN/Creatinine Ratio 46 (6-20) 30 (6-20) Glucose Level 111 mg/dL (70-99) 94 mg/dL (70-99) Lactic Acid Level 1.2 mmol/L (0.4-2.0) Calcium Level 8.8 mg/dL (8.5-10.1) 8.7 mg/dL (8.5-10.1) Total Bilirubin 0.4 mg/dL (0.2-1.0) 0.5 mg/dL (0.2-1.0) Aspartate Amino Transf (AST/SGOT) 24 U/L (15-37) 27 U/L (15-37) Alanine Aminotransferase (ALT/SGPT) 24 U/L (14-59) 20 U/L (14-59) Alkaline Phosphatase 99 U/L (46-116) 95 U/L (46-116) MK-Fah-I-Type Natriuretic Peptide 361 pg/mL (0-449) Total Protein 8.0 g/dL (6.4-8.2) 7.4 g/dL (6.4-8.2) Albumin 2.3 g/dL (3.4-5.0) 2.1 g/dL (3.4-5.0) Albumin/Globulin Ratio 0.4 (1.0-1.7) 0.4 (1.0-1.7) Urine Collection Type U cath Urine Color Yellow Urine Clarity Clear Urine pH 8.0 Urine Specific [place] 1.020 Urine Protein Negative mg/dL (NEG-TRACE) Urine Glucose (UA) Negative mg/dL (NEG) Urine Ketones (Stick) Negative mg/dL (NEG) Urine Blood Negative (NEG) Urine Nitrite Negative (NEG) Urine Bilirubin Negative (NEG) Urine Urobilinogen Dipstick 0.2 mg/dL (0.2 mg/dL) Urine Leukocyte Esterase Negative (NEG) Urine RBC 3-5 /HPF (0-2) Urine WBC Rare /HPF (0-4) Urine Squamous Epithelial Cells Occ /LPF Urine Bacteria Few /HPF (0-FEW) Influenza Type A Antigen Negative (NEGATIVE) Influenza Type B Antigen Negative (NEGATIVE) Microbiology 09/29/19 Blood Culture - Preliminary, Resulted NO GROWTH AFTER 1 DAY Medications Current Medications Sodium Chloride 1,000 ml @ 1,710 mls/hr Q36M IV Last administered on 09/29/19 19:03; Start 09/29/19 at 18:27; Stop 09/29/19 at 19:27; Status DC Piperacillin Sod/ Tazobactam Sod 4.5 gm/Sodium Chloride 100 ml @ 200 mls/hr 1X ONCE IV ; Start 09/29/19 at 18:30; Stop 09/29/19 at 18:59; Status UNV Vancomycin HCl (Vanco Per Pharmacy) 1 each PRN DAILY PRN MC SEE COMMENTS Last administered on 09/30/19at 01:07; Start 09/29/19 at 18:30 Piperacillin Sod/ Tazobactam Sod 3.375 gm/Sodium Chloride 50 ml @ 100 mls/hr 1X ONCE IV Last administered on 09/29/19at 19:09; Start 09/29/19 at 18:45; Stop 09/29/19 at 19:14; Status DC Vancomycin HCl 1 gm/Sodium Chloride 250 ml @ 250 mls/hr 1X ONCE IV Last administered on 09/29/19at 19:10; Start 09/29/19 at 18:45; Stop 09/29/19 at 19:44; Status DC Acetaminophen (Tylenol Supp) 650 mg 1X ONCE VA Last administered on 09/29/19at 18:45; Start 09/29/19 at 18:45; Stop 09/29/19 at 18:52; Status DC Albuterol/ Ipratropium (Duoneb) 3 ml 1X ONCE NEB Last administered on 09/29/19at 19:15; Start 09/29/19 at 19:15; Stop 09/29/19 at 19:16; Status DC Ondansetron HCl (Zofran) 4 mg PRN Q8HRS PRN IV NAUSEA/VOMITING 1ST CHOICE; Start 09/29/19 at 20:45; Stop 09/30/19 at 20:44; Status DC Acetaminophen (Tylenol) 650 mg PRN Q4HRS PRN PO FEVER; Start 09/29/19 at 20:45; Stop 09/30/19 at 20:44; Status DC Vancomycin HCl 750 mg/Sodium Chloride 250 ml @ 250 mls/hr Q24H IV Last administered on 09/30/19at 18:51; Start 09/30/19 at 19:00 Vancomycin HCl (Vancomycin Trough Level) 1 each 1X ONCE MC ; Start 10/01/19 at 18:30; Stop 10/01/19 at 18:31 Acetaminophen (Tylenol Supp) 650 mg PRN Q6HRS PRN VA MILD PAIN / TEMP Last administered on 09/30/19at 03:11; Start 09/30/19 at 03:00 Piperacillin Sod/ Tazobactam Sod (Zosyn Per Pharmacy) 1 each PRN DAILY PRN MC SEE COMMENTS; Start 09/30/19 at 07:45; Stop 09/30/19 at 14:14; Status DC Piperacillin Sod/ Tazobactam Sod 3.375 gm/Sodium Chloride 50 ml @ 100 mls/hr Q6HRS IV Last administered on 09/30/19at 12:39; Start 09/30/19 at 12:00; Stop 09/30/19 at 14:14; Status DC Piperacillin Sod/ Tazobactam Sod 3.375 gm/Sodium Chloride 50 ml @ 100 mls/hr 1X ONCE IV Last administered on 09/30/19at 08:29; Start 09/30/19 at 08:00; Stop 09/30/19 at 08:29; Status DC Sodium Chloride (Normal Saline Flush) 3 ml QSHIFT PRN IV AFTER MEDS AND BLOOD D RAWS; Start 09/30/19 at 13:45 Sodium Chloride 1,000 ml @ 60 mls/hr [id number] IV Last administered on 09/30/19at 16:11; Start 09/30/19 at 14:30 Ondansetron HCl (Zofran) 4 mg PRN Q4HRS PRN IV NAUSEA/VOMITING; Start 09/30/19 at 13:45 Acetaminophen (Tylenol Supp) 650 mg PRN Q4HRS PRN VA TEMP OVER 100.4F OR MILD PAIN; Start 09/30/19 at 13:45; Status UNV Docusate Sodium (Colace) 100 mg PRN BID PRN PO CONSTIPATION; Start 09/30/19 at 13:45 Albuterol/ Ipratropium (Duoneb) 3 ml Q4HRS NEB Last administered on 10/01/19at 0 4:14; Start 09/30/19 at 16:00 Guaifenesin (Robitussin) 200 mg PRN Q4HRS PRN PO COUGH; Start 09/30/19 at 13:45 Lorazepam (Ativan) 0.5 mg PRN Q4HRS PRN PO ANXIETY / AGITATION; Start 09/30/19 at 13:45 Enoxaparin Sodium (Lovenox 30mg Syringe) 30 mg Q24H SQ Last administered on 09/30/19at 20:51; Start 09/30/19 at 21:00 Vancomycin HCl (Vanco Per Pharmacy) 1 each PRN DAILY PRN MC SEE COMMENTS; Start 09/30/19 at 13:45; Status UNV Meropenem 500 mg/ Sodium Chloride 50 ml @ 100 mls/hr Q8HRS IV Last administered on 10/01/19at 05:49; Start 09/30/19 at 15:00 Active Scripts Active [Multivitamins,Therapeutic Liq] 5 ML Liquid 5 Ml PEG DAILY 30 Days Reported Nystatin 15 Gm Powder 1 Kady TP BID 7 Days apply to affected area(s) [isosource1.5T.F.] 40 Ml PEG Isosource 1.5 40 ml per hour continuous per peg, H2O 130 ml every 4 hours. Lotrimin Af (Clotrimazole) 12 Gm Cream..g. 1 Kady TP Q4HRS PRN for redness around PEG site [bactrobanoint2%] 11 % BID apply to PEG site two times a day for skin irritation/rash Milk Of Magnesia (Magnesium Hydroxide) 2,400 Mg/10 Ml Oral.susp 2,400 Mg PEG DAILY Metoclopramide Hcl 5 Mg Tablet 2.5 Mg PEG DAILY06 Zinc Sulfate 220 Mg Capsule 220 Mg PEG DAILY Acetaminophen Oral Liquid (Acetaminophen) 650 Mg/20.3 Ml Solution 650 Mg PEG PRN Q6HRS PRN Levsin (Hyoscyamine Sulfate) 0.125 Mg Tablet 1 Tab SL Q4HRS PRN Vitamin C (Ascorbic Acid) 500 Mg Capsule 500 Mg PEG DAILY Acetaminophen 325 Mg/10.15 Ml Solution 650 Mg PO Q4HRS PRN Vitals/I & O Vital Sign - Last 24 Hours 09/30/19 09/30/19 09/30/19 3/4/20 08:00 11:00 15:00 17:13 Temp 97.4 99.0 97.4 99.0 Pulse 80 74 Resp 18 18 B/P (MAP) 133/72 (92) 130/60 (83) Pulse Ox 100 95 100 O2 Delivery Nasal Cannula Nasal Cannula Nasal Cannula Nasal Cannula O2 Flow Rate 4.0 4.0 4.0 4.0 09/30/19 09/30/19 09/30/19 09/30/19 19:00 19:40 20:32 20:32 Temp 98.9 98.9 Pulse 79 Resp 18 B/P (MAP) 131/58 (82) Pulse Ox 100 99 O2 Delivery Room Air Nasal Cannula Nasal Cannula Nasal Cannula O2 Flow Rate 4.0 3.0 4.0 09/30/19 09/30/19 10/01/19 10/01/19 23:44 23:50 02:18 03:35 Temp 98.7 98.5 98.7 98.5 Pulse 79 77 Resp 18 20 B/P (MAP) 146/65 (92) 131/60 (83) Pulse Ox 99 96 O2 Delivery Nasal Cannula Nasal Cannula Nasal Cannula Nasal Cannula O2 Flow Rate 3.0 4.0 4.0 3.0 Intake and Output 09/30/19 09/30/19 10/01/19 15:00 23:00 07:00 Intake Total 273 ml 846 ml Output Total 175 ml 150 ml 300 ml Balance -175 ml 123 ml 546 ml BOZENA VILLALBA MD Oct 01, 2019 07:23
[2019-10-01 08:10] LABS: BASO % 0 % (0-3); EOS # 0.4 x10^3/uL (0.0-0.7); EOS % 4 % (0-3); HEMATOCRIT 32.8 % (36.0-47.0); HEMOGLOBIN 10.8 g/dL (12.0-15.5); LYMPH # 1.5 x10^3/uL (1.0-4.8); LYMPH % 15 % (24-48); MEAN CORPUSCULAR HEMOGLOBIN 29 pg (25-35); MEAN CORPUSCULAR HGB CONC 33 g/dL (31-37); MEAN CORPUSCULAR VOLUME 87 fL (79-100); MONO # 1.3 x10^3/uL (0.0-1.1); MONO % 13 % (0-9); NEUT # 6.9 x10^3/uL (1.8-7.7); NEUT % 69 % (31-73); PLATELET COUNT 261 x10^3/uL (140-400); RED BLOOD COUNT 3.75 x10^6/uL (3.50-5.40); RED CELL DISTRIBUTION WIDTH 16.4 % (11.5-14.5); WHITE BLOOD COUNT 10.1 x10^3/uL (4.0-11.0)
[2019-10-01 08:29] LABS: ALBUMIN 2.1 g/dL (3.4-5.0); ALBUMIN/GLOBULIN RATIO 0.4 (1.0-1.7); CALCIUM 8.8 mg/dL (8.5-10.1); CREATININE 0.7 mg/dL (0.6-1.0); GFR 96.9; POTASSIUM 3.9 mmol/L (3.5-5.1); TOTAL BILIRUBIN 0.3 mg/dL (0.2-1.0); TOTAL PROTEIN 7.4 g/dL (6.4-8.2)
[2019-10-01] MEDS: IV NORMAL SALINE 1000ML BAG 1,000 ML IV SCH (09:07)
--- NOTE | 2019-10-01 10:50 | CONS ---
DATE OF CONSULTATION: PULMONARY CONSULTATION ATTENDING PHYSICIAN: Oscar Denise MD. REASON FOR CONSULTATION: Pneumonia, sepsis. HISTORY OF PRESENT ILLNESS: The patient is an 84-year-old female who has history of dementia, history of contractures, history of dysphagia, on PEG tube. She was brought in from nursing care facility with dyspnea and tachypnea. She was febrile. Her T-max was noted to be 102.2. The patient had imaging study, which was reviewed by me, which included a chest x-ray and CT abdomen and pelvis. The CT abdomen and pelvis revealed lower lobe consolidation, worse on the left than on the right. There was also evidence of diverticulosis. I have been asked to see her for further evaluation. She is unable to give any history due to chronic debilitated state. PAST MEDICAL HISTORY: Anemia, anxiety, dementia, contractures, hypertension, pneumonia, UTI, dysphagia, pressure ulcers, sepsis. PAST SURGICAL HISTORY: PEG. ALLERGIES: None. MEDICATIONS: Reviewed including broad-spectrum antibiotics. REVIEW OF SYSTEMS: Unable to obtain from the patient. SOCIAL HISTORY: She lives in a correction. PHYSICAL EXAMINATION: VITAL SIGNS: T-max of 102.2. Blood pressure stable, pulse ox 100% on 4 liters. NECK: Supple. LUNGS: With diminished breath sounds. CARDIOVASCULAR: With a regular rate. ABDOMEN: Soft. PEG tube is in place. EXTREMITIES: Contracted. LABORATORY DATA: Reviewed. White cell count was 22, now down to 10, hemoglobin 10.8 and platelets are 261. BUN and creatinine 18 and 0.7. ABGs with a pH of 7.47, pCO2 of 34 and pO2 of 100, on 36% FiO2. IMPRESSION: 1. Acute hypoxic respiratory failure secondary to early sepsis. 2. Lower lobe pneumonia, worse on the left base than right. Likely gram-negative. Cannot exclude gram-positive. 3. 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 4. Mild acute kidney injury on admission, which is improving. 5. Increased procalcitonin level consistent with pneumonia. 6. Marked leukocytosis, improving with antibiotics. RECOMMENDATIONS: 1. Continue antibiotics per Infectious Disease. 2. Continue oxygen to keep saturation 92 and above. 3. Enteral nutrition. 4. Supportive care. 5. Discussed with RN. Overall, prognosis is poor. SANGEETA HAM MD DR: MIGUEL ANGEL/brandi JOB#: [id number] / [id number]
--- NOTE | 2019-10-01 11:09 | PDOC ---
Objective: Objective: No PEG leakage per nurse. Stooling. Vital Signs: Vital Signs Date Time Temp Pulse Resp B/P (MAP) Pulse Ox O2 Delivery O2 Flow Rate FiO2 10/01/19 09:09 152/70 (97) 10/01/19 08:08 97 Nasal Cannula 3.0 10/01/19 07:00 98.4 76 20 98.4 Labs: Laboratory Tests Test 10/01/19 07:45 White Blood Count 10.1 x10^3/uL Red Blood Count 3.75 x10^6/uL Hemoglobin 10.8 g/dL Hematocrit 32.8 % Mean Corpuscular Volume 87 fL Mean Corpuscular Hemoglobin 29 pg Mean Corpuscular Hemoglobin Concent 33 g/dL Red Cell Distribution Width 16.4 % Platelet Count 261 x10^3/uL Neutrophils (%) (Auto) 69 % Lymphocytes (%) (Auto) 15 % Monocytes (%) (Auto) 13 % Eosinophils (%) (Auto) 4 % Basophils (%) (Auto) 0 % Neutrophils # (Auto) 6.9 x10^3/uL Lymphocytes # (Auto) 1.5 x10^3/uL Monocytes # (Auto) 1.3 x10^3/uL Eosinophils # (Auto) 0.4 x10^3/uL Basophils # (Auto) 0.0 x10^3/uL Sodium Level 142 mmol/L Potassium Level 3.9 mmol/L Chloride Level 107 mmol/L Carbon Dioxide Level 27 mmol/L Anion Gap 8 Blood Urea Nitrogen 18 mg/dL Creatinine 0.7 mg/dL Estimated GFR (Cockcroft-Gault) 96.9 BUN/Creatinine Ratio 26 Glucose Level 111 mg/dL Calcium Level 8.8 mg/dL Total Bilirubin 0.3 mg/dL Aspartate Amino Transf (AST/SGOT) 25 U/L Alanine Aminotransferase (ALT/SGPT) 20 U/L Alkaline Phosphatase 96 U/L Total Protein 7.4 g/dL Albumin 2.1 g/dL Albumin/Globulin Ratio 0.4 Procalcitonin 0.53 ng/mL BLOOD CULTURE Preliminary NO GROWTH AFTER 1 DAY PE: GEN: chronically ill, contractures LUNGS: coarse, NC 3L HEART: RRR ABD: PEG in place - dressing dry NEURO/PSYCH: awake A/P: PEG in place - functioning w/o leakage Pneumonia -- Stable GI-marcial. Hemodynamically unstable?: No Is patient in severe pain?: No Is NPO status required?: Yes VICKY WOODALL Oct 01, 2019 11:09
[2019-10-01] MEDS: VANCOMYCIN PER PHARMACY MC PRN ×2 (15:42→20:02)
[2019-10-01 19:37] LABS: VANC TR 8.2 mcg/mL (10.0-20.0)
[2019-10-01] MEDS: VANCOMYCIN 750 MG in IV NORMAL SALINE 250ML 250 ML IV SCH (19:57)
--- NOTE | 2019-10-01 21:13 | NUR ---
Pharmacy Vancomycin Dosing Note S:Consulted to monitor and dose vancomycin started 09/29/19. O:LAURI COLBERT is a 84 year old F with HCAP . Height: 5 feet, 0 inches Weight: 43.4 kg [place] Body Weight: 45.50 Adjusted Body Weight: 44.66 Dosing Weight: Actual Other Antibiotics: LABS: Last BUN: 32 Last Creatinine: 0.7 Creatinine Clearance: 29 mL/min Last WBC: 22.7 Last Procalcitonin: 0.53 Tmax (past 24 hours): 99 Microbiology: 09/30 BCX NGTD I/O: 1119/625 Drug Levels: Last Trough level: 8.2 on 10/01/19 at 1830 Last dose given 09/30/19 at 1850 Vancomycin Dosing: Loading Dose: 1000 mg x1 Dosing Weight: Actual Target Trough: 15-20 A: Based on: LEVEL P: 1. Change Vancomycin 750 mg IV q18h 2. Follow up Trough level on 10/03/19 at 0730 3. Pharmacy will continue to monitor, follow and adjust therapy as needed. ASHLEY ANDERSON Lauren, 10/01/19 [id number]
[2019-10-01] MEDS: ENOXAPARIN 30 MG/0.3 ML SYRINGE. SQ SCH (21:19)
[2019-10-02] VITALS (8 sets, daily range): BP systolic 137–170; BP diastolic 63–91
[2019-10-02] MEDS: IPRATRPIUM/ALBUTEROL 0.5/2.5MG 3 ML NEBU. NEB SCH ×6 (00:01→21:07)
[2019-10-02] MEDS: IV NORMAL SALINE 1000ML BAG 1,000 ML IV SCH ×2 (05:37→21:14)
[2019-10-02] MEDS: MEROPENEM 500 MG in IV NORMAL SALINE 50ML 50 ML IV SCH ×4 (05:38→23:45)
--- NOTE | 2019-10-02 08:08 | PDOC ---
PROGRESS NOTES Chief Complaint Chief Complaint A/P: Acute hypoxemic respiratory failure - with interstitial markings increased on CXR. Will wean O2 as tolerated. Nebulizers. BNP not elevated, no indication she immediately needs diuresis. Will check procalcitonin to r/o bacterial infection. Possibly viral pneumonia, negative for flu Pneumonia - with bilateral appearance on CT, high risk for gram negative pneumonia, will treat as HCAP given she is a SNF resident and was recently hospitalized Left pleural effusion - possibly parapneumonic, Pulmonology consulted Sepsis - secondary to pneumonia, most likely, febrile with elevated WBCs and CT abdomen showing consolidative changes in the left lower lobe and tree-in-bud nodularity in the right lower lobe.Hazy opacity at the left lung base with a small left pleural effusion. Recent aspiration PNA, on tube feeds - not clear that she actually has a pneumonia currently. Will check procalcitonin to r/o bacterial infection, m ycoplasma serology. 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 PEG drainage with loose bumper has been adjusted. FEN - Tube feeds with 130mL q4hr water bolus PPX - lovenox 30mg FULL CODE Dispo - inpatient for worsening hypoxia, pneumonia History of Present Illness History of Present Illness Ms De Leon is an 84yo F w/ PMHx Anemia, Anxiety, Dementia, Hypertension, dysphasia, nonverbal, contractures, pressure ulcers, dyphagia s/p PEG sent from SNF with shortness of breath, hypoxia, concern for fevers up to 103F. She is non-verbal, cannot give history or follows commands in any meaningful way, cannot communicate, she is contracted, cachectic. According to nursing notes, patient has continuous tube feeds. Labs with some increased WBC, febrile. Negative flu swab. CXR with diffuse bilateral interstitial lung markings and CT abdomen showing consolidative changes in the left lower lobe and tree-in-bud nodularity in the right lower lobe favored to be infectious or inflammatory in etiology.Hazy opacity at the left lung base with a small left pleural effusion. 09/30: WBC and fever still up overnight. Nonverbal, does not respond. Changed to merrem Contracted, unresponsive. Renal function improved. Vanco trough low. D/w pulm to ask for ID consultation. No family present Plan: Needs family meeting to discuss goals of care. Vitals Vitals Vital Signs Date Time Temp Pulse Resp B/P (MAP) Pulse Ox O2 Delivery O2 Flow Rate FiO2 10/02/19 07:30 98.2 88 18 158/73 (101) 100 Nasal Cannula 2.0 98.2 Physical Exam General: mild distress Heart: Regular rate Lungs: Crackles Abdomen: Soft Extremities: No cyanosis Labs LABS Laboratory Tests Test 10/01/19 18:30 Vancomycin Level Trough 8.2 mcg/mL (10.0-20.0) Vancomycin Last Dose Date Unk Vancomycin Last Dose Time Unk Assessment and Plan Assessmemt and Plan Problems Medical Problems: (1) Dementia Status: Acute (2) HCAP (healthcare-associated pneumonia) Status: Acute (3) Hypertension Status: Acute (4) SIRS (systemic inflammatory response syndrome) Status: Acute Comment Review of Relevant I have reviewed the following items nato (where applicable) has been applied. Labs Laboratory Tests Test 10/01/19 07:45 10/01/19 18:30 White Blood Count 10.1 x10^3/uL (4.0-11.0) Red Blood Count 3.75 x10^6/uL (3.50-5.40) Hemoglobin 10.8 g/dL (12.0-15.5) Hematocrit 32.8 % (36.0-47.0) Mean Corpuscular Volume 87 fL (79-100) Mean Corpuscular Hemoglobin 29 pg (25-35) Mean Corpuscular Hemoglobin Concent 33 g/dL (31-37) Red Cell Distribution Width 16.4 % (11.5-14.5) Platelet Count 261 x10^3/uL (140-400) Neutrophils (%) (Auto) 69 % (31-73) Lymphocytes (%) (Auto) 15 % (24-48) Monocytes (%) (Auto) 13 % (0-9) Eosinophils (%) (Auto) 4 % (0-3) Basophils (%) (Auto) 0 % (0-3) Neutrophils # (Auto) 6.9 x10^3/uL (1.8-7.7) Lymphocytes # (Auto) 1.5 x10^3/uL (1.0-4.8) Monocytes # (Auto) 1.3 x10^3/uL (0.0-1.1) Eosinophils # (Auto) 0.4 x10^3/uL (0.0-0.7) Basophils # (Auto) 0.0 x10^3/uL (0.0-0.2) Sodium Level 142 mmol/L (136-145) Potassium Level 3.9 mmol/L (3.5-5.1) Chloride Level 107 mmol/L (98-107) Carbon Dioxide Level 27 mmol/L (21-32) Anion Gap 8 (6-14) Blood Urea Nitrogen 18 mg/dL (7-20) Creatinine 0.7 mg/dL (0.6-1.0) Estimated GFR (Cockcroft-Gault) 96.9 BUN/Creatinine Ratio 26 (6-20) Glucose Level 111 mg/dL (70-99) Calcium Level 8.8 mg/dL (8.5-10.1) Total Bilirubin 0.3 mg/dL (0.2-1.0) Aspartate Amino Transf (AST/SGOT) 25 U/L (15-37) Alanine Aminotransferase (ALT/SGPT) 20 U/L (14-59) Alkaline Phosphatase 96 U/L (46-116) Total Protein 7.4 g/dL (6.4-8.2) Albumin 2.1 g/dL (3.4-5.0) Albumin/Globulin Ratio 0.4 (1.0-1.7) Procalcitonin 0.53 ng/mL (0.00-0.10) Vancomycin Level Trough 8.2 mcg/mL (10.0-20.0) Vancomycin Last Dose Date Unk Vancomycin Last Dose Time Unk Laboratory Tests Test 10/01/19 18:30 Vancomycin Level Trough 8.2 mcg/mL (10.0-20.0) Vancomycin Last Dose Date Unk Vancomycin Last Dose Time Unk Microbiology 09/29/19 Blood Culture - Preliminary, Resulted NO GROWTH AFTER 2 DAYS Medications Current Medications Sodium Chloride 1,000 ml @ 1,710 mls/hr Q36M IV Last administered on 09/29/19at 19:03; Start 09/29/19 at 18:27; Stop 09/29/19 at 19:27; Status DC Piperacillin Sod/ Tazobactam Sod 4.5 gm/Sodium Chloride 100 ml @ 200 mls/hr 1X ONCE IV ; Start 09/29/19 at 18:30; Stop 09/29/19 at 18:59; Status UNV Vancomycin HCl (Vanco Per Pharmacy) 1 each PRN DAILY PRN MC SEE COMMENTS Last administered on 10/01/19at 20:02; Start 09/29/19 at 18:30 Piperacillin Sod/ Tazobactam Sod 3.375 gm/Sodium Chloride 50 ml @ 100 mls/hr 1X ONCE IV Last administered on 09/29/19 19:09; Start 09/29/19 at 18:45; Stop 09/29/19 at 19:14; Status DC Vancomycin HCl 1 gm/Sodium Chloride 250 ml @ 250 mls/hr 1X ONCE IV Last administered on 09/29/19at 19:10; Start 09/29/19 at 18:45; Stop 09/29/19 at 19:44; Status DC Acetaminophen (Tylenol Supp) 650 mg 1X ONCE TX Last administered on 09/29/19at 18:45; Start 09/29/19 at 18:45; Stop 09/29/19 at 18:52; Status DC Albuterol/ Ipratropium (Duoneb) 3 ml 1X ONCE NEB Last administered on 09/29/19at 19:15; Start 09/29/19 at 19:15; Stop 09/29/19 at 19:16; Status DC Ondansetron HCl (Zofran) 4 mg PRN Q8HRS PRN IV NAUSEA/VOMITING 1ST CHOICE; Start 09/29/19 at 20:45; Stop 09/30/19 at 20:44; Status DC Acetaminophen (Tylenol) 650 mg PRN Q4HRS PRN PO FEVER; Start 09/29/19 at 20:45; Stop 09/30/19 at 20:44; Status DC Vancomycin HCl 750 mg/Sodium Chloride 250 ml @ 250 mls/hr Q24H IV Last administered on 10/01/19at 19:57; Start 09/30/19 at 19:00; Stop 10/01/19 at 21:00; Status DC Vancomycin HCl (Vancomycin Trough Level) 1 each 1X ONCE MC Last administered on 10/01/19at 18:30; Start 10/01/19 at 18:30; Stop 10/01/19 at 18:31; Status DC Acetaminophen (Tylenol Supp) 650 mg PRN Q6HRS PRN TX MILD PAIN / TEMP Last administered on 09/30/19at 03:11; Start 09/30/19 at 03:00 Piperacillin Sod/ Tazobactam Sod (Zosyn Per Pharmacy) 1 each PRN DAILY PRN MC SEE COMMENTS; Start 09/30/19 at 07:45; Stop 09/30/19 at 14:14; Status DC Piperacillin Sod/ Tazobactam Sod 3.375 gm/Sodium Chloride 50 ml @ 100 mls/hr Q6HRS IV Last administered on 09/30/19at 12:39; Start 09/30/19 at 12:00; Stop 09/30/19 at 14:14; Status DC Piperacillin Sod/ Tazobactam Sod 3.375 gm/Sodium Chloride 50 ml @ 100 mls/hr 1X ONCE IV Last administered on 09/30/19at 08:29; Start 09/30/19 at 08:00; Stop 09/30/19 at 08:29; Status DC Sodium Chloride (Normal Saline Flush) 3 ml QSHIFT PRN IV AFTER MEDS AND BLOOD DRAWS; Start 09/30/19 at 13:45 Sodium Chloride 1,000 ml @ 60 mls/hr [id number] IV Last administered on 10/02/19at 05:37; Start 09/30/19 at 14:30 Ondansetron HCl (Zofran) 4 mg PRN Q4HRS PRN IV NAUSEA/VOMITING; Start 09/30/19 at 13:45 Acetaminophen (Tylenol Supp) 650 mg PRN Q4HRS PRN TX TEMP OVER 100.4F OR MILD PAIN; Start 09/30/19 at 13:45; Status UNV Docusate Sodium (Colace) 100 mg PRN BID PRN PO CONSTIPATION; Start 09/30/19 at 13:45 Albuterol/ Ipratropium (Duoneb) 3 ml Q4HRS NEB Last administered on 10/02/19at 07:29; Start 09/30/19 at 16:00 Guaifenesin (Robitussin) 200 mg PRN Q4HRS PRN PO COUGH; Start 09/30/19 at 13:45 Lorazepam (Ativan) 0.5 mg PRN Q4HRS PRN PO ANXIETY / AGITATION; Start 09/30/19 at 13:45 Enoxaparin Sodium (Lovenox 30mg Syringe) 30 mg Q24H SQ Last administered on 10/01/19at 21:19; Start 09/30/19 at 21:00 Vancomycin HCl (Vanco Per Pharmacy) 1 each PRN DAILY PRN MC SEE COMMENTS; Start 09/30/19 at 13:45; Status UNV Meropenem 500 mg/ Sodium Chloride 50 ml @ 100 mls/hr Q8HRS IV Last administered on 10/02/19at 05:38; Start 09/30/19 at 15:00 Vancomycin HCl 750 mg/Sodium Chloride 250 ml @ 250 mls/hr Q18H IV ; Start 10/02/19 at 14:00 Vancomycin HCl (Vancomycin Trough Level) 1 each 1X ONCE MC ; Start 10/03/19 at 07:30; Stop 10/03/19 at 07:31 Active Scripts Active [Multivitamins,Therapeutic Liq] 5 ML Liquid 5 Ml PEG DAILY 30 Days Reported Nystatin 15 Gm Powder 1 Kady TP BID 7 Days apply to affected area(s) [isosource1.5T.F.] 40 Ml PEG Isosource 1.5 40 ml per hour continuous per peg, H2O 130 ml every 4 hours. Lotrimin Af (Clotrimazole) 12 Gm Cream..g. 1 Kady TP Q4HRS PRN for redness around PEG site [bactrobanoint2%] 11 % BID apply to PEG site two times a day for skin irritation/rash Milk Of Magnesia (Magnesium Hydroxide) 2,400 Mg/10 Ml Oral.susp 2,400 Mg PEG DAILY Metoclopramide Hcl 5 Mg Tablet 2.5 Mg PEG DAILY06 Zinc Sulfate 220 Mg Capsule 220 Mg PEG DAILY Acetaminophen Oral Liquid (Acetaminophen) 650 Mg/20.3 Ml Solution 650 Mg PEG PRN Q6HRS PRN Levsin (Hyoscyamine Sulfate) 0.125 Mg Tablet 1 Tab SL Q4HRS PRN Vitamin C (Ascorbic Acid) 500 Mg Capsule 500 Mg PEG DAILY Acetaminophen 325 Mg/10.15 Ml Solution 650 Mg PO Q4HRS PRN Vitals/I & O Vital Sign - Last 24 Hours 10/01/19 10/01/19 10/01/19/5/20 09:09 11:00 12:59 15:00 Temp 98.1 98.0 98.1 98.0 Pulse 76 81 Resp 22 22 B/P (MAP) 152/70 (97) 156/68 (97) 146/75 (98) Pulse Ox 99 98 O2 Delivery Nasal Cannula Nasal Cannula Nasal Cannula O2 Flow Rate 2.0 3.0 2.0 10/01/19 10/01/19 10/01/19 10/01/19 16:29 19:00 19:25 21:01 Temp 98.8 98.8 Pulse 81 Resp 18 B/P (MAP) 168/77 (107) Pulse Ox 100 96 O2 Delivery Nasal Cannula Nasal Cannula Nasal Cannula Nasal Cannula O2 Flow Rate 3.0 2.5 2.5 3.0 10/01/19 10/02/19 10/02/19 10/02/19 23:05 00:02 02:41 04:09 Temp 98.3 97.4 98.3 97.4 Pulse 84 78 Resp 18 18 B/P (MAP) 174/74 (107) 163/91 (115) Pulse Ox 100 96 100 96 O2 Delivery Nasal Cannula Nasal Cannula Nasal Cannula Nasal Cannula O2 Flow Rate 2.5 3.0 2.5 3.0 10/02/19 10/02/19 07:30 07:30 Temp 98.2 98.2 Pulse 88 Resp 18 B/P (MAP) 158/73 (101) Pulse Ox 95 100 O2 Delivery Nasal Cannula Nasal Cannula O2 Flow Rate 3.0 2.0 Intake and Output 10/01/19 10/01/19 10/02/19 15:00 23:00 07:00 Intake Total 0 ml 260 ml 740 ml Output Total 1275 ml 800 ml Balance 0 ml -1015 ml -60 ml Nutrition Consultation Dietary Evaluation: Recommendations by RD: Dietary education by RD, Increase Calorie Intake Comments: Continue w/TFs as ordered - Osmolite 1.2@goal rate 40 ml/hr w/130 ml water flushes q4 hrs Expected Outcomes/Goals: TF infusion to meet >75% est needs Malnutrition Findings: Body Fat Depletion (Non Severe: Mild Depletion Weight Status: Underweight Hemodynamically unstable?: No Is patient in severe pain?: No Is NPO status required?: Yes BOZENA VILLALBA MD Oct 02, 2019 08:08
--- NOTE | 2019-10-02 09:11 | PDOC ---
Objective: Objective: D/w nurse - some leakage from PEG on dressing. Vital Signs: Vital Signs Date Time Temp Pulse Resp B/P (MAP) Pulse Ox O2 Delivery O2 Flow Rate FiO2 10/02/19 07:30 98.2 88 18 158/73 (101) 100 Nasal Cannula 2.0 98.2 Labs: Laboratory Tests Test 10/01/19 18:30 Vancomycin Level Trough 8.2 mcg/mL Vancomycin Last Dose Date Unk Vancomycin Last Dose Time Unk BLOOD CULTURE Preliminary NO GROWTH AFTER 2 DAYS PE: GEN: chronically ill LUNGS: coarse ABD: PEG in place w/ dressing - bumper loose - tightened again EXTREMITY: contractures NEURO/PSYCH: awake, moaning A/P: PEG in place w/ leakage 2/2 loose bumper Pneumonia -- Tightened bumper again, monitor. Hemodynamically unstable?: No Is patient in severe pain?: No Is NPO status required?: Yes VICKY WOODALL Oct 02, 2019 09:11
--- NOTE | 2019-10-02 09:37 | PDOC ---
PULMONARY PROGRESS NOTES Subjective REMAINS UNRESPONSIVE Vitals Vital Signs Date Time Temp Pulse Resp B/P (MAP) Pulse Ox O2 Delivery O2 Flow Rate FiO2 10/02/19 07:30 98.2 88 18 158/73 (101) 100 Nasal Cannula 2.0 98.2 General: Alert Lungs: Clear Cardiovascular: S1, S2 Abdomen: Soft, Non-tender Extremities: No Edema, Other (CONTRACTED) Skin: Warm Labs Laboratory Tests Test 10/01/19 07:45 10/01/19 18:30 White Blood Count 10.1 x10^3/uL (4.0-11.0) Red Blood Count 3.75 x10^6/uL (3.50-5.40) Hemoglobin 10.8 g/dL (12.0-15.5) Hematocrit 32.8 % (36.0-47.0) Mean Corpuscular Volume 87 fL (79-100) Mean Corpuscular Hemoglobin 29 pg (25-35) Mean Corpuscular Hemoglobin Concent 33 g/dL (31-37) Red Cell Distribution Width 16.4 % (11.5-14.5) Platelet Count 261 x10^3/uL (140-400) Neutrophils (%) (Auto) 69 % (31-73) Lymphocytes (%) (Auto) 15 % (24-48) Monocytes (%) (Auto) 13 % (0-9) Eosinophils (%) (Auto) 4 % (0-3) Basophils (%) (Auto) 0 % (0-3) Neutrophils # (Auto) 6.9 x10^3/uL (1.8-7.7) Lymphocytes # (Auto) 1.5 x10^3/uL (1.0-4.8) Monocytes # (Auto) 1.3 x10^3/uL (0.0-1.1) Eosinophils # (Auto) 0.4 x10^3/uL (0.0-0.7) Basophils # (Auto) 0.0 x10^3/uL (0.0-0.2) Sodium Level 142 mmol/L (136-145) Potassium Level 3.9 mmol/L (3.5-5.1) Chloride Level 107 mmol/L (98-107) Carbon Dioxide Level 27 mmol/L (21-32) Anion Gap 8 (6-14) Blood Urea Nitrogen 18 mg/dL (7-20) Creatinine 0.7 mg/dL (0.6-1.0) Estimated GFR (Cockcroft-Gault) 96.9 BUN/Creatinine Ratio 26 (6-20) Glucose Level 111 mg/dL (70-99) Calcium Level 8.8 mg/dL (8.5-10.1) Total Bilirubin 0.3 mg/dL (0.2-1.0) Aspartate Amino Transf (AST/SGOT) 25 U/L (15-37) Alanine Aminotransferase (ALT/SGPT) 20 U/L (14-59) Alkaline Phosphatase 96 U/L (46-116) Total Protein 7.4 g/dL (6.4-8.2) Albumin 2.1 g/dL (3.4-5.0) Albumin/Globulin Ratio 0.4 (1.0-1.7) Procalcitonin 0.53 ng/mL (0.00-0.10) Vancomycin Level Trough 8.2 mcg/mL (10.0-20.0) Vancomycin Last Dose Date Unk Vancomycin Last Dose Time Unk Laboratory Tests Test 10/01/19 18:30 Vancomycin Level Trough 8.2 mcg/mL (10.0-20.0) Vancomycin Last Dose Date Unk Vancomycin Last Dose Time Unk Medications Active Scripts Medications Dose Route/Sig Max Daily Dose Days Date Category Dose Instructions Nystatin 15 Gm Powder 1 Kady TP BID 7 09/30/19 Reported apply to affected area(s) [isosource1.5T.F.] 40 Ml PEG 07/26/19 Reported Isosource 1.5 40 ml per hour continuous per peg, H2O 130 ml every 4 hours. Lotrimin Af (Clotrimazole) 12 Gm Cream..g. 1 Kady TP Q4HRS PRN 07/26/19 Reported for redness around PEG site [bactrobanoint2%] 11 % BID 07/26/19 Reported apply to PEG site two times a day for skin irritation/rash [Multivitamins,Therapeutic Liq] 5 ML Liquid 5 Ml PEG DAILY 30 10/13/18 Rx Milk Of Magnesia (Magnesium Hydroxide) 2,400 Mg/10 Ml Oral.susp 2,400 Mg PEG DAILY 10/08/18 Reported Metoclopramide Hcl 5 Mg Tablet 2.5 Mg PEG DAILY06 10/08/18 Reported Zinc Sulfate 220 Mg Capsule 220 Mg PEG DAILY 08/24/18 Reported Acetaminophen Oral Liquid (Acetaminophen) 650 Mg/20.3 Ml Solution 650 Mg PEG PRN Q6HRS PRN 08/24/18 Reported Levsin (Hyoscyamine Sulfate) 0.125 Mg Tablet 1 Tab SL Q4HRS PRN 08/24/18 Reported Vitamin C (Ascorbic Acid) 500 Mg Capsule 500 Mg PEG DAILY 08/24/18 Reported Acetaminophen 325 Mg/10.15 Ml Solution 650 Mg PO Q4HRS PRN 10/10/17 Reported Impression . 1. Acute hypoxic respiratory failure secondary to early sepsis. 2. Lower lobe pneumonia, worse on the left base than right. Likely gram-negative. Cannot exclude gram-positive. 3. 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 4. Mild acute kidney injury on admission, which is improving. 5. Increased procalcitonin level consistent with pneumonia. 6. Marked leukocytosis, improving with antibiotics. Plan . 1. Continue antibiotics per Infectious Disease. 2. Continue oxygen to keep saturation 92 and above. 3. Enteral nutrition. 4. Supportive care. 5. Discussed with RN. Overall, prognosis is poor. DURATION OF ABX PER ID ? TRANSFER TO [facility] ON ABX SANGEETA HAM MD Oct 02, 2019 09:37
[2019-10-02] MEDS: VANCOMYCIN PER PHARMACY MC PRN (10:12)
--- NOTE | 2019-10-02 11:23 | NUR ---
SS following up with discharge planning. SS phoned and faxed clinical updates to [facility], ; fax [phone]. SS will continue to follow for discharge planning.
--- NOTE | 2019-10-02 11:50 | PDOC ---
Infectious Disease Note Vital Sign Vital Signs Vital Signs Date Time Temp Pulse Resp B/P (MAP) Pulse Ox O2 Delivery O2 Flow Rate FiO2 10/02/19 11:10 97 Nasal Cannula 3.0 10/02/19 11:00 99.3 75 18 165/69 (101) 99.3 Labs Lab Laboratory Tests Test 10/01/19 18:30 Vancomycin Level Trough 8.2 mcg/mL (10.0-20.0) Vancomycin Last Dose Date Unk Vancomycin Last Dose Time Unk Micro Microbiology 09/29/19 Blood Culture - Preliminary, Resulted NO GROWTH AFTER 2 DAYS Objective Assessment 1. Leukocytosis - better - Blood cults neg 2. Lower lobe pneumonia, worse on the left base than right. Likely gram-negative. Cannot exclude gram-positive. 3. Acute hypoxic respiratory failure secondary 4. Acute kidney injury on admission, which is improving. 5. 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 6. PEG drainage - loose bumper Plan Plan of Care D/c Vanc as improving with low levels and blood cults neg Cont Meropenem for now but increase frequency F/u labs in am and cults D/w nursing Thank you # [id number] STEPHEN MARTINEZ MD Oct 02, 2019 11:50
--- NOTE | 2019-10-02 12:35 | CONS ---
DATE OF CONSULTATION: 10/02/2019 REQUESTING PHYSICIAN: Dr. Sellers REASON FOR CONSULTATION: Antibiotics for pneumonia. HISTORY OF PRESENT ILLNESS: The patient is an 84-year-old female with history of dementia, contractures, and dysphagia with PEG tube. She was at a assisted facility. She is essentially nonverbal and was brought to [facility] with dyspnea and tachypnea. She had a temperature of 102.2. White blood cell count was elevated at 22,000. Chest x-ray and CT scan of the abdomen and pelvis were performed that showed she had a lower lobe consolidation, worse on the right than the left. She was placed on vancomycin and cultures were ordered. Blood cultures so far remain negative. Influenza screen was negative. She did receive a dose of Zosyn, but this was discontinued and changed to meropenem on 09/30/2019. Vancomycin was also instituted on 09/29/2019. White blood cell count is now improved to 10.1 on 10/01/2019 and she has been afebrile. Currently, the patient is lying in bed. She is on her right side. She is alert but nonverbal. 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 PAST SURGICAL HISTORY: Positive for PEG tube placement, wound debridements, colon resection following perforation after polypectomy with reversal of an ostomy, and cholecystectomy. REVIEW OF SYSTEMS: Unobtainable. ALLERGIES: No known drug allergies. SOCIAL HISTORY: She is a assisted resident. FAMILY HISTORY: Noncontributory. CURRENT MEDICATIONS: Include meropenem 500 mg IV q. 8 hours and vancomycin 750 mg IV on 09/15/2019. She is on Tylenol, Colace, Lovenox, albuterol, and Atrovent. PHYSICAL EXAMINATION: VITAL SIGNS: She is currently afebrile. Temperature 99.3, pulse 75, respirations 18, blood pressure 165/69, and satting 97% on 3 liters. CONSTITUTIONAL: She is lying on her right side. She is alert. She appears comfortable. HEENT: Her pupils are reactive. Oral cavity, pharynx was dry. NECK: Without JVD. LUNGS: Decreased in the bases. HEART: S1, S2. ABDOMEN: Soft. PEG tube in place. No guarding. GENITOURINARY: Byrd is in place. EXTREMITIES: Contracted. SKIN: Warm without signs of rash. NEUROLOGIC: She is nonresponsive. LABORATORY DATA: From 10/01/2019; white count of 10.1, hemoglobin 10.8, platelets 261, neutrophils 69, and lymphs are 15. Creatinine 0.7. Normal liver function study test. Procalcitonin was 0.53. Urinalysis; occasional epithelials, rare wbc's, leukocyte esterase and nitrite were negative. Influenza screen negative. Chest x-ray and abdomen reviewed in history of present illness. IMPRESSION: 1. Leukocytosis that is improved. 2. Lower lobe pneumonia, worse on the left than on the right. 3. Acute hypoxic respiratory failure. 4. Acute kidney injury that is improving. 5. Chronic dementia with chronic debilitated state with contractures and poor functional status. 6. PEG drainage with loose has been adjusted. RECOMMENDATIONS: We will discontinue vancomycin, as she is improving with low levels. Blood cultures are negative. We will continue the meropenem, but we will increase the frequency. We will follow up labs in a.m. and cultures. This was discussed with nursing. Thank you for allowing me to participate in the patient's care. If you have any questions, please do not hesitate to contact me. STEPHEN MARTINEZ MD DR: MASON/brandi JOB#: [id number] / [id number]
[2019-10-02] MEDS ORDERED: VANCOMYCIN 750 MG in IV NORMAL SALINE 250ML 250 ML IV SCH (14:00)
[2019-10-02] MEDS: hydrALAZINE 20 MG/ML VIAL. IVP PRN (15:51)
--- NOTE | 2019-10-02 19:15 | NUR ---
Pt daughter at bedside, pt resting comfortable poc explained to daughter,assessment completed vss will resume car and continue to monitor pt.
[2019-10-02] MEDS: ENOXAPARIN 30 MG/0.3 ML SYRINGE. SQ SCH (21:10)
[2019-10-03] MEDS: IPRATRPIUM/ALBUTEROL 0.5/2.5MG 3 ML NEBU. NEB SCH ×7 (00:16→23:43)
[2019-10-03 03:45] VITALS: BP 163/74
[2019-10-03 04:35] LABS: BASO % 1 % (0-3); EOS # 0.5 x10^3/uL (0.0-0.7); EOS % 9 % (0-3); HEMATOCRIT 30.4 % (36.0-47.0); LYMPH # 1.5 x10^3/uL (1.0-4.8); LYMPH % 27 % (24-48); MEAN CORPUSCULAR HEMOGLOBIN 29 pg (25-35); MEAN CORPUSCULAR HGB CONC 33 g/dL (31-37); MEAN CORPUSCULAR VOLUME 86 fL (79-100); MONO # 0.8 x10^3/uL (0.0-1.1); MONO % 14 % (0-9); NEUT # 2.7 x10^3/uL (1.8-7.7); NEUT % 50 % (31-73); PLATELET COUNT 300 x10^3/uL (140-400); RED BLOOD COUNT 3.52 x10^6/uL (3.50-5.40); WHITE BLOOD COUNT 5.5 x10^3/uL (4.0-11.0)
[2019-10-03 04:49] LABS: CREATININE 0.6 mg/dL (0.6-1.0); GFR 115.8
[2019-10-03] MEDS: MEROPENEM 500 MG in IV NORMAL SALINE 50ML 50 ML IV SCH ×3 (06:08→17:54)
[2019-10-03 07:13] VITALS: BP_SYST 154; BP_SYST 163; BP_DIAS 72; BP_DIAS 74
--- NOTE | 2019-10-03 07:47 | PDOC ---
PULMONARY PROGRESS NOTES Subjective remains unresponsive Vitals Vital Signs Date Time Temp Pulse Resp B/P (MAP) Pulse Ox O2 Delivery O2 Flow Rate FiO2 10/03/19 07:13 98.3 78 24 154/72 (99) 100 Nasal Cannula 2.5 98.3 Comments unable to obtain unresponsive Lungs: Clear Cardiovascular: S1, S2 Abdomen: Soft, Non-tender Extremities: No Edema, Other (CONTRACTED) Skin: Warm Labs Laboratory Tests Test 10/01/19 18:30 10/03/19 04:15 Vancomycin Level Trough 8.2 mcg/mL (10.0-20.0) Vancomycin Last Dose Date Unk Vancomycin Last Dose Time Unk White Blood Count 5.5 x10^3/uL (4.0-11.0) Red Blood Count 3.52 x10^6/uL (3.50-5.40) Hemoglobin 10.0 g/dL (12.0-15.5) Hematocrit 30.4 % (36.0-47.0) Mean Corpuscular Volume 86 fL (79-100) Mean Corpuscular Hemoglobin 29 pg (25-35) Mean Corpuscular Hemoglobin Concent 33 g/dL (31-37) Red Cell Distribution Width 16.0 % (11.5-14.5) Platelet Count 300 x10^3/uL (140-400) Neutrophils (%) (Auto) 50 % (31-73) Lymphocytes (%) (Auto) 27 % (24-48) Monocytes (%) (Auto) 14 % (0-9) Eosinophils (%) (Auto) 9 % (0-3) Basophils (%) (Auto) 1 % (0-3) Neutrophils # (Auto) 2.7 x10^3/uL (1.8-7.7) Lymphocytes # (Auto) 1.5 x10^3/uL (1.0-4.8) Monocytes # (Auto) 0.8 x10^3/uL (0.0-1.1) Eosinophils # (Auto) 0.5 x10^3/uL (0.0-0.7) Basophils # (Auto) 0.0 x10^3/uL (0.0-0.2) Creatinine 0.6 mg/dL (0.6-1.0) Estimated GFR (Cockcroft-Gault) 115.8 Laboratory Tests Test 10/03/19 04:15 White Blood Count 5.5 x10^3/uL (4.0-11.0) Red Blood Count 3.52 x10^6/uL (3.50-5.40) Hemoglobin 10.0 g/dL (12.0-15.5) Hematocrit 30.4 % (36.0-47.0) Mean Corpuscular Volume 86 fL (79-100) Mean Corpuscular Hemoglobin 29 pg (25-35) Mean Corpuscular Hemoglobin Concent 33 g/dL (31-37) Red Cell Distribution Width 16.0 % (11.5-14.5) Platelet Count 300 x10^3/uL (140-400) Neutrophils (%) (Auto) 50 % (31-73) Lymphocytes (%) (Auto) 27 % (24-48) Monocytes (%) (Auto) 14 % (0-9) Eosinophils (%) (Auto) 9 % (0-3) Basophils (%) (Auto) 1 % (0-3) Neutrophils # (Auto) 2.7 x10^3/uL (1.8-7.7) Lymphocytes # (Auto) 1.5 x10^3/uL (1.0-4.8) Monocytes # (Auto) 0.8 x10^3/uL (0.0-1.1) Eosinophils # (Auto) 0.5 x10^3/uL (0.0-0.7) Basophils # (Auto) 0.0 x10^3/uL (0.0-0.2) Creatinine 0.6 mg/dL (0.6-1.0) Estimated GFR (Cockcroft-Gault) 115.8 Medications Active Scripts Medications Dose Route/Sig Max Daily Dose Days Date Category Dose Instructions Nystatin 15 Gm Powder 1 Kady TP BID 7 09/30/19 Reported apply to affected area(s) [isosource1.5T.F.] 40 Ml PEG 07/26/19 Reported Isosource 1.5 40 ml per hour continuous per peg, H2O 130 ml every 4 hours. Lotrimin Af (Clotrimazole) 12 Gm Cream..g. 1 Kady TP Q4HRS PRN 07/26/19 Reported for redness around PEG site [bactrobanoint2%] 11 % BID 07/26/19 Reported apply to PEG site two times a day for skin irritation/rash [Multivitamins,Therapeutic Liq] 5 ML Liquid 5 Ml PEG DAILY 30 10/13/18 Rx Milk Of Magnesia (Magnesium Hydroxide) 2,400 Mg/10 Ml Oral.susp 2,400 Mg PEG DAILY 10/08/18 Reported Metoclopramide Hcl 5 Mg Tablet 2.5 Mg PEG DAILY06 10/08/18 Reported Zinc Sulfate 220 Mg Capsule 220 Mg PEG DAILY 08/24/18 Reported Acetaminophen Oral Liquid (Acetaminophen) 650 Mg/20.3 Ml Solution 650 Mg PEG PRN Q6HRS PRN 08/24/18 Reported Levsin (Hyoscyamine Sulfate) 0.125 Mg Tablet 1 Tab SL Q4HRS PRN 08/24/18 Reported Vitamin C (Ascorbic Acid) 500 Mg Capsule 500 Mg PEG DAILY 08/24/18 Reported Acetaminophen 325 Mg/10.15 Ml Solution 650 Mg PO Q4HRS PRN 10/10/17 Reported Impression . 1. Acute hypoxic respiratory failure secondary to early sepsis. 2. Lower lobe pneumonia, worse on the left base than right. Likely gram- negative. Cannot exclude gram-positive. 3. 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 4. Mild acute kidney injury on admission, which is improving. 5. Increased procalcitonin level consistent with pneumonia. 6. Marked leukocytosis, resolved with antibiotics. Plan . 1. Continue antibiotics per Infectious Disease. 2. Continue oxygen to keep saturation 92 and above. 3. Enteral nutrition. 4. Bld cultures NGTD 5. Supportive care 6. HTN per PCP Discussed with RN. Severiano to D/C to SNF from pulmonary standpoint on SANGEETA Das MD Oct 03, 2019 07:46
[2019-10-03] MEDS: IV NORMAL SALINE 1000ML BAG 1,000 ML IV SCH ×2 (09:10→22:35)
--- NOTE | 2019-10-03 09:31 | PDOC ---
Infectious Disease Note Subjective Subjective Noncommunicative No fevers Tube feeds ROS ROS unobtainable Vital Sign Vital Signs Vital Signs Date Time Temp Pulse Resp B/P (MAP) Pulse Ox O2 Delivery O2 Flow Rate FiO2 10/03/19 07:13 98.3 78 24 154/72 (99) 100 Nasal Cannula 2.5 98.3 Physical Exam PHYSICAL EXAM GENERAL: position, weak appearing, opens eyes to name, nonverbal HEENT: Pupils are reactive. Oral cavity, pharynx dry. NECK: Without JVD. LUNGS: Course, nonlabored HEART: S1, S2. ABDOMEN: Soft. PEG tube in place. No guarding. GENITOURINARY: Byrd is in place. EXTREMITIES: Contracted. SKIN: Warm without signs of rash. NEUROLOGIC: Noncommunicative Labs Lab Laboratory Tests Test 10/03/19 04:15 White Blood Count 5.5 x10^3/uL (4.0-11.0) Red Blood Count 3.52 x10^6/uL (3.50-5.40) Hemoglobin 10.0 g/dL (12.0-15.5) Hematocrit 30.4 % (36.0-47.0) Mean Corpuscular Volume 86 fL (79-100) Mean Corpuscular Hemoglobin 29 pg (25-35) Mean Corpuscular Hemoglobin Concent 33 g/dL (31-37) Red Cell Distribution Width 16.0 % (11.5-14.5) Platelet Count 300 x10^3/uL (140-400) Neutrophils (%) (Auto) 50 % (31-73) Lymphocytes (%) (Auto) 27 % (24-48) Monocytes (%) (Auto) 14 % (0-9) Eosinophils (%) (Auto) 9 % (0-3) Basophils (%) (Auto) 1 % (0-3) Neutrophils # (Auto) 2.7 x10^3/uL (1.8-7.7) Lymphocytes # (Auto) 1.5 x10^3/uL (1.0-4.8) Monocytes # (Auto) 0.8 x10^3/uL (0.0-1.1) Eosinophils # (Auto) 0.5 x10^3/uL (0.0-0.7) Basophils # (Auto) 0.0 x10^3/uL (0.0-0.2) Creatinine 0.6 mg/dL (0.6-1.0) Estimated GFR (Cockcroft-Gault) 115.8 Micro Microbiology 09/29/19 Blood Culture - Preliminary, Resulted NO GROWTH AFTER 3 DAYS Objective Assessment Leukocytosis - improved. Lower lobe pneumonia, worse on the left base than right. Likely gram-negative. Cannot exclude gram-positive. Acute hypoxic respiratory failure secondary Acute kidney injury on admission, which is improving. 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 PEG drainage - loose bumper Plan Plan of Care Cont Meropenem BC neg to date Maintain aspiration precautions Attending Co-Sign The patient was seen and interviewed as well as examined at the bedside. The chart was reviewed. The case was discussed. Agree with the plan of care. VENANCIO ARREAGA APRN Oct 03, 2019 09:31 JESUSITA SAL MD Oct 03, 2019 11:46
[2019-10-03 10:33] VITALS: BP 163/81
--- NOTE | 2019-10-03 11:03 | PDOC ---
PROGRESS NOTES Chief Complaint Chief Complaint IMPRESSION ======= Acute hypoxemic respiratory failure - with interstitial markings increased on CXR.//Possibly viral pneumonia, negative for flu Pneumonia - with bilateral appearance on CT, high risk for gram negative pneumonia, will treat as HCAP given she is a SNF resident // recently ho spitalized Left pleural effusion - possibly parapneumonic, Pulmonology consulted Sepsis - secondary to pneumonia, most likely, febrile with elevated WBCs and CT abdomen showing consolidative changes in the left lower lobe and tree-in-bud nodularity in the right lower lobe.Hazy opacity at the left lung base with a small left pleural effusion. Recent aspiration PNA, on tube feeds - not clear that she actually has a pneumonia currently. Will check procalcitonin to r/o bacterial infection, mycoplasma serology. 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 PEG drainage with loose bumper has been adjusted. PLAN FEN - Tube feeds with 130mL q4hr water bolus PPX - lovenox 30mg FULL CODE Dispo - inpatient for worsening hypoxia, pneumonia D/W RN History of Present Illness History of Present Illness 84yo F w/ PMHx Anemia, Anxiety, Dementia, Hypertension, dysphasia, nonverbal, contractures, pressure ulcers, dyphagia s/p PEG sent from [facility] with shortness of breath, hypoxia, concern for fevers up to 103F. She is non-verbal, cannot give history or follows commands in any meaningful way, cannot communicate, she is contracted, cachectic. According to nursing notes, patient has continuous tube feeds. Labs with some increased WBC, febrile. Negative flu swab. CXR with diffuse bilateral interstitial lung markings and CT abdomen showing consolidative changes in the left lower lobe and tree-in-bud nodularity in the right lower lobe favored to be infectious or inflammatory in etiology.Hazy opacity at the left lung base with a small left pleural effusion. 5: WBC and fever still up overnight. Nonverbal, does not respond. Changed to merrem Contracted, unresponsive. Renal function improved. Vanco trough low. D/w pulm to ask for ID consultation. Plan: Needs family meeting to discuss goals of care. Vitals Vitals Vital Signs Date Time Temp Pulse Resp B/P (MAP) Pulse Ox O2 Delivery O2 Flow Rate FiO2 10/03/19 10:33 98.3 79 24 163/81 (108) 100 Nasal Cannula 2.5 98.3 Physical Exam Physical Exam GENERAL: position, weak appearing, opens eyes to name, nonverbal HEENT: Pupils are reactive. Oral cavity, pharynx dry. NECK: Without JVD. LUNGS: Course, nonlabored HEART: S1, S2. ABDOMEN: Soft. PEG tube in place. No guarding. GENITOURINARY: Nayak is in place. EXTREMITIES: Contracted. SKIN: Warm without signs of rash. NEUROLOGIC: Noncommunicative General: mild distress Heart: Regular rate Lungs: Clear Abdomen: Soft, No tenderness Extremities: No cyanosis Skin: No significant lesion Labs LABS Images Images Exam: Chest one view INDICATION: Short of breath TECHNIQUE: Frontal view of the chest Comparisons: 07/25/2019 FINDINGS: The cardiomediastinal silhouette is within normal limits. Pulmonary vessels are prominent. Hazy opacity at the left lung base with a small left pleural effusion. IMPRESSION: Small left pleural effusion with adjacent airspace disease likely atelectasis. Superimposed infectious process is difficult to exclude. Electronically signed by: Lucille Bray MD (09/29/2019 7:10 PM) [id number] DICTATED and SIGNED BY: LUCILLE BRAY MD Exam: CT of abdomen and pelvis without contrast INDICATION: Fever TECHNIQUE: Sequential axial images through the abdomen and pelvis obtained without IV contrast. Sagittal and coronal reformatted images were reconstructed from the axial data and reviewed. Comparisons: None FINDINGS: Heart size is normal. No pericardial effusion. Consolidative changes in the left lower lobe. Additionally there is patchy tree-in-bud nodularity within the right lower lobe. Liver, spleen, pancreas and adrenals are unremarkable. Gallbladder is surgically absent. No perinephric inflammation or hydronephrosis. No renal or ureteral calculi are identified. Bladder is decompressed not well evaluated. Nayak balloon noted within the bladder. Scattered diverticula noted throughout the colon without evidence of acute diverticulitis. There is trace free fluid noted at the pelvis. There is a percutaneous gastrostomy tube with tip in the stomach. No fluid collection along the track of the tube. Postsurgical changes at the right lower quadrant colon. Abdominal aorta has a normal course and caliber. No enlarged abdominal lymph nodes are identified. No suspicious osseous lesions or acute fractures. IMPRESSION: 1. No wall thickening or fluid collection along the track of the PEG tube. 2. Diverticulosis without evidence of acute diverticulitis. 3. Consolidative changes in the left lower lobe and tree-in-bud nodularity in the right lower lobe favored to be infectious or inflammatory in etiology. 4. No sequela of infection identified within the abdomen or pelvis. Exposure: One or more of the following in the visualized dose reduction techniques were utilized for this examination: 1. Automated exposure control 2. Adjustment of the MA and/or KV according to patient size 3. Use of iterative of reconstructive technique Electronically signed by: Lucille Bray MD (09/29/2019 9:17 PM) [id number] DICTATED and SIGNED BY: LUCILLE BRAY MD DATE: 09/29/192116 VTE Prophylaxis Ordered VTE Prophylaxis Devices: Yes VTE Pharmacological Prophylaxi: Yes Comparisons: None FINDINGS: Heart size is normal. No pericardial effusion. Consolidative changes in the left lower lobe. Additionally there is patchy tree-in-bud nodularity within the right lower lobe. Liver, spleen, pancreas and adrenals are unremarkable. Gallbladder is surgically absent. No perinephric inflammation or hydronephrosis. No renal or ureteral calculi are identified. Bladder is decompressed not well evaluated. Nayak balloon noted within the bladder. Scattered diverticula noted throughout the colon without evidence of acute diverticulitis. There is trace free fluid noted at the pelvis. There is a percutaneous gastrostomy tube with tip in the stomach. No fluid collection along the track of the tube. Postsurgical changes at the right lower quadrant colon. Abdominal aorta has a normal course and caliber. No enlarged abdominal lymph nodes are identified. No suspicious osseous lesions or acute fractures. IMPRESSION: 1. No wall thickening or fluid collection along the track of the PEG tube. 2. Diverticulosis without evidence of acute diverticulitis. 3. Consolidative changes in the left lower lobe and tree-in-bud nodularity in the right lower lobe favored to be infectious or inflammatory in etiology. 4. No sequela of infection identified within the abdomen or pelvis. Exposure: One or more of the following in the visualized dose reduction techniques were utilized for this examination: 1. Automated exposure control 2. Adjustment of the MA and/or KV according to patient size 3. Use of iterative of reconstructive technique Electronically signed by: Lucille Bray MD (09/29/2019 9:17 PM) [id number] DICTATED and SIGNED BY: LUCILLE BARY MD DATE: 09/29/192116 Laboratory Tests Test 10/03/19 04:15 White Blood Count 5.5 x10^3/uL (4.0-11.0) Red Blood Count 3.52 x10^6/uL (3.50-5.40) Hemoglobin 10.0 g/dL (12.0-15.5) Hematocrit 30.4 % (36.0-47.0) Mean Corpuscular Volume 86 fL (79-100) Mean Corpuscular Hemoglobin 29 pg (25-35) Mean Corpuscular Hemoglobin Concent 33 g/dL (31-37) Red Cell Distribution Width 16.0 % (11.5-14.5) Platelet Count 300 x10^3/uL (140-400) Neutrophils (%) (Auto) 50 % (31-73) Lymphocytes (%) (Auto) 27 % (24-48) Monocytes (%) (Auto) 14 % (0-9) Eosinophils (%) (Auto) 9 % (0-3) Basophils (%) (Auto) 1 % (0-3) Neutrophils # (Auto) 2.7 x10^3/uL (1.8-7.7) Lymphocytes # (Auto) 1.5 x10^3/uL (1.0-4.8) Monocytes # (Auto) 0.8 x10^3/uL (0.0-1.1) Eosinophils # (Auto) 0.5 x10^3/uL (0.0-0.7) Basophils # (Auto) 0.0 x10^3/uL (0.0-0.2) Creatinine 0.6 mg/dL (0.6-1.0) Estimated GFR (Cockcroft-Gault) 115.8 Assessment and Plan Assessmemt and Plan Problems Medical Problems: (1) Dementia Status: Acute (2) HCAP (healthcare-associated pneumonia) Status: Acute (3) Hypertension Status: Acute (4) SIRS (systemic inflammatory response syndrome) Status: Acute Comment Review of Relevant I have reviewed the following items nato (where applicable) has been applied. Labs Laboratory Tests Test 10/01/19 18:30 10/03/19 04:15 Vancomycin Level Trough 8.2 mcg/mL (10.0-20.0) Vancomycin Last Dose Date Unk Vancomycin Last Dose Time Unk White Blood Count 5.5 x10^3/uL (4.0-11.0) Red Blood Count 3.52 x10^6/uL (3.50-5.40) Hemoglobin 10.0 g/dL (12.0-15.5) Hematocrit 30.4 % (36.0-47.0) Mean Corpuscular Volume 86 fL (79-100) Mean Corpuscular Hemoglobin 29 pg (25-35) Mean Corpuscular Hemoglobin Concent 33 g/dL (31-37) Red Cell Distribution Width 16.0 % (11.5-14.5) Platelet Count 300 x10^3/uL (140-400) Neutrophils (%) (Auto) 50 % (31-73) Lymphocytes (%) (Auto) 27 % (24-48) Monocytes (%) (Auto) 14 % (0-9) Eosinophils (%) (Auto) 9 % (0-3) Basophils (%) (Auto) 1 % (0-3) Neutrophils # (Auto) 2.7 x10^3/uL (1.8-7.7) Lymphocytes # (Auto) 1.5 x10^3/uL (1.0-4.8) Monocytes # (Auto) 0.8 x10^3/uL (0.0-1.1) Eosinophils # (Auto) 0.5 x10^3/uL (0.0-0.7) Basophils # (Auto) 0.0 x10^3/uL (0.0-0.2) Creatinine 0.6 mg/dL (0.6-1.0) Estimated GFR (Cockcroft-Gault) 115.8 Laboratory Tests Test 10/03/19 04:15 White Blood Count 5.5 x10^3/uL (4.0-11.0) Red Blood Count 3.52 x10^6/uL (3.50-5.40) Hemoglobin 10.0 g/dL (12.0-15.5) Hematocrit 30.4 % (36.0-47.0) Mean Corpuscular Volume 86 fL (79-100) Mean Corpuscular Hemoglobin 29 pg (25-35) Mean Corpuscular Hemoglobin Concent 33 g/dL (31-37) Red Cell Distribution Width 16.0 % (11.5-14.5) Platelet Count 300 x10^3/uL (140-400) Neutrophils (%) (Auto) 50 % (31-73) Lymphocytes (%) (Auto) 27 % (24-48) Monocytes (%) (Auto) 14 % (0-9) Eosinophils (%) (Auto) 9 % (0-3) Basophils (%) (Auto) 1 % (0-3) Neutrophils # (Auto) 2.7 x10^3/uL (1.8-7.7) Lymphocytes # (Auto) 1.5 x10^3/uL (1.0-4.8) Monocytes # (Auto) 0.8 x10^3/uL (0.0-1.1) Eosinophils # (Auto) 0.5 x10^3/uL (0.0-0.7) Basophils # (Auto) 0.0 x10^3/uL (0.0-0.2) Creatinine 0.6 mg/dL (0.6-1.0) Estimated GFR (Cockcroft-Gault) 115.8 Microbiology 09/29/19 Blood Culture - Preliminary, Resulted NO GROWTH AFTER 3 DAYS Medications Current Medications Sodium Chloride 1,000 ml @ 1,710 mls/hr Q36M IV Last administered on 09/29/19at 19:03; Start 09/29/19 at 18:27; Stop 09/29/19 at 19:27; Status DC Piperacillin Sod/ Tazobactam Sod 4.5 gm/Sodium Chloride 100 ml @ 200 mls/hr 1X ONCE IV ; Start 09/29/19 at 18:30; Stop 09/29/19 at 18:59; Status UNV Vancomycin HCl (Vanco Per Pharmacy) 1 each PRN DAILY PRN MC SEE COMMENTS Last administered on 10/02/19at 10:12; Start 09/29/19 at 18:30; Stop 10/02/19 at 11:38; Status DC Piperacillin Sod/ Tazobactam Sod 3.375 gm/Sodium Chloride 50 ml @ 100 mls/hr 1X ONCE IV Last administered on 09/29/19 19:09; Start 09/29/19 at 18:45; Stop 09/29/19 at 19:14; Status DC Vancomycin HCl 1 gm/Sodium Chloride 250 ml @ 250 mls/hr 1X ONCE IV Last administered on 09/29/19at 19:10; Start 09/29/19 at 18:45; Stop 09/29/19 at 19:44; Status DC Acetaminophen (Tylenol Supp) 650 mg 1X ONCE VT Last administered on 09/29/19at 18:45; Start 09/29/19 at 18:45; Stop 09/29/19 at 18:52; Status DC Albuterol/ Ipratropium (Duoneb) 3 ml 1X ONCE NEB Last administered on 09/29/19at 19:15; Start 09/29/19 at 19:15; Stop 09/29/19 at 19:16; Status DC Ondansetron HCl (Zofran) 4 mg PRN Q8HRS PRN IV NAUSEA/VOMITING 1ST CHOICE; Start 09/29/19 at 20:45; Stop 09/30/19 at 20:44; Status DC Acetaminophen (Tylenol) 650 mg PRN Q4HRS PRN PO FEVER; Start 09/29/19 at 20:45; Stop 09/30/19 at 20:44; Status DC Vancomycin HCl 750 mg/Sodium Chloride 250 ml @ 250 mls/hr Q24H IV Last ad ministered on 10/01/19at 19:57; Start 09/30/19 at 19:00; Stop 10/01/19 at 21:00; Status DC Vancomycin HCl (Vancomycin Trough Level) 1 each 1X ONCE MC Last administered on 10/01/19at 18:30; Start 10/01/19 at 18:30; Stop 10/01/19 at 18:31; Status DC Acetaminophen (Tylenol Supp) 650 mg PRN Q6HRS PRN VT MILD PAIN / TEMP Last administered on 09/30/19at 03:11; Start 09/30/19 at 03:00 Piperacillin Sod/ Tazobactam Sod (Zosyn Per Pharmacy) 1 each PRN DAILY PRN MC SEE COMMENTS; Start 09/30/19 at 07:45; Stop 09/30/19 at 14:14; Status DC Piperacillin Sod/ Tazobactam Sod 3.375 gm/Sodium Chloride 50 ml @ 100 mls/hr Q6HRS IV Last administered on 09/30/19at 12:39; Start 09/30/19 at 12:00; Stop 09/30/19 at 14:14; Status DC Piperacillin Sod/ Tazobactam Sod 3.375 gm/Sodium Chloride 50 ml @ 100 mls/hr 1X ONCE IV Last administered on 09/30/19at 08:29; Start 09/30/19 at 08:00; Stop 09/30/19 at 08:29; Status DC Sodium Chloride (Normal Saline Flush) 3 ml QSHIFT PRN IV AFTER MEDS AND BLOOD DRAWS; Start 09/30/19 at 13:45 Sodium Chloride 1,000 ml @ 60 mls/hr [id number] IV Last administered on 10/02/19at 21:14; Start 09/30/19 at 14:30 Ondansetron HCl (Zofran) 4 mg PRN Q4HRS PRN IV NAUSEA/VOMITING; Start 09/30/19 at 13:45 Acetaminophen (Tylenol Supp) 650 mg PRN Q4HRS PRN VT TEMP OVER 100.4F OR MILD PAIN; Start 09/30/19 at 13:45; Status UNV Docusate Sodium (Colace) 100 mg PRN BID PRN PO CONSTIPATION; Start 09/30/19 at 13:45 Albuterol/ Ipratropium (Duoneb) 3 ml Q4HRS NEB Last administered on 10/03/19at 08:00; Start 09/30/19 at 16:00 Guaifenesin (Robitussin) 200 mg PRN Q4HRS PRN PO COUGH; Start 09/30/19 at 13:45 Lorazepam (Ativan) 0.5 mg PRN Q4HRS PRN PO ANXIETY / AGITATION; Start 09/30/19 at 13:45 Enoxaparin Sodium (Lovenox 30mg Syringe) 30 mg Q24H SQ Last administered on 10/02/19at 21:10; Start 09/30/19 at 21:00 Vancomycin HCl (Vanco Per Pharmacy) 1 each PRN DAILY PRN MC SEE COMMENTS; Start 09/30/19 at 13:45; Status UNV Meropenem 500 mg/ Sodium Chloride 50 ml @ 100 mls/hr Q8HRS IV Last administered on 10/02/19at 05:38; Start 09/30/19 at 15:00; Stop 10/02/19 at 11:51; Status DC Vancomycin HCl 750 mg/Sodium Chloride 250 ml @ 250 mls/hr Q18H IV ; Start 10/02/19 at 14:00; Stop 10/02/19 at 11:38; Status DC Vancomycin HCl (Vancomycin Trough Level) 1 each 1X ONCE MC ; Start 10/03/19 at 07:30; Stop 10/03/19 at 07:31; Status Cancel Meropenem 500 mg/ Sodium Chloride 50 ml @ 100 mls/hr Q6HRS IV Last administered on 10/03/19at 06:08; Start 10/02/19 at 12:00 Hydralazine HCl (Apresoline Inj) 10 mg PRN Q6HRS PRN IVP ELEVATED BP, SEE COMMENTS Last administered on 10/02/19at 15:51; Start 10/02/19 at 15:00 Active Scripts Active [Multivitamins,Therapeutic Liq] 5 ML Liquid 5 Ml PEG DAILY 30 Days Reported Nystatin 15 Gm Powder 1 Kady TP BID 7 Days apply to affected area(s) [isosource1.5T.F.] 40 Ml PEG Isosource 1.5 40 ml per hour continuous per peg, H2O 130 ml every 4 hours. Lotrimin Af (Clotrimazole) 12 Gm Cream..g. 1 Kady TP Q4HRS PRN for redness around PEG site [bactrobanoint2%] 11 % BID apply to PEG site two times a day for skin irritation/rash Milk Of Magnesia (Magnesium Hydroxide) 2,400 Mg/10 Ml Oral.susp 2,400 Mg PEG D AILY Metoclopramide Hcl 5 Mg Tablet 2.5 Mg PEG DAILY06 Zinc Sulfate 220 Mg Capsule 220 Mg PEG DAILY Acetaminophen Oral Liquid (Acetaminophen) 650 Mg/20.3 Ml Solution 650 Mg PEG PRN Q6HRS PRN Levsin (Hyoscyamine Sulfate) 0.125 Mg Tablet 1 Tab SL Q4HRS PRN Vitamin C (Ascorbic Acid) 500 Mg Capsule 500 Mg PEG DAILY Acetaminophen 325 Mg/10.15 Ml Solution 650 Mg PO Q4HRS PRN Vitals/I & O Vital Sign - Last 24 Hours 10/02/19 10/02/19 10/02/19 10/02/19 11:10 15:00 15:34 15:51 Temp 99.0 99.0 Pulse 88 88 Resp 18 B/P (MAP) 170/74 (106) 170/74 Pulse Ox 97 98 98 O2 Delivery Nasal Cannula Nasal Cannula Nasal Cannula O2 Flow Rate 3.0 2.0 3.0 10/02/19 10/02/19 10/02/19 10/02/19 18:01 19:15 19:15 20:20 Temp 98.1 98.1 Pulse 96 Resp 18 B/P (MAP) 137/63 (87) 168/74 (105) 169/77 (107) Pulse Ox 98 O2 Delivery Nasal Cannula Nasal Cannula O2 Flow Rate 2.5 2.5 10/02/19 10/02/19 10/03/19 10/03/19 21:13 23:15 00:15 03:45 Temp 98.3 98.8 98.3 98.8 Pulse 81 75 Resp 24 24 B/P (MAP) 155/67 (96) 163/74 (103) Pulse Ox 98 100 98 99 O2 Delivery Nasal Cannula Nasal Cannula Nasal Cannula Nasal Cannula O2 Flow Rate 2.5 2.5 2.5 2.5 10/03/19 10/03/19 10/03/19 10/03/19 04:18 07:13 09:30 10:33 Temp 98.3 98.3 98.3 98.3 Pulse 78 79 Resp 24 24 B/P (MAP) 154/72 (99) 163/81 (108) Pulse Ox 98 100 99 100 O2 Delivery Nasal Cannula Nasal Cannula Nasal Cannula Nasal Cannula O2 Flow Rate 2.5 2.5 2.5 2.5 Intake and Output 10/02/19 10/02/19 10/03/19 15:00 23:00 07:00 Intake Total 130 ml 130 ml 681 ml Output Total 1600 ml 525 ml Balance 130 ml -1470 ml 156 ml Nutrition Consultation Dietary Evaluation: Recommendations by RD: Dietary education by RD, Increase Calorie Intake Comments: Continue w/TFs as ordered - Osmolite 1.2@goal rate 40 ml/hr w/130 ml water flushes q4 hrs Expected Outcomes/Goals: TF infusion to meet >75% est needs Malnutrition Findings: Body Fat Depletion (Non Severe: Mild Depletion Weight Status: Underweight Hemodynamically unstable?: No Is patient in severe pain?: No Is NPO status required?: Yes FITZ DAVIES MD Oct 03, 2019 11:03
[2019-10-03] MEDS: hydrALAZINE 20 MG/ML VIAL. IVP PRN (12:46)
[2019-10-03 14:25] VITALS: BP 153/71
[2019-10-03 19:15] VITALS: BP 169/74
[2019-10-03] MEDS: LACTOBACILLUS RHAMNOSUS GG 1 CAPSULE. PO SCH (22:19)
[2019-10-03] MEDS: ENOXAPARIN 30 MG/0.3 ML SYRINGE. SQ SCH (22:30)
[2019-10-03 23:15] VITALS: BP 132/60
[2019-10-04] VITALS (8 sets, daily range): BP systolic 125–186; BP diastolic 56–77
[2019-10-04] MEDS: MEROPENEM 500 MG in IV NORMAL SALINE 50ML 50 ML IV SCH ×5 (00:48→22:43)
[2019-10-04] MEDS: IPRATRPIUM/ALBUTEROL 0.5/2.5MG 3 ML NEBU. NEB SCH ×5 (04:00→23:38)
[2019-10-04] MEDS: hydrALAZINE 20 MG/ML VIAL. IVP PRN (04:12)
[2019-10-04 05:01] LABS: BASO # 0.1 x10^3/uL (0.0-0.2); BASO % 1 % (0-3); EOS # 0.4 x10^3/uL (0.0-0.7); EOS % 8 % (0-3); HEMATOCRIT 29.7 % (36.0-47.0); HEMOGLOBIN 9.9 g/dL (12.0-15.5); LYMPH # 1.7 x10^3/uL (1.0-4.8); LYMPH % 30 % (24-48); MEAN CORPUSCULAR HEMOGLOBIN 29 pg (25-35); MEAN CORPUSCULAR HGB CONC 33 g/dL (31-37); MEAN CORPUSCULAR VOLUME 87 fL (79-100); MONO # 0.7 x10^3/uL (0.0-1.1); MONO % 13 % (0-9); NEUT # 2.7 x10^3/uL (1.8-7.7); NEUT % 49 % (31-73); PLATELET COUNT 321 x10^3/uL (140-400); RED BLOOD COUNT 3.43 x10^6/uL (3.50-5.40); RED CELL DISTRIBUTION WIDTH 16.4 % (11.5-14.5); WHITE BLOOD COUNT 5.6 x10^3/uL (4.0-11.0)
[2019-10-04 05:20] LABS: ALBUMIN/GLOBULIN RATIO 0.4 (1.0-1.7); CALCIUM 9.2 mg/dL (8.5-10.1); CREATININE 0.6 mg/dL (0.6-1.0); GFR 115.8; POTASSIUM 3.7 mmol/L (3.5-5.1); TOTAL BILIRUBIN 0.2 mg/dL (0.2-1.0); TOTAL PROTEIN 6.9 g/dL (6.4-8.2)
[2019-10-04] MEDS: LACTOBACILLUS RHAMNOSUS GG 1 CAPSULE. PO SCH ×2 (07:48→22:06)
--- NOTE | 2019-10-04 09:12 | PDOC ---
Infectious Disease Note Subjective Subjective Noncommunicative No fevers Tube feeds 40 ml/hr BM x 4 ROS ROS unobtainable Vital Sign Vital Signs Vital Signs Date Time Temp Pulse Resp B/P (MAP) Pulse Ox O2 Delivery O2 Flow Rate FiO2 10/04/19 08:42 99 Nasal Cannula 2.0 10/04/19 07:23 98.4 90 24 125/56 (79) 98.4 Physical Exam PHYSICAL EXAM GENERAL: position, weak appearing, opens eyes to name, nonverbal, softly moaning HEENT: Resists eye and oral exam NECK: Without JVD. LUNGS: Course, nonlabored HEART: S1, S2. ABDOMEN: Soft. PEG tube in place. No guarding. GENITOURINARY: Byrd is in place. EXTREMITIES: Contracted. SKIN: Warm without signs of rash. NEUROLOGIC: Noncommunicative Labs Lab Laboratory Tests Test 10/04/19 04:25 White Blood Count 5.6 x10^3/uL (4.0-11.0) Red Blood Count 3.43 x10^6/uL (3.50-5.40) Hemoglobin 9.9 g/dL (12.0-15.5) Hematocrit 29.7 % (36.0-47.0) Mean Corpuscular Volume 87 fL (79-100) Mean Corpuscular Hemoglobin 29 pg (25-35) Mean Corpuscular Hemoglobin Concent 33 g/dL (31-37) Red Cell Distribution Width 16.4 % (11.5-14.5) Platelet Count 321 x10^3/uL (140-400) Neutrophils (%) (Auto) 49 % (31-73) Lymphocytes (%) (Auto) 30 % (24-48) Monocytes (%) (Auto) 13 % (0-9) Eosinophils (%) (Auto) 8 % (0-3) Basophils (%) (Auto) 1 % (0-3) Neutrophils # (Auto) 2.7 x10^3/uL (1.8-7.7) Lymphocytes # (Auto) 1.7 x10^3/uL (1.0-4.8) Monocytes # (Auto) 0.7 x10^3/uL (0.0-1.1) Eosinophils # (Auto) 0.4 x10^3/uL (0.0-0.7) Basophils # (Auto) 0.1 x10^3/uL (0.0-0.2) Sodium Level 143 mmol/L (136-145) Potassium Level 3.7 mmol/L (3.5-5.1) Chloride Level 109 mmol/L (98-107) Carbon Dioxide Level 27 mmol/L (21-32) Anion Gap 7 (6-14) Blood Urea Nitrogen 12 mg/dL (7-20) Creatinine 0.6 mg/dL (0.6-1.0) Estimated GFR (Cockcroft-Gault) 115.8 BUN/Creatinine Ratio 20 (6-20) Glucose Level 109 mg/dL (70-99) Calcium Level 9.2 mg/dL (8.5-10.1) Total Bilirubin 0.2 mg/dL (0.2-1.0) Aspartate Amino Transf (AST/SGOT) 33 U/L (15-37) Alanine Aminotransferase (ALT/SGPT) 36 U/L (14-59) Alkaline Phosphatase 78 U/L (46-116) Total Protein 6.9 g/dL (6.4-8.2) Albumin 2.0 g/dL (3.4-5.0) Albumin/Globulin Ratio 0.4 (1.0-1.7) Micro Microbiology 09/29/19 Blood Culture - Preliminary, Resulted NO GROWTH AFTER 4 DAYS Objective Assessment Leukocytosis - improved. Lower lobe pneumonia, worse on the left base than right. Likely gram-negative. Cannot exclude gram-positive. Acute hypoxic respiratory failure secondary Acute kidney injury on admission, which is improving. 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 PEG drainage - loose bumper Plan Plan of Care Cont Meropenem BC neg to date Maintain aspiration precautions Attending Co-Sign The patient was seen and interviewed as well as examined at the bedside. The chart was reviewed. The case was discussed. Agree with the plan of care. VENANCIO ARREAGA APRN Oct 04, 2019 09:12 JESUSITA SAL MD Oct 04, 2019 13:06
--- NOTE | 2019-10-04 11:05 | PDOC ---
PULMONARY PROGRESS NOTES Subjective rno soa non verbal Vitals Vital Signs Date Time Temp Pulse Resp B/P (MAP) Pulse Ox O2 Delivery O2 Flow Rate FiO2 10/04/19 10:44 98.4 90 24 142/64 (90) 99 Nasal Cannula 2.0 98.4 Comments unable to obtain unresponsive Lungs: Clear Cardiovascular: S1, S2 Abdomen: Soft, Non-tender Extremities: No Edema, Other (CONTRACTED) Skin: Warm Labs Laboratory Tests Test 10/03/19 04:15 10/04/19 04:25 White Blood Count 5.5 x10^3/uL (4.0-11.0) 5.6 x10^3/uL (4.0-11.0) Red Blood Count 3.52 x10^6/uL (3.50-5.40) 3.43 x10^6/uL (3.50-5.40) Hemoglobin 10.0 g/dL (12.0-15.5) 9.9 g/dL (12.0-15.5) Hematocrit 30.4 % (36.0-47.0) 29.7 % (36.0-47.0) Mean Corpuscular Volume 86 fL (79-100) 87 fL (79-100) Mean Corpuscular Hemoglobin 29 pg (25-35) 29 pg (25-35) Mean Corpuscular Hemoglobin Concent 33 g/dL (31-37) 33 g/dL (31-37) Red Cell Distribution Width 16.0 % (11.5-14.5) 16.4 % (11.5-14.5) Platelet Count 300 x10^3/uL (140-400) 321 x10^3/uL (140-400) Neutrophils (%) (Auto) 50 % (31-73) 49 % (31-73) Lymphocytes (%) (Auto) 27 % (24-48) 30 % (24-48) Monocytes (%) (Auto) 14 % (0-9) 13 % (0-9) Eosinophils (%) (Auto) 9 % (0-3) 8 % (0-3) Basophils (%) (Auto) 1 % (0-3) 1 % (0-3) Neutrophils # (Auto) 2.7 x10^3/uL (1.8-7.7) 2.7 x10^3/uL (1.8-7.7) Lymphocytes # (Auto) 1.5 x10^3/uL (1.0-4.8) 1.7 x10^3/uL (1.0-4.8) Monocytes # (Auto) 0.8 x10^3/uL (0.0-1.1) 0.7 x10^3/uL (0.0-1.1) Eosinophils # (Auto) 0.5 x10^3/uL (0.0-0.7) 0.4 x10^3/uL (0.0-0.7) Basophils # (Auto) 0.0 x10^3/uL (0.0-0.2) 0.1 x10^3/uL (0.0-0.2) Creatinine 0.6 mg/dL (0.6-1.0) 0.6 mg/dL (0.6-1.0) Estimated GFR (Cockcroft-Gault) 115.8 115.8 Sodium Level 143 mmol/L (136-145) Potassium Level 3.7 mmol/L (3.5-5.1) Chloride Level 109 mmol/L (98-107) Carbon Dioxide Level 27 mmol/L (21-32) Anion Gap 7 (6-14) Blood Urea Nitrogen 12 mg/dL (7-20) BUN/Creatinine Ratio 20 (6-20) Glucose Level 109 mg/dL (70-99) Calcium Level 9.2 mg/dL (8.5-10.1) Total Bilirubin 0.2 mg/dL (0.2-1.0) Aspartate Amino Transf (AST/SGOT) 33 U/L (15-37) Alanine Aminotransferase (ALT/SGPT) 36 U/L (14-59) Alkaline Phosphatase 78 U/L (46-116) Total Protein 6.9 g/dL (6.4-8.2) Albumin 2.0 g/dL (3.4-5.0) Albumin/Globulin Ratio 0.4 (1.0-1.7) Laboratory Tests Test 10/04/19 04:25 White Blood Count 5.6 x10^3/uL (4.0-11.0) Red Blood Count 3.43 x10^6/uL (3.50-5.40) Hemoglobin 9.9 g/dL (12.0-15.5) Hematocrit 29.7 % (36.0-47.0) Mean Corpuscular Volume 87 fL (79-100) Mean Corpuscular Hemoglobin 29 pg (25-35) Mean Corpuscular Hemoglobin Concent 33 g/dL (31-37) Red Cell Distribution Width 16.4 % (11.5-14.5) Platelet Count 321 x10^3/uL (140-400) Neutrophils (%) (Auto) 49 % (31-73) Lymphocytes (%) (Auto) 30 % (24-48) Monocytes (%) (Auto) 13 % (0-9) Eosinophils (%) (Auto) 8 % (0-3) Basophils (%) (Auto) 1 % (0-3) Neutrophils # (Auto) 2.7 x10^3/uL (1.8-7.7) Lymphocytes # (Auto) 1.7 x10^3/uL (1.0-4.8) Monocytes # (Auto) 0.7 x10^3/uL (0.0-1.1) Eosinophils # (Auto) 0.4 x10^3/uL (0.0-0.7) Basophils # (Auto) 0.1 x10^3/uL (0.0-0.2) Sodium Level 143 mmol/L (136-145) Potassium Level 3.7 mmol/L (3.5-5.1) Chloride Level 109 mmol/L (98-107) Carbon Dioxide Level 27 mmol/L (21-32) Anion Gap 7 (6-14) Blood Urea Nitrogen 12 mg/dL (7-20) Creatinine 0.6 mg/dL (0.6-1.0) Estimated GFR (Cockcroft-Gault) 115.8 BUN/Creatinine Ratio 20 (6-20) Glucose Level 109 mg/dL (70-99) Calcium Level 9.2 mg/dL (8.5-10.1) Total Bilirubin 0.2 mg/dL (0.2-1.0) Aspartate Amino Transf (AST/SGOT) 33 U/L (15-37) Alanine Aminotransferase (ALT/SGPT) 36 U/L (14-59) Alkaline Phosphatase 78 U/L (46-116) Total Protein 6.9 g/dL (6.4-8.2) Albumin 2.0 g/dL (3.4-5.0) Albumin/Globulin Ratio 0.4 (1.0-1.7) Medications Active Scripts Medications Dose Route/Sig Max Daily Dose Days Date Category Dose Instructions Nystatin 15 Gm Powder 1 Kady TP BID 7 09/30/19 Reported apply to affected area(s) [isosource1.5T.F.] 40 Ml PEG 07/26/19 Reported Isosource 1.5 40 ml per hour continuous per peg, H2O 130 ml every 4 hours. Lotrimin Af (Clotrimazole) 12 Gm Cream..g. 1 Kady TP Q4HRS PRN 07/26/19 Reported for redness around PEG site [bactrobanoint2%] 11 % BID 07/26/19 Reported apply to PEG site two times a day for skin irritation/rash [Multivitamins,Therapeutic Liq] 5 ML Liquid 5 Ml PEG DAILY 30 10/13/18 Rx Milk Of Magnesia (Magnesium Hydroxide) 2,400 Mg/10 Ml Oral.susp 2,400 Mg PEG DAILY 10/08/18 Reported Metoclopramide Hcl 5 Mg Tablet 2.5 Mg PEG DAILY06 10/08/18 Reported Zinc Sulfate 220 Mg Capsule 220 Mg PEG DAILY 08/24/18 Reported Acetaminophen Oral Liquid (Acetaminophen) 650 Mg/20.3 Ml Solution 650 Mg PEG PRN Q6HRS PRN 08/24/18 Reported Levsin (Hyoscyamine Sulfate) 0.125 Mg Tablet 1 Tab SL Q4HRS PRN 08/24/18 Reported Vitamin C (Ascorbic Acid) 500 Mg Capsule 500 Mg PEG DAILY 08/24/18 Reported Acetaminophen 325 Mg/10.15 Ml Solution 650 Mg PO Q4HRS PRN 10/10/17 Reported Impression . 1. Acute hypoxic respiratory failure secondary to early sepsis. 2. Lower lobe pneumonia, worse on the left base than right. Likely gram- negative. Cannot exclude gram-positive. 3. 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 4. Mild acute kidney injury on admission, which is improving. 5. Increased procalcitonin level consistent with pneumonia. 6. Marked leukocytosis, resolved with antibiotics. Plan . 1. Continue antibiotics per Infectious Disease. 2. Continue oxygen to keep saturation 92 and above. 3. Enteral nutrition. 4. Bld cultures NGTD 5. Supportive care 6. HTN per PCP Discussed with RN. Ok to D/C to SNF from pulmonary standpoint on abx SANGEETA HAM MD Oct 04, 2019 11:05
--- NOTE | 2019-10-04 12:13 | PDOC ---
PROGRESS NOTES Chief Complaint Chief Complaint IMPRESSION ======= Acute hypoxemic respiratory failure - with interstitial markings increased on CXR.//Possibly viral pneumonia, negative for flu Pneumonia - with bilateral appearance on CT, high risk for gram negative pneumonia, will treat as HCAP given she is a SNF resident // recently ho spitalized Left pleural effusion - possibly parapneumonic, Pulmonology consulted Sepsis - secondary to pneumonia, most likely, febrile with elevated WBCs and CT abdomen showing consolidative changes in the left lower lobe and tree-in-bud nodularity in the right lower lobe.Hazy opacity at the left lung base with a small left pleural effusion. Recent aspiration PNA, on tube feeds - not clear that she actually has a pneumonia currently. Will check procalcitonin to r/o bacterial infection, mycoplasma serology. 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 PEG drainage with loose bumper has been adjusted. Marked leukocytosis, resolved with antibiotics. PLAN FEN - Tube feeds with 130mL q4hr water bolus PPX - lovenox 30mg FULL CODE Dispo - inpatient for worsening hypoxia, pneumonia D/W RN History of Present Illness History of Present Illness 84yo F w/ PMHx Anemia, Anxiety, Dementia, Hypertension, dysphasia, nonverbal, contractures, pressure ulcers, dyphagia s/p PEG sent from [facility] with shortness of breath, hypoxia, concern for fevers up to 103F. She is non-verbal, cannot give history or follows commands in any meaningful way, cannot communicate, she is contracted, cachectic. According to nursing notes, patient has continuous tube feeds. Labs with some increased WBC, febrile. Negative flu swab. CXR with diff use bilateral interstitial lung markings and CT abdomen showing consolidative changes in the left lower lobe and tree-in-bud nodularity in the right lower lobe favored to be infectious or inflammatory in etiology.Hazy opacity at the left lung base with a small left pleural effusion. 5: WBC and fever still up overnight. Nonverbal, does not respond. Changed to merrem Contracted, unresponsive. Renal function improved. Vanco trough low. D/w pulm to ask for ID consultation. Plan: Needs family meeting to discuss goals of care. 10/03 Ok to D/C to SNF from pulmonary standpoint Vitals Vitals Vital Signs Date Time Temp Pulse Resp B/P (MAP) Pulse Ox O2 Delivery O2 Flow Rate FiO2 10/04/19 12:03 99 Nasal Cannula 2.0 10/04/19 10:44 98.4 90 24 142/64 (90) 98.4 Physical Exam Physical Exam GENERAL: position, weak appearing, opens eyes to name, nonverbal, softly moaning no distress HEENT: Resists eye and oral exam NECK: Without JVD. LUNGS: Course, nonlabored HEART: S1, S2. ABDOMEN: Soft. PEG tube in place. No guarding. GENITOURINARY: Nayak is in place. EXTREMITIES: Contracted. SKIN: Warm without signs of rash. NEUROLOGIC: Noncommunicative General: Cooperative, No acute distress Heart: Regular rate Lungs: Clear Abdomen: Soft, No tenderness Extremities: No cyanosis Skin: No significant lesion Labs LABS SPEC #: [id number] RASHID: 09/29/19 STATUS: RES REQ #: [id number] RECD: 09/29/[address]: RONDA MCKEON MD SOURCE: BLOOD ENTR: 09/29/[address]: LETI SANZ MD SPDC: ORDERED: BCULT Procedure Result BLOOD CULTURE Preliminary NO GROWTH AFTER 4 DAYS Laboratory Tests Test 10/04/19 04:25 White Blood Count 5.6 x10^3/uL (4.0-11.0) Red Blood Count 3.43 x10^6/uL (3.50-5.40) Hemoglobin 9.9 g/dL (12.0-15.5) Hematocrit 29.7 % (36.0-47.0) Mean Corpuscular Volume 87 fL (79-100) Mean Corpuscular Hemoglobin 29 pg (25-35) Mean Corpuscular Hemoglobin Concent 33 g/dL (31-37) Red Cell Distribution Width 16.4 % (11.5-14.5) Platelet Count 321 x10^3/uL (140-400) Neutrophils (%) (Auto) 49 % (31-73) Lymphocytes (%) (Auto) 30 % (24-48) Monocytes (%) (Auto) 13 % (0-9) Eosinophils (%) (Auto) 8 % (0-3) Basophils (%) (Auto) 1 % (0-3) Neutrophils # (Auto) 2.7 x10^3/uL (1.8-7.7) Lymphocytes # (Auto) 1.7 x10^3/uL (1.0-4.8) Monocytes # (Auto) 0.7 x10^3/uL (0.0-1.1) Eosinophils # (Auto) 0.4 x10^3/uL (0.0-0.7) Basophils # (Auto) 0.1 x10^3/uL (0.0-0.2) Sodium Level 143 mmol/L (136-145) Potassium Level 3.7 mmol/L (3.5-5.1) Chloride Level 109 mmol/L (98-107) Carbon Dioxide Level 27 mmol/L (21-32) Anion Gap 7 (6-14) Blood Urea Nitrogen 12 mg/dL (7-20) Creatinine 0.6 mg/dL (0.6-1.0) Estimated GFR (Cockcroft-Gault) 115.8 BUN/Creatinine Ratio 20 (6-20) Glucose Level 109 mg/dL (70-99) Calcium Level 9.2 mg/dL (8.5-10.1) Total Bilirubin 0.2 mg/dL (0.2-1.0) Aspartate Amino Transf (AST/SGOT) 33 U/L (15-37) Alanine Aminotransferase (ALT/SGPT) 36 U/L (14-59) Alkaline Phosphatase 78 U/L (46-116) Total Protein 6.9 g/dL (6.4-8.2) Albumin 2.0 g/dL (3.4-5.0) Albumin/Globulin Ratio 0.4 (1.0-1.7) Assessment and Plan Assessmemt and Plan Problems Medical Problems: (1) Dementia Status: Acute (2) HCAP (healthcare-associated pneumonia) Status: Acute (3) Hypertension Status: Acute (4) SIRS (systemic inflammatory response syndrome) Status: Acute Comment Review of Relevant I have reviewed the following items nato (where applicable) has been applied. Labs Laboratory Tests Test 10/03/19 04:15 10/04/19 04:25 White Blood Count 5.5 x10^3/uL (4.0-11.0) 5.6 x10^3/uL (4.0-11.0) Red Blood Count 3.52 x10^6/uL (3.50-5.40) 3.43 x10^6/uL (3.50-5.40) Hemoglobin 10.0 g/dL (12.0-15.5) 9.9 g/dL (12.0-15.5) Hematocrit 30.4 % (36.0-47.0) 29.7 % (36.0-47.0) Mean Corpuscular Volume 86 fL (79-100) 87 fL (79-100) Mean Corpuscular Hemoglobin 29 pg (25-35) 29 pg (25-35) Mean Corpuscular Hemoglobin Concent 33 g/dL (31-37) 33 g/dL (31-37) Red Cell Distribution Width 16.0 % (11.5-14.5) 16.4 % (11.5-14.5) Platelet Count 300 x10^3/uL (140-400) 321 x10^3/uL (140-400) Neutrophils (%) (Auto) 50 % (31-73) 49 % (31-73) Lymphocytes (%) (Auto) 27 % (24-48) 30 % (24-48) Monocytes (%) (Auto) 14 % (0-9) 13 % (0-9) Eosinophils (%) (Auto) 9 % (0-3) 8 % (0-3) Basophils (%) (Auto) 1 % (0-3) 1 % (0-3) Neutrophils # (Auto) 2.7 x10^3/uL (1.8-7.7) 2.7 x10^3/uL (1.8-7.7) Lymphocytes # (Auto) 1.5 x10^3/uL (1.0-4.8) 1.7 x10^3/uL (1.0-4.8) Monocytes # (Auto) 0.8 x10^3/uL (0.0-1.1) 0.7 x10^3/uL (0.0-1.1) Eosinophils # (Auto) 0.5 x10^3/uL (0.0-0.7) 0.4 x10^3/uL (0.0-0.7) Basophils # (Auto) 0.0 x10^3/uL (0.0-0.2) 0.1 x10^3/uL (0.0-0.2) Creatinine 0.6 mg/dL (0.6-1.0) 0.6 mg/dL (0.6-1.0) Estimated GFR (Cockcroft-Gault) 115.8 115.8 Sodium Level 143 mmol/L (136-145) Potassium Level 3.7 mmol/L (3.5-5.1) Chloride Level 109 mmol/L (98-107) Carbon Dioxide Level 27 mmol/L (21-32) Anion Gap 7 (6-14) Blood Urea Nitrogen 12 mg/dL (7-20) BUN/Creatinine Ratio 20 (6-20) Glucose Level 109 mg/dL (70-99) Calcium Level 9.2 mg/dL (8.5-10.1) Total Bilirubin 0.2 mg/dL (0.2-1.0) Aspartate Amino Transf (AST/SGOT) 33 U/L (15-37) Alanine Aminotransferase (ALT/SGPT) 36 U/L (14-59) Alkaline Phosphatase 78 U/L (46-116) Total Protein 6.9 g/dL (6.4-8.2) Albumin 2.0 g/dL (3.4-5.0) Albumin/Globulin Ratio 0.4 (1.0-1.7) Laboratory Tests Test 10/04/19 04:25 White Blood Count 5.6 x10^3/uL (4.0-11.0) Red Blood Count 3.43 x10^6/uL (3.50-5.40) Hemoglobin 9.9 g/dL (12.0-15.5) Hematocrit 29.7 % (36.0-47.0) Mean Corpuscular Volume 87 fL (79-100) Mean Corpuscular Hemoglobin 29 pg (25-35) Mean Corpuscular Hemoglobin Concent 33 g/dL (31-37) Red Cell Distribution Width 16.4 % (11.5-14.5) Platelet Count 321 x10^3/uL (140-400) Neutrophils (%) (Auto) 49 % (31-73) Lymphocytes (%) (Auto) 30 % (24-48) Monocytes (%) (Auto) 13 % (0-9) Eosinophils (%) (Auto) 8 % (0-3) Basophils (%) (Auto) 1 % (0-3) Neutrophils # (Auto) 2.7 x10^3/uL (1.8-7.7) Lymphocytes # (Auto) 1.7 x10^3/uL (1.0-4.8) Monocytes # (Auto) 0.7 x10^3/uL (0.0-1.1) Eosinophils # (Auto) 0.4 x10^3/uL (0.0-0.7) Basophils # (Auto) 0.1 x10^3/uL (0.0-0.2) Sodium Level 143 mmol/L (136-145) Potassium Level 3.7 mmol/L (3.5-5.1) Chloride Level 109 mmol/L (98-107) Carbon Dioxide Level 27 mmol/L (21-32) Anion Gap 7 (6-14) Blood Urea Nitrogen 12 mg/dL (7-20) Creatinine 0.6 mg/dL (0.6-1.0) Estimated GFR (Cockcroft-Gault) 115.8 BUN/Creatinine Ratio 20 (6-20) Glucose Level 109 mg/dL (70-99) Calcium Level 9.2 mg/dL (8.5-10.1) Total Bilirubin 0.2 mg/dL (0.2-1.0) Aspartate Amino Transf (AST/SGOT) 33 U/L (15-37) Alanine Aminotransferase (ALT/SGPT) 36 U/L (14-59) Alkaline Phosphatase 78 U/L (46-116) Total Protein 6.9 g/dL (6.4-8.2) Albumin 2.0 g/dL (3.4-5.0) Albumin/Globulin Ratio 0.4 (1.0-1.7) Microbiology 09/29/19 Blood Culture - Preliminary, Resulted NO GROWTH AFTER 4 DAYS Medications Current Medications Sodium Chloride 1,000 ml @ 1,710 mls/hr Q36M IV Last administered on 09/29/19at 19:03; Start 09/29/19 at 18:27; Stop 09/29/19 at 19:27; Status DC Piperacillin Sod/ Tazobactam Sod 4.5 gm/Sodium Chloride 100 ml @ 200 mls/hr 1X ONCE IV ; Start 09/29/19 at 18:30; Stop 09/29/19 at 18:59; Status UNV Vancomycin HCl (Vanco Per Pharmacy) 1 each PRN DAILY PRN MC SEE COMMENTS Last administered on 10/02/19at 10:12; Start 09/29/19 at 18:30; Stop 10/02/19 at 11:38; Status DC Piperacillin Sod/ Tazobactam Sod 3.375 gm/Sodium Chloride 50 ml @ 100 mls/hr 1X ONCE IV Last administered on 09/29/19at 19:09; Start 09/29/19 at 18:45; Stop 09/29/19 at 19:14; Status DC Vancomycin HCl 1 gm/Sodium Chloride 250 ml @ 250 mls/hr 1X ONCE IV Last administered on 09/29/19at 19:10; Start 09/29/19 at 18:45; Stop 09/29/19 at 19:44; Status DC Acetaminophen (Tylenol Supp) 650 mg 1X ONCE [place] Last administered on 09/29/19at 18:45; Start 09/29/19 at 18:45; Stop 09/29/19 at 18:52; Status DC Albuterol/ Ipratropium (Duoneb) 3 ml 1X ONCE NEB Last administered on 09/29/19at 19:15; Start 09/29/19 at 19:15; Stop 09/29/19 at 19:16; Status DC Ondansetron HCl (Zofran) 4 mg PRN Q8HRS PRN IV NAUSEA/VOMITING 1ST CHOICE; Start 09/29/19 at 20:45; Stop 09/30/19 at 20:44; Status DC Acetaminophen (Tylenol) 650 mg PRN Q4HRS PRN PO FEVER; Start 09/29/19 at 20:45; Stop 09/30/19 at 20:44; Status DC Vancomycin HCl 750 mg/Sodium Chloride 250 ml @ 250 mls/hr Q24H IV Last admi nistered on 10/01/19at 19:57; Start 09/30/19 at 19:00; Stop 10/01/19 at 21:00; Status DC Vancomycin HCl (Vancomycin Trough Level) 1 each 1X ONCE MC Last administered on 10/01/19at 18:30; Start 10/01/19 at 18:30; Stop 10/01/19 at 18:31; Status DC Acetaminophen (Tylenol Supp) 650 mg PRN Q6HRS PRN [place] MILD PAIN / TEMP Last administered on 09/30/19at 03:11; Start 09/30/19 at 03:00 Piperacillin Sod/ Tazobactam Sod (Zosyn Per Pharmacy) 1 each PRN DAILY PRN MC SEE COMMENTS; Start 09/30/19 at 07:45; Stop 09/30/19 at 14:14; Status DC Piperacillin Sod/ Tazobactam Sod 3.375 gm/Sodium Chloride 50 ml @ 100 mls/hr Q6HRS IV Last administered on 09/30/19at 12:39; Start 09/30/19 at 12:00; Stop 09/30/19 at 14:14; Status DC Piperacillin Sod/ Tazobactam Sod 3.375 gm/Sodium Chloride 50 ml @ 100 mls/hr 1X ONCE IV Last administered on 09/30/19at 08:29; Start 09/30/19 at 08:00; Stop 09/30/19 at 08:29; Status DC Sodium Chloride (Normal Saline Flush) 3 ml QSHIFT PRN IV AFTER MEDS AND BLOOD DRAWS; Start 09/30/19 at 13:45 Sodium Chloride 1,000 ml @ 60 mls/hr [id number] IV Last administered on 10/03/19at 22:35; Start 09/30/19 at 14:30 Ondansetron HCl (Zofran) 4 mg PRN Q4HRS PRN IV NAUSEA/VOMITING; Start 09/30/19 at 13:45 Acetaminophen (Tylenol Supp) 650 mg PRN Q4HRS PRN [place] TEMP OVER 100.4F OR MILD P AIN; Start 09/30/19 at 13:45; Status UNV Docusate Sodium (Colace) 100 mg PRN BID PRN PO CONSTIPATION; Start 09/30/19 at 13:45 Albuterol/ Ipratropium (Duoneb) 3 ml Q4HRS NEB Last administered on 10/04/19at 12:02; Start 09/30/19 at 16:00 Guaifenesin (Robitussin) 200 mg PRN Q4HRS PRN PO COUGH; Start 09/30/19 at 13:45 Lorazepam (Ativan) 0.5 mg PRN Q4HRS PRN PO ANXIETY / AGITATION; Start 09/30/19 at 13:45 Enoxaparin Sodium (Lovenox 30mg Syringe) 30 mg Q24H SQ Last administered on 10/03/19at 22:30; Start 09/30/19 at 21:00 Vancomycin HCl (Vanco Per Pharmacy) 1 each PRN DAILY PRN MC SEE COMMENTS; Start 09/30/19 at 13:45; Status UNV Meropenem 500 mg/ Sodium Chloride 50 ml @ 100 mls/hr Q8HRS IV Last administered on 10/02/19at 05:38; Start 09/30/19 at 15:00; Stop 10/02/19 at 11:51; Status DC Vancomycin HCl 750 mg/Sodium Chloride 250 ml @ 250 mls/hr Q18H IV ; Start 10/02/19 at 14:00; Stop 10/02/19 at 11:38; Status DC Vancomycin HCl (Vancomycin Trough Level) 1 each 1X ONCE MC ; Start 10/03/19 at 07:30; Stop 10/03/19 at 07:31; Status Cancel Meropenem 500 mg/ Sodium Chloride 50 ml @ 100 mls/hr Q6HRS IV Last administered on 10/04/19at 06:53; Start 10/02/19 at 12:00 Hydralazine HCl (Apresoline Inj) 10 mg PRN Q6HRS PRN IVP ELEVATED BP, SEE COMMENTS Last administered on 10/04/19at 04:12; Start 10/02/19 at 15:00 Lactobacillus Rhamnosus (Culturelle) 1 cap BID PO Last administered on 10/04/19at 07:48; Start 10/03/19 at 21:00 Active Scripts Active [Multivitamins,Therapeutic Liq] 5 ML Liquid 5 Ml PEG DAILY 30 Days Reported Nystatin 15 Gm Powder 1 Kady TP BID 7 Days apply to affected area(s) [isosource1.5T.F.] 40 Ml PEG Isosource 1.5 40 ml per hour continuous per peg, H2O 130 ml every 4 hours. Lotrimin Af (Clotrimazole) 12 Gm Cream..g. 1 Kady TP Q4HRS PRN for redness around PEG site [bactrobanoint2%] 11 % BID apply to PEG site two times a day for skin irritation/rash Milk Of Magnesia (Magnesium Hydroxide) 2,400 Mg/10 Ml Oral.susp 2,400 Mg PEG DAILY Metoclopramide Hcl 5 Mg Tablet 2.5 Mg PEG DAILY06 Zinc Sulfate 220 Mg Capsule 220 Mg PEG DAILY Acetaminophen Oral Liquid (Acetaminophen) 650 Mg/20.3 Ml Solution 650 Mg PEG PRN Q6HRS PRN Levsin (Hyoscyamine Sulfate) 0.125 Mg Tablet 1 Tab SL Q4HRS PRN Vitamin C (Ascorbic Acid) 500 Mg Capsule 500 Mg PEG DAILY Acetaminophen 325 Mg/10.15 Ml Solution 650 Mg PO Q4HRS PRN Vitals/I & O Vital Sign - Last 24 Hours 10/03/19 10/03/19 10/03/19 10/03/19 12:46 14:25 16:21 19:15 Temp 98.3 99.0 98.3 99.0 Pulse 77 85 93 Resp 24 24 B/P (MAP) 177/79 153/71 (98) 169/74 (105) Pulse Ox 99 100 99 O2 Delivery Nasal Cannula Nasal Cannula Nasal Cannula O2 Flow Rate 2.5 2.5 2.5 10/03/19 10/03/19 10/03/19 10/03/19 20:00 21:31 23:15 23:43 Temp 99.1 99.1 Pulse 86 Resp 24 B/P (MAP) 132/60 (84) Pulse Ox 100 100 100 O2 Delivery Nasal Cannula Nasal Cannula Nasal Cannula Nasal Cannula O2 Flow Rate 2.5 2.0 2.0 2.0 10/04/19 10/04/19 10/04/19 10/04/19 03:43 04:12 04:28 04:53 Temp 98.4 98.4 Pulse 89 89 88 Resp 24 B/P (MAP) 186/73 (110) 186/73 156/66 (96) Pulse Ox 100 100 O2 Delivery Nasal Cannula Nasal Cannula O2 Flow Rate 2.0 2.0 10/04/19 10/04/19 10/04/19 10/04/19 07:23 08:15 08:42 10:44 Temp 98.4 98.4 98.4 98.4 Pulse 90 90 Resp 24 24 B/P (MAP) 125/56 (79) 142/64 (90) Pulse Ox 99 99 99 O2 Delivery Nasal Cannula Nasal Cannula Nasal Cannula Nasal Cannula O2 Flow Rate 2.0 2.5 2.0 2.0 10/04/19 12:03 Pulse Ox 99 O2 Delivery Nasal Cannula O2 Flow Rate 2.0 Intake and Output 10/03/19 10/03/19 10/04/19 15:00 23:00 07:00 Intake Total 130 ml 993 ml 1480 ml Output Total 950 ml 450 ml Balance 130 ml 43 ml 1030 ml Nutrition Consultation Dietary Evaluation: Recommendations by RD: Dietary education by RD, Increase Calorie Intake Comments: Continue w/TFs as ordered - Osmolite 1.2@goal rate 40 ml/hr w/130 ml water flushes q4 hrs Expected Outcomes/Goals: TF infusion to meet >75% est needs Malnutrition Findings: Body Fat Depletion (Non Severe: Mild Depletion Weight Status: Underweight Hemodynamically unstable?: No Is patient in severe pain?: No Is NPO status required?: Yes FITZ DAVIES MD Oct 04, 2019 12:13
[2019-10-04] MEDS: IV NORMAL SALINE 1000ML BAG 1,000 ML IV SCH (22:10)
[2019-10-04] MEDS: ENOXAPARIN 30 MG/0.3 ML SYRINGE. SQ SCH (22:11)
[2019-10-05] MEDS: IPRATRPIUM/ALBUTEROL 0.5/2.5MG 3 ML NEBU. NEB SCH ×4 (03:15→15:36)
[2019-10-05 03:20] VITALS: BP 136/60
[2019-10-05] MEDS: MEROPENEM 500 MG in IV NORMAL SALINE 50ML 50 ML IV SCH (06:30)
[2019-10-05 07:00] VITALS: BP 162/75
[2019-10-05 07:52] LABS: CREATININE 0.4 mg/dL (0.6-1.0); GFR 184.9
--- NOTE | 2019-10-05 08:10 | PDOC ---
Infectious Disease Note Subjective Subjective Noncommunicative No fevers Tube feeds 40 ml/hr BM x 4 Vital Sign Vital Signs Vital Signs Date Time Temp Pulse Resp B/P (MAP) Pulse Ox O2 Delivery O2 Flow Rate FiO2 10/05/19 07:00 98.1 85 20 162/75 (104) 2 Nasal Cannula 98.1 10/05/19 03:20 2.0 Physical Exam PHYSICAL EXAM GENERAL: position, weak appearing, opens eyes to name, nonverbal, softly moaning no distress HEENT: Resists eye and oral exam NECK: Without JVD. LUNGS: Course, nonlabored HEART: S1, S2. ABDOMEN: Soft. PEG tube in place. No guarding. GENITOURINARY: Byrd is in place. EXTREMITIES: Contracted. SKIN: Warm without signs of rash. NEUROLOGIC: Noncommunicative Labs Lab Laboratory Tests Test 10/05/19 06:50 Creatinine 0.4 mg/dL (0.6-1.0) Estimated GFR (Cockcroft-Gault) 184.9 Micro Microbiology 09/29/19 Blood Culture - Final, Complete NO GROWTH AFTER 5 DAYS Objective Assessment Leukocytosis - improved. Lower lobe pneumonia, worse on the left base than right. Likely gram-negative. Cannot exclude gram-positive. Acute hypoxic respiratory failure secondary Acute kidney injury on admission, which is improving. 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 PEG drainage - loose bumper Plan Plan of Care Cont Meropenem BC neg to date Maintain aspiration precautions JESUSITA SAL MD Oct 05, 2019 08:10
[2019-10-05] MEDS: LACTOBACILLUS RHAMNOSUS GG 1 CAPSULE. PO SCH (08:38)
[2019-10-05] MEDS ORDERED: AMOXICILLIN/K CLAV 875/125MG TABLET. PO SCH (09:00)
--- NOTE | 2019-10-05 09:27 | PDOC3 ---
Discharge Summary Visit Information Date of Admission: Sep 29, 2019 Date of Discharge: Oct 05, 2019 Final Diagnosis 1. Acute hypoxic respiratory failure secondary to early sepsis. 2. Lower lobe pneumonia, worse on the left base than right. Likely gram- negative. Cannot exclude gram-positive. 3. 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 4. Mild acute kidney injury on admission, which is improving. 5. Increased procalcitonin level consistent with pneumonia. 6. Marked leukocytosis, resolved with antibiotics. Problems Medical Problems: (1) Dementia Status: Acute (2) HCAP (healthcare-associated pneumonia) Status: Acute (3) Hypertension Status: Acute (4) SIRS (systemic inflammatory response syndrome) Status: Acute Brief Hospital Course Allergies Allergies Coded Allergies Type Severity Reaction Last Updated Verified No Known Medication Allergies Allergy Unknown 08/26/18 Yes Vital Signs Vital Signs Date Time Temp Pulse Resp B/P (MAP) Pulse Ox O2 Delivery O2 Flow Rate FiO2 10/05/19 07:00 98.1 85 20 162/75 (104) 2 Nasal Cannula 98.1 10/05/19 03:20 2.0 Lab Results Laboratory Tests Test 10/04/19 04:25 10/05/19 06:50 White Blood Count 5.6 x10^3/uL (4.0-11.0) Red Blood Count 3.43 x10^6/uL (3.50-5.40) Hemoglobin 9.9 g/dL (12.0-15.5) Hematocrit 29.7 % (36.0-47.0) Mean Corpuscular Volume 87 fL (79-100) Mean Corpuscular Hemoglobin 29 pg (25-35) Mean Corpuscular Hemoglobin Concent 33 g/dL (31-37) Red Cell Distribution Width 16.4 % (11.5-14.5) Platelet Count 321 x10^3/uL (140-400) Neutrophils (%) (Auto) 49 % (31-73) Lymphocytes (%) (Auto) 30 % (24-48) Monocytes (%) (Auto) 13 % (0-9) Eosinophils (%) (Auto) 8 % (0-3) Basophils (%) (Auto) 1 % (0-3) Neutrophils # (Auto) 2.7 x10^3/uL (1.8-7.7) Lymphocytes # (Auto) 1.7 x10^3/uL (1.0-4.8) Monocytes # (Auto) 0.7 x10^3/uL (0.0-1.1) Eosinophils # (Auto) 0.4 x10^3/uL (0.0-0.7) Basophils # (Auto) 0.1 x10^3/uL (0.0-0.2) Sodium Level 143 mmol/L (136-145) Potassium Level 3.7 mmol/L (3.5-5.1) Chloride Level 109 mmol/L (98-107) Carbon Dioxide Level 27 mmol/L (21-32) Anion Gap 7 (6-14) Blood Urea Nitrogen 12 mg/dL (7-20) Creatinine 0.6 mg/dL (0.6-1.0) 0.4 mg/dL (0.6-1.0) Estimated GFR (Cockcroft-Gault) 115.8 184.9 BUN/Creatinine Ratio 20 (6-20) Glucose Level 109 mg/dL (70-99) Calcium Level 9.2 mg/dL (8.5-10.1) Total Bilirubin 0.2 mg/dL (0.2-1.0) Aspartate Amino Transf (AST/SGOT) 33 U/L (15-37) Alanine Aminotransferase (ALT/SGPT) 36 U/L (14-59) Alkaline Phosphatase 78 U/L (46-116) Total Protein 6.9 g/dL (6.4-8.2) Albumin 2.0 g/dL (3.4-5.0) Albumin/Globulin Ratio 0.4 (1.0-1.7) Laboratory Tests Test 10/05/19 06:50 Creatinine 0.4 mg/dL (0.6-1.0) Estimated GFR (Cockcroft-Gault) 184.9 Brief Hospital Course Ms. De Leon is a 84 old [sex] who presented with [ ] . 1. Continue antibiotics per Infectious Disease. 2. Continue oxygen to keep saturation 92 and above. 3. Enteral nutrition. 4. Bld cultures NGTD 5. Supportive care 6. HTN per PCP Discussed with RN. العلي to D/C to SNF from pulmonary standpoint on abx Discharge Information Condition at Discharge: Improved Follow Up: Weeks Disposition/Orders: D/C to Another Facility Scheduled Ascorbic Acid (Vitamin C) 500 Mg Capsule, 500 MG PEG DAILY for supplement, (Reported) Entered as Reported by: Toshia Khan on 08/24/18 1212 Magnesium Hydroxide (Milk Of Magnesia) 2,400 Mg/10 Ml Oral.susp, 2,400 MG PEG DAILY for constipation, (Reported) Entered as Reported by: RILEY NIETO RN on 10/08/18 175 Metoclopramide Hcl (Metoclopramide Hcl) 5 Mg Tablet, 2.5 MG PEG DAILY06 for GI motility, #60 Ref 0 (Reported) Entered as Reported by: RILEY NIETO RN on 10/08/18 175 Nystatin (Nystatin) 15 Gm Powder, 1 ELLI TP BID for yeast for 7 Days, #1 Ref 0 (Reported) apply to affected area(s) Entered as Reported by: Kisha Bernal on 09/30/19435 Last Action: New Order on 09/30/19435 by Kisha Bernal Zinc Sulfate (Zinc Sulfate) 220 Mg Capsule, 220 MG PEG DAILY for supplement, (Reported) Entered as Reported by: Toshia Khan on 08/24/18 1212 [Multivitamins,Therapeutic Liq] 5 ML LIQUID, 5 ML PEG DAILY for 30 Days, #30 Prescribed by: BOZENA VILLALBA MD on 10/13/18 1219 [bactrobanoint2%] , 11 % BID for rash/irritation, (Reported) apply to PEG site two times a day for skin irritation/rash Entered as Reported by: DOMINIQUE CARNES on 07/26/19 0726 Scheduled PRN Acetaminophen (Acetaminophen) 325 Mg/10.15 Ml Solution, 650 MG PO Q4HRS PRN for PAIN, (Reported) Entered as Reported by: GERARDO ANDERSON, STUDENT on 10/10/17 1317 Acetaminophen (Acetaminophen Oral Liquid ) 650 Mg/20.3 Ml Solution, 650 MG PEG PRN Q6HRS PRN for fever, pain, (Reported) Entered as Reported by: Toshia Khan on 08/24/18 121 Clotrimazole (Lotrimin Af) 12 Gm Cream..g., 1 ELLI TP Q4HRS PRN for REDNESS, #24 Ref 1 (Reported) for redness around PEG site Entered as Reported by: DOMINIQUE CARNES on 07/26/19 0726 Hyoscyamine Sulfate (Levsin) 0.125 Mg Tablet, 1 TAB SL Q4HRS PRN for SECRETIONS, #120 Ref 5 (Reported) Entered as Reported by: Toshia Khan on 08/24/18 1212 Miscellaneous Medications [isosource1.5T.F.] , 40 ML PEG for nutrition, (Reported) Isosource 1.5 40 ml per hour continuous per peg, H2O 130 ml every 4 hours. Entered as Reported by: DOMINIQUE CARNES on 07/26/19 0822 Patient Instructions Patient Instructions > 30 min face to face Hemodynamically unstable?: No Is patient in severe pain?: No Is NPO status required?: Yes YASH WALTERS MD Oct 05, 2019 09:26
[2019-10-05] MEDS ORDERED: AMOX1TAB11 PO (09:30)
--- NOTE | 2019-10-05 09:31 | SNU/HH DC ---
DISCHARGE ORDERS DISCHARGE INFORMATION: DISCHARGE DATE: Oct 05, 2019 FINAL DIAGNOSIS Problems Medical Problems: (1) Dementia Status: Acute (2) HCAP (healthcare-associated pneumonia) Status: Acute (3) Hypertension Status: Acute (4) SIRS (systemic inflammatory response syndrome) Status: Acute CONDITION ON DISCHARGE: Stable CODE STATUS: Code Status: Full CUSTODIAL: SNF STAY <30 DAYS: Yes POST DISCHARGE ORDERS: ACTIVITY ORDERS: Activity as tolerated, Other, see below WEIGHT BEARING STATUS: As tolerated DIET AFTER DISCHARGE: PEG feeds with Jevity at 30 mL an hour WOUND/INCISION CARE: Change dressing CHECKS AFTER DISCHARGE: CHECKS AFTER DISCHARGE: Check blood press - daily FOLLOW-UP: LAB ORDERS FOR FOLLOW-UP: BMP weekly TREATMENT/EQUIPMENT ORDERS: Physical Therapy For: Evalulation/Treatment Occupational Therapy For: Evaluation/Treatment DISCHARGE MEDICATIONS: Home Meds Active Scripts Amoxicillin/Potassium Clav (AMOX TR-K CLV 875-125 MG TAB) 1 Each Tablet, 1 TAB PO BID for infection, #10 TAB Prov:YASH WALTERS MD 10/05/19 [Multivitamins,Therapeutic Liq] 5 ML LIQUID No Conflict Check, 5 ML PEG DAILY for 30 Days, #30 Prov:BOZENA VILLALBA MD 10/13/18 Reported Medications Nystatin (NYSTATIN) 15 Gm Powder, 1 ELLI TP BID for yeast for 7 Days, #1 BOTTLE 0 Refills apply to affected area(s) 09/30/19 [isosource1.5T.F.] No Conflict Check, 40 ML PEG for nutrition Isosource 1.5 40 ml per hour continuous per peg, H2O 130 ml every 4 hours. 07/26/19 Clotrimazole (LOTRIMIN AF) 12 Gm Cream..g., 1 ELLI TP Q4HRS PRN for REDNESS, #24 GM 1 Refill for redness around PEG site 07/26/19 [bactrobanoint2%] No Conflict Check, 11 % BID for rash/irritation apply to PEG site two times a day for skin irritation/rash 07/26/19 Magnesium Hydroxide (MILK OF MAGNESIA) 2,400 Mg/10 Ml Oral.susp, 2400 MG PEG DAILY for constipation, MISC 10/08/18 Metoclopramide Hcl (METOCLOPRAMIDE HCL) 5 Mg Tablet, 2.5 MG PEG DAILY06 for GI motility, #60 TAB 0 Refills 10/08/18 Zinc Sulfate (ZINC SULFATE) 220 Mg Capsule, 220 MG PEG DAILY for supplement, CAP 08/24/18 Acetaminophen (ACETAMINOPHEN ORAL LIQUID ) 650 Mg/20.3 Ml Solution, 650 MG PEG PRN Q6HRS PRN for fever, pain, ML 08/24/18 Hyoscyamine Sulfate (LEVSIN) 0.125 Mg Tablet, 1 TAB SL Q4HRS PRN for SECRETIONS, #120 TAB 5 Refills 08/24/18 Ascorbic Acid (Vitamin C) 500 Mg Capsule, 500 MG PEG DAILY for supplement, CAP 08/24/18 Acetaminophen (ACETAMINOPHEN) 325 Mg/10.15 Ml Solution, 650 MG PO Q4HRS PRN for PAIN, MISC 10/10/17 YASH WALTERS MD Oct 05, 2019 09:31
--- NOTE | 2019-10-05 10:10 | PDOC ---
Objective: Objective: Nurse/staff says family upset w/ tube leakage. Vital Signs: Vital Signs Date Time Temp Pulse Resp B/P (MAP) Pulse Ox O2 Delivery O2 Flow Rate FiO2 10/05/19 08:15 Nasal Cannula 2.5 10/05/19 07:00 98.1 85 20 162/75 (104) 2 98.1 PE: GEN: chronically ill LUNGS: coarse ABD: dressing over PEG appears dry - tightened bumper again EXTREMITY: tight contracture NEURO/PSYCH: awake A/P: PEG in place, intermittent leakage w/ loose bumper Pneumonia -- Tightened bumper again. Nursing reports family concerned w/ PEG leakage - she's not an ideal endoscopy candidate - additionally, not sure if changing/replacing tube would help - new tube placed in ER in 07/2019, same issue. DC per primary. Hemodynamically unstable?: No Is patient in severe pain?: No Is NPO status required?: Yes VICKY WOODALL Oct 05, 2019 10:10
[2019-10-05 11:00] VITALS: BP 172/74
[2019-10-05] MEDS: IV NORMAL SALINE 1000ML BAG 1,000 ML IV SCH (11:10)
[2019-10-05 11:45] VITALS: BP 187/83
[2019-10-05] MEDS: hydrALAZINE 20 MG/ML VIAL. IVP PRN (11:45)
--- NOTE | 2019-10-05 12:41 | PDOC ---
PULMONARY PROGRESS NOTES Subjective rno soa non verbal Vitals Vital Signs Date Time Temp Pulse Resp B/P (MAP) Pulse Ox O2 Delivery O2 Flow Rate FiO2 10/05/19 12:08 99 Nasal Cannula 2.0 10/05/19 11:45 82 187/83 10/05/19 07:00 98.1 20 98.1 Comments unable to obtain unresponsive Lungs: Clear Cardiovascular: S1, S2 Abdomen: Soft, Non-tender Extremities: No Edema, Other (CONTRACTED) Skin: Warm Labs Laboratory Tests Test 10/04/19 04:25 10/05/19 06:50 White Blood Count 5.6 x10^3/uL (4.0-11.0) Red Blood Count 3.43 x10^6/uL (3.50-5.40) Hemoglobin 9.9 g/dL (12.0-15.5) Hematocrit 29.7 % (36.0-47.0) Mean Corpuscular Volume 87 fL (79-100) Mean Corpuscular Hemoglobin 29 pg (25-35) Mean Corpuscular Hemoglobin Concent 33 g/dL (31-37) Red Cell Distribution Width 16.4 % (11.5-14.5) Platelet Count 321 x10^3/uL (140-400) Neutrophils (%) (Auto) 49 % (31-73) Lymphocytes (%) (Auto) 30 % (24-48) Monocytes (%) (Auto) 13 % (0-9) Eosinophils (%) (Auto) 8 % (0-3) Basophils (%) (Auto) 1 % (0-3) Neutrophils # (Auto) 2.7 x10^3/uL (1.8-7.7) Lymphocytes # (Auto) 1.7 x10^3/uL (1.0-4.8) Monocytes # (Auto) 0.7 x10^3/uL (0.0-1.1) Eosinophils # (Auto) 0.4 x10^3/uL (0.0-0.7) Basophils # (Auto) 0.1 x10^3/uL (0.0-0.2) Sodium Level 143 mmol/L (136-145) Potassium Level 3.7 mmol/L (3.5-5.1) Chloride Level 109 mmol/L (98-107) Carbon Dioxide Level 27 mmol/L (21-32) Anion Gap 7 (6-14) Blood Urea Nitrogen 12 mg/dL (7-20) Creatinine 0.6 mg/dL (0.6-1.0) 0.4 mg/dL (0.6-1.0) Estimated GFR (Cockcroft-Gault) 115.8 184.9 BUN/Creatinine Ratio 20 (6-20) Glucose Level 109 mg/dL (70-99) Calcium Level 9.2 mg/dL (8.5-10.1) Total Bilirubin 0.2 mg/dL (0.2-1.0) Aspartate Amino Transf (AST/SGOT) 33 U/L (15-37) Alanine Aminotransferase (ALT/SGPT) 36 U/L (14-59) Alkaline Phosphatase 78 U/L (46-116) Total Protein 6.9 g/dL (6.4-8.2) Albumin 2.0 g/dL (3.4-5.0) Albumin/Globulin Ratio 0.4 (1.0-1.7) Laboratory Tests Test 10/05/19 06:50 Creatinine 0.4 mg/dL (0.6-1.0) Estimated GFR (Cockcroft-Gault) 184.9 Medications Active Scripts Medications Dose Route/Sig Max Daily Dose Days Date Category Dose Instructions Nystatin 15 Gm Powder 1 Kady TP BID 7 09/30/19 Reported apply to affected area(s) [isosource1.5T.F.] 40 Ml PEG 07/26/19 Reported Isosource 1.5 40 ml per hour continuous per peg, H2O 130 ml every 4 hours. Lotrimin Af (Clotrimazole) 12 Gm Cream..g. 1 Kady TP Q4HRS PRN 07/26/19 Reported for redness around PEG site [bactrobanoint2%] 11 % BID 07/26/19 Reported apply to PEG site two times a day for skin irritation/rash [Multivitamins,Therapeutic Liq] 5 ML Liquid 5 Ml PEG DAILY 30 10/13/18 Rx Milk Of Magnesia (Magnesium Hydroxide) 2,400 Mg/10 Ml Oral.susp 2,400 Mg PEG DAILY 10/08/18 Reported Metoclopramide Hcl 5 Mg Tablet 2.5 Mg PEG DAILY06 10/08/18 Reported Zinc Sulfate 220 Mg Capsule 220 Mg PEG DAILY 08/24/18 Reported Acetaminophen Oral Liquid (Acetaminophen) 650 Mg/20.3 Ml Solution 650 Mg PEG PRN Q6HRS PRN 08/24/18 Reported Levsin (Hyoscyamine Sulfate) 0.125 Mg Tablet 1 Tab SL Q4HRS PRN 08/24/18 Reported Vitamin C (Ascorbic Acid) 500 Mg Capsule 500 Mg PEG DAILY 08/24/18 Reported Acetaminophen 325 Mg/10.15 Ml Solution 650 Mg PO Q4HRS PRN 10/10/17 Reported Impression . 1. Acute hypoxic respiratory failure secondary to early sepsis. 2. Lower lobe pneumonia, worse on the left base than right. Likely gram- negative. Cannot exclude gram-positive. 3. 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 4. Mild acute kidney injury on admission, which is improving. 5. Increased procalcitonin level consistent with pneumonia. 6. Marked leukocytosis, resolved with antibiotics. Plan . 1. Continue antibiotics per Infectious Disease. 2. Continue oxygen to keep saturation 92 and above. 3. Enteral nutrition. 4. Bld cultures NGTD 5. Supportive care 6. HTN per PCP Discussed with RN. Severiano to D/C to SNF from pulmonary standpoint on SANGEETA Das MD Oct 05, 2019 12:41
--- NOTE | 2019-10-05 12:48 | NUR ---
SS following up with discharge planning. Discharge orders received for return to [facility], ; fax [phone]. SS phoned and faxed discharge orders to [facility]. Pt will discharge today and return to [facility] at 1345. [facility] to provide stretcher transport. Pt, pt's daughter, and pt's RN notified.
--- NOTE | 2019-10-05 13:52 | NUR ---
Discharge Note: LAURI COLBERT [address] Discharge instructions and discharge home medications reviewed with Barbie and a copy given. All questions have been answered and understanding verbalized. The following instructions and handouts were given to transportation services. Discontinued IV lines and nayak intact upon discharge. Patient discharged.
== END 2019-10-05 13:45 | DRG 871 ==
LOC: ER 18:15 → 2 SOUTH 20:12
PROVIDERS: ADMIT Family Medicine; ATTEND Family Medicine
DX: A41.9 Sepsis, unspecified organism (principal); E43 Unspecified severe protein-calorie malnutrition; J96.01 Acute respiratory failure with hypoxia; N17.0 Acute kidney failure with tubular necrosis; J15.6 Pneumonia due to other Gram-negative bacteria; J90 Pleural effusion, not elsewhere classified; J98.11 Atelectasis; K94.23 Gastrostomy malfunction; R47.01 Aphasia; Z68.1 Body mass index [BMI] 19.9 or less, adult; D64.9 Anemia, unspecified; F03.90 Unspecified dementia, unspecified severity, without behavioral disturbance, psychotic disturbance, mood disturbance, and anxiety; F41.9 Anxiety disorder, unspecified; I10 Essential (primary) hypertension; K44.9 Diaphragmatic hernia without obstruction or gangrene; K57.90 Diverticulosis of intestine, part unspecified, without perforation or abscess without bleeding; K76.0 Fatty (change of) liver, not elsewhere classified; L89.329 Pressure ulcer of left buttock, unspecified stage; R13.12 Dysphagia, oropharyngeal phase; Y95 Nosocomial condition; Z74.01 Bed confinement status; Z82.49 Family history of ischemic heart disease and other diseases of the circulatory system; Z86.73 Personal history of transient ischemic attack (TIA), and cerebral infarction without residual deficits; Z87.440 Personal history of urinary (tract) infections; Z90.49 Acquired absence of other specified parts of digestive tract; Z79.899 Other long term (current) drug therapy; Z87.01 Personal history of pneumonia (recurrent)
CPT/HCPCS: 36415; 36600; 51702; 71045; 74176; 80053; 80202; 81001; 82565; 82805; 83605; 83880; 84145; 85007; 85025; 87040; 87493; 87804; 93005; 94640; 94642; 94760; 96365; 96368; J0360; J1650; J2185; J2543; J3370; J7030; J7050; 99291-25; G0378